=== PATIENT | female | born 1965 | race African-American/Black ===

== ENCOUNTER 2022-08-27 07:48 | Outpatient (REF) | payer OTHER, SELFPAY ==
[2022-08-27 11:28] LABS: Estimated Average Glucose 212 mg/dL
[2022-08-27 12:07] LABS: Alanine Aminotransferase 12 U/L (0-31); Albumin Level 3.8 g/dL (3.5-5.0); Alkaline Phosphatase 84 U/L (39-117); Anion Gap 10 (12-20); Aspartate Amino Transferase 11 U/L (5-31); Bilirubin Total 0.5 mg/dL (0.0-1.0); Blood Urea Nitrogen 14 mg/dL (9-16); Calcium 8.8 mg/dL (8.4-10.2); Carbon Dioxide 29 mmol/L (22-29); Chloride 106 mmol/L (96-108); Cholesterol 87 mg/dL; Estimated Glomerular Filt Rate > 60; Glucose Fasting 270 mg/dL (60-99); HDL Cholesterol 38 mg/dL; LDL Cholesterol Calculated 44 mg/dl; Potassium 4.3 mmol/L (3.3-5.1); Sodium 141 mmol/L (135-145); Total Protein 6.6 g/dL (6.5-8.0); Triglycerides 29 mg/dL
[2022-08-27 12:12] LABS: TSH reflex Free T4 1.86 uIU/mL (0.32-4.0)
[2022-08-27 12:16] LABS: Creatinine Urine 76.52 mg/dL; Microalbum/Creatinine Ratio Ur 16.9 ug/mg cr
== END 2022-08-27 07:49 | disposition home or self-care (01) ==
LOC: HO.HMGCLDS 07:48
PROVIDERS: PCP Internal Medicine; Visit Provider Internal Medicine
DX: E11.9 Type 2 diabetes mellitus without complications (principal); I10 Essential (primary) hypertension
CPT/HCPCS: 36415; 80053; 80061; 82043; 83036; 84443

== ENCOUNTER 2022-10-19 09:11 | Outpatient (AMB) | payer OTHER, SELFPAY ==
[2022-10-19 09:22] VITALS: BP 122/78; PULSE 102; O2SAT 97; BMI 26.5
--- NOTE | 2022-10-19 09:22 | A.OFFPC_ITS ---
Vital Signs 10/19/22 09:22 Height 5 ft 5 in Weight 159 lb BMI 26.5 BP 122/78 Blood Pressure Location Rt brachial Position Sitting Pulse 102 H Pulse Source Pulse Oximeter Pulse Oximetry (%) 97 Oxygen Delivery Method Room Air Intake Visit Reasons: Annual PE Intake Note: Pt is here today for PE. Pt states that she would like to discuss sleeping medication Ropinirole . Allergies No Known Allergies Allergy (Verified 10/19/22 09:31) Medication List - Last Reconciled 10/19/22 by Susana Rodas MD amlodipine 10 mg PO DAILY atorvastatin 10 mg PO BEDTIME cholecalciferol (vitamin D3) 25 mcg PO DAILY hydrochlorothiazide 25 mg PO DAILY insulin aspart U-100 (Novolog FlexPen U-100 Insulin aspart) 6 units subcut TID insulin glargine (Lantus Solostar U-100 Insulin) 22 units subcut BEDTIME latanoprost 0.005% 1 drp ophthalmic (eye) DAILY lisinopril 10 mg PO DAILY lisinopril 40 mg PO DAILY metformin ER 1,500 mg PO DAILY multivit-iron sulf-folic acid 15 mg iron- 400 mcg (Tab-A-Sania Multivitamin w- iron) 0 tabs PO multivitamin 1 tab PO DAILY nicotine (polacrilex) mg PO timolol 0.5% 1 drp ophthalmic (eye) BID Tobacco use date assessed: 10/19/22 Dental Screening Dental Screen Date: 10/19/22 Did you have a dental visit in the last 12 months?: Yes Did you have a dental problem in the last 6 months where you did not have access to dental care?: No Was dental information given to patient?: Patient has dentist HPI Annual PE HPI Details Pt presents for PE. Pt f/u with Endo at [facility] q 3 months of insulin- dependent diabetes. Hypertension hyperlipidemia are controlled on current medications. Patient complains of chronic insomnia and grieving her son. Patient denies depression. She is looking for a counselor to restart therapy. PFSH Family History Mother Schizophrenia Mental health disorder Diabetes Hypertension Father No problems noted. Social History Household Members Other:: disable for lower back problems, lives alone, Housing: Apartment Patient Tobacco Use Status: Current everyday Tobacco user Tobacco use type: Cigarette Cigarettes Per Day: 10 e-Cigarette/Vaping Use: Never Used service: No Current occupational status: unemployed Cognitive needs: No Hearing needs: No Vision needs: Yes Questionnaire PHQ-9 Over the last 2 weeks, how often have you been bothered by any of the following problems? 1. Little interest or pleasure in doing things: not at all 2. Feeling down, depressed, or hopeless: not at all 3. Trouble falling or staying asleep, or sleeping too much: nearly every day 4. Feeling tired or having little energy: several days 5. Poor appetite or overeating: not at all 6. Feeling bad about yourself - or that you are a failure or have let yourself or your family down: not at all 7. Trouble concentrating on things, such as reading the newspaper or watching television: not at all 8. Moving or speaking so slowly that other people could have noticed. Or the opposite - being so fidgety or restless that you have been moving around a lot more than usual: not at all 9. Thoughts that you would be better off or of hurting yourself in some way: not at all Total score: 4 Depression Screening Interpretation: Negative Source: Developed by Drs. Elia Oconnor, Mariaa Siddiqui, Timo Haile and colleagues, with an educational trevor from [employer]. Thrive Questionnaire Date Thrive assessed: 10/19/22 I am a: Patient What is your living situation today?: I have a steady place to live Within the past 12 months, did the food you bought not last and you didn't have the money to get more?: Never true Within the past 12 months, did you worry whether your food would run out before you got money to buy more?: Never true Do you have trouble paying for medicines?: No Do you have trouble getting transportation to medical appointments?: No Do you have trouble paying your heating and electricity bill?: No Do you have trouble taking care of your child, family member or friend?: No Do you have trouble with day-to-day activities such as bathing, preparing meals, shopping, managing finances, etc.?: No Are you currently unemployed and looking for a job?: No Are you interested in more education?: No AUDIT C Alcohol Use Questionnaire (AUDIT-C) 1. How often do you have a drink containing alcohol?: Never 3. How often do you have six or more drinks on one occasion?: Never Total Score: 0 CONSTANCE-7 AMB Questionnaire CONSTANCE-7 Date CONSTANCE - 7 assessed: 10/19/22 Feeling nervous, anxious, or on edge: 0 = Not at all Not being able to stop or control worryin = Not at all Worrying too much about different things: 0 = Not at all Trouble relaxin = Not at all Being so restless that it is hard to sit still: 0 = Not at all Becoming easily annoyed or irritable: 0 = Not at all Feeling afraid as if something awful might happen: 0 = Not at all Total CONSTANCE-7 score (0-4 normal; 5-9 mild; 10-14 moderate; 15-21 severe): 0 Source: Developed by Drs. Elia Oconnor, Mariaa Siddiqui, Timo Haile and colleagues, with an educational trevor from [employer]. Review of Systems Const All systems reviewed & are unremarkable except as noted in HPI and below Reports no additional complaints Eyes Reports no additional complaints ENT Reports no additional complaints Card Reports no additional complaints Resp Reports no additional complaints GI Reports no additional complaints Reports no additional complaints Physical exam (Primary Care) Vital Signs: Last Vital Signs Pulse 102 H 10/19/22 09:22 BP 122/78 10/19/22 09:22 Pulse Ox 97 10/19/22 09:22 Oxygen Delivery Method Room Air 10/19/22 09:22 BMI result Body Mass Index 26.5 Tobacco/Smoking Status: Tobacco use Status Tobacco use date assessed 10/19/22 10/19/22 09:34 Patient Tobacco Use Status Current everyday Tobacco 10/19/22 09:34 Tobacco use type Cigarette 10/19/22 09:34 e-Cigarette/Vaping Use Never Used 10/19/22 09:34 PHQ-9: PHQ-9 Score PHQ-9: Total score 4 10/19/22 09:34 Depression Screening Interpretation: Negative Thrive Assessment: Date of Thrive Assessment Date Thrive assessed 10/19/22 10/19/22 09:34 Const General: no acute distress HENMT Head: Yes normal to inspection Ears: hearing grossly normal bilaterally General nose exam: Normal external nose present Face and sinus: Yes normal facial exam Mouth: Normal oral and palatal mucosa present Throat: Yes posterior oropharynx normal Eyes General: appearance normal, both eyes and all related structures Neck Neck: Yes no lymphadenopathy and Yes supple Resp Effort & Inspection: normal respiratory effort Auscultation: clear to auscultation bilaterally Cardio Rhythm: regular rhythm Heart sounds: S1 normal heart sound present and S2 normal heart sound present GI Inspection: Yes normal to inspection Palpation (GI): Soft to palpation Percussion: Yes normal to percussion Auscultation: normal bowel sounds Assessment and Plan Assessment & Plan (1) Hx of screening mammography: Comment: 2022 Code(s): Z92.89 - Personal history of other medical treatment (2) Hx of colonoscopy: Comment: 2018 Code(s): Z98.890 - Other specified postprocedural states (3) DM type 2 (diabetes mellitus, type 2): Comment: f/u Endo [facility] Code(s): E11.9 - Type 2 diabetes mellitus without complications Plan: Follow-up with an [facility] Endocrinology every 3 months (4) Annual physical exam: Code(s): Z00.00 - Encounter for general adult medical examination without abnormal findings Plan: Well-balanced and regular physical activity discussed with the patient (5) Insomnia: Code(s): G47.00 - Insomnia, unspecified Plan: Sleep hygiene discussed with the patient. She was advised to schedule appointment with a counselor. Hydroxyzine 10 mg for 7 days is prescribed. patient was advised against taking sleeping aids chronically to prevent dependence and tolerance Orders: Referrals [facility] Referral Z00.00 - Encounter for general adult medical examination without abnormal findings Medications: New hydroxyzine HCl 10 mg PO BEDTIME 7 tabs 0RF Coding Level of Care Code Est Pt Prev Care 40-64y([address]063) Diagnoses Hx of screening mammography Z92.89 Hx of colonoscopy Z98.890 DM type 2 (diabetes mellitus, type 2) E11.9 Annual physical exam Z00.00 Insomnia G47.00
== END 2022-10-19 10:53 | disposition home or self-care (01) ==
PROVIDERS: PCP Internal Medicine; Visit Provider Internal Medicine
DX: Z92.89 Personal history of other medical treatment (principal); Z98.890 Other specified postprocedural states; E11.9 Type 2 diabetes mellitus without complications; Z00.00 Encounter for general adult medical examination without abnormal findings; G47.00 Insomnia, unspecified
CPT/HCPCS: 99396

== ENCOUNTER 2023-01-25 11:00 | Outpatient (AMB) | payer OTHER, SELFPAY ==
--- OUTSIDE RECORDS SUMMARY | 2023-01-25 11:01 | XMS_ITS | Continuity of Care Document ---
Author Name Unknown Organization [facility] Address [address] [place] [address]- Care Team Providers Care Pen Maker Name Role Phone Sreekanth WOODY, Jeanine Rivas Primary Care Physician [phone] Encounter [facility] Date(s): 07/04/21 - 08/03/[address] [address]- Allergies, Adverse Reactions, Alerts Substance Reaction Severity Status insulin lispro patient reports she is allergic to insulin lispro (humalog) and can only take insulin aspart (novolog) A ctive Immunizations Given and Recorded Vaccine Date Status Refusal Reason influenza virus vaccine, inactivated 03/08/21 Give n influenza virus vaccine, inactivated 12/03/18 Alex rded influenza virus vaccine, inactivated 02/22/16 Give n influenza virus vaccine, inactivated 01/19/15 Give n influenza virus vaccine, inactivated 02/01/14 Give n influenza virus vaccine, inactivated 1 01/16/11 Gi paul SARS-CoV-2 (COVID-19) mRNA BNT-162b2 vac 03/08/21 Given SARS-CoV-2 (COVID-19) mRNA BNT-162b2 vac 05/03/20 Recorded tetanus/diphtheria/pertussis, acel(Tdap) 12/03/18 Recorded Pneumovax 23 (oldterm) 02/01/14 Given influ virus vac, H1N1, inactive(oldterm) 2 07/20/09 Given Tet/Diphth/Acel, Pertussis (oldterm) 3 09/13/08 Gi paul Influenza Vaccine (oldterm) 03/11/03 Given Influenza Vaccine (oldterm) 07/06/00 Given Influenza Vaccine (oldterm) 04/01/00 Given Pneumococcal Poly (PPV23) (oldterm) 03/11/03 Given tetanus-diphtheria toxoids (Td) 04/20/98 Given 1Admin Note: vis given 10/17/10 2Admin Note: VIS GIVEN [id number] 3Admin Note: VIS GIVEN Medications Alcohol Pads See Instructions, # 100 each, Refills 11, Tot. Refills 11, Maintenance, E11.9use to wipe finger forchecking blood sugar, 08/18/20 12:59:00 EDT, Compound, 165.1, cm, 08/02/20 9:45:00 EDT, Height, 78.6, kg, 06/15/20 10:01:00 EDT, Dry Weight Start Date: 08/18/20 Status: Ordered amLODIPine 10 mg oral tablet 10 mg, 1, tablet, By Mouth, Daily, for blood pressure duplicate from 07/08/21, # 90 tablet, Refills 3, Tot. Refills 3, Maintenance, 08/02/21 9:37:00 EDT, Route to Pharmacy Electronically, [facility], 165.1, cm, 06/21/21 11:05:00 EDT, H... Start Date: 08/02/21 Status: Ordered atorvastatin 10 mg oral tablet 1 tablet = 10 mg, By Mouth, Daily, duplicate from 07/08/21, # 90 tablet, 3 Refills, Maintenance, 08/02/21 9:39:00 EDT, [facility], Partial fill upon patient request if the prescriptionis for a schedule II opioid drug., 165.1, cm, 06/21... Start Date: 08/02/21 Status: Ordered cholecalciferol 1000 intl units oral tablet 1 tablet = 1,000 International_Units, By Mouth, Daily, vitamin D take with food, # 90 tablet, 1 Refills, Maintenance, 03/01/20 12:52:00 EST, Tablet, [id number], 165, cm, 02/13/20 11:43:00 EST, Height, 75.3, kg, 02/08/20 14:42:00 EST,... Start Date: 03/01/20 Stop Date: 03/31/20 Status: Ordered Freestyle Lite Lancets See Instructions, # 150 each, Refills 11, Tot. Refills 11, Maintenance, Use to monitor blood glucose levels 4x per day. E11.9, 08/02/21 9:39:00 EDT, duplicate from 07/11/21, Supply, 165.1, cm, 06/21/21 11:05:00 EDT, Height, 78.6, kg, 06/15/20 10:01:00... Start Date: 08/02/21 Status: Ordered Freestyle Lite Monitor See Instructions, # 1 each, Maintenance, E11.9 IDDM check 3x/day, 02/14/21 9:01:00 EST, Compound, 165.1, cm, 01/24/21 13:37:00 EDT, Height, 78.6, kg, 06/15/20 10:01:00 EDT, Dry Weight Start Date: 02/14/21 Status: Ordered Freestyle Lite Test Strips See Instructions, # 150 each, Refills 11, Tot. Refills 11, Maintenance, Use to monitor blood glucose levels 4x per day. E11.9, 08/02/21 9:40:00 EDT, duplicate from 07/11/21, Supply, 165.1, cm, 06/21/21 11:05:00 EDT, Height, 78.6, kg, 06/15/20 10:01:00... Start Date: 08/02/21 Status: Ordered hydrochlorothiazide 25 mg oral tablet 25 mg, 1, tablet, By Mouth, Daily, for blood pressure duplicate from 07/08/21, # 90 tablet, Refills 3, Tot. Refills 3, Maintenance, 08/02/21 9:40:00 EDT, Route to Pharmacy Electronically, [facility], 165.1, cm, 06/21/21 11:05:00 EDT, H... Start Date: 08/02/21 Status: Ordered Insulin Syringe, BD Ultra-Fine 0.5 cc 30 G x 12.7 mm (1/2in) See Instructions, # 50 each, Refills 11, Tot. Refills 11, Maintenance, E11.9 use for lantus qhs (this is pt's PREFERRED SIZE of needle), 04/24/17 20:27:07, Compound Start Date: 04/24/17 Status: Ordered Lantus Solostar Pen 100 units/mL subcutaneous solution = 22 units, Subcutaneous Injection, Daily at bedtime, # 15 mL, 11 Refills, Maintenance, 08/02/21 21:27:00 EDT, [facility]., 165.1, cm, 06/21/21 11:05:00 EDT, Height, 78.6, kg, 06/15/2109:01:00 EDT, Dry Weight Start Date: 08/02/21 Stop Date: 07/28/22 Status: Ordered latanoprost 0.005% ophthalmic solution 1 drops, Eyes, Both, Daily at bedtime, for 30 days, please obtain further refills from your framing specialist, # 2.5 mL, 1 Refills, Physician Stop 10/02/21 9:03:00 EDT, 08/03/21 9:03:00 EDT, [facility], 1 drops Eyes, Both Daily at bedtime... Start Date: 08/03/21 Stop Date: 10/02/21 Status: Ordered lisinopril 40 mg oral tablet 1 tablet = 40 mg, By Mouth, Daily, for blood pressure, # 90 tablet, 3 Refills, Maintenance, 07/08/21 10:26:00 EDT, [facility]/pharmacy #[id number], 165.1, cm, 06/21/21 11:05:00 EDT, Height, 78.6, kg, 06/15/20 10:01:00 EDT, Dry Weight Start Date: 07/08/21 Status: Ordered metFORMIN 750 mg oral tablet, extended release 2 tablet, By Mouth, Daily, duplicate from 07/08/21, # 180 tablet, 3 Refills, Maintenance, 08/02/21 9:42:00 EDT, [facility]., 165.1, cm, 06/21/21 11:05:00 EDT, Height, 78.6, kg, 06/15/2109:01:00 EDT, Dry Weight Start Date: 08/02/21 Status: Ordered NovoLOG FlexPen 100 units/mL subcutaneous solution See Instructions, Subcutaneous Injection, Use as directed for Diabetes mellitus type 2, per slidingscale. (Max Dose = 50 units/day), # 30 mL, 11 Refills, Maintenance, 08/02/21 21:26:00 EDT, [facility], 165.1, cm, 06/21/21 11:05:00 EDT... Start Date: 08/02/21 Stop Date: 07/28/22 Status: Ordered Pen [place], 31 G x 8 mm BD Ultra Fine III See Instructions, # 200 each, Refills 11, Tot. Refills 11, Maintenance, use up to 4 times daily as directed for Type 2 Diabetes Mellitus. E11.9, 08/18/20 17:03:00 EDT, Supply, 165.1, cm, 08/02/20 9:45:00 EDT, Height, 78.6, kg, 06/15/20 10:01:00 EDT, D... Start Date: 08/18/20 Stop Date: 08/13/21 Status: Ordered Catavolt COVID-19 Vaccine 30 mcg/0.3 mL preservative-free intramuscular suspension 0.3 mL = 30 mcg, Intramuscular, Once, # 0.3 mL, 0 Refills, Soft Stop, 12/19/20 12:35:00 EDT, Suspension, Partial fill upon patient request if the prescription is for a schedule II opioid drug. Start Date: 12/19/20 Status: Ordered Rollator Rollator, See Instructions, # 1 each, Refills 0, Tot. Refills 0, Maintenance, ICD 10: M54.5, 05/29/21 9:22:00 EST, Supply Start Date: 05/29/21 Status: Ordered Timolol Maleate (Eqv-Timoptic) 0.5% ophthalmic solution 1 drops, Eyes, Both, 2 times a day, please get further refills from your framing specialist duplicate from 07/08/21, # 2.5 mL, 1 Refills, Maintenance, 08/02/21 9:42:00 EDT, [facility] upon patient request if t... Start Date: 08/02/21 Status: Ordered Tylenol 8 HR Arthritis Pain 650 mg oral tablet, extended release 2 tablet = 1,300 mg, By Mouth, Every 8 hours, PRN Pain , Mild, # 100 tablet, 0 Refills, Maintenance, 12/05/20 14:59:00 EDT, ER Tablet, [facility]/pharmacy #[id number], Partial fill upon patient request if the prescription is for a schedule II opioid drug., 165.1,... Start Date: 12/05/20 Status: Ordered VITAMIN D3 1,000 UNIT SOFTGEL VITAMIN D3 1,000 UNIT SOFTGEL, 1, capsule, By Mouth, Daily, # 30 capsule, 7 Refills, TAKE WITH FOOD, 165.1, cm, 12/19/20 12:24:00 EDT, Height, 78.6, kg, 06/15/20 10:01:00 EDT, Dry Weight Start Date: 12/28/20 Status: Ordered Problem List Condition Effective Dates Status Health Status Inform ant Possible exposure to STD(Confirmed) Active Background diabetic retinopathy(Confirmed) 1 12/14/02 Active Chronic low back pain(Confirmed) Active Depression(Confirmed) Active Diabetes mellitus type 2(Confirmed) Active Glaucoma(Confirmed) Active Abdominal hernia without obs truction and without gangrene(Confirmed) Active Hernia of abdominal wall(Confirmed) Active History of syphilis; [place] [facility] confirms bicillin x 3 01/2014(Confirmed) Active Hypertension(Confirmed) Active Onychomycosis(Confirmed) Active Overweight(Confirmed) Active Health care maintenance(Confirmed) Active Physical exam(Confirmed) Active Current smoker(Confirmed) Active 1was seen by Dr. Devon Mccormack at [facility] Social History Social History Type Response Smoking Status 10 or more cigarette s (1/2 pack or more)/day in last 30 days entered on: 01/26/20 Sex
--- OUTSIDE RECORDS SUMMARY | 2023-01-25 11:01 | XMS_ITS | Continuity of Care Document ---
Author Name Unknown Organization [facility] Address [address] [place] [address]- Care Team Providers Care Corrosion Control Engineer Name Role Phone Nerissa Bonner MD Primary Care Physician Encounter [facility] [place] Date(s): 10/28/19 - 11/04/19 [facility] [address] [place] [address]- [facility] Encounter Diagnosis Physical exam(Discharge Diagnosis) - 10/28/19 Hypertension(Discharge Diagnosis) - 10/28/19 History of UTI(Discharge Diagnosis) - 10/28/19 Attending Physician: Nerissa Bonner MD Allergies, Adverse Reactions, Alerts Substance Reaction Severity Status NKA Active Immunizations Given and Recorded Vaccine Date Status Refusal Reason influenza virus vaccine, inactivated 02/22/16 Give n influenza virus vaccine, inactivated 01/19/15 Give n influenza virus vaccine, inactivated 02/01/14 Give n influenza virus vaccine, inactivated 1 01/16/11 Gi paul Pneumovax 23 (oldterm) 02/01/14 Given influ virus vac, H1N1, inactive(oldterm) 2 07/20/09 Given Tet/Diphth/Acel, Pertussis (oldterm) 3 09/13/08 Gi paul Influenza Vaccine (oldterm) 03/11/03 Given Influenza Vaccine (oldterm) 07/06/00 Given Influenza Vaccine (oldterm) 04/01/00 Given Pneumococcal Poly (PPV23) (oldterm) 03/11/03 Given tetanus-diphtheria toxoids (Td) 04/20/98 Given 1Admin Note: vis given 10/17/10 2Admin Note: VIS GIVEN [id number] 3Admin Note: VIS GIVEN Medications Alcohol Pads See Instructions, # 100 each, Refills 11, Tot. Refills 11, Maintenance, E11.9, 07/10/17 13:55:10 EDT, Compound Start Date: 07/10/17 Status: Ordered amLODIPine 10 mg oral tablet 10 mg, 1, tablet, By Mouth, Daily, for blood pressure, # 90 tablet, Refills 3, Tot. Refills 3, Maintenance, 07/29/19 12:59:00 EDT, Route to Pharmacy Electronically, [facility] #[id number], 165, cm, 07/29/19 12:25:00 EDT, Height, 72.7, kg, 03/30/19... Start Date: 07/29/19 Status: Ordered atorvastatin 20 mg oral tablet 1 tablet = 20 mg, By Mouth, Daily, # 90 tablet, 3 Refills, Maintenance, 07/29/19 12:59:00 EDT, Tablet, [id number], 165, cm, 07/29/19 12:25:00 EDT, Height, 72.7, kg, 03/30/19 16:51:00 EST, Dry Weight Start Date: 07/29/19 Status: Ordered cholecalciferol 1000 intl units oral tablet 1 tablet = 1,000 International_Units, By Mouth, Daily, vitamin D take with food, # 30 tablet, 1 Refills, Maintenance, 05/09/18 11:41:23 EST, Tablet Start Date: 05/09/18 Stop Date: 07/08/18 Status: Ordered Freestyle Lite Monitor See Instructions, # 1 each, Maintenance, E11.9 IDDM check 3x/day, 04/11/16 13:42:39, Compound Start Date: 04/11/16 Status: Ordered glucose 4 gm oral tablet, chewable 4 tablet = 16 Gm, Chew, Once, PRN for low blood sugar, may repeat in 15 to 20 minutes if blood sugar still < 60 mg/dL, # 50 tablet, 5 Refills, Soft Stop, 04/27/15 12:47:29, Chew Tablet, 4 tablet Chew Once,PRN:for low blood sugar,Instr:may repeat in 15... Start Date: 04/27/15 Status: Ordered hydrochlorothiazide 25 mg oral tablet 25 mg, 1, tablet, By Mouth, Daily, for blood pressure, # 90 tablet, Refills 3, Tot. Refills 3, Maintenance, 07/29/19 13:00:00 EDT, Route to Pharmacy Electronically, [facility][id number], 165, cm, 07/29/19 12:25:00 EDT, Height, 72.7, kg, 03/30/19... Start Date: 07/29/19 Status: Ordered Insulin Syringe, BD Ultra-Fine 0.5 cc 30 G x 12.7 mm (1/2in) See Instructions, # 50 each, Refills 11, Tot. Refills 11, Maintenance, E11.9 use for lantus qhs (this is pt's PREFERRED SIZE of needle), 04/24/17 20:27:07, Compound Start Date: 04/24/17 Status: Ordered Lantus 100 u/ml subcutaneous solution = 12 units, Subcutaneous Injection, Daily, pls ask pt to call our health center to reestablish careif she is staying locally, # 10 mL, 1 Refills, Maintenance, 07/14/18 15:07:23 EDT, Solution Start Date: 07/14/18 Stop Date: 09/12/18 Status: Ordered Lantus Solostar Pen 100 units/mL subcutaneous solution = 18 units, Subcutaneous Injection, Daily at bedtime, # 3 each, 3 Refills, Maintenance, 07/29/19 13:05:00 EDT, Solution, [id number], 165, cm, 07/29/19 12:25:00 EDT, Height, 72.7, kg, 03/30/19 16:51:00 EST, Dry Weight Start Date: 07/29/19 Stop Date: 11/26/19 Status: Ordered latanoprost 0.005% ophthalmic solution 1 drops, Eyes, Both, Daily at bedtime, dr miguel Start Date: 04/11/16 Status: Ordered lisinopril 40 mg oral tablet 1 tablet = 40 mg, By Mouth, Daily, for blood pressure, # 90 tablet, 3 Refills, Maintenance, 07/29/19 13:01:00 EDT, [facility] #[id number], 165, cm, 07/29/19 12:25:00 EDT, Height, 72.7, kg, 03/30/19 16:51:00 EST, Dry Weight Start Date: 07/29/19 Status: Ordered metFORMIN 750 mg oral tablet, extended release 2 tablet = 1,500 mg, By Mouth, Daily, pls ask pt to call our health center to reestablish care if she is staying locally, # 180 tablet, 3 Refills, Maintenance, 07/29/19 13:01:00 EDT, ER Tablet, [id number], 165, cm, 07/29/19 12:25:00 ED... Start Date: 07/29/19 Status: Ordered NovoLOG FlexPen 100 units/mL subcutaneous solution See Instructions, Subcutaneous Injection, Use as directed for Diabetes mellitus type 2. (Max Dose =50 units/day), # 30 mL, 5 Refills, Maintenance, 08/04/19 17:01:00 EDT, [facility] #[id number], 165, cm, 07/29/19 12:25:00 EDT, Height, 72.7, kg, 01... Start Date: 08/04/19 Stop Date: 01/31/20 Status: Ordered Pen [place], 31 G x 8 mm BD Ultra Fine III See Instructions, # 200 each, Refills 11, Tot. Refills 11, Maintenance, use up to 4 times daily as directed for Type 2 Diabetes Mellitus, 08/04/19 17:02:00 EDT, Supply, 165, cm, 07/29/19 12:25:00 EDT, Height, 72.7, kg, 03/30/19 16:51:00 EST, Dry Weight Start Date: 08/04/19 Stop Date: 07/29/20 Status: Ordered Problem List Condition Effective Dates Status Health Status Inform ant Background diabetic retinopathy(Confirmed) 1 12/14/02 Active Depression(Confirmed) Active Diabetes mellitus type 2(Confirmed) Active Glaucoma(Confirmed) Active Hernia of abdominal wall(Confirmed) Active History of syphilis; NELIDA DP confirms bicillin x 3 01/2014(Confirmed) Active Hypertension(Confirmed) Active Health care maintenance(Confirmed) Active Physical exam(Confirmed) Active 1was seen by Dr. Devon Mccormack at [facility] Diagnosis Diagnosis Type Effective Dates Health Status Clinical Service Informant Physical exam Discharge Diagnosis 10/28/19 Hypertension Discharge Diagnosis 10/28/19 History of UTI 1 Discharge Diagnosis 10/28/19 03:01 pm - Nerissa Bonner MD in mid-September at [facility] ED Vital Signs Most recent to oldest [Reference Range]: 1 Height 165 cm (10/28/19 2:10 PM) Weight 74.0 kg (10/28/19 2:10 PM) Oxygen Saturation [94-100 %] 100 % (10/28/19 2:10 PM) Pulse Rate [55-90 bpm] 92 bpm *H* (10/28/19 2:10 PM) Body Mass Index [18.5-24.99] 27.18 *H* (10/28/19 2:10 PM) Blood Pressure [90-138/55-84 mm Hg] 150/ 94mm Hg *H* (10/28/19 2:10 PM) Blood pressure sites Arm, left (10/28/19 2:10 PM) Weight Obtained Via Standing scale (10/28/19 2:10 PM) Social History Social History Type Response Tobacco Use: 4 or less cigar ettes(less than 1/4 pack)/day in last 30 days. Sex
--- OUTSIDE RECORDS SUMMARY | 2023-01-25 11:01 | XMS_ITS | Continuity of Care Document ---
Author Name Unknown Organization [facility] Address [address] [place] [id number]- Care Team Providers Care Blintze Roller Name Role Phone Belle Dos Santos NP Primary Care Physician Encounter [facility] [place] Date(s): 06/06/20 - 07/06/20 [facility] [address] [place] [id number]- Attending Physician: Dayanara Lowery Admitting Physician: Dayanara Lowery Referring Physician: AdmtrDayanara Allergies, Adverse Reactions, Alerts Substance Reaction Severity Status NKA Active Immunizations Given and Recorded Vaccine Date Status Refusal Reason influenza virus vaccine, inactivated 02/22/16 Give n influenza virus vaccine, inactivated 01/19/15 Give n influenza virus vaccine, inactivated 02/01/14 Give n influenza virus vaccine, inactivated 1 01/16/11 Gi palu Pneumovax 23 (oldterm) 02/01/14 Given influ virus vac, H1N1, inactive(oldterm) 2 07/20/09 Given Tet/Diphth/Acel, Pertussis (oldterm) 3 09/13/08 Gi paul Influenza Vaccine (oldterm) 03/11/03 Given Influenza Vaccine (oldterm) 07/06/00 Given Influenza Vaccine (oldterm) 04/01/00 Given Pneumococcal Poly (PPV23) (oldterm) 03/11/03 Given tetanus-diphtheria toxoids (Td) 04/20/98 Given 1Admin Note: vis given 10/17/10 2Admin Note: VIS GIVEN [id number] 3Admin Note: VIS GIVEN Medications Alcohol Pads See Instructions, # 100 each, Refills 11, Tot. Refills 11, Maintenance, E11.9use to wipe finger forchecking blood sugar, 12/16/19 13:53:00 EDT, Compound, 165, cm, 12/16/19 13:31:00 EDT, Height, 75, kg, 09/19/19 10:48:00 EDT, Dry Weight Start Date: 12/16/19 Status: Ordered cholecalciferol 1000 intl units oral tablet 1 tablet = 1,000 International_Units, By Mouth, Daily, vitamin D take with food, # 90 tablet, 1 Refills, Maintenance, 03/01/20 12:52:00 EST, Tablet, [facility] #[id number], 165, cm, 02/13/20 11:43:00 EST, Height, 75.3, kg, 02/08/20 14:42:00 EST,... Start Date: 03/01/20 Stop Date: 03/31/20 Status: Ordered Freestyle Lancets See Instructions, # 150 each, Refills 6, Tot. Refills 6, Maintenance, use to check blood sugar 4 times per day, 12/16/19 13:52:00 EDT, Compound, 165, cm, 12/16/19 13:31:00 EDT, Height, 75, kg, 09/19/19 10:48:00 EDT, Dry Weight Start Date: 12/16/19 Status: Ordered Freestyle Lite Monitor See Instructions, # 1 each, Maintenance, E11.9 IDDM check 3x/day, 04/11/16 13:42:39, Compound Start Date: 04/11/16 Status: Ordered Freestyle Lite Test Strips See Instructions, # 150 each, Refills 11, Tot. Refills 11, Maintenance, Use to monitor blood glucose levels 4x per day. E11.9, 01/20/20 16:07:00 EDT, Supply, 165, cm, 01/04/20 14:42:00 EDT, Height, 73.5, kg, 01/04/20 14:42:00 EDT, Dry Weight Start Date: 01/20/20 Status: Ordered Insulin Syringe, BD Ultra-Fine 0.5 cc 30 G x 12.7 mm (1/2in) See Instructions, # 50 each, Refills 11, Tot. Refills 11, Maintenance, E11.9 use for lantus qhs (this is pt's PREFERRED SIZE of needle), 04/24/17 20:27:07, Compound Start Date: 04/24/17 Status: Ordered Lantus Solostar Pen 100 units/mL subcutaneous solution = 22 units, Subcutaneous Injection, Daily at bedtime, Dosage increased on 02/08/2020, # 3 each, 3 Refills, Maintenance, 03/01/20 16:23:00 EST, Solution, [id number], 165, cm, 02/13/20 11:43:00 EST, Height, 75.3, kg, 02/08/20 14:42:00 ES... Start Date: 03/01/20 Stop Date: 06/29/20 Status: Ordered latanoprost 0.005% ophthalmic solution 1 drops, Eyes, Both, Daily at bedtime, dr miguel Start Date: 04/11/16 Status: Ordered metFORMIN 750 mg oral tablet, extended release 2 tablet = 1,500 mg, By Mouth, Daily, pls ask pt to call our health center to reestablish care if she is staying locally, # 180 tablet, 3 Refills, Maintenance, 07/29/19 13:01:00 EDT, ER Tablet, [facility][id number], 165, cm, 07/29/19 12:25:00 ED... Start Date: 07/29/19 Status: Ordered NovoLOG FlexPen 100 units/mL subcutaneous solution See Instructions, Subcutaneous Injection, Use as directed for Diabetes mellitus type 2. (Max Dose =50 units/day), # 30 mL, 5 Refills, Maintenance, 08/04/19 17:01:00 EDT, [id number], 165, cm, 07/29/19 12:25:00 EDT, Height, 72.7, kg, 01... Start Date: 08/04/19 Stop Date: 01/31/20 Status: Ordered NovoLog Inj See Instructions, Subcutaneous Infusion 3 times a day before meals, 0 Refills, Maintenance, 05/13/20 17:22:00 EST, Partial fill upon patient request if the prescription is for a schedule II opioid drug. Start Date: 05/13/20 Status: Ordered Pen [place], 31 G x 8 mm BD Ultra Fine III See Instructions, # 200 each, Refills 11, Tot. Refills 11, Maintenance, use up to 4 times daily as directed for Type 2 Diabetes Mellitus, 12/16/19 13:54:00 EDT, Supply, 165, cm, 12/16/19 13:31:00 EDT, Height, 75, kg, 09/19/19 10:48:00 EDT, Dry Weight Start Date: 12/16/19 Stop Date: 12/10/20 Status: Ordered Problem List Condition Effective Dates Status Health Status Inform ant Background diabetic retinopathy(Confirmed) 1 12/14/02 Active Depression(Confirmed) Active Diabetes mellitus type 2(Confirmed) Active Glaucoma(Confirmed) Active Abdominal hernia without obs truction and without gangrene(Confirmed) Active Hernia of abdominal wall(Confirmed) Active History of syphilis; [place] DP confirms bicillin x 3 01/2014(Confirmed) Active Hypertension(Confirmed) Active Onychomycosis(Confirmed) Active Overweight(Confirmed) Active Health care maintenance(Confirmed) Active Physical exam(Confirmed) Active Current smoker(Confirmed) Active 1was seen by Dr. Devon Mccormack at [facility] Social History Social History Type Response Smoking Status 10 or more cigarette s (1/2 pack or more)/day in last 30 days entered on: 01/26/20 Sex
--- OUTSIDE RECORDS SUMMARY | 2023-01-25 11:02 | XMS_ITS | Continuity of Care Document ---
Author Name Unknown Organization [facility] Address [address] [place] [address]- Care Team Providers Care Furniture Detailer Name Role Phone Sreekanth WOODY, Jeanine Rivas Primary Care Physician Encounter [facility] Date(s): 05/17/21 - 06/16/[address] [address]- Allergies, Adverse Reactions, Alerts No Known Allergies Immunizations Given and Recorded Vaccine Date Status [...] vis given 10/17/10 2Admin Note: VIS GIVEN [id number] 3Admin Note: VIS GIVEN Medications Alcohol Pads See Instructions, # 100 each, Refills 11, Tot. Refills 11, Maintenance, E11.9use to wipe finger forchecking blood sugar, 08/18/20 12:59:00 EDT, Compound, 165.1, cm, 08/02/20 9:45:00 EDT, Height, 78.6, kg, 06/15/20 10:01:00 EDT, Dry Weight Start Date: 08/18/20 Status: Ordered atorvastatin 10 mg oral tablet 1 tablet = 10 mg, By Mouth, Daily, # 30 tablet, 6 Refills, Maintenance, 12/07/20 13:42:00 EDT, [facility]/pharmacy #[id number], Partial fill upon patient request if the prescription is for a schedule II opioid drug., 165.1, cm, 12/05/20 13:59:00 EDT, Height, 78.6,... Start Date: 12/07/20 Status: Ordered cholecalciferol 1000 intl units oral tablet 1 tablet = 1,000 International_Units, By Mouth, Daily, vitamin D take with food, # 90 tablet, 1 Refills, Maintenance, 03/01/20 12:52:00 EST, Tablet, [id number], 165, cm, 02/13/20 11:43:00 EST, Height, 75.3, kg, 02/08/20 14:42:00 EST,... Start Date: 03/01/20 Stop Date: 03/31/20 Status: Ordered duloxetine 30 mg oral enteric coated capsule 1 capsule, By Mouth, Daily, DO NOT CRUSH OR CHEW. *., # 30 capsule, 8 Refills, [id number], 165.1, cm, 12/19/20 12:24:00 EDT, Height, 78.6, kg, 06/15/20 10:01:00 EDT, Dry Weight Start Date: 01/18/21 Status: Ordered Freestyle Lancets See Instructions, # [...] Strips See Instructions, # 150 each, Refills 5, Tot. Refills 5, Maintenance, Use to monitor blood glucose levels 4x per day. E11.9, 01/30/21 7:44:00 EST, Supply, 165.1, cm, 01/24/21 13:37:00 EDT, Height, 78.6, kg, 06/15/20 10:01:00 EDT, Dry Weight Start Date: 01/30/21 Status: Ordered Insulin Syringe, BD Ultra-Fine 0.5 cc 30 G x 12.7 mm (1/2in) See Instructions, # 50 each, Refills 11, Tot. Refills 11, Maintenance, E11.9 use for lantus qhs (this is pt's PREFERRED SIZE of needle), 04/24/17 20:27:07, Compound Start Date: 04/24/17 Status: Ordered latanoprost 0.005% ophthalmic solution 1 drops, Eyes, Both, Daily at bedtime, dr migeul Start Date: 04/11/16 Status: Ordered latanoprost 0.005% ophthalmic solution 0 Refills, Maintenance, 02/24/21 10:06:00 EST, Partial fill upon patient request if the prescription is for a schedule II opioid drug. Start Date: 02/24/21 Status: Ordered metFORMIN 750 mg oral tablet, extended release 2 tablet, By Mouth, Daily, # 180 tablet, 1 Refills, Maintenance, 01/15/21 21:42:00 EDT, [facility]/pharmacy #[id number], 165.1, cm, 12/19/20 12:24:00 EDT, Height, 78.6, kg, 06/15/20 10:01:00 EDT, Dry Weight Start Date: 01/15/21 Status: Ordered NovoLOG FlexPen 100 units/mL subcutaneous solution See Instructions, Subcutaneous Injection, Use as directed for Diabetes mellitus type 2. (Max Dose =50 units/day), # 30 mL, 4 Refills, Maintenance, 11/14/20 15:34:00 EDT, [facility] #[id number], 165.1, cm, 08/02/20 9:45:00 EDT, Height, 78.6, kg, 06/15/20... Start Date: 11/14/20 Stop Date: 04/13/21 Status: Ordered Pen [place], 31 G x 8 mm BD Ultra Fine III See Instructions, # 200 each, Refills 11, Tot. Refills 11, Maintenance, use up to 4 times daily as directed for Type 2 Diabetes Mellitus. E11.9, 08/18/20 17:03:00 EDT, Supply, 165.1, cm, 08/02/20 9:45:00 EDT, Height, 78.6, kg, 06/15/20 10:01:00 EDT, D... Start Date: 08/18/20 Stop Date: 08/13/21 Status: Ordered [employer] COVID-19 Vaccine 30 mcg/0.3 mL preservative-free intramuscular [...] drops, Eyes, Both, 2 times a day, # 2.5 mL, 11 Refills, Maintenance, 03/27/21 12:17:00 EST, OphthSolution, [facility]/pharmacy #[id number], Partial fill upon patient request if the prescription is for a schedule II opioid drug., 1 drops Eyes, Both 2 times a day... Start Date: 03/27/21 Status: Ordered Tylenol 8 HR Arthritis Pain 650 mg oral tablet, extended release 2 tablet = 1,300 mg, By Mouth, Every 8 hours, PRN Pain , Mild, # 100 tablet, 0 Refills, Maintenance, 12/05/20 14:59:00 EDT, ER Tablet, [facility]/pharmacy #[id number], Partial fill upon patient request if the [...] 1was seen by Dr. Devon Mccormack at [facility] Social History Social History Type Response Smoking Status 10 or more cigarette s (1/2 pack or more)/day in last 30 days entered on: 01/26/20 Sex
--- OUTSIDE RECORDS SUMMARY | 2023-01-25 11:02 | XMS_ITS | Continuity of Care Document ---
Author Name Unknown Organization [facility] Address [address] [place] [address]- Care Team Providers Care Banana Loader Name Role Phone Ha WOODY, Nerissa Wright Primary Care Physician Encounter [facility] [place] Date(s): 08/28/19 - 09/27/[address] [address]- [facility] Attending Physician: Dayanara Lowery Admitting Physician: AdmDayanara zayas Referring Physician: AdmtrDayanara Allergies, Adverse Reactions, Alerts [...] vis given 10/17/10 2Admin Note: VIS GIVEN [id number] 3Admin Note: VIS GIVEN Medications Alcohol Pads See Instructions, # 100 each, Refills 11, Tot. Refills 11, Maintenance, E11.9, 07/10/17 13:55:10 EDT, Compound Start Date: 07/10/17 Status: Ordered amLODIPine 10 mg oral tablet 10 mg, 1, tablet, By Mouth, Daily, for blood pressure, # 90 tablet, Refills 3, Tot. Refills 3, Maintenance, 07/29/19 12:59:00 EDT, Route to Pharmacy Electronically, [facility] #[id number], 165, cm, 07/29/19 12:25:00 EDT, Height, 72.7, kg, 03/30/19... Start Date: 07/29/19 Status: Ordered atorvastatin 20 mg oral tablet 1 tablet = 20 mg, By Mouth, Daily, # 90 tablet, 3 Refills, Maintenance, 07/29/19 12:59:00 EDT, Tablet, [facility] #[id number], 165, cm, 07/29/19 12:25:00 EDT, Height, 72.7, [...] 13:42:39, Compound Start Date: 04/11/16 Status: Ordered glipiZIDE 10 mg oral tablet, extended release 1 tablet = 10 mg, By Mouth, Daily, with breakfast for sugars, # 90 tablet, 3 Refills, Maintenance, 07/29/19 12:59:00 EDT, ER Tablet, [id number], 165, cm, 07/29/19 12:25:00 EDT, Height, 72.7, kg, 03/30/19 16:51:00 EST, Dry Weight Start Date: 07/29/19 Status: Ordered glucose 4 gm oral tablet, [...] 07/29/19 13:00:00 EDT, Route to Pharmacy Electronically, [id number], 165, cm, 07/29/19 12:25:00 EDT, Height, 72.7, [...] 3 Refills, Maintenance, 07/29/19 13:05:00 EDT, [id number], 165, cm, 07/29/19 12:25:00 EDT, Height, 72.7, [...] tablet, 3 Refills, Maintenance, 07/29/19 13:01:00 EDT, [id number], 165, cm, 07/29/19 12:25:00 EDT, Height, 72.7, kg, 03/30/19 16:51:00 EST, Dry Weight Start Date: 07/29/19 Status: Ordered metFORMIN 750 mg oral tablet, extended release 2 tablet = 1,500 mg, By Mouth, Daily, pls ask pt to call our health center to reestablish care if she is staying locally, # 180 tablet, 3 Refills, Maintenance, 07/29/19 13:01:00 EDT, ER Tablet, [id number], 165, cm, 07/29/19 12:25:00 ED... Start Date: 07/29/19 Status: Ordered NovoLOG FlexPen 100 units/mL subcutaneous solution See Instructions, Subcutaneous Injection, Use as directed for Diabetes mellitus type 2. (Max Dose =50 units/day), # 30 mL, 5 Refills, Maintenance, 08/04/19 17:01:00 EDT, [id number], 165, cm, 07/29/19 12:25:00 EDT, Height, 72.7, kg, 01... Start Date: 08/04/19 Stop Date: 01/31/20 Status: Ordered Pen [place], 31 G x 8 mm BD Ultra [...] Active Hypertension(Confirmed) Active Health care maintenance(Confirmed) Active 1was seen by Dr. Devon Mccormack at [facility] Social History Social History Type Response Tobacco Use: 4 or less cigar ettes(less than 1/4 pack)/day in last 30 days. Sex
--- OUTSIDE RECORDS SUMMARY | 2023-01-25 11:02 | XMS_ITS | Continuity of Care Document ---
Author Name Unknown Organization [facility] and Diabetes Address [address] [place] [address]- Care Team Providers Care Planning Intern Name Role Phone Nestor WOODY, Marva Primary Care Physician Encounter [facility] [place] Date(s): 02/21/21 - 03/23/21 [facility] Endocrinology and Diabetes [address], [place] [address] Attending Physician: Admtr, [id number] Admitting Physician: Admtr, Ar8 Referring Physician: Admtr, [id number] Allergies, Adverse Reactions, Alerts Substance Reaction Severity [...] vis given 10/17/10 2Admin Note: VIS GIVEN [id number] 3Admin Note: VIS GIVEN Medications Alcohol Pads [...] tablet, 6 Refills, Maintenance, 12/07/20 13:42:00 EDT, [facility]/pharmacy #[id number], Partial fill upon patient request if the prescription is for a schedule II opioid drug., 165.1, cm, 12/05/20 13:59:00 EDT, Height, 78.6,... Start Date: 12/07/20 Status: Ordered cholecalciferol 1000 intl units oral tablet 1 tablet = 1,000 International_Units, By Mouth, Daily, vitamin D take with food, # 90 tablet, 1 Refills, Maintenance, 03/01/20 12:52:00 EST, Tablet, [id number], 165, cm, 02/13/20 11:43:00 EST, Height, 75.3, kg, 02/08/20 14:42:00 EST,... Start Date: 03/01/20 Stop Date: 03/31/20 Status: Ordered duloxetine 30 mg oral enteric coated capsule 1 capsule, By Mouth, Daily, DO NOT CRUSH OR CHEW. *., # 30 capsule, 8 Refills, [id number], 165.1, cm, 12/19/20 12:24:00 EDT, Height, 78.6, [...] dr miguel Start Date: 04/11/16 Status: Ordered latanoprost 0.005% ophthalmic solution 0 Refills, Maintenance, 02/24/21 10:06:00 EST, Partial fill upon patient request if the prescription is for a schedule II opioid drug. Start Date: 02/24/21 Status: Ordered metFORMIN 750 mg oral tablet, extended release 2 tablet, By Mouth, Daily, # 180 tablet, 1 Refills, Maintenance, 01/15/21 21:42:00 EDT, [facility]/pharmacy #[id number], 165.1, cm, 12/19/20 12:24:00 EDT, Height, 78.6, kg, 06/15/20 10:01:00 EDT, Dry Weight Start Date: 01/15/21 Status: Ordered NovoLOG FlexPen 100 units/mL subcutaneous solution See Instructions, Subcutaneous Injection, Use as directed for Diabetes mellitus type 2. (Max Dose =50 units/day), # 30 mL, 4 Refills, Maintenance, 11/14/20 15:34:00 EDT, [facility]/pharmacy #[id number], 165.1, cm, 08/02/20 9:45:00 EDT, Height, 78.6, kg, 06/15/20... Start Date: 11/14/20 Stop Date: 04/13/21 Status: Ordered Pen [place], 31 G x 8 mm BD Ultra Fine III See Instructions, # 200 each, Refills 11, Tot. Refills 11, Maintenance, use up to 4 times daily as directed for Type 2 Diabetes Mellitus. E11.9, 08/18/20 17:03:00 EDT, Supply, 165.1, cm, 08/02/20 9:45:00 EDT, Height, 78.6, kg, 06/15/20 10:01:00 EDT, D... Start Date: 08/18/20 Stop Date: 08/13/21 Status: Ordered [employer] COVID-19 Vaccine 30 mcg/0.3 mL preservative-free intramuscular suspension 0.3 mL = 30 mcg, Intramuscular, Once, # 0.3 mL, 0 Refills, Soft Stop, 12/19/20 12:35:00 EDT, Suspension, Partial fill upon patient request if the prescription is for a schedule II opioid drug. Start Date: 12/19/20 Status: Ordered Timolol Maleate (Eqv-Timoptic) 0.5% ophthalmic solution 0 Refills, Maintenance, 02/24/21 10:06:00 EST, Partial fill upon patient request if the prescription is for a schedule II opioid drug. Start Date: 02/24/21 Status: Ordered Tylenol 8 HR Arthritis Pain 650 mg oral tablet, extended release 2 tablet = 1,300 mg, By Mouth, Every 8 hours, PRN Pain , Mild, # 100 tablet, 0 Refills, Maintenance, 12/05/20 14:59:00 EDT, ER Tablet, [id number], Partial fill upon patient request if [...] 1was seen by Dr. Devon Mccormack at [facility] Social History Social History Type Response Smoking Status 10 or more cigarette s (1/2 pack or more)/day in last 30 days entered on: 01/26/20 Sex
--- OUTSIDE RECORDS SUMMARY | 2023-01-25 11:02 | XMS_ITS | Continuity of Care Document ---
Author Name Unknown Organization [facility] ter Address [address] [place] [id number]- Care Team Providers Care Chef Teacher Name Role Phone Ha WOODY, Nerissa Wright Primary Care Physician Encounter [facility] [place] Date(s): 02/11/20 - 03/12/[address] [address]- Attending Physician: AdmDayanara zayas Admitting Physician: AdmtrDayanara Referring Physician: AdmtrDayanara Allergies, Adverse Reactions, Alerts [...] vis given 10/17/10 2Admin Note: VIS GIVEN [id number] 3Admin Note: VIS GIVEN Medications Alcohol Pads See Instructions, # 100 each, Refills 11, Tot. Refills 11, Maintenance, E11.9use to wipe finger forchecking blood sugar, 12/16/19 13:53:00 EDT, Compound, 165, cm, 12/16/19 13:31:00 EDT, Height, 75, kg, 09/19/19 10:48:00 EDT, Dry Weight Start Date: 12/16/19 Status: Ordered amLODIPine 10 mg oral tablet 10 mg, 1, tablet, By Mouth, Daily, for blood pressure, # 90 tablet, Refills 3, Tot. Refills 3, Maintenance, 07/29/19 12:59:00 EDT, Route to Pharmacy Electronically, [id number], 165, cm, 07/29/19 12:25:00 EDT, Height, 72.7, kg, 03/30/19... Start Date: 07/29/19 Status: Ordered atorvastatin 20 mg oral tablet 1 tablet = 20 mg, By Mouth, Daily, # 90 tablet, 3 Refills, Maintenance, 07/29/19 12:59:00 EDT, Tablet, [id number], 165, cm, 07/29/19 12:25:00 EDT, Height, 72.7, kg, 03/30/19 16:51:00 EST, Dry Weight Start Date: 07/29/19 Status: Ordered cholecalciferol 1000 intl units oral tablet 1 tablet = 1,000 International_Units, By Mouth, Daily, vitamin D take with food, # 90 tablet, 1 Refills, Maintenance, 03/01/20 12:52:00 EST, Tablet, [id number], 165, cm, 02/13/20 11:43:00 EST, Height, 75.3, [...] Dry Weight Start Date: 01/20/20 Status: Ordered glucose 4 gm oral tablet, [...] tablet, Refills 3, Tot. Refills 3, Maintenance, 03/01/20 12:51:00 EST, Route to Pharmacy Electronically, [facility] #[id number], 165, cm, 02/13/20 11:43:00 EST, Height, 75.3, kg, 02/08/20... Start Date: 03/01/20 Status: Ordered Insulin Syringe, BD Ultra-Fine 0.5 [...] 3 Refills, Maintenance, 03/01/20 16:23:00 EST, Solution, [id number], 165, cm, 02/13/20 11:43:00 EST, Height, 75.3, kg, 02/08/20 14:42:00 ES... Start Date: 03/01/20 Stop Date: 06/29/20 Status: Ordered latanoprost 0.005% ophthalmic solution 1 drops, Eyes, Both, Daily at bedtime, dr miguel Start Date: 04/11/16 Status: Ordered lisinopril 40 mg oral tablet 1 tablet = 40 mg, By Mouth, Daily, for blood pressure, # 90 tablet, 3 Refills, Maintenance, 07/29/19 13:01:00 EDT, [id number], 165, cm, 07/29/19 12:25:00 EDT, Height, 72.7, kg, 03/30/19 16:51:00 EST, Dry Weight Start Date: 07/29/19 Status: Ordered metFORMIN 750 mg oral tablet, extended release 2 tablet = 1,500 mg, By Mouth, Daily, pls ask pt to call our health center to reestablish care if she is staying locally, # 180 tablet, 3 Refills, Maintenance, 07/29/19 13:01:00 EDT, ER Tablet, [id number], 165, cm, 07/29/19 12:25:00 ED... Start Date: 07/29/19 Status: Ordered NovoLOG FlexPen 100 units/mL subcutaneous solution See Instructions, Subcutaneous Injection, Use as directed for Diabetes mellitus type 2. (Max Dose =50 units/day), # 30 mL, 5 Refills, Maintenance, 08/04/19 17:01:00 EDT, [id number], 165, cm, 07/29/19 12:25:00 EDT, Height, 72.7, kg, 01... Start Date: 08/04/19 Stop Date: 01/31/20 Status: Ordered Pen [place], 31 G x 8 mm BD Ultra [...] 3 01/2014(Confirmed) Active Hypertension(Confirmed) Active Onychomycosis(Confirmed) Active Health care maintenance(Confirmed) Active Physical exam(Confirmed) Active 1was seen by Dr. Devon Mccormack at [facility] Social History Social History Type Response Smoking Status 10 or more cigarette s (1/2 pack or more)/day in last 30 days entered on: 01/26/20 Sex
--- OUTSIDE RECORDS SUMMARY | 2023-01-25 11:02 | XMS_ITS | Continuity of Care Document ---
Author Name Unknown Organization [facility] Address [address] [place] [address]- Care Team Providers Care Practice Performance Manager Name Role Phone Nestor WOODY, Marva Primary Care Physician Encounter [facility] Date(s): 12/22/20 - 01/21/[address] [address]- Allergies, Adverse Reactions, Alerts Substance Reaction Severity [...] vis given 10/17/10 2Admin Note: VIS GIVEN [id number] 3Admin Note: VIS GIVEN Medications Alcohol Pads [...] tablet, 6 Refills, Maintenance, 12/07/20 13:42:00 EDT, [facility]/pharmacy #[id number], Partial fill upon patient request if the prescription is for a schedule II opioid drug., 165.1, cm, 12/05/20 13:59:00 EDT, Height, 78.6,... Start Date: 12/07/20 Status: Ordered cholecalciferol 1000 intl units oral tablet 1 tablet = 1,000 International_Units, By Mouth, Daily, vitamin D take with food, # 90 tablet, 1 Refills, Maintenance, 03/01/20 12:52:00 EST, Tablet, [id number], 165, cm, 02/13/20 11:43:00 EST, Height, 75.3, kg, 02/08/20 14:42:00 EST,... Start Date: 03/01/20 Stop Date: 03/31/20 Status: Ordered duloxetine 30 mg oral enteric coated capsule 1 capsule, By Mouth, Daily, DO NOT CRUSH OR CHEW. *., # 30 capsule, 8 Refills, [facility] [id number], 165.1, cm, 12/19/20 12:24:00 EDT, Height, 78.6, [...] 1 each, Maintenance, E11.9 IDDM check 3x/day, 12/19/20 17:15:00 EDT, Compound, 165.1, cm, 12/19/20 12:24:00 EDT, Height, 78.6, kg, 06/15/20 10:01:00 EDT, Dry Weight Start Date: 12/19/20 Status: Ordered Freestyle Lite Test Strips See [...] tablet, 1 Refills, Maintenance, 01/15/21 21:42:00 EDT, [id number], 165.1, cm, 12/19/20 12:24:00 EDT, Height, 78.6, kg, 06/15/20 10:01:00 EDT, Dry Weight Start Date: 01/15/21 Status: Ordered NovoLOG FlexPen 100 units/mL subcutaneous solution See Instructions, Subcutaneous Injection, Use as directed for Diabetes mellitus type 2. (Max Dose =50 units/day), # 30 mL, 4 Refills, Maintenance, 11/14/20 15:34:00 EDT, [id number], 165.1, cm, 08/02/20 9:45:00 EDT, Height, 78.6, kg, 03/24/21... Start Date: 11/14/20 Stop Date: 04/13/21 Status: Ordered Pen [place], 31 G x 8 mm BD Ultra Fine III See Instructions, # 200 each, Refills 11, Tot. Refills 11, Maintenance, use up to 4 times daily as directed for Type 2 Diabetes Mellitus. E11.9, 08/18/20 17:03:00 EDT, Supply, 165.1, cm, 08/02/20 9:45:00 EDT, Height, 78.6, kg, 06/15/20 10:01:00 EDT, D... Start Date: 08/18/20 Stop Date: 08/13/21 Status: Ordered [employer] COVID-19 Vaccine 30 mcg/0.3 mL preservative-free intramuscular suspension 0.3 mL = 30 mcg, Intramuscular, Once, # 0.3 mL, 0 Refills, Soft Stop, 12/19/20 12:35:00 EDT, Suspension, Partial fill upon patient request if the prescription is for a schedule II opioid drug. Start Date: 12/19/20 Status: Ordered Tylenol 8 HR Arthritis Pain 650 mg oral tablet, extended release 2 tablet = 1,300 mg, By Mouth, Every 8 hours, PRN Pain , Mild, # 100 tablet, 0 Refills, Maintenance, 12/05/20 14:59:00 EDT, ER Tablet, [facility]/pharmacy #[id number], Partial fill upon patient request if the [...] 1was seen by Dr. Devon Mccormack at [facility] Social History Social History Type Response Smoking Status 10 or more cigarette s (1/2 pack or more)/day in last 30 days entered on: 01/26/20 Sex
--- OUTSIDE RECORDS SUMMARY | 2023-01-25 11:02 | XMS_ITS | Continuity of Care Document ---
Author Name Unknown Organization [facility] Address [address] [place] [address]- Care Team Providers Care Compensation/Benefits Specialist Name Role Phone Ha WOODY, Nerissa Wright Primary Care Physician Encounter [facility] [place] Date(s): 07/29/19 - 08/28/19 [facility] [address] [place] [address]- [facility] Attending Physician: Dayanara Lowery Admitting Physician: Dayanara [...] vis given 10/17/10 2Admin Note: VIS GIVEN [id number] 3Admin Note: VIS GIVEN Medications Alcohol Pads See Instructions, # 100 each, Refills 11, Tot. Refills 11, Maintenance, E11.9, 07/10/17 13:55:10 EDT, Compound Start Date: 07/10/17 Status: Ordered amLODIPine 10 mg oral tablet 10 mg, 1, tablet, By Mouth, Daily, for blood pressure, # 90 tablet, Refills 3, Tot. Refills 3, Maintenance, 07/29/19 12:59:00 EDT, Route to Pharmacy Electronically, [id number], 165, cm, 07/29/19 12:25:00 EDT, Height, 72.7, kg, 03/30/19... Start Date: 07/29/19 Status: Ordered atorvastatin 20 mg oral tablet 1 tablet = 20 mg, By Mouth, Daily, # 90 tablet, 3 Refills, Maintenance, 07/29/19 12:59:00 EDT, Tablet, [id number], 165, cm, 07/29/19 12:25:00 EDT, Height, 72.7, [...] Refills, Maintenance, 07/29/19 12:59:00 EDT, ER Tablet, [id number], 165, cm, 07/29/19 12:25:00 EDT, Height, 72.7, [...] 07/29/19 13:00:00 EDT, Route to Pharmacy Electronically, [facility][id number], 165, cm, 07/29/19 12:25:00 EDT, Height, 72.7, [...] 3 Refills, Maintenance, 07/29/19 13:05:00 EDT, Solution, [facility][id number], 165, cm, 07/29/19 12:25:00 EDT, Height, 72.7, [...] Refills, Maintenance, 07/29/19 13:01:00 EDT, [facility][id number], 165, cm, 07/29/19 12:25:00 EDT, Height, 72.7, kg, 03/30/19 16:51:00 EST, Dry Weight Start Date: 07/29/19 Status: Ordered metFORMIN 750 mg oral tablet, extended release 2 tablet = 1,500 mg, By Mouth, Daily, pls ask pt to call our health center to reestablish care if she is staying locally, # 180 tablet, 3 Refills, Maintenance, 07/29/19 13:01:00 EDT, ER Tablet, [id number], 165, cm, 07/29/19 12:25:00 ED... Start Date: 07/29/19 Status: Ordered NovoLOG FlexPen 100 units/mL subcutaneous solution See Instructions, Subcutaneous Injection, Use as directed for Diabetes mellitus type 2. (Max Dose =50 units/day), # 30 mL, 5 Refills, Maintenance, 08/04/19 17:01:00 EDT, [facility][id number], 165, cm, 07/29/19 12:25:00 EDT, Height, 72.7, kg, 01... Start Date: 08/04/19 Stop Date: 01/31/20 Status: Ordered Pen [place], 31 G x 8 mm BD Ultra [...] abdominal wall(Confirmed) Active History of syphilis; [facility] confirms bicillin x 3 01/2014(Confirmed) Active Hypertension(Confirmed) Active Health care maintenance(Confirmed) Active 1was seen by Dr. Devon Mccormack at [facility] Social History Social History Type Response Tobacco Use: 4 or less cigar ettes(less than 1/4 pack)/day in last 30 days. Sex
--- OUTSIDE RECORDS SUMMARY | 2023-01-25 11:02 | XMS_ITS | Continuity of Care Document ---
Author Name Unknown Organization [facility] Address [address] [place] [address]- Care Team Providers Care Highway Engineer Name Role Phone Sreekanth WOODY, Jeanine Rivas Primary Care Physician Encounter [facility] [place] Date(s): 05/29/21 - 06/28/[address] [address]- Allergies, Adverse Reactions, Alerts No Known Allergies [...] vis given 10/17/10 2Admin Note: VIS GIVEN [id number] 3Admin Note: VIS GIVEN Medications Alcohol Pads [...] 12/07/20 13:42:00 EDT, [facility]/pharmacy #[id number], Partial fill upon patient request if the prescription is for a schedule II opioid drug., 165.1, cm, 12/05/20 13:59:00 EDT, Height, 78.6,... Start Date: 12/07/20 Status: Ordered cholecalciferol 1000 intl units oral tablet 1 tablet = 1,000 International_Units, By Mouth, Daily, vitamin D take with food, # 90 tablet, 1 Refills, Maintenance, 03/01/20 12:52:00 EST, Tablet, [id number], 165, cm, 02/13/20 11:43:00 EST, Height, 75.3, [...] bedtime, # 15 mL, 11 Refills, Maintenance, 06/21/21 11:35:00 EDT, [facility]/pharmacy #[id number], 165.1, cm, 06/21/21 11:05:00 EDT, Height, 78.6, kg, 06/15/20 10:01:00 EDT, Dry Weight Start Date: 06/21/21 Stop Date: 06/16/22 Status: Ordered latanoprost 0.005% ophthalmic solution 1 [...] tablet, 1 Refills, Maintenance, 01/15/21 21:42:00 EDT, [facility]/pharmacy #[id number], 165.1, cm, 12/19/20 12:24:00 EDT, Height, 78.6, kg, 06/15/20 10:01:00 EDT, Dry Weight Start Date: 01/15/21 Status: Ordered NovoLOG FlexPen 100 units/mL subcutaneous solution See Instructions, Subcutaneous Injection, Use as directed for Diabetes mellitus type 2 per sliding scale. (Max Dose = 50 units/day), # 30 mL, 11 Refills, Maintenance, 06/21/21 11:35:00 EDT, [facility]/pharmacy #[id number], 165.1, cm, 06/21/21 11:05:00 EDT, Height,... Start Date: 06/21/21 Stop Date: 06/16/22 Status: Ordered Pen [place], 31 G x 8 mm BD Ultra Fine III See Instructions, # 200 each, Refills 11, Tot. Refills 11, Maintenance, use up to 4 times daily as directed for Type 2 Diabetes Mellitus. E11.9, 08/18/20 17:03:00 EDT, Supply, 165.1, cm, 08/02/20 9:45:00 EDT, Height, 78.6, kg, 06/15/20 10:01:00 EDT, D... Start Date: 08/18/20 Stop Date: 08/13/21 Status: Ordered [employer] COVID-19 Vaccine 30 mcg/0.3 mL preservative-free intramuscular [...] 11 Refills, Maintenance, 03/27/21 12:17:00 EST, OphthSolution, [facility]/pharmacy #[id number], Partial fill [...] EDT, ER Tablet, [facility]/pharmacy #[id number], Partial fill [...] 1was seen by Dr. Devon Mccormack at [facility] Social History Social History Type Response Smoking Status 10 or more cigarette s (1/2 pack or more)/day in last 30 days entered on: 01/26/20 Sex
--- OUTSIDE RECORDS SUMMARY | 2023-01-25 11:02 | XMS_ITS | Continuity of Care Document ---
Author Name Unknown Organization [facility] Address [address] [place] [address]- Care Team Providers Care Spinneret Person Name Role Phone Jeanine Stack MD, I Primary Care Physician [phone] [id number] Date(s): 01/10/22 - 03/07/[address] [address]- Attending Physician: Jeanine Stack MD, I Admitting Physician: Jeanine Stack MD, I Referring Physician: Jeanine Stack MD, I Allergies, Adverse Reactions, Alerts Substance Reaction Severity [...] Given influ virus vac, H1N1, inactive(oldterm) 2 4/28/10 Given Tet/Diphth/Acel, Pertussis (oldterm) 3 09/13/08 Gi paul Influenza Vaccine (oldterm) 03/11/03 Given Influenza Vaccine (oldterm) 07/06/00 Given Influenza Vaccine (oldterm) 04/01/00 Given Pneumococcal Poly (PPV23) (oldterm) 03/11/03 Given tetanus-diphtheria toxoids (Td) 04/20/98 Given 1Admin Note: vis given 10/17/10 2Admin Note: VIS GIVEN [id number] 3Admin Note: VIS GIVEN Medications Alcohol Pads See Instructions, # 100 each, Refills 11, Tot. Refills 11, Maintenance, E11.9 use to wipe finger for checking blood sugar and use to administer insulin, 10/04/21 13:53:00 EDT, Compound, 165.1, cm, 06/21/21 11:05:00 EDT, Height, 78.6, kg, 06/15/20 10:... Start Date: 10/04/21 Status: Ordered amLODIPine 10 mg oral tablet 10 mg, 1, tablet, By Mouth, Daily, for blood pressure duplicate from 07/08/21, # 90 tablet, Refills 3, Tot. Refills 3, Maintenance, 08/02/21 9:37:00 EDT, Route to Pharmacy Electronically, [facility]., 165.1, cm, 06/21/21 11:05:00 EDT, H... Start Date: 08/02/21 Status: Ordered atorvastatin 10 mg oral tablet 1 tablet = 10 mg, By Mouth, Daily, duplicate from 07/08/21, # 90 tablet, 3 Refills, Maintenance, 08/02/21 9:39:00 EDT, [facility], Partial fill upon patient request if the prescriptionis for a schedule II opioid drug., 165.1, cm, 06/21... Start Date: 08/02/21 Status: Ordered Bedside Commode See Instructions, # 1 each, Refills 0, Tot. Refills 0, Maintenance, Medically necessary DME due to fall risk and increased back pain, 07/08/20 16:25:00 EDT, Supply Start Date: 07/08/20 Status: Ordered cholecalciferol 1000 intl units oral tablet 1 tablet = 1,000 International_Units, By Mouth, Daily, vitamin D take with food, # 90 tablet, 3 Refills, Maintenance, 08/04/21 17:10:00 EDT, Tablet, [facility]., 165.1, cm, 06/21/21 11:05:00 EDT, Height, 78.6, kg, 06/15/20 10:01:00 EDT... Start Date: 08/04/21 Stop Date: 07/30/22 Status: Ordered Freestyle Lite Lancets See Instructions, [...] 08/02/21 9:40:00 EDT, Route to Pharmacy Electronically, [facility]., 165.1, cm, 06/21/21 11:05:00 EDT, H... Start Date: 08/02/21 Status: Ordered Insulin Syringe, BD Ultra-Fine 0.5 cc 30 G x 12.7 mm (1/2in) See Instructions, # 50 each, Refills 11, Tot. Refills 11, Maintenance, E11.9 use for lantus qhs (this is pt's PREFERRED SIZE of needle), 04/24/17 20:27:07, Compound Start Date: 04/24/17 Status: Ordered Invacare raised toilet seat Invacare raised toilet seat, See Instructions, # 1 each, Refills 0, Tot. Refills 0, Maintenance, Dx; intervetebral disc degeneration (lumbar region); low back pain;fall rsik, 07/26/20 12:41:00 EDT, Supply, 165.1, cm, 06/20/20 9:43:00 EDT, Height, 78.6... Start Date: 07/26/20 Status: Ordered Lantus Solostar Pen 100 units/mL subcutaneous solution = 22 units, Subcutaneous Injection, Daily at bedtime, # 15 mL, 11 Refills, Maintenance, 08/02/21 21:27:00 EDT, [facility]., 165.1, cm, 06/21/21 11:05:00 EDT, Height, 78.6, kg, 06/15/2109:01:00 EDT, Dry Weight Start Date: 08/02/21 Stop Date: 07/28/22 Status: Ordered latanoprost 0.005% ophthalmic solution See Instructions, INSERT 1 DROP IN BOTH EYES DAILY AT BEDTIME FOR 30 DAYS :PLEASE OBTAIN FURTHER REFILLS FROM YOUR CHAIRMAN AND CHIEF EXECUTIVE OFFICER, # 2.5 mL, 0 Refills, [facility], 30, INSERT 1 DROP IN BOTHEYES DAILY AT BEDTIME FOR 30 DAYS :PLEASE OBTAIN FU... Start Date: 10/31/21 Status: Ordered lisinopril 40 mg oral tablet 1 tablet = 40 mg, By Mouth, Daily, for blood pressure, # 90 tablet, 3 Refills, Maintenance, 08/04/21 17:10:00 EDT, [facility]., 165.1, cm, 06/21/21 11:05:00 EDT, Height, 78.6, kg, 06/15/20 10:01:00 EDT, Dry Weight Start Date: 08/04/21 Stop Date: 07/30/22 Status: Ordered metFORMIN 750 mg oral tablet, extended release 2 tablet, By Mouth, Daily, duplicate from 07/08/21, # 180 tablet, 3 Refills, Maintenance, 08/02/21 9:42:00 EDT, [facility]., 165.1, cm, 06/21/21 11:05:00 EDT, Height, 78.6, kg, 06/15/2109:01:00 EDT, Dry Weight Start Date: 08/02/21 Status: Ordered NovoLOG FlexPen 100 units/mL subcutaneous solution See Instructions, Subcutaneous Injection, Use as directed for Diabetes mellitus type 2, per slidingscale. (Max Dose = 50 units/day), # 30 mL, 11 Refills, Maintenance, 08/02/21 21:26:00 EDT, [facility]., 165.1, cm, 06/21/21 11:05:00 EDT... Start Date: 08/02/21 Stop Date: 07/28/22 Status: Ordered Pen Erin, 31 G x 8 mm BD Ultra Fine III See Instructions, # 150 each, Refills 11, Tot. Refills 11, Maintenance, use as directed for Type 2 Diabetes Mellitus E11.9 for 4x/day insulin pen injections, 10/04/21 13:57:00 EDT, Supply, 165.1, cm,06/21/21 11:05:00 EDT, Height, 78.6, kg, 06/15/20 1... Start Date: 10/04/21 Stop Date: 09/29/22 Status: Ordered Pen Erin, 31 G x 8 mm BD Ultra Fine III See Instructions, # 200 each, Refills 11, Tot. Refills 11, Maintenance, use up to 4 times daily as directed for Type 2 Diabetes Mellitus. E11.9, 10/04/21 9:58:00 EDT, Supply, 165.1, cm, 06/21/21 11:05:00 EDT, Height, 78.6, kg, 06/15/20 10:01:00 EDT, D... Start Date: 10/04/21 Stop Date: 09/29/22 Status: Ordered SplitSecnd COVID-19 Vaccine 30 mcg/0.3 mL preservative-free intramuscular [...] EST, Supply Start Date: 05/29/21 Status: Ordered Shower chair Shower chair, See Instructions, # 1 each, Refills 0, Tot. Refills 0, Maintenance, Medically necessary DME due to fall risk and increased backpain, 07/08/20 16:21:00 EDT, Supply, 165.1, cm, 06/20/20 9:43:00 EDT, Height, 78.6, kg, 06/15/20 10:01:00 EDT,... Start Date: 07/08/20 Status: Ordered Timolol Maleate (Eqv-Timoptic) 0.5% ophthalmic solution See Instructions, INSERT 1 DROP IN BOTH EYES 2 TIMES A DAY :PLEASE GET FURTHER REFILLS FROM YOUR CHAIRMAN AND CHIEF EXECUTIVE OFFICER, # 5 mL, 0 Refills, [facility], 25, INSERT 1 DROP IN BOTH EYES 2 TIMES A DAY :PLEASE GET FURTHER REFILLS FROM YOUR CHAIRMAN AND CHIEF EXECUTIVE OFFICER... Start Date: 10/31/21 Status: Ordered Tylenol 8 HR Arthritis Pain 650 mg oral tablet, extended release 2 tablet = 1,300 mg, By Mouth, Every 8 hours, PRN Pain , Mild, # 100 tablet, 0 Refills, Maintenance, 12/05/20 14:59:00 EDT, ER Tablet, [facility]/pharmacy #[id number], Partial fill upon patient request if the [...] Date: 12/28/20 Status: Ordered Problem List Condition Confirmation Course Effective Dates Status H ealth Status Informant Possible exposure to STD Confirmed Active Background diabetic retinopathy 1 Confirmed 12/14/02 Active Chronic low back pain Confirmed Active Depression Confirmed Active Diabetes mellitus type 2 Confirmed Active Glaucoma Confirmed Active Abdominal hernia without obstruction and without gangrene Confirmed Active Hernia of abdominal wall Confirmed Active History of syphilis; [place] [facility] confirms bicillin x 3 01/2014 Confirmed Active Hypertension Confirmed Active Onychomycosis Confirmed Active Overweight Confirmed Active Health care maintenance Confirmed Active Physical exam Confirmed Active Current smoker Confirmed Active 1was seen by Dr. Devon Mccormack at [facility] Social History Social History Type Response Smoking Status 10 or more cigarette s (1/2 pack or more)/day in last 30 days entered on: 01/26/20 Sex Patient Care team information Care Team Personnel Name: Sreekanth WOODY, Jeanine Rivas Position: [facility] Primary Care Physician Member Role: PCP Address: Address: [address] [place] [id number]- Name: Ann Barron Position: [facility] Outreach Member Role: Lifetime Consulting Physician Care Team Related Persons Name: MALISSA CORDERO Name: JARED CORDERO Address: [place] [address]
--- OUTSIDE RECORDS SUMMARY | 2023-01-25 11:02 | XMS_ITS | Continuity of Care Document ---
Author Name Unknown Organization [facility] Address [address] [place] [address]- Care Team Providers Care Sap Abap Developer Name Role Phone Nestor WOODY, Marva Primary Care Physician [phone] Encounter [facility] Date(s): 02/20/21 - 03/22/[address] [address] Attending Physician: AdmDayanara zayas Admitting Physician: AdmtrDayanara Referring Physician: Admtr, Ar8 Allergies, Adverse Reactions, [...] vis given 10/17/10 2Admin Note: VIS GIVEN [id number] 3Admin Note: VIS GIVEN Medications Alcohol Pads [...] tablet, 6 Refills, Maintenance, 12/07/20 13:42:00 EDT, [facility]/pharmacy #[id number], Partial fill upon patient request if the prescription is for a schedule II opioid drug., 165.1, cm, 12/05/20 13:59:00 EDT, Height, 78.6,... Start Date: 12/07/20 Status: Ordered cholecalciferol 1000 intl units oral tablet 1 tablet = 1,000 International_Units, By Mouth, Daily, vitamin D take with food, # 90 tablet, 1 Refills, Maintenance, 03/01/20 12:52:00 EST, Tablet, [facility] #[id number], 165, cm, 02/13/20 11:43:00 EST, Height, 75.3, kg, 02/08/20 14:42:00 EST,... Start Date: 03/01/20 Stop Date: 03/31/20 Status: Ordered duloxetine 30 mg oral enteric coated capsule 1 capsule, By Mouth, Daily, DO NOT CRUSH OR CHEW. *., # 30 capsule, 8 Refills, [id number], 165.1, cm, 12/19/20 12:24:00 EDT, Height, 78.6, [...] mL, 4 Refills, Maintenance, 11/14/20 15:34:00 EDT, [facility]/pharmacy #[id number], 165.1, cm, 08/02/20 9:45:00 EDT, Height, 78.6, kg, 06/15/20... Start Date: 11/14/20 Stop Date: 04/13/21 Status: Ordered Pen [place], 31 G x 8 mm BD Ultra Fine III See Instructions, # 200 each, Refills 11, Tot. Refills 11, Maintenance, use up to 4 times daily as directed for Type 2 Diabetes Mellitus. E11.9, 08/18/20 17:03:00 EDT, Supply, 165.1, cm, 08/02/20 9:45:00 EDT, Height, 78.6, kg, 06/15/20 10:01:00 EDT, D... Start Date: 08/18/20 Stop Date: 08/13/21 Status: Ordered RoboDynamics COVID-19 Vaccine 30 mcg/0.3 mL preservative-free intramuscular [...] Refills, Maintenance, 12/05/20 14:59:00 EDT, ER Tablet, [facility]/pharmacy #[id number], Partial fill upon patient request [...] 1was seen by Dr. Devon Mccormack at [facility] Social History Social History Type Response Smoking Status 10 or more cigarette s (1/2 pack or more)/day in last 30 days entered on: 01/26/20 Sex
--- OUTSIDE RECORDS SUMMARY | 2023-01-25 11:02 | XMS_ITS | Continuity of Care Document ---
Author Name Unknown Organization [facility] Address [address] [place] [address]- Care Team Providers Care Wheat Washer Name Role Phone Sreekanth WOODY, Jeanine Rivas Primary Care Physician Encounter [facility] Date(s): 07/12/21 - 08/11/[address] [address]- Allergies, Adverse Reactions, Alerts Substance Reaction Severity [...] vis given 10/17/10 2Admin Note: VIS GIVEN [id number] 3Admin Note: VIS GIVEN Medications Alcohol Pads [...] 08/02/21 9:37:00 EDT, Route to Pharmacy Electronically, [facility], 165.1, cm, 06/21/21 11:05:00 EDT, H... Start Date: 08/02/21 Status: Ordered atorvastatin 10 mg oral tablet 1 tablet = 10 mg, By Mouth, Daily, duplicate from 07/08/21, # 90 tablet, 3 Refills, Maintenance, 08/02/21 9:39:00 EDT, [facility], Partial fill upon patient request if the prescriptionis for a schedule II opioid drug., 165.1, cm, 06/21... Start Date: 08/02/21 Status: Ordered cholecalciferol 1000 intl units oral tablet 1 tablet = 1,000 International_Units, By Mouth, Daily, vitamin D take with food, # 90 tablet, 3 Refills, Maintenance, 08/04/21 17:10:00 EDT, Tablet, [facility], 165.1, cm, 06/21/21 11:05:00 EDT, Height, 78.6, [...] 08/02/21 9:40:00 EDT, Route to Pharmacy Electronically, [facility], 165.1, cm, 06/21/21 11:05:00 EDT, H... Start [...] mL, 11 Refills, Maintenance, 08/02/21 21:27:00 [facility].1, cm, 06/21/21 11:05:00 EDT, Height, 78.6, kg, 06/15/2109:01:00 EDT, Dry Weight Start Date: 08/02/21 Stop Date: 07/28/22 Status: Ordered latanoprost 0.005% ophthalmic solution 1 drops, Eyes, Both, Daily at bedtime, for 30 days, please obtain further refills from your computer security specialist, # 2.5 mL, 1 Refills, Physician Stop 10/02/21 9:03:00 EDT, 08/03/21 9:03:00 EDT, [facility]., 1 drops Eyes, Both Daily at bedtime... Start Date: 08/03/21 Stop Date: 10/02/21 Status: Ordered lisinopril 40 mg oral tablet 1 tablet = 40 mg, By Mouth, Daily, for blood pressure, # 90 tablet, 3 Refills, Maintenance, 08/04/21 17:10:00 EDT, [facility]., 165.1, cm, 06/21/21 11:05:00 EDT, Height, 78.6, kg, 06/15/20 10:01:00 EDT, Dry Weight Start Date: 08/04/21 Stop Date: 07/30/22 Status: Ordered metFORMIN 750 mg oral tablet, extended release 2 tablet, By Mouth, Daily, duplicate from 07/08/21, # 180 tablet, 3 Refills, Maintenance, 08/02/21 9:42:00 EDT, [facility]., 165.1, cm, 06/21/21 11:05:00 EDT, Height, 78.6, kg, 06/15/2109:01:00 EDT, Dry Weight Start Date: 08/02/21 Status: Ordered NovoLOG FlexPen 100 units/mL subcutaneous solution See Instructions, Subcutaneous Injection, Use as directed for Diabetes mellitus type 2, per slidingscale. (Max Dose = 50 units/day), # 30 mL, 11 Refills, Maintenance, 08/02/21 21:26:00 EDT, [facility]., 165.1, cm, 06/21/21 11:05:00 EDT... Start Date: 08/02/21 Stop Date: 07/28/22 Status: Ordered Pen [place], 31 G x 8 mm BD Ultra Fine III See Instructions, # 200 each, Refills 11, Tot. Refills 11, Maintenance, use up to 4 times daily as directed for Type 2 Diabetes Mellitus. E11.9, 08/18/20 17:03:00 EDT, Supply, 165.1, cm, 08/02/20 9:45:00 EDT, Height, 78.6, kg, 06/15/20 10:01:00 EDT, D... Start Date: 08/18/20 Stop Date: 08/13/21 Status: Ordered Interior Define COVID-19 Vaccine 30 mcg/0.3 mL preservative-free intramuscular [...] day, please get further refills from your computer security specialist duplicate from 07/08/21, # 2.5 mL, 1 Refills, Maintenance, 08/02/21 9:42:00 EDT, Ophth Solution, [facility], Partial fill upon patient request if t... Start Date: 08/02/21 Status: Ordered Tylenol 8 HR Arthritis Pain 650 mg oral tablet, extended release 2 tablet = 1,300 mg, By Mouth, Every 8 hours, PRN Pain , Mild, # 100 tablet, 0 Refills, Maintenance, 12/05/20 14:59:00 EDT, ER Tablet, [facility]acy #[id number], Partial fill upon patient request if the [...] 1was seen by Dr. Devon Mccormack at [facility] Social History Social History Type Response Smoking Status 10 or more cigarette s (1/2 pack or more)/day in last 30 days entered on: 01/26/20 Sex
--- OUTSIDE RECORDS SUMMARY | 2023-01-25 11:02 | XMS_ITS | Continuity of Care Document ---
Author Name Unknown Organization [facility] Address [address] [place] [address]- Care Team Providers Care Office Worker Name Role Phone Nerissa Bonner MD Primary Care Physician Encounter [facility] Date(s): 07/29/19 - 08/05/19 [facility] [address] [place] [address] Encounter Diagnosis Health care maintenance(Discharge Diagnosis) - 07/29/19 Diabetes mellitus type 2(Discharge Diagnosis) - 07/29/19 Hypertension(Discharge Diagnosis) - 07/29/19 Hernia of abdominal wall(Discharge Diagnosis) - 07/29/19 Attending Physician: Nerissa Bonner MD Allergies, Adverse [...] vis given 10/17/10 2Admin Note: VIS GIVEN [id number] 3Admin Note: VIS GIVEN Medications Alcohol Pads See Instructions, # 100 each, Refills 11, Tot. Refills 11, Maintenance, E11.9, 07/10/17 13:55:10 EDT, Compound Start Date: 07/10/17 Status: Ordered amLODIPine 10 mg oral tablet 10 mg, 1, tablet, By Mouth, Daily, for blood pressure, # 90 tablet, Refills 3, Tot. Refills 3, Maintenance, 07/29/19 12:59:00 EDT, Route to Pharmacy Electronically, [id number], 165, cm, 07/29/19 12:25:00 EDT, Height, 72.7, kg, 03/30/19... Start Date: 07/29/19 Status: Ordered atorvastatin 20 mg oral tablet 1 tablet = 20 mg, By Mouth, Daily, # 90 tablet, 3 Refills, Maintenance, 07/29/19 12:59:00 EDT, Tablet, [facility] #[id number], 165, cm, 07/29/19 12:25:00 EDT, Height, 72.7, [...] Refills, Maintenance, 07/29/19 12:59:00 EDT, ER Tablet, [facility] #[id number], 165, cm, 07/29/19 12:25:00 EDT, Height, 72.7, [...] 07/29/19 13:00:00 EDT, Route to Pharmacy Electronically, [id number], 165, cm, 07/29/19 12:25:00 EDT, Height, 72.7, [...] 3 Refills, Maintenance, 07/29/19 13:05:00 EDT, Solution, [facility] #[id number], 165, cm, 07/29/19 12:25:00 EDT, Height, 72.7, [...] tablet, 3 Refills, Maintenance, 07/29/19 13:01:00 EDT, [facility] #[id number], 165, cm, 07/29/19 12:25:00 EDT, Height, 72.7, kg, 03/30/19 16:51:00 EST, Dry Weight Start Date: 07/29/19 Status: Ordered metFORMIN 750 mg oral tablet, extended release 2 tablet = 1,500 mg, By Mouth, Daily, pls ask pt to call our health center to reestablish care if she is staying locally, # 180 tablet, 3 Refills, Maintenance, 07/29/19 13:01:00 EDT, ER Tablet, [facility] #[id number], 165, cm, 07/29/19 12:25:00 ED... Start Date: 07/29/19 Status: Ordered NovoLOG FlexPen 100 units/mL subcutaneous solution See Instructions, Subcutaneous Injection, Use as directed for Diabetes mellitus type 2. (Max Dose =50 units/day), # 30 mL, 5 Refills, Maintenance, 08/04/19 17:01:00 EDT, [facility] #[id number], 165, cm, 07/29/19 12:25:00 EDT, Height, 72.7, kg, 01... Start Date: 08/04/19 Stop Date: 01/31/20 Status: Ordered Pen [place], 31 G x 8 mm BD Ultra [...] abdominal wall(Confirmed) Active History of syphilis; [place] [facility] confirms bicillin x 3 01/2014(Confirmed) Active Hypertension(Confirmed) Active Health care maintenance(Confirmed) Active 1was seen by Dr. Devon Mccormack at [facility] Diagnosis Diagnosis Type Effective Dates Health Status Clinical Service Informant Health care maintenance Discharge Diagnosis 07/29/19 Diabetes mellitus type 2 Discharge Diagnosis 07/29/19 Hypertension Discharge Diagnosis 07/29/19 Hernia of abdominal wall Discharge Diagnosis 07/29/19 Vital Signs Most recent to oldest [Reference Range]: 1 Height 165 cm (07/29/19 12:25 PM) Social History Social History Type Response Tobacco Use: 4 or less cigar ettes(less than 1/4 pack)/day in last 30 days. Sex
--- OUTSIDE RECORDS SUMMARY | 2023-01-25 11:02 | XMS_ITS | Continuity of Care Document ---
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 Refills 11, Maintenance, E11.9use to wipe finger forchecking blood sugar, 08/18/20 12:59:00 EDT, Compound, 165.1, cm, 08/02/20 9:45:00 EDT, Height, 78.6, kg, 06/15/20 10:01:00 EDT, Dry Weight Start Date: 08/18/20 Status: Ordered cholecalciferol 1000 intl units oral tablet 1 tablet = 1,000 International_Units, By Mouth, Daily, vitamin D take with food, # 90 tablet, 1 Refills, Maintenance, 03/01/20 12:52:00 EST, Tablet, [id number], 165, cm, 02/13/20 11:43:00 EST, Height, 75.3, [...] 3 Refills, Maintenance, 03/01/20 16:23:00 EST, Solution, [facility] #[id number], 165, cm, 02/13/20 11:43:00 EST, Height, 75.3, [...] 13:01:00 EDT, ER Tablet, [facility] #[id number], 165, cm, 07/29/19 12:25:00 ED... Start Date: 07/29/19 Status: Ordered NovoLOG FlexPen 100 units/mL subcutaneous solution See Instructions, Subcutaneous Injection, Use as directed for Diabetes mellitus type 2. (Max Dose =50 units/day), # 30 mL, 5 Refills, Maintenance, 08/04/19 17:01:00 EDT, [facility] #[id number], 165, cm, 07/29/19 12:25:00 EDT, Height, 72.7, kg, 01... Start Date: 08/04/19 Stop Date: 01/31/20 Status: Ordered Pen [place], 31 G x 8 mm BD Ultra Fine III See Instructions, # 200 each, Refills 11, Tot. Refills 11, Maintenance, use up to 4 times daily as directed for Type 2 Diabetes Mellitus. E11.9, 08/18/20 17:03:00 EDT, Supply, 165.1, cm, 08/02/20 9:45:00 EDT, Height, 78.6, kg, 06/15/20 10:01:00 Jaden YOO Start Date: 08/18/20 Stop Date: 08/13/21 Status: Ordered Problem List Condition Effective Dates [...] 1was seen by Dr. Devon Mccormack at [facility] Social History Social History Type Response Smoking Status 10 or more cigarette s (1/2 pack or more)/day in last 30 days entered on: 01/26/20 Sex
--- OUTSIDE RECORDS SUMMARY | 2023-01-25 11:02 | XMS_ITS | Continuity of Care Document ---
Author Name Unknown Organization [facility] Address [address] [place] [address]- Care Team Providers Care Machinist Apprentice Wood Name Role Phone Sreekanth WOODY, Jeanine Rivas Primary Care Physician Encounter [facility] Date(s): 08/02/21 - 09/01/[address] [address]- Allergies, Adverse Reactions, Alerts Substance Reaction Severity [...] vis given 10/17/10 2Admin Note: VIS GIVEN [id number] 3Admin Note: VIS GIVEN Medications Alcohol Pads [...] 08/02/21 9:37:00 EDT, Route to Pharmacy Electronically, [facility], 165.1, cm, 06/21/21 11:05:00 EDT, H... Start Date: 08/02/21 Status: Ordered atorvastatin 10 mg oral tablet 1 tablet = 10 mg, By Mouth, Daily, duplicate from 07/08/21, # 90 tablet, 3 Refills, Maintenance, 08/02/21 9:39:00 EDT, [facility], Partial fill upon patient request if the prescriptionis for a schedule II opioid drug., 165.1, cm, 06/21... Start Date: 08/02/21 Status: Ordered cholecalciferol 1000 intl units oral tablet 1 tablet = 1,000 International_Units, By Mouth, Daily, vitamin D take with food, # 90 tablet, 3 Refills, Maintenance, 08/04/21 17:10:00 EDT, Tablet, [facility], 165.1, cm, 06/21/21 11:05:00 EDT, Height, 78.6, [...] 08/02/21 9:40:00 EDT, Route to Pharmacy Electronically, [facility], 165.1, cm, 06/21/21 11:05:00 EDT, H... Start [...] mL, 11 Refills, Maintenance, 08/02/21 21:27:00 [facility]1, cm, 06/21/21 11:05:00 EDT, Height, 78.6, kg, 06/15/2109:01:00 EDT, Dry Weight Start Date: 08/02/21 Stop Date: 07/28/22 Status: Ordered latanoprost 0.005% ophthalmic solution 1 drops, Eyes, Both, Daily at bedtime, for 30 days, please obtain further refills from your loan specialist, # 2.5 mL, 1 Refills, Physician Stop 10/02/21 9:03:00 EDT, 08/03/21 9:03:00 EDT, [facility]., 1 drops Eyes, Both Daily at bedtime... Start Date: 08/03/21 Stop Date: 10/02/21 Status: Ordered lisinopril 40 mg oral tablet 1 tablet = 40 mg, By Mouth, Daily, for blood pressure, # 90 tablet, 3 Refills, Maintenance, 08/04/21 17:10:00 EDT, [facility]., 165.1, cm, 06/21/21 11:05:00 EDT, Height, 78.6, kg, 06/15/20 10:01:00 EDT, Dry Weight Start Date: 08/04/21 Stop Date: 07/30/22 Status: Ordered metFORMIN 750 mg oral tablet, extended release 2 tablet, By Mouth, Daily, duplicate from 07/08/21, # 180 tablet, 3 Refills, Maintenance, 08/02/21 9:42:00 EDT, [facility]., 165.1, cm, 06/21/21 11:05:00 EDT, Height, 78.6, kg, 06/15/2109:01:00 EDT, Dry Weight Start Date: 08/02/21 Status: Ordered NovoLOG FlexPen 100 units/mL subcutaneous solution See Instructions, Subcutaneous Injection, Use as directed for Diabetes mellitus type 2, per slidingscale. (Max Dose = 50 units/day), # 30 mL, 11 Refills, Maintenance, 08/02/21 21:26:00 EDT, [facility] 165.1, cm, 06/21/21 11:05:00 EDT... Start Date: 08/02/21 Stop Date: 07/28/22 Status: Ordered Pen [place], 31 G x 8 mm BD Ultra Fine III See Instructions, # 200 each, Refills 11, Tot. Refills 11, Maintenance, use up to 4 times daily as directed for Type 2 Diabetes Mellitus. E11.9, 08/18/20 17:03:00 EDT, Supply, 165.1, cm, 08/02/20 9:45:00 EDT, Height, 78.6, kg, 06/15/20 10:01:00 EDT, D... Start Date: 08/18/20 Stop Date: 08/13/21 Status: Ordered [employer] COVID-19 Vaccine 30 mcg/0.3 mL preservative-free intramuscular [...] day, please get further refills from your loan specialist duplicate from 07/08/21, # 2.5 mL, 1 Refills, Maintenance, 08/02/21 9:42:00 EDT, Ophth Solution, [facility], Partial fill upon patient request if t... Start Date: 08/02/21 Status: Ordered Tylenol 8 HR Arthritis Pain 650 mg oral tablet, extended release 2 tablet = 1,300 mg, By Mouth, Every 8 hours, PRN Pain , Mild, # 100 tablet, 0 Refills, Maintenance, 12/05/20 14:59:00 EDT, ER Tablet, [id number], Partial fill upon patient request if the [...] 1was seen by Dr. Devon Mccormack at [facility] Social History Social History Type Response Smoking Status 10 or more cigarette s (1/2 pack or more)/day in last 30 days entered on: 01/26/20 Sex
--- OUTSIDE RECORDS SUMMARY | 2023-01-25 11:02 | XMS_ITS | Continuity of Care Document ---
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 And Test Preparer Name Role Phone Nestor WOODY, Marva Primary Care Physician [phone] Encounter [facility] Date(s): 01/26/21 - 02/25/[address] [address]- Allergies, Adverse Reactions, Alerts Substance Reaction Severity Status NKA Active Immunizations Given and Recorded Vaccine Date Status Refusal Reason SARS-CoV-2 (COVID-19) mRNA BNT-162b2 vac 05/03/20 Recorded tetanus/diphtheria/pertussis, acel(Tdap) 12/03/18 Recorded influenza virus vaccine, inactivated 02/22/16 Give n [...] vis given 10/17/10 2Admin Note: VIS GIVEN [id number] 3Admin Note: VIS GIVEN Medications Alcohol Pads [...] tablet, 6 Refills, Maintenance, 12/07/20 13:42:00 EDT, [facility]/pharmacy #[id number], Partial fill upon patient request if the prescription is for a schedule II opioid drug., 165.1, cm, 12/05/20 13:59:00 EDT, Height, 78.6,... Start Date: 12/07/20 Status: Ordered cholecalciferol 1000 intl units oral tablet 1 tablet = 1,000 International_Units, By Mouth, Daily, vitamin D take with food, # 90 tablet, 1 Refills, Maintenance, 03/01/20 12:52:00 EST, Tablet, [id number], 165, cm, 02/13/20 11:43:00 EST, Height, 75.3, kg, 02/08/20 14:42:00 EST,... Start Date: 03/01/20 Stop Date: 03/31/20 Status: Ordered duloxetine 30 mg oral enteric coated capsule 1 capsule, By Mouth, Daily, DO NOT CRUSH OR CHEW. *., # 30 capsule, 8 Refills, [id number], 165.1, cm, 12/19/20 12:24:00 EDT, Height, 78.6, [...] tablet, 1 Refills, Maintenance, 01/15/21 21:42:00 EDT, [facility]/pharmacy #[id number], 165.1, cm, 12/19/20 12:24:00 EDT, Height, 78.6, kg, 06/15/20 10:01:00 EDT, Dry Weight Start Date: 01/15/21 Status: Ordered NovoLOG FlexPen 100 units/mL subcutaneous solution See Instructions, Subcutaneous Injection, Use as directed for Diabetes mellitus type 2. (Max Dose =50 units/day), # 30 mL, 4 Refills, Maintenance, 11/14/20 15:34:00 EDT, [facility]/pharmacy #[id number], 165.1, cm, 08/02/20 9:45:00 EDT, Height, 78.6, kg, 06/15/20... Start Date: 11/14/20 Stop Date: 04/13/21 Status: Ordered Pen [place], 31 G x 8 mm BD Ultra Fine III See Instructions, # 200 each, Refills 11, Tot. Refills 11, Maintenance, use up to 4 times daily as directed for Type 2 Diabetes Mellitus. E11.9, 08/18/20 17:03:00 EDT, Supply, 165.1, cm, 08/02/20 9:45:00 EDT, Height, 78.6, kg, 06/15/20 10:01:00 EDT, D... Start Date: 08/18/20 Stop Date: 08/13/21 Status: Ordered DCWafers COVID-19 Vaccine 30 mcg/0.3 mL preservative-free intramuscular [...] Refills, Maintenance, 12/05/20 14:59:00 EDT, ER Tablet, [facility]/pharmacy #[id number], Partial fill upon patient request if [...] Active Background diabetic retinopathy(Confirmed) 1 12/14/02 Active Depression(Confirmed) Active Diabetes mellitus type 2(Confirmed) Active Glaucoma(Confirmed) Active Abdominal hernia without obs truction and without gangrene(Confirmed) Active Hernia of abdominal wall(Confirmed) Active History of syphilis; [place] DP confirms bicillin x 3 01/2014(Confirmed) Active Hypertension(Confirmed) Active Onychomycosis(Confirmed) Active Overweight(Confirmed) Active Health care maintenance(Confirmed) Active Physical exam(Confirmed) Active Current smoker(Confirmed) Active 1was seen by Dr. Devon Mccormack at [facility] Social History Social History Type Response Smoking Status 10 or more cigarette s (1/2 pack or more)/day in last 30 days entered on: 01/26/20 Sex
--- OUTSIDE RECORDS SUMMARY | 2023-01-25 11:02 | XMS_ITS | Continuity of Care Document ---
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 Refills 0, Maintenance, 08/05/18 13:07:12 EDT, Aerosol, Print Requisition, Compound Start Date: 08/05/18 Status: Ordered Alcohol Pads See Instructions, # 100 each, Refills 11, Tot. Refills 11, Maintenance, E11.9, 07/10/17 13:55:10 EDT, Compound Start Date: 07/10/17 Status: Ordered amLODIPine 10 mg oral tablet 10 mg, 1, tablet, By Mouth, Daily, for blood pressure, # 30 tablet, Refills 11, Tot. Refills 11, Maintenance, 08/07/17 11:31:50 EDT, Route to Pharmacy Electronically, [id number], [id number] Start Date: 08/07/17 Stop Date: 08/02/18 Status: Ordered aspirin 81 mg oral tablet 1 tablet = 81 mg, By Mouth, Daily, with food, # 30 tablet, 11 Refills, Maintenance, 08/07/17 11:31:56 EDT, Tablet Start Date: 08/07/17 Stop Date: 08/02/18 Status: Ordered atorvastatin 20 mg oral tablet 1 tablet = 20 mg, By Mouth, Daily, # 30 tablet, 11 Refills, Maintenance, Tablet, Route to Pharmacy Electronically, [id number], [facility] [id number] Start Date: 08/07/17 Stop Date: 08/02/18 Status: Ordered cholecalciferol 1000 intl units oral tablet 1 tablet = 1,000 International_Units, By Mouth, Daily, vitamin D take with food, # 30 tablet, 1 Refills, Maintenance, 05/09/18 11:41:23 EST, Tablet Start Date: 05/09/18 Stop Date: 07/08/18 Status: Ordered fluticasone 100 mcg/inh inhalation powder 1 puffs, Inhalation, 2 times a day, rinse mouth and throat after use, # 1 units, 0 Refills, Maintenance, 08/09/18 18:19:51 EDT, Powder Start Date: 08/09/18 Stop Date: 08/23/18 Status: Ordered Freestyle Lite Monitor See Instructions, # 1 each, Maintenance, E11.9 IDDM check 3x/day, 04/11/16 13:42:39, Compound Start Date: 04/11/16 Status: Ordered glipiZIDE 10 mg oral tablet, extended release 1 tablet = 10 mg, By Mouth, Daily, with breakfast for sugars, # 30 tablet, 11 Refills, Maintenance,08/07/17 11:31:52 EDT, ER Tablet Start Date: 08/07/17 Stop Date: 08/02/18 Status: Ordered glucose 4 gm oral tablet, [...] By Mouth, Daily, for blood pressure, # 30 tablet, Refills 11, Tot. Refills 11, Maintenance, 08/07/17 11:31:54 EDT, Route to Pharmacy Electronically, [id number], [facility] [id number] Start Date: 08/07/17 Stop Date: 08/02/18 Status: Ordered Insulin Syringe, BD Ultra-Fine 0.5 [...] Date: 07/14/18 Stop Date: 09/12/18 Status: Ordered latanoprost 0.005% ophthalmic solution 1 drops, Eyes, Both, Daily at bedtime, dr miguel Start Date: 04/11/16 Status: Ordered lisinopril 40 mg oral tablet 1 tablet = 40 mg, By Mouth, Daily, for blood pressure, # 30 tablet, 11 Refills, Maintenance, 08/07/17 11:31:53 EDT Start Date: 08/07/17 Stop Date: 08/02/18 Status: Ordered metFORMIN 750 mg oral tablet, extended release 2 tablet = 1,500 mg, By Mouth, Daily, pls ask pt to call our health center to reestablish care if she is staying locally, # 60 tablet, 1 Refills, Maintenance, 07/14/18 15:07:22 EDT, ER Tablet Start Date: 07/14/18 Stop Date: 09/12/18 Status: Ordered Tessalon Perles 100 mg oral capsule 2 capsule = 200 mg, By Mouth, 3 times a day, PRN Cough, # 30 capsule, 0 Refills, Maintenance, 08/05/18 13:08:57 EDT, Capsule Start Date: 08/05/18 Status: Ordered Problem List Condition Effective Dates Status Health Status Inform ant Background diabetic retinopathy(Confirmed) 1 12/14/02 Active Depression(Confirmed) Active Diabetes mellitus type 2(Confirmed) Active Glaucoma(Confirmed) Active History of syphilis; [place] DP confirms bicillin x 3 01/2014(Confirmed) Active Hypertension(Confirmed) Active 1was seen by Dr. Devon Mccormack at [facility] Social History Social History Type Response Smoking Status Former smoker; Type: Cigarettes; Other: quit several yrs back; entered on: 04/13/15 Sex
--- OUTSIDE RECORDS SUMMARY | 2023-01-25 11:02 | XMS_ITS | Continuity of Care Document ---
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 Attending Physician: Silvia Kuhn MD Admitting Physician: Silvia Kuhn MD Referring Physician: Sumi MASON, Belia Allergies, Adverse Reactions, Alerts Substance Reaction Severity [...] vis given 10/17/10 2Admin Note: VIS GIVEN [id number] 3Admin Note: VIS GIVEN Medications Alcohol Pads [...] tablet, Refills 3, Tot. Refills 3, Maintenance, 06/20/22 15:49:00 EDT, Route to Pharmacy Electronically, [facility], 165.1,cm, 06/21/21 11:05:00 EDT, Height Start Date: 06/20/22 Status: Ordered atorvastatin 10 mg oral tablet 1 tablet = 10 mg, By Mouth, Daily, for cholesterol, # 90 tablet, 3 Refills, Maintenance, 06/20/22 15:49:00 EDT, [facility], Partial fill upon patient request if the prescription is for a schedule II opioid drug., 165.1, cm, 06/21/21 11... Start Date: 06/20/22 Status: Ordered Bedside Commode See Instructions, # 1 each, Refills 0, Tot. Refills 0, Maintenance, Medically necessary DME due to fall risk and increased back pain, 07/08/20 16:25:00 EDT, Supply Start Date: 07/08/20 Status: Ordered cholecalciferol 1000 intl units oral tablet 1 tablet = 1,000 International_Units, By Mouth, Daily, vitamin D take with food, # 90 tablet, 3 Refills, Maintenance, 06/20/22 15:49:00 EDT, Tablet, [facility], 165.1, cm, 06/21/21 11:05:00 EDT, Height Start Date: 06/20/22 Stop Date: 06/15/23 Status: Ordered Freestyle ana 2 Freestyle ana 2, See Instructions, # 2 each, Refills 11, Tot. Refills 11, Maintenance, Use to check sugar 4x daily E11.65, 10/18/22 9:44:00 EDT, Supply, 165.1, cm, 10/18/22 9:09:00 EDT, Height Start Date: 10/18/22 Status: Ordered Freestyle ana 2 reader Freestyle ana 2 reader, See Instructions, # 1 each, Refills 0, Tot. Refills 0, Maintenance, Check4 times daily e11.65, 10/18/22 9:44:00 EDT, Supply, 165.1, cm, 10/18/22 9:09:00 EDT, Height Start Date: 10/18/22 Status: Ordered Freestyle Lite Lancets See Instructions, # 150 each, Refills 11, Tot. Refills 11, Maintenance, Use to monitor blood glucose levels 4x per day. E11.9, 10/10/22 10:21:00 EDT, duplicate from 07/11/21, Supply, 165.1, cm, 06/21/21 11:05:00 EDT, Height Start Date: 10/10/22 Status: Ordered Freestyle Lite Monitor See Instructions, # 1 each, Maintenance, E11.9 IDDM check 3x/day, 02/14/21 9:01:00 EST, Compound, 165.1, cm, 01/24/21 13:37:00 EDT, Height, 78.6, kg, 06/15/20 10:01:00 EDT, Dry Weight Start Date: 02/14/21 Status: Ordered Freestyle Lite Test Strips See Instructions, # 150 each, Refills 11, Tot. Refills 11, Maintenance, Use to monitor blood glucose levels 4x per day. E11.9, 06/20/22 15:49:00 EDT, duplicate from 07/11/21, Supply, 165.1, cm, 06/21/21 11:05:00 EDT, Height Start Date: 06/20/22 Status: Ordered hydrochlorothiazide 25 mg oral tablet 25 mg, 1, tablet, By Mouth, Daily, for blood pressure, # 90 tablet, Refills 3, Tot. Refills 3, Maintenance, 06/20/22 15:49:00 EDT, Route to Pharmacy Electronically, [facility], 165.1,cm, 06/21/21 11:05:00 EDT, Height Start Date: 06/20/22 Status: Ordered Insulin Syringe, BD Ultra-Fine 0.5 [...] bedtime, # 15 mL, 11 Refills, Maintenance, 08/08/22 12:55:00 EDT, [facility], 165.1, cm, 06/21/21 11:05:00 EDT, Height Start Date: 08/08/22 Stop Date: 08/03/23 Status: Ordered latanoprost 0.005% ophthalmic solution See Instructions, INSERT 1 DROP IN BOTH EYES DAILY AT BEDTIME FOR 30 DAYS :PLEASE OBTAIN FURTHER REFILLS FROM YOUR IT ADMINISTRATIVE ASSISTANT, # 2.5 mL, 0 Refills, [facility], 30, INSERT 1 DROP IN BOTHEYES DAILY AT BEDTIME FOR 30 DAYS :PLEASE OBTAIN FU... Start Date: 10/31/21 Status: Ordered lisinopril 40 mg oral tablet 1 tablet = 40 mg, By Mouth, Daily, for blood pressure, # 90 tablet, 3 Refills, Maintenance, 06/20/22 15:49:00 EDT, [facility], 165.1, cm, 06/21/21 11:05:00 EDT, Height Start Date: 06/20/22 Stop Date: 06/15/23 Status: Ordered metFORMIN 750 mg oral tablet, extended release 2 tablet, By Mouth, Daily, for diabetes., # 180 tablet, 3 Refills, Maintenance, 06/20/22 15:49:00 EDT, [facility]., 165.1, cm, 06/21/21 11:05:00 EDT, Height Start Date: 06/20/22 Status: Ordered NovoLOG FlexPen 100 units/mL subcutaneous solution See Instructions, Subcutaneous Injection, Use as directed for Diabetes mellitus type 2, per slidingscale. (Max Dose = 50 units/day), # 30 mL, 11 Refills, Maintenance, 10/18/22 9:47:00 EDT, [facility]., 165.1, cm, 10/18/22 9:09:00 EDT,... Start Date: 10/18/22 Stop Date: 10/13/23 Status: Ordered Pen [place], 31 G x 8 mm BD Ultra Fine III See Instructions, # 150 each, Refills 5, Tot. Refills 5, Maintenance, use as directed for Type 2 Diabetes Mellitus E11.9 for 4x/day insulin pen injections, 10/10/22 10:20:00 EDT, Supply, 165.1, cm, 06/21/21 11:05:00 EDT, Height Start Date: 10/10/22 Stop Date: 04/08/23 Status: Ordered Pen [place], 31 G x 8 mm BD Ultra Fine III See Instructions, # 200 each, Refills 11, Tot. Refills 11, Maintenance, use up to 4 times daily as directed for Type 2 Diabetes Mellitus. E11.9, 10/04/21 9:58:00 EDT, Supply, 165.1, cm, 06/21/21 11:05:00 EDT, Height, 78.6, kg, 06/15/20 10:01:00 EDT, D... Start Date: 10/04/21 Stop Date: 09/29/22 Status: Ordered [place] COVID-19 Vaccine 30 mcg/0.3 mL preservative-free intramuscular [...] DAY :PLEASE GET FURTHER REFILLS FROM YOUR IT ADMINISTRATIVE ASSISTANT, # 5 mL, 0 Refills, [facility], 25, INSERT 1 DROP IN BOTH EYES 2 TIMES A DAY :PLEASE GET FURTHER REFILLS FROM YOUR IT ADMINISTRATIVE ASSISTANT... Start Date: 10/31/21 Status: Ordered traZODone 50 mg oral tablet 25 mg, 0.5, tablet, By Mouth, Daily at bedtime, # 15 tablet, Refills 0, Maintenance, 11/30/22 22:12:00 EDT, Partial fill upon patient request if the prescription is for a schedule II opioid drug. Start Date: 11/30/22 Status: Ordered Tylenol 8 HR Arthritis Pain 650 mg oral tablet, extended release 2 tablet = 1,300 mg, By Mouth, Every 8 hours, PRN Pain , Mild, # 100 tablet, 0 Refills, Maintenance, 12/05/20 14:59:00 EDT, ER Tablet, [facility]/pharmacy #[id number], Partial fill upon patient request if the prescription is for a schedule II opioid drug., 165.1,... Start Date: 12/05/20 Status: Ordered Problem List Condition Confirmation Course Effective Dates Status H ealth Status Informant Possible exposure to STD Confirmed Active Background diabetic retinopathy 1 Confirmed 12/14/02 Active Chronic low back pain Confirmed Active COVID-19 2 Confirmed 12/01/22 Active Depression Confirmed Active Diabetes mellitus type 2 Confirmed Active Glaucoma Confirmed Active Abdominal hernia without obstruction and without gangrene Confirmed Active Hernia of abdominal wall Confirmed Active History of syphilis; NELIDA DPH confirms bicillin x 3 01/2014 Confirmed Active Hypertension Confirmed Active Onychomycosis Confirmed Active Overweight Confirmed Active Health care maintenance Confirmed Active Physical exam Confirmed Active Current smoker Confirmed Active 1was seen by Dr. Devon Mccormack at [facility] 2Problem added by Discern Expert Social History Social History Type Response Smoking Status 10 or more cigarette s (1/2 pack or more)/day in last 30 days entered on: 01/26/20 Sex Patient Care team information Care Team Personnel Name: Susana Rodas MD Position: [facility] Physician - Primary Care Member Role: PCP Address: Address: [address] [place] [address]- Name: Ann Barron Position: [facility] Outreach Member Role: Lifetime Consulting Physician Care Team Related Persons Name: MALISSA CORDERO Address: home [address] [place] [id number] Name: JARED CORDERO Address: [place] [address]
--- OUTSIDE RECORDS SUMMARY | 2023-01-25 11:02 | XMS_ITS | Continuity of Care Document ---
Author Name Unknown Organization [facility] Address [address] [place] [address]- Care Team Providers Care Machine Puller Over Name Role Phone Raya MASON, Belle Primary Care Physician [phone] Encounter [facility] Date(s): 08/16/20 - 09/15/20 [facility] [address] [place] [address]- Allergies, Adverse Reactions, Alerts Substance Reaction Severity [...] vis given 10/17/10 2Admin Note: VIS GIVEN [id number] 3Admin Note: VIS GIVEN Medications Alcohol Pads [...] 1 Refills, Maintenance, 03/01/20 12:52:00 EST, Tablet, [id number], 165, cm, 02/13/20 11:43:00 EST, Height, 75.3, [...] Lantus Solostar Pen 100 units/mL subcutaneous solution See Instructions, INJECT 22 UNITS SUBCUTANEOUSLY EVERY NIGHT AT BEDTIME, # 15 Unknown, 0 Refills, Maintenance, [facility], 165.1, cm, 08/02/20 9:45:00 EDT, Height, 78.6, kg, 06/15/20 10:01:00 EDT, Dry Weight Start Date: 09/13/20 Status: Ordered latanoprost 0.005% ophthalmic solution 1 drops, Eyes, Both, Daily at bedtime, dr miguel Start Date: 04/11/16 Status: Ordered metFORMIN 750 mg oral tablet, extended release 2 tablet = 1,500 mg, By Mouth, Daily, pls ask pt to call our health center to reestablish care if she is staying locally, # 180 tablet, 3 Refills, Maintenance, 07/29/19 13:01:00 EDT, ER Tablet, [facility][id number], 165, cm, 07/29/19 12:25:00 ED... Start Date: 07/29/19 Status: Ordered NovoLOG FlexPen 100 units/mL subcutaneous solution See Instructions, Subcutaneous Injection, Use as directed for Diabetes mellitus type 2. (Max Dose =50 units/day), # 30 mL, 5 Refills, Maintenance, 08/04/19 17:01:00 EDT, [facility] #[id number], 165, cm, 07/29/19 12:25:00 EDT, Height, 72.7, kg, 01... Start Date: 08/04/19 Stop Date: 01/31/20 Status: Ordered Pen [place], 31 G x 8 mm BD Ultra [...] 1was seen by Dr. Devon Mccormack at [facility] Social History Social History Type Response Smoking Status 10 or more cigarette s (1/2 pack or more)/day in last 30 days entered on: 01/26/20 Sex
--- OUTSIDE RECORDS SUMMARY | 2023-01-25 11:02 | XMS_ITS | Continuity of Care Document ---
Author Name Unknown Organization [facility] Address [address] [place] [address] [address] [place] [address]- Care Team Providers Care Child Day Care Provider Name Role Phone Raya MASON, Belle Primary Care Physician Encounter [facility] Date(s): 09/13/20 - 10/13/[address] [place] [address]- Attending Physician: AdmDayanara zayas Admitting Physician: AdmtrDayanara [...] Given Tet/Diphth/Acel, Pertussis (oldterm) 3 09/13/08 Gi palu Influenza Vaccine (oldterm) 03/11/03 Given Influenza Vaccine (oldterm) 07/06/00 Given Influenza Vaccine (oldterm) 04/01/00 Given Pneumococcal Poly (PPV23) (oldterm) 03/11/03 Given tetanus-diphtheria toxoids (Td) 04/20/98 Given 1Admin Note: vis given 10/17/10 2Admin Note: VIS GIVEN [id number] 3Admin Note: VIS GIVEN Medications Alcohol Pads [...] 1 Refills, Maintenance, 03/01/20 12:52:00 EST, [facility]t, [id number], 165, cm, 02/13/20 11:43:00 EST, Height, 75.3, [...] BEDTIME, # 15 Unknown, 0 Refills, Maintenance, [id number], 165.1, cm, 08/02/20 9:45:00 EDT, Height, 78.6, kg, 06/15/20 10:01:00 EDT, Dry Weight Start Date: 09/13/20 Status: Ordered latanoprost 0.005% ophthalmic solution 1 drops, Eyes, Both, Daily at bedtime, dr miguel Start Date: 04/11/16 Status: Ordered NovoLOG FlexPen 100 units/mL subcutaneous solution See Instructions, Subcutaneous Injection, Use as directed for Diabetes mellitus type 2. (Max Dose =50 units/day), # 30 mL, 5 Refills, Maintenance, 08/04/19 17:01:00 EDT, [facility] #[id number], 165, cm, 07/29/19 12:25:00 EDT, Height, 72.7, kg, 01... Start Date: 08/04/19 Stop Date: 01/31/20 Status: Ordered Pen [place], 31 G x 8 mm BD Ultra [...] abdominal wall(Confirmed) Active History of syphilis; NELIDA [facility] confirms bicillin x 3 01/2014(Confirmed) Active Hypertension(Confirmed) Active Onychomycosis(Confirmed) Active Overweight(Confirmed) Active Health care maintenance(Confirmed) Active Physical exam(Confirmed) Active Current smoker(Confirmed) Active 1was seen by Dr. Devon Mccormack at [facility] Social History Social History Type Response Smoking Status 10 or more cigarette s (1/2 pack or more)/day in last 30 days entered on: 01/26/20 Sex
--- OUTSIDE RECORDS SUMMARY | 2023-01-25 11:02 | XMS_ITS | Continuity of Care Document ---
Author Name Unknown Organization [facility] Address [address] [place] [address]- Care Team Providers Care Chemical Detection Expert Name Role Phone Belle Dos Santos NP Primary Care Physician [phone] Encounter [facility] Date(s): 05/16/20 - 06/15/20 [facility] [address] [place] [id number] Allergies, Adverse Reactions, Alerts Substance Reaction Severity [...] vis given 10/17/10 2Admin Note: VIS GIVEN [id number] 3Admin Note: VIS GIVEN Medications Alcohol Pads [...] EDT, Route to Pharmacy Electronically, [id number], 165, cm, 07/29/19 12:25:00 EDT, Height, 72.7, kg, 03/30/19... Start Date: 07/29/19 Status: Ordered atorvastatin 20 mg oral tablet 1 tablet = 20 mg, By Mouth, Daily, # 90 tablet, 3 Refills, Maintenance, 07/29/19 12:59:00 EDT, Tablet, [facility] #[facility]29[facility], 165, cm, 07/29/19 12:25:00 EDT, Height, 72.7, kg, 03/30/19 16:51:00 EST, Dry Weight Start Date: 07/29/19 Status: Ordered cholecalciferol 1000 intl units oral tablet 1 tablet = 1,000 International_Units, By Mouth, Daily, vitamin D take with food, # 90 tablet, 1 Refills, Maintenance, 03/01/20 12:52:00 EST, Tablet, [facility][id number], 165, cm, 02/13/20 11:43:00 EST, Height, 75.3, [...] 03/01/20 12:51:00 EST, Route to Pharmacy Electronically, [facility] #[id number], 165, cm, 02/13/20 11:43:00 EST, Height, 75.3, [...] 3 Refills, Maintenance, 03/01/20 16:23:00 EST, Solution, [facility] #[id number], 165, cm, 02/13/20 11:43:00 EST, Height, 75.3, kg, 02/08/20 14:42:00 ES... Start Date: 03/01/20 Stop Date: 06/29/20 Status: Ordered latanoprost 0.005% ophthalmic solution 1 drops, Eyes, Both, Daily at bedtime, dr miugel Start Date: 04/11/16 Status: Ordered lisinopril 40 mg oral tablet 1 tablet = 40 mg, By Mouth, Daily, for blood pressure, # 90 tablet, 3 Refills, Maintenance, 07/29/19 13:01:00 EDT, [facility] #[id number], 165, cm, 07/29/19 12:25:00 EDT, Height, 72.7, kg, 03/30/19 16:51:00 EST, Dry Weight Start Date: 07/29/19 Status: Ordered metFORMIN 750 mg oral tablet, extended release 2 tablet = 1,500 mg, By Mouth, Daily, pls ask pt to call our health center to reestablish care if she is staying locally, # 180 tablet, 3 Refills, Maintenance, 07/29/19 13:01:00 EDT, ER Tablet, [id number], 165, cm, 07/29/19 12:25:00 ED... Start Date: 07/29/19 Status: Ordered NovoLOG FlexPen 100 units/mL subcutaneous solution See Instructions, Subcutaneous Injection, Use as directed for Diabetes mellitus type 2. (Max Dose =50 units/day), # 30 mL, 5 Refills, Maintenance, 08/04/19 17:01:00 EDT, [facility] #[id number], 165, cm, 07/29/19 12:25:00 EDT, Height, 72.7, kg, 01... Start Date: 08/04/19 Stop Date: 01/31/20 Status: Ordered NovoLog Inj See Instructions, Subcutaneous Infusion 3 times a day before meals, 0 Refills, Maintenance, 05/13/20 17:22:00 EST, Partial fill upon patient request if the prescription is for a schedule II opioid drug. Start Date: 05/13/20 Status: Ordered Pen [place], 31 G x 8 mm BD Ultra [...] 1was seen by Dr. Devon Mccormack at [facility] Social History Social History Type Response Smoking Status 10 or more cigarette s (1/2 pack or more)/day in last 30 days entered on: 01/26/20 Sex
--- OUTSIDE RECORDS SUMMARY | 2023-01-25 11:02 | XMS_ITS | Continuity of Care Document ---
Author Name Unknown Organization [facility] Address [address] [place] [address]- Care Team Providers Care Road Gang Supervisor Name Role Phone Nestor WOODY, Marva Primary Care Physician [phone] Encounter [facility] Date(s): 12/19/20 - 01/18/[address] [address]- Allergies, Adverse Reactions, Alerts Substance Reaction Severity [...] vis given 10/17/10 2Admin Note: VIS GIVEN [id number] 3Admin Note: VIS GIVEN Medications Alcohol Pads [...] Refills, Maintenance, 12/07/20 13:42:00 EDT, [facility]/pharmacy #[id number], Partial fill upon patient request if the prescription is for a schedule II opioid drug., 165.1, cm, 12/05/20 13:59:00 EDT, Height, 78.6,... Start Date: 12/07/20 Status: Ordered cholecalciferol 1000 intl units oral tablet 1 tablet = 1,000 International_Units, By Mouth, Daily, vitamin D take with food, # 90 tablet, 1 Refills, Maintenance, 03/01/20 12:52:00 EST, Tablet, [facility] #[id number], 165, cm, 02/13/20 11:43:00 EST, Height, 75.3, kg, 02/08/20 14:42:00 EST,... Start Date: 03/01/20 Stop Date: 03/31/20 Status: Ordered duloxetine 30 mg oral enteric coated capsule 1 capsule, By Mouth, Daily, DO NOT CRUSH OR CHEW. *., # 30 capsule, 8 Refills, [facility], 165.1, cm, 12/19/20 12:24:00 EDT, Height, 78.6, [...] 11/14/20 Stop Date: 04/13/21 Status: Ordered Pen [place], 31 G x 8 mm BD Ultra Fine III See Instructions, # 200 each, Refills 11, Tot. Refills 11, Maintenance, use up to 4 times daily as directed for Type 2 Diabetes Mellitus. E11.9, 08/18/20 17:03:00 EDT, Supply, 165.1, cm, 08/02/20 9:45:00 EDT, Height, 78.6, kg, 06/15/20 10:01:00 EDT, D... Start Date: 08/18/20 Stop Date: 08/13/21 Status: Ordered [employer] COVID-19 Vaccine 30 mcg/0.3 mL preservative-free intramuscular [...] 12/05/20 14:59:00 EDT, ER Tablet, [facility]/pharmacy #[id number], Partial fill upon patient request if the [...] 1was seen by Dr. Devon Mccormack at [facility] Social History Social History Type Response Smoking Status 10 or more cigarette s (1/2 pack or more)/day in last 30 days entered on: 01/26/20 Sex
--- OUTSIDE RECORDS SUMMARY | 2023-01-25 11:03 | XMS_ITS | Continuity of Care Document ---
Author Name Unknown Organization [facility] Address [address] [place] [address]- Care Team Providers Care Travel Agent Name Role Phone Raya MASON, Belle Primary Care Physician [phone] [facility]counter [facility] Date(s): 07/04/20 - 09/14/[address] [address] Attending Physician: Kavita Hogan MD Admitting Physician: Kavita Hogan MD Allergies, Adverse Reactions, Alerts Substance Reaction [...] vis given 10/17/10 2Admin Note: VIS GIVEN [id number] 3Admin Note: VIS GIVEN Medications Alcohol Pads [...] 1 Refills, Maintenance, 03/01/20 12:52:00 EST, Tablet, [id number], 165, cm, 02/13/20 11:43:00 EST, Height, 75.3, [...] BEDTIME, # 15 Unknown, 0 Refills, Maintenance, [facility], 165.1, cm, 08/02/20 9:45:00 EDT, Height, 78.6, [...] Refills, Maintenance, 07/29/19 13:01:00 EDT, ER Tablet, [facility] #75702, 165, cm, 07/29/19 12:25:00 ED... Start Date: 07/29/19 Status: Ordered NovoLOG FlexPen 100 units/mL subcutaneous solution See Instructions, Subcutaneous Injection, Use as directed for Diabetes mellitus type 2. (Max Dose =50 units/day), # 30 mL, 5 Refills, Maintenance, 08/04/19 17:01:00 EDT, [facility] #[id number], 165, cm, 07/29/19 12:25:00 EDT, Height, 72.7, kg, 01... Start Date: 08/04/19 Stop Date: 01/31/20 Status: Ordered Pen [place], 31 G x 8 mm BD Ultra [...] 1was seen by Dr. Devon Mccormack at [facility] Vital Signs Most recent to oldest [Reference Range]: 1 2 Height 165.10 cm (08/02/20 9:45 AM) 165.10 cm (08/02/20 9:45 AM) Weight 78.3 kg (08/02/20 9:45 AM) 75 kg (08/02/20 9:45 AM) Body Mass Index [18.5-24.99] 28.73 *H* (08/02/20 9:45 AM) Sensory deficits Glasses (08/02/20 9:45 AM) Mobility assistance Independent (08/02/20 9:45 AM) Social History Social History Type Response Smoking Status 10 or more cigarette s (1/2 pack or more)/day in last 30 days entered on: 01/26/20 Sex
--- OUTSIDE RECORDS SUMMARY | 2023-01-25 11:03 | XMS_ITS | Continuity of Care Document ---
Author Name Unknown Organization [facility] Address [address] [place] [address]- Care Team Providers Care Mechanical Engineering Advisor Name Role Phone Nerissa Bonner MD Primary Care Physician Encounter [facility] Date(s): 01/04/20 - 01/11/20 [facility] [address] [place] [address]- [facility] Encounter Diagnosis Hernia of abdominal wall(Discharge Diagnosis) - 01/04/20 Hypertension(Discharge Diagnosis) - 01/04/20 Diabetes mellitus type 2(Discharge Diagnosis) - 01/04/20 Onychomycosis(Discharge Diagnosis) - 01/04/20 Attending Physician: Nerissa Bonner MD Allergies, Adverse [...] vis given 10/17/10 2Admin Note: VIS GIVEN [id number] 3Admin Note: VIS GIVEN Medications Alcohol Pads [...] 07/29/19 12:59:00 EDT, Route to Pharmacy Electronically, [facility] #[id number], 165, cm, 07/29/19 12:25:00 EDT, Height, 72.7, kg, 03/30/19... Start Date: 07/29/19 Status: Ordered atorvastatin 20 mg oral tablet 1 tablet = 20 mg, By Mouth, Daily, # 90 tablet, 3 Refills, Maintenance, 07/29/19 12:59:00 EDT, Tablet, [facility] #35078, 165, cm, 07/29/19 12:25:00 EDT, Height, 72.7, kg, 03/30/19 16:51:00 EST, Dry Weight Start Date: 07/29/19 Status: Ordered cholecalciferol 1000 intl units oral tablet 1 tablet = 1,000 International_Units, By Mouth, Daily, vitamin D take with food, # 30 tablet, 1 Refills, Maintenance, 05/09/18 11:41:23 EST, Tablet Start Date: 05/09/18 Stop Date: 07/08/18 Status: Ordered Freestyle Lancets See Instructions, # [...] 07/29/19 13:00:00 EDT, Route to Pharmacy Electronically, [facility] #[id number], 165, cm, 07/29/19 12:25:00 EDT, Height, 72.7, [...] 3 Refills, Maintenance, 07/29/19 13:05:00 EDT, Solution, [facility] #[id number], 165, cm, 07/29/19 12:25:00 EDT, Height, 72.7, [...] tablet, 3 Refills, Maintenance, 07/29/19 13:01:00 EDT, [facility] #[id number], 165, cm, 07/29/19 12:25:00 EDT, Height, 72.7, kg, 03/30/19 16:51:00 EST, Dry Weight Start Date: 07/29/19 Status: Ordered metFORMIN 750 mg oral tablet, extended release 2 tablet = 1,500 mg, By Mouth, Daily, pls ask pt to call our health center to reestablish care if she is staying locally, # 180 tablet, 3 Refills, Maintenance, 07/29/19 13:01:00 EDT, ER Tablet, [facility] #[id number], 165, cm, 07/29/19 12:25:00 ED... Start Date: 07/29/19 Status: Ordered NovoLOG FlexPen 100 units/mL subcutaneous solution See Instructions, Subcutaneous Injection, Use as directed for Diabetes mellitus type 2. (Max Dose =50 units/day), # 30 mL, 5 Refills, Maintenance, 08/04/19 17:01:00 EDT, [facility][id number], 165, cm, 07/29/19 12:25:00 EDT, Height, 72.7, kg, 01... Start Date: 08/04/19 Stop Date: 01/31/20 Status: Ordered Pen [place], 31 G x 8 mm BD Ultra [...] 1was seen by Dr. Devon Mccormack at [facility] Diagnosis Diagnosis Type Effective Dates Health Status Clinical Service Informant Hernia of abdominal wall Discharge Diagnosis 01/04/20 Hypertension Discharge Diagnosis 01/04/20 Diabetes mellitus type 2 Discharge Diagnosis 01/04/20 Onychomycosis Discharge Diagnosis 01/04/20 Vital Signs Most recent to oldest [Reference Range]: 1 Height 165 cm (01/04/20 2:42 PM) Weight 73.5 kg (01/04/20 2:42 PM) Oxygen Saturation [94-100 %] 100 % (01/04/20 2:42 PM) Pulse Rate [55-90 bpm] 89 bpm (01/04/20 2:42 PM) Body Mass Index [18.5-24.99] 27 *H* (01/04/20 2:42 PM) Blood Pressure [90-138/55-84 mm Hg] 145/ 87mm Hg *H* (01/04/20 2:42 PM) Respiratory Rate [16-30 br/min] 18 br/mi n (01/04/20 2:42 PM) Blood pressure sites Arm, left (01/04/20 2:42 PM) Dry Weight 73.5 kg (01/04/20 2:42 PM) Weight Obtained Via Standing scale (01/04/20 2:42 PM) Social History Social History Type Response Tobacco Use: 4 or less cigar ettes(less than 1/4 pack)/day in last 30 days. Sex
--- OUTSIDE RECORDS SUMMARY | 2023-01-25 11:03 | XMS_ITS | Continuity of Care Document ---
Author Name Unknown Organization [facility] Address [address] [place] [address]- Care Team Providers Care Hand Bindery Assembly Worker Name Role Phone Sreekanth WOODY, Jeanine Rivas Primary Care Physician Encounter [facility] Date(s): 07/10/21 - 08/09/[address] [address]- Allergies, Adverse Reactions, Alerts Substance Reaction Severity [...] vis given 10/17/10 2Admin Note: VIS GIVEN [id number] 3Admin Note: VIS GIVEN Medications Alcohol Pads [...] 08/02/21 9:37:00 EDT, Route to Pharmacy Electronically, [facility], 165.1, cm, 06/21/21 11:05:00 EDT, H... Start Date: 08/02/21 Status: Ordered atorvastatin 10 mg oral tablet 1 tablet = 10 mg, By Mouth, Daily, duplicate from 07/08/21, # 90 tablet, 3 Refills, Maintenance, 08/02/21 9:39:00 EDT, [facility], Partial fill upon patient request if the prescriptionis for a schedule II opioid drug., 165.1, cm, 06/21... Start Date: 08/02/21 Status: Ordered cholecalciferol 1000 intl units oral tablet 1 tablet = 1,000 International_Units, By Mouth, Daily, vitamin D take with food, # 90 tablet, 3 Refills, Maintenance, 08/04/21 17:10:00 EDT, Tablet, [facility], 165.1, cm, 06/21/21 11:05:00 EDT, Height, 78.6, [...] 08/02/21 9:40:00 EDT, Route to Pharmacy Electronically, [facility], 165.1, cm, 06/21/21 11:05:00 EDT, H... Start [...] mL, 11 Refills, Maintenance, 08/02/21 21:27:00 [facility] 165.1, cm, 06/21/21 11:05:00 EDT, Height, 78.6, kg, 06/15/2109:01:00 EDT, Dry Weight Start Date: 08/02/21 Stop Date: 07/28/22 Status: Ordered latanoprost 0.005% ophthalmic solution 1 drops, Eyes, Both, Daily at bedtime, for 30 days, please obtain further refills from your eyewear consultant, # 2.5 mL, 1 Refills, Physician Stop 10/02/21 9:03:00 EDT, 08/03/21 9:03:00 EDT, [facility]., 1 drops Eyes, Both Daily at bedtime... Start Date: 08/03/21 Stop Date: 10/02/21 Status: Ordered lisinopril 40 mg oral tablet 1 tablet = 40 mg, By Mouth, Daily, for blood pressure, # 90 tablet, 3 Refills, Maintenance, 08/04/21 17:10:00 EDT, [facility]., 165.1, cm, 06/21/21 11:05:00 EDT, Height, 78.6, kg, 06/15/20 10:01:00 EDT, Dry Weight Start Date: 08/04/21 Stop Date: 07/30/22 Status: Ordered metFORMIN 750 mg oral tablet, extended release 2 tablet, By Mouth, Daily, duplicate from 07/08/21, # 180 tablet, 3 Refills, Maintenance, 08/02/21 9:42:00 EDT, [facility]., 165.1, cm, 06/21/21 11:05:00 EDT, Height, 78.6, kg, 06/15/2109:01:00 EDT, Dry Weight Start Date: 08/02/21 Status: Ordered NovoLOG FlexPen 100 units/mL subcutaneous solution See Instructions, Subcutaneous Injection, Use as directed for Diabetes mellitus type 2, per slidingscale. (Max Dose = 50 units/day), # 30 mL, 11 Refills, Maintenance, 08/02/21 21:26:00 EDT, [facility]., 165.1, cm, 06/21/21 11:05:00 EDT... Start Date: 08/02/21 Stop Date: 07/28/22 Status: Ordered Pen [place], 31 G x 8 mm BD Ultra Fine III See Instructions, # 200 each, Refills 11, Tot. Refills 11, Maintenance, use up to 4 times daily as directed for Type 2 Diabetes Mellitus. E11.9, 08/18/20 17:03:00 EDT, Supply, 165.1, cm, 08/02/20 9:45:00 EDT, Height, 78.6, kg, 06/15/20 10:01:00 EDT, D... Start Date: 08/18/20 Stop Date: 08/13/21 Status: Ordered [employer] COVID-19 Vaccine 30 mcg/0.3 mL preservative-free intramuscular [...] day, please get further refills from your eyewear consultant duplicate from 07/08/21, # 2.5 mL, 1 Refills, Maintenance, 08/02/21 9:42:00 EDT, Ophth Solution, [facility], Partial fill upon patient request if t... Start Date: 08/02/21 Status: Ordered Tylenol 8 HR Arthritis Pain 650 mg oral tablet, extended release 2 tablet = 1,300 mg, By Mouth, Every 8 hours, PRN Pain , Mild, # 100 tablet, 0 Refills, Maintenance, 12/05/20 14:59:00 EDT, ER Tablet, [id number], Partial fill upon patient request if the [...] 1was seen by Dr. Devon Mccormack at [facility] Social History Social History Type Response Smoking Status 10 or more cigarette s (1/2 pack or more)/day in last 30 days entered on: 01/26/20 Sex
--- OUTSIDE RECORDS SUMMARY | 2023-01-25 11:03 | XMS_ITS | Continuity of Care Document ---
Author Name Unknown Organization [facility] Address [address] [place] [address]- Care Team Providers Care Per Diem Nurse Name Role Phone Sreekanth WOODY, Jeanine Rivas Primary Care Physician Encounter [facility] Date(s): 08/02/21 - 09/01/[address] [address]- Allergies, Adverse Reactions, Alerts Substance Reaction Severity [...] vis given 10/17/10 2Admin Note: VIS GIVEN [id number] 3Admin Note: VIS GIVEN Medications Alcohol Pads [...] 08/02/21 9:37:00 EDT, Route to Pharmacy Electronically, [facility], 165.1, cm, 06/21/21 11:05:00 EDT, H... Start Date: 08/02/21 Status: Ordered atorvastatin 10 mg oral tablet 1 tablet = 10 mg, By Mouth, Daily, duplicate from 07/08/21, # 90 tablet, 3 Refills, Maintenance, 08/02/21 9:39:00 EDT, [facility], Partial fill upon patient request if the prescriptionis for a schedule II opioid drug., 165.1, cm, 06/21... Start Date: 08/02/21 Status: Ordered cholecalciferol 1000 intl units oral tablet 1 tablet = 1,000 International_Units, By Mouth, Daily, vitamin D take with food, # 90 tablet, 3 Refills, Maintenance, 08/04/21 17:10:00 EDT, Tablet, [facility], 165.1, cm, 06/21/21 11:05:00 EDT, Height, [...] 08/02/21 9:40:00 EDT, Route to Pharmacy Electronically, [facility], 165.1, cm, 06/21/21 11:05:00 EDT, H... [...] mL, 11 Refills, Maintenance, 08/02/21 21:27:00 [facility] 165.1, cm, 06/21/21 11:05:00 EDT, Height, 78.6, kg, 06/15/2109:01:00 EDT, Dry Weight Start Date: 08/02/21 Stop Date: 07/28/22 Status: Ordered latanoprost 0.005% ophthalmic solution 1 drops, Eyes, Both, Daily at bedtime, for 30 days, please obtain further refills from your eye technician, # 2.5 mL, 1 Refills, Physician Stop 10/02/21 9:03:00 EDT, 08/03/21 9:03:00 EDT, [facility]., 1 drops Eyes, Both Daily at bedtime... Start Date: 08/03/21 Stop Date: 10/02/21 Status: Ordered lisinopril 40 mg oral tablet 1 tablet = 40 mg, By Mouth, Daily, for blood pressure, # 90 tablet, 3 Refills, Maintenance, 08/04/21 17:10:00 EDT, [facility]., 165.1, cm, 06/21/21 11:05:00 EDT, Height, 78.6, kg, 06/15/20 10:01:00 EDT, Dry Weight Start Date: 08/04/21 Stop Date: 07/30/22 Status: Ordered metFORMIN 750 mg oral tablet, extended release 2 tablet, By Mouth, Daily, duplicate from 07/08/21, # 180 tablet, 3 Refills, Maintenance, 08/02/21 9:42:00 EDT, [facility]., 165.1, cm, 06/21/21 11:05:00 EDT, Height, 78.6, kg, 06/15/2109:01:00 EDT, Dry Weight Start Date: 08/02/21 Status: Ordered NovoLOG FlexPen 100 units/mL subcutaneous solution See Instructions, Subcutaneous Injection, Use as directed for Diabetes mellitus type 2, per slidingscale. (Max Dose = 50 units/day), # 30 mL, 11 Refills, Maintenance, 08/02/21 21:26:00 EDT, [facility]., 165.1, cm, 06/21/21 11:05:00 EDT... Start Date: 08/02/21 Stop Date: 07/28/22 Status: Ordered Pen [place], 31 G x 8 mm BD Ultra Fine III See Instructions, # 200 each, Refills 11, Tot. Refills 11, Maintenance, use up to 4 times daily as directed for Type 2 Diabetes Mellitus. E11.9, 08/18/20 17:03:00 EDT, Supply, 165.1, cm, 08/02/20 9:45:00 EDT, Height, 78.6, kg, 06/15/20 10:01:00 EDT, D... Start Date: 08/18/20 Stop Date: 08/13/21 Status: Ordered [employer] COVID-19 Vaccine 30 mcg/0.3 mL preservative-free intramuscular [...] day, please get further refills from your eye technician duplicate from 07/08/21, # 2.5 mL, 1 Refills, Maintenance, 08/02/21 9:42:00 EDT, Ophth Solution, [facility], Partial fill upon patient request if t... Start Date: 08/02/21 Status: Ordered Tylenol 8 HR Arthritis Pain 650 mg oral tablet, extended release 2 tablet = 1,300 mg, By Mouth, Every 8 hours, PRN Pain , Mild, # 100 tablet, 0 Refills, Maintenance, 12/05/20 14:59:00 EDT, ER Tablet, [id number], Partial fill upon patient request if the [...] 1was seen by Dr. Devon Mccormack at [facility] Social History Social History Type Response Smoking Status 10 or more cigarette s (1/2 pack or more)/day in last 30 days entered on: 01/26/20 Sex
--- OUTSIDE RECORDS SUMMARY | 2023-01-25 11:03 | XMS_ITS | Continuity of Care Document ---
Author Name Unknown Organization [facility]ocr[facility]olo gy and Diabetes Address [address] [place] [address]- Care Team Providers Care Director Of Online Merchandising Name Role Phone Nerissa Bonner MD Primary Care Physician Encounter [facility] [place] Date(s): 08/20/19 - 12/18/19 [facility] Endocrinology and Diabetes [address] [place] [address] [facility] Attending Physician: Kenya Mendiola MD Admitting Physician: Kenya Mendiola MD Referring Physician: Nerissa Bonner MD Allergies, Adverse Reactions, [...] vis given 10/17/10 2Admin Note: VIS GIVEN [id number] 3Admin Note: VIS GIVEN Medications Alcohol Pads [...] 12:59:00 EDT, Route to Pharmacy Electronically, [id number], 165, cm, 07/29/19 12:25:00 EDT, Height, 72.7, kg, 03/30/19... Start Date: 07/29/19 Status: Ordered atorvastatin 20 mg oral tablet 1 tablet = 20 mg, By Mouth, Daily, # 90 tablet, 3 Refills, Maintenance, 07/29/19 12:59:00 EDT, Tablet, [facility] #97329, 165, cm, 07/29/19 12:25:00 EDT, Height, 72.7, [...] 07/29/19 13:00:00 EDT, [facility] to [facility]ically, [id number], 165, cm, 07/29/19 12:25:00 EDT, Height, 72.7, [...] 3 Refills, Maintenance, 07/29/19 13:05:00 EDT, Solution, [facility] #360[facility], 165, cm, 07/29/19 12:25:00 EDT, Height, 72.7, [...] Refills, Maintenance, 07/29/19 13:01:00 EDT, [facility], 165, cm, 07/29/19 12:25:00 EDT, Height, 72.7, kg, 03/30/19 16:51:00 EST, Dry Weight Start Date: 07/29/19 Status: Ordered metFORMIN 750 mg oral tablet, extended release 2 tablet = 1,500 mg, By Mouth, Daily, pls ask pt to call our health center to reestablish care if she is staying locally, # 180 tablet, 3 Refills, Maintenance, 07/29/19 13:01:00 EDT, ER Tablet, [facility]42515, 165, cm, 07/29/19 12:25:00 ED... Start Date: 07/29/19 Status: Ordered NovoLOG FlexPen 100 units/mL subcutaneous solution See Instructions, Subcutaneous Injection, Use as directed for Diabetes mellitus type 2. (Max Dose =50 units/day), # 30 mL, 5 Refills, Maintenance, 08/04/19 17:01:00 EDT, [facility] #73659, 165, cm, 07/29/19 12:25:00 EDT, Height, 72.7, kg, 01... Start Date: 08/04/19 Stop Date: 01/31/20 Status: Ordered Pen [place], 31 G x 8 mm BD Ultra [...] 1was seen by Dr. Devon Mccormack at [facility] Social History Social History Type Response Tobacco Use: 4 or less cigar ettes(less than 1/4 pack)/day in last 30 days. Sex
--- OUTSIDE RECORDS SUMMARY | 2023-01-25 11:03 | XMS_ITS | Continuity of Care Document ---
Author Name Unknown Organization [facility] Address [address] [place] [address]- Care Team Providers Care Wad Blanking Press Adjuster Name Role Phone Nerissa Bonner MD Primary Care Physician Encounter [facility] [place] Date(s): 11/04/19 - 12/04/[address] [address]- [facility] Attending Physician: Dayanara Lowery Admitting Physician: AdmtrDayanara Referring Physician: Admtr ArMiguel Angel Allergies, Adverse Reactions, Alerts Substance Reaction Severity [...] vis given 10/17/10 2Admin Note: VIS GIVEN [id number] 3Admin Note: VIS GIVEN Medications Alcohol Pads See Instructions, # 100 each, Refills 11, Tot. Refills 11, Maintenance, E11.9, 07/10/17 13:55:10 EDT, Compound Start Date: 07/10/17 Status: Ordered amLODIPine 10 mg oral tablet 10 mg, 1, tablet, By Mouth, Daily, for blood pressure, # 90 tablet, Refills 3, Tot. Refills 3, Maintenance, 07/29/19 12:59:00 EDT, Route to Pharmacy Electronically, [facility]96101, 165, cm, 07/29/19 12:25:00 EDT, Height, 72.7, kg, 03/30/19... Start Date: 07/29/19 Status: Ordered atorvastatin 20 mg oral tablet 1 tablet = 20 mg, By Mouth, Daily, # 90 tablet, 3 Refills, Maintenance, 07/29/19 12:59:00 EDT, Tablet, [facility], 165, cm, 07/29/19 12:25:00 EDT, Height, 72.7, [...] 07/29/19 13:00:00 EDT, Route to Pharmacy Electronically, [id number], 165, cm, 07/29/19 12:25:00 EDT, Height, 72.7, [...] Daily, pls ask pt to [facility] to [facility] careif she is staying locally, # 10 mL, 1 Refills, Maintenance, 07/14/18 15:07:23 EDT, Solution Start Date: 07/14/18 Stop Date: 09/12/18 Status: Ordered Lantus Solostar Pen 100 units/mL subcutaneous solution = 18 units, Subcutaneous Injection, Daily at bedtime, # 3 each, 3 Refills, Maintenance, 07/29/19 13:05:00 EDT, Solution, [facility]21698, 165, cm, 07/29/19 12:25:00 EDT, Height, 72.7, [...] tablet, 3 Refills, Maintenance, 07/29/19 13:01:00 EDT, [facility] #86258, 165, cm, 07/29/19 12:25:00 EDT, Height, 72.7, kg, 03/30/19 16:51:00 EST, Dry Weight Start Date: 07/29/19 Status: Ordered metFORMIN 750 mg oral tablet, extended release 2 tablet = 1,500 mg, By Mouth, Daily, pls ask pt to call [facility] to [facility] care if she is staying locally, # 180 tablet, 3 Refills, Maintenance, 07/29/19 13:01:00 EDT, ER Tablet, [facility] #[facility], 165, cm, 07/29/19 12:25:00 ED... Start Date: 07/29/19 Status: Ordered NovoLOG FlexPen 100 units/mL subcutaneous solution See Instructions, Subcutaneous Injection, Use as directed for Diabetes mellitus type 2. (Max Dose =50 units/day), # 30 mL, 5 Refills, Maintenance, 08/04/19 17:01:00 EDT, [facility] #[facility], 165, cm, 07/29/19 12:25:00 EDT, Height, 72.7, kg, 01... Start Date: 08/04/19 Stop Date: 01/31/20 Status: Ordered Pen [place], 31 G x 8 mm BD Ultra [...] abdominal wall(Confirmed) Active History of syphilis; [facility] confirms bicillin x 3 01/2014(Confirmed) Active Hypertension(Confirmed) Active Health care maintenance(Confirmed) Active Physical exam(Confirmed) Active 1was seen by Dr. Devon Mccormack at [facility] Social History Social History Type Response Tobacco Use: 4 or less cigar ettes(less than 1/4 pack)/day in last 30 days. Sex
--- OUTSIDE RECORDS SUMMARY | 2023-01-25 11:03 | XMS_ITS | Continuity of Care Document ---
Author Name Unknown Organization [facility] Address [address] [place] [address]- Care Team Providers Care Air Route Traffic Controller Name Role Phone Raya MASON, Belle Primary Care Physician [phone] [facility] [place] Date(s): 08/15/20 - 09/14/20 [facility] [address] [place], [place] [address] Attending Physician: AdmDayanara zayas Admitting Physician: AdmtrDayanara Referring Physician: Admtr, Dayanara Allergies, Adverse Reactions, Alerts Substance Reaction Severity [...] vis given 10/17/10 2Admin Note: VIS GIVEN [id number] 3Admin Note: VIS GIVEN Medications Alcohol Pads [...] Maintenance, 03/01/20 12:52:00 EST, Tablet, [facility]15, 165, cm, 02/13/20 11:43:00 EST, Height, 75.3, [...] BEDTIME, # 15 Unknown, 0 Refills, Maintenance, [facility] 96[facility], 165.1, cm, 08/02/20 9:45:00 EDT, Height, 78.6, [...] Refills, Maintenance, 07/29/19 13:01:00 EDT, ER Tablet, [facility] #35761, 165, cm, 07/29/19 12:25:00 ED... Start Date: 07/29/19 Status: Ordered NovoLOG FlexPen 100 units/mL subcutaneous solution See Instructions, Subcutaneous Injection, Use as directed for Diabetes mellitus type 2. (Max Dose =50 units/day), # 30 mL, 5 Refills, Maintenance, 08/04/19 17:01:00 EDT, [facility] #43060, 165, cm, 07/29/19 12:25:00 EDT, Height, 72.7, kg, 01... Start Date: 08/04/19 Stop Date: 01/31/20 Status: Ordered Pen [place], 31 G x 8 mm BD Ultra Fine III See Instructions, # 200 each, Refills 11, Tot. Refills 11, Maintenance, use up to 4 times daily as directed for Type 2 Diabetes Mellitus. E11.9, 08/18/20 17:03:00 EDT, Supply, 165.1, cm, 08/02/20 9:45:00 EDT, Height, 78.6, kg, 03/24/21 10:01:00 EDT, D... Start Date: 08/18/20 Stop [...] 1was seen by Dr. Devon Mccormack at [facility] Social History Social History Type Response Smoking Status 10 or more cigarette s (1/2 pack or more)/day in last 30 days entered on: 01/26/20 Sex
--- OUTSIDE RECORDS SUMMARY | 2023-01-25 11:03 | XMS_ITS | Continuity of Care Document ---
Author Name Unknown Organization [facility] Address [address] [place] [address]- Care Team Providers Care Claim Review Medical Director Name Role Phone Nerissa Bonner MD Primary Care Physician Encounter [facility] [place] Date(s): 01/04/20 - 03/02/20 [facility] [address] [place] [address]- Attending Physician: Nerissa Bonner MD Allergies, Adverse [...] vis given 10/17/10 2Admin Note: VIS GIVEN [id number] 3Admin Note: VIS GIVEN Medications Alcohol Pads [...] EDT, Route to Pharmacy Electronically, [facility]01740, 165, cm, 07/29/19 12:25:00 EDT, Height, 72.7, kg, 03/30/19... Start Date: 07/29/19 Status: Ordered atorvastatin 20 mg oral tablet 1 tablet = 20 mg, By Mouth, Daily, # 90 tablet, 3 Refills, Maintenance, 07/29/19 12:59:00 EDT, Tablet, [facility] #29458, 165, cm, 07/29/19 12:25:00 EDT, Height, 72.7, kg, 03/30/19 16:51:00 EST, Dry Weight Start Date: 07/29/19 Status: Ordered cholecalciferol 1000 intl units oral tablet 1 tablet = 1,000 International_Units, By Mouth, Daily, vitamin D take with food, # 90 tablet, 1 Refills, Maintenance, 03/01/20 12:52:00 EST, Tablet, [facility] #47408, 165, cm, 02/13/20 11:43:00 EST, Height, 75.3, [...] 03/01/20 12:51:00 EST, Route to Pharmacy Electronically, [facility] #04977, 165, cm, 02/13/20 11:43:00 EST, Height, 75.3, [...] 3 Refills, Maintenance, 03/01/20 16:23:00 EST, Solution, [facility] #00065, 165, cm, 02/13/20 11:43:00 EST, Height, 75.3, kg, 02/08/20 14:42:00 ES... Start Date: 03/01/20 Stop Date: 06/29/20 Status: Ordered latanoprost 0.005% ophthalmic solution 1 drops, Eyes, Both, Daily at bedtime, dr miguel Start Date: 04/11/16 Status: Ordered lisinopril 40 mg oral tablet 1 tablet = 40 mg, By Mouth, Daily, for blood pressure, # 90 tablet, 3 Refills, Maintenance, 07/29/19 13:01:00 EDT, [facility] #60505, 165, cm, 07/29/19 12:25:00 EDT, Height, 72.7, kg, 03/30/19 16:51:00 EST, Dry Weight Start Date: 07/29/19 Status: Ordered metFORMIN 750 mg oral tablet, extended release 2 tablet = 1,500 mg, By Mouth, Daily, pls ask pt to call our health center to reestablish care if she is staying locally, # 180 tablet, 3 Refills, Maintenance, 07/29/19 13:01:00 EDT, ER Tablet, [facility] #00759, 165, cm, 07/29/19 12:25:00 ED... Start Date: 07/29/19 Status: Ordered NovoLOG FlexPen 100 units/mL subcutaneous solution See Instructions, Subcutaneous Injection, Use as directed for Diabetes mellitus type 2. (Max Dose =50 units/day), # 30 mL, 5 Refills, Maintenance, 08/04/19 17:01:00 EDT, [facility] #44282, 165, cm, 07/29/19 12:25:00 EDT, Height, 72.7, kg, 01... Start Date: 08/04/19 Stop Date: 01/31/20 Status: Ordered Pen [place], 31 G x 8 mm BD Ultra [...] 1was seen by Dr. Devon Mccormack at [facility] Social History Social History Type Response Smoking Status 10 or more cigarette s (1/2 pack or more)/day in last 30 days entered on: 01/26/20 Sex
--- OUTSIDE RECORDS SUMMARY | 2023-01-25 11:03 | XMS_ITS | Continuity of Care Document ---
Author Name Unknown Organization [facility] em Address Unknown Care Team Providers Care Generation Engineer Name Role Phone Nerissa Bonner MD Primary Care Physician Encounter [facility] [place] Date(s): 12/16/19 - 12/23/19 [facility] Attending Physician: Shelby Thompson MD Admitting Physician: Shelby Thompson MD Referring Physician: Nerissa Bonner MD Allergies, [...] vis given 10/17/10 2Admin Note: VIS GIVEN [id number] 3Admin Note: VIS GIVEN Medications Alcohol Pads [...] EDT, Route to Pharmacy Electronically, [facility]33001, 165, cm, 07/29/19 12:25:00 EDT, Height, 72.7, kg, 03/30/19... Start Date: 07/29/19 Status: Ordered atorvastatin 20 mg oral tablet 1 tablet = 20 mg, By Mouth, Daily, # 90 tablet, 3 Refills, Maintenance, 07/29/19 12:59:00 EDT, Tablet, [facility] #96676, 165, cm, 07/29/19 12:25:00 EDT, Height, 72.7, [...] 13:00:00 EDT, Route to Pharmacy Electronically, [facility] #94169, 165, cm, 07/29/19 12:25:00 EDT, Height, 72.7, [...] 3 Refills, Maintenance, 07/29/19 13:05:00 EDT, Solution, [facility]62835, 165, cm, 07/29/19 12:25:00 EDT, Height, 72.7, [...] Refills, Maintenance, 07/29/19 13:01:00 EDT, [facility] #89574, 165, cm, 07/29/19 12:25:00 EDT, Height, 72.7, kg, 03/30/19 16:51:00 EST, Dry Weight Start Date: 07/29/19 Status: Ordered metFORMIN 750 mg oral tablet, extended release 2 tablet = 1,500 mg, By Mouth, Daily, pls ask pt to call our health center to reestablish care if she is staying locally, # 180 tablet, 3 Refills, Maintenance, 07/29/19 13:01:00 EDT, ER Tablet, [facility]012, 165, cm, 07/29/19 12:25:00 ED... Start Date: 07/29/19 Status: Ordered NovoLOG FlexPen 100 units/mL subcutaneous solution See Instructions, Subcutaneous Injection, Use as directed for Diabetes mellitus type 2. (Max Dose =50 units/day), # 30 mL, 5 Refills, Maintenance, 08/04/19 17:01:00 EDT, [facility]06224, 165, cm, 07/29/19 12:25:00 EDT, Height, 72.7, kg, 01... Start Date: 08/04/19 Stop Date: 01/31/20 Status: Ordered Pen [place], 31 G x 8 mm BD Ultra [...] 1was seen by Dr. Devon Mccormack at [facility] Social History Social History Type Response Tobacco Use: 4 or less cigar ettes(less than 1/4 pack)/day in last 30 days. Sex
--- OUTSIDE RECORDS SUMMARY | 2023-01-25 11:03 | XMS_ITS | Continuity of Care Document ---
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 Start Date: 07/29/19 Status: Ordered atorvastatin 20 mg oral tablet 1 tablet = 20 mg, By Mouth, Daily, # 90 tablet, 3 Refills, Maintenance, 07/29/19 12:59:00 EDT, Tablet, [facility] #39067, 165, cm, 07/29/19 12:25:00 EDT, Height, 72.7, [...] 07/29/19 13:00:00 EDT, Route to Pharmacy Electronically, [facility]60409, 165, cm, 07/29/19 12:25:00 EDT, Height, 72.7, [...] 3 Refills, Maintenance, 07/29/19 13:05:00 EDT, Solution, [facility] #22193, 165, cm, 07/29/19 12:25:00 EDT, Height, 72.7, [...] tablet, 3 Refills, Maintenance, 07/29/19 13:01:00 EDT, [facility]48592, 165, cm, 07/29/19 12:25:00 EDT, Height, 72.7, kg, 03/30/19 16:51:00 EST, Dry Weight Start Date: 07/29/19 Status: Ordered metFORMIN 750 mg oral tablet, extended release 2 tablet = 1,500 mg, By Mouth, Daily, pls ask pt to call our health center to reestablish care if she is staying locally, # 180 tablet, 3 Refills, Maintenance, 07/29/19 13:01:00 EDT, ER Tablet, [facility] #63119, 165, cm, 07/29/19 12:25:00 ED... Start Date: 07/29/19 Status: Ordered NovoLOG FlexPen 100 units/mL subcutaneous solution See Instructions, Subcutaneous Injection, Use as directed for Diabetes mellitus type 2. (Max Dose =50 units/day), # 30 mL, 5 Refills, Maintenance, 08/04/19 17:01:00 EDT, [facility]92104, 165, cm, 07/29/19 12:25:00 EDT, Height, 72.7, kg, 01... Start Date: 08/04/19 Stop Date: 01/31/20 Status: Ordered Pen [place], 31 G x 8 mm BD Ultra [...] 1was seen by Dr. Devon Mccormack at [facility] Social History Social History Type Response Tobacco Use: 4 or less cigar ettes(less than 1/4 pack)/day in last 30 days. Sex
--- OUTSIDE RECORDS SUMMARY | 2023-01-25 11:03 | XMS_ITS | Continuity of Care Document ---
Author Name Unknown Organization [facility] Address [address] [place] [address]- Care Team Providers Care Relationship Executive Name Role Phone Sreekanth WOODY, Jeanine Rivas Primary Care Physician Encounter [facility] Date(s): 07/19/21 - 08/18/21 [facility] Diabetes [address] [place] [address]- Allergies, Adverse Reactions, Alerts Substance Reaction Severity [...] vis given 10/17/10 2Admin Note: VIS GIVEN [id number] 3Admin Note: VIS GIVEN Medications Alcohol Pads [...] 08/02/21 9:37:00 EDT, Route to Pharmacy Electronically, [facility], 165.1, cm, 06/21/21 11:05:00 EDT, H... Start Date: 08/02/21 Status: Ordered atorvastatin 10 mg oral tablet 1 tablet = 10 mg, By Mouth, Daily, duplicate from 07/08/21, # 90 tablet, 3 Refills, Maintenance, 08/02/21 9:39:00 EDT, [facility], Partial fill upon patient request if the prescriptionis for a schedule II opioid drug., 165.1, cm, 06/21... Start Date: 08/02/21 Status: Ordered cholecalciferol 1000 intl units oral tablet 1 tablet = 1,000 International_Units, By Mouth, Daily, vitamin D take with food, # 90 tablet, 3 Refills, Maintenance, 08/04/21 17:10:00 EDT, Tablet, [facility], 165.1, cm, 06/21/21 11:05:00 EDT, Height, 78.6, [...] [facility], cm, 06/21/21 11:05:00 EDT, H... [...] mL, 11 Refills, Maintenance, 08/02/21 21:27:00 EDT, [facility]., 165.1, cm, 06/21/21 11:05:00 EDT, Height, 78.6, kg, 06/15/2109:01:00 EDT, Dry Weight Start Date: 08/02/21 Stop Date: 07/28/22 Status: Ordered latanoprost 0.005% ophthalmic solution 1 drops, Eyes, Both, Daily at bedtime, for 30 days, please obtain further refills from your erosion control specialist, # 2.5 mL, 1 Refills, Physician Stop 10/02/21 9:03:00 EDT, 08/03/21 9:03:00 EDT, [facility]., 1 drops Eyes, Both Daily at bedtime... Start Date: 08/03/21 Stop Date: 10/02/21 Status: Ordered lisinopril 40 mg oral tablet 1 tablet = 40 mg, By Mouth, Daily, for blood pressure, # 90 tablet, 3 Refills, Maintenance, 08/04/21 17:10:00 EDT, [facility]., 165.1, cm, 06/21/21 11:05:00 EDT, Height, 78.6, kg, 06/15/20 10:01:00 EDT, Dry Weight Start Date: 08/04/21 Stop Date: 07/30/22 Status: Ordered metFORMIN 750 mg oral tablet, extended release 2 tablet, By Mouth, Daily, duplicate from 07/08/21, # 180 tablet, 3 Refills, Maintenance, 08/02/21 9:42:00 EDT, [facility]., 165.1, cm, 06/21/21 11:05:00 EDT, Height, 78.6, kg, 06/15/2109:01:00 EDT, Dry Weight Start Date: 08/02/21 Status: Ordered NovoLOG FlexPen 100 units/mL subcutaneous solution See Instructions, Subcutaneous Injection, Use as directed for Diabetes mellitus type 2, per slidingscale. (Max Dose = 50 units/day), # 30 mL, 11 Refills, Maintenance, 08/02/21 21:26:00 EDT, [facility] 165.1, cm, 06/21/21 11:05:00 EDT... Start Date: 08/02/21 Stop Date: 07/28/22 Status: Ordered Pen [place], 31 G x 8 mm BD Ultra Fine III See Instructions, # 200 each, Refills 11, Tot. Refills 11, Maintenance, use up to 4 times daily as directed for Type 2 Diabetes Mellitus. E11.9, 08/18/20 17:03:00 EDT, Supply, 165.1, cm, 08/02/20 9:45:00 EDT, Height, 78.6, kg, 06/15/20 10:01:00 EDT, D... Start Date: 08/18/20 Stop Date: 08/13/21 Status: Ordered Infoblox COVID-19 Vaccine 30 mcg/0.3 mL preservative-free intramuscular [...] day, please get further refills from your erosion control specialist duplicate from 07/08/21, # 2.5 mL, 1 Refills, Maintenance, 08/02/21 9:42:00 EDT, [facility] upon patient request if t... Start Date: 08/02/21 Status: Ordered Tylenol 8 HR Arthritis Pain 650 mg oral tablet, extended release 2 tablet = 1,300 mg, By Mouth, Every 8 hours, PRN Pain , Mild, # 100 tablet, 0 Refills, Maintenance, 12/05/20 14:59:00 EDT, ER Tablet, [facility]pharmacy #[id number], Partial fill upon patient request if [...] 1was seen by Dr. Devon Mccormack at [facility] Social History Social History Type Response Smoking Status 10 or more cigarette s (1/2 pack or more)/day in last 30 days entered on: 01/26/20 Sex
--- OUTSIDE RECORDS SUMMARY | 2023-01-25 11:03 | XMS_ITS | Continuity of Care Document ---
Author Name Unknown Organization [facility] Address [address] [place] [address]- Care Team Providers Care Inter Com Servicer Name Role Phone Florentino MASON, Sara Primary Care Physician [phone] Encounter [facility] Date(s): 03/30/19 - 03/30/[address] [address]- [facility] [phone] Discharge Disposition: A-D/C Home Attending Physician: Chuy Callejas MD Admitting Physician: Chuy Callejas MD Referring Physician: Not on Staff, Referring MD Allergies, Adverse Reactions, Alerts Substance Reaction [...] vis given 10/17/10 2Admin Note: VIS GIVEN [id number] 3Admin Note: VIS GIVEN Medications albuterol CFC [...] 08/07/17 11:31:50 EDT, Route to Pharmacy Electronically, [id number], [facility] [id number] Start Date: 08/07/17 Stop Date: 08/02/18 Status: [...] Refills, Maintenance, Tablet, Route to Pharmacy Electronically, [id number], [facility] [address] Start Date: 08/07/17 Stop Date: 08/02/18 Status: [...] 08/07/17 11:31:54 EDT, Route to Pharmacy Electronically, [id number], [facility] [address] Start Date: 08/07/17 Stop Date: 08/02/18 Status: [...] 1was seen by Dr. Devon Mccormack at [facility] Results Radiology Reports * Exam Date Time Procedure Performing Provider Status 03/30/19 4:05 PM Thoracic Spine 3 Views Shannen Shepard ; Fátima (Verified) Notes: (Thoracic Spine 3 Views) Reason For Exam: With Pain, pt fell today;Trauma RESULT: Thoracic Spine 3 Views Thoracic Spine 3 Views Reason: Trauma; With Pain, pt fell today; Clinical Question(s): Fracture Dislocation COMPARISON: None. FINDINGS: Normal alignment and well preserved disc and vertebral body morphology. No bone lesions or fractures. Normal soft tissues. IMPRESSION: No acute abnormality. WSN: [id number] Dictated By: Antonio Levi MD Dictated Date/Time: 03/30/19 4:10 pm Reviewed By: Antonio Levi MD Signed By: Antonio Levi MD Signed Date/Time: 03/30/19 4:10 pm Transcribed By: SHEFALI Transcribed Date/Time: 03/30/19 4:09 pm * Exam Date Time Procedure Performing Provider Status 03/30/19 4:05 PM Lumbar Spine 2 or 3 Views Roddy Shepard (Verified) Notes: (Lumbar Spine 2 or 3 Views) Reason For Exam: with Pain, pt fell today;Trauma RESULT: Lumbar Spine 2 or 3 Views Lumbar Spine 2 or 3 Views Reason: Trauma; with Pain, pt fell today; Clinical Question(s): Fracture Dislocation COMPARISON: MRI from 01/01/2015 FINDINGS: No bone lesions or fractures. Normal disc configuration. No spondylolisthesis. Normal soft tissues. IMPRESSION: No evidence of acute osseous abnormality. WSN: [id number] Dictated By: Antonio Levi MD Dictated Date/Time: 03/30/19 4:08 pm Reviewed By: Antonio Levi MD Signed By: Antonio Levi MD Signed Date/Time: 03/30/19 4:08 pm Transcribed By: SHEFALI Transcribed Date/Time: 03/30/19 4:07 pm * Exam Date Time Procedure Performing Provider Status 03/30/19 4:04 PM Knee 1 or 2 Views Right Kaykay Shepard (Verified) Notes: (Knee 1 or 2 Views Right) Reason For Exam: with Pain, pt fell today;Trauma RESULT: Knee 1 or 2 Views Right Knee 1 or 2 Views Right, 2 views Reason: Trauma; with Pain, pt fell today; Clinical Question(s): Fracture; COMPARISON: None. FINDINGS: There is no evidence of acute or healing fracture, dislocation or bone lesion. No arthritic changes. No osteochondral defects or intra-articular loose bodies. No evidence of joint effusion. IMPRESSION: No evidence of acute osseous abnormality. WSN: [id number] Dictated By: Antonio Levi MD Dictated Date/Time: 03/30/19 4:07 pm Reviewed By: Antonio Levi MD Signed By: Antonio Levi MD Signed Date/Time: 03/30/19 4:07 pm Transcribed By: SHEFALI Transcribed Date/Time: 03/30/19 4:06 pm Vital Signs Most recent to oldest [Reference Range]: 1 2 3 Height 165 cm (03/30/19 4:51 PM) 165 cm (03/30/19 4:03 PM) 165 cm (03/30/19 12:37 PM) Weight 72.7 kg (03/30/19 4:51 PM) 72.7 kg (03/30/19 4:03 PM) 72.7 kg (03/30/19 12:37 PM) Oxygen Saturation [94-100 %] 99 % (03/30/19 4:51 PM) 98 % (03/30/19 12:37 PM) Pulse Rate [55-90 bpm] 105 bpm *H* (03/30/19 4:51 PM) 92 bpm *H* (03/30/19 12:37 PM) Body Mass Index [18.5-24.99] 26.7 *H* (03/30/19 4:51 PM) 26.7 *H* (03/30/19 12:37 PM) Blood Pressure [90-138/55-84 mm Hg] 143/100mm Hg *H* (03/30/19 4:51 PM) 137/92mm Hg (03/30/19 12:37 PM) Respiratory Rate [16-30 br/min] 16 br/min (03/30/19 12:37 PM) Temperature [96.8-100.4 DegF] 96.8 DegF (03/30/19 4:51 PM) 99.0 DegF (03/30/19 12:37 PM) Mode of Delivery (Oxygen) Room air (03/30/19 4:51 PM) Room air (03/30/19 12:37 PM) Blood pressure sites Arm, left (03/30/19 4:51 PM) Arm, left (03/30/19 12:37 PM) Temperature Route Oral (03/30/19 4:51 PM) Oral (03/30/19 12:37 PM) Dry Weight 72.7 kg (03/30/19 4:51 PM) 72.7 kg (03/30/19 4:03 PM) 72.7 kg (03/30/19 12:37 PM) Weight Obtained Via Patient/family state d (03/30/19 12:37 PM) Dry Weight Obtained Via Patient/family s tated (03/30/19 12:37 PM) Social History Social History Type Response Smoking Status Former smoker; Type: Cigarettes; Other: quit several yrs back; entered on: 04/13/15 Sex
--- OUTSIDE RECORDS SUMMARY | 2023-01-25 11:03 | XMS_ITS | Continuity of Care Document ---
Author Name Unknown Organization [facility] Address [address] [place] [address]- Care Team Providers Care Customs Inspector Name Role Phone Nestor WOODY, Marva Primary Care Physician [phone] Encounter [place] Date(s): 01/20/21 - 02/19/[address] [address]- Allergies, Adverse Reactions, Alerts Substance Reaction Severity [...] vis given 10/17/10 2Admin Note: VIS GIVEN [id number] 3Admin Note: VIS GIVEN Medications Alcohol Pads [...] tablet, 6 Refills, Maintenance, 12/07/20 13:42:00 EDT, [facility]/pharmacy #[id number], Partial fill upon patient request if the prescription is for a schedule II opioid drug., 165.1, cm, 12/05/20 13:59:00 EDT, Height, 78.6,... Start Date: 12/07/20 Status: Ordered cholecalciferol 1000 intl units oral tablet 1 tablet = 1,000 International_Units, By Mouth, Daily, vitamin D take with food, # 90 tablet, 1 Refills, Maintenance, 03/01/20 12:52:00 EST, Tablet, [facility] #[id number], 165, cm, 02/13/20 11:43:00 EST, Height, 75.3, kg, 02/08/20 14:42:00 EST,... Start Date: 03/01/20 Stop Date: 03/31/20 Status: Ordered duloxetine 30 mg oral enteric coated capsule 1 capsule, By Mouth, Daily, DO NOT CRUSH OR CHEW. *., # 30 capsule, 8 Refills, [facility], 165.1, cm, 12/19/20 12:24:00 EDT, Height, 78.6, [...] 11/14/20 Stop Date: 04/13/21 Status: Ordered Pen [place], 31 G x 8 mm BD Ultra Fine III See Instructions, # 200 each, Refills 11, Tot. Refills 11, Maintenance, use up to 4 times daily as directed for Type 2 Diabetes Mellitus. E11.9, 08/18/20 17:03:00 EDT, Supply, 165.1, cm, 08/02/20 9:45:00 EDT, Height, 78.6, kg, 06/15/20 10:01:00 EDT, D... Start Date: 08/18/20 Stop Date: 08/13/21 Status: Ordered IssueNation COVID-19 Vaccine 30 mcg/0.3 mL preservative-free intramuscular [...] Refills, Maintenance, 12/05/20 14:59:00 EDT, ER Tablet, [facility]/pharmacy #[id number], Partial fill upon patient request [...] 1was seen by Dr. Devon Mccormack at [facility] Social History Social History Type Response Smoking Status 10 or more cigarette s (1/2 pack or more)/day in last 30 days entered on: 01/26/20 Sex
--- OUTSIDE RECORDS SUMMARY | 2023-01-25 11:03 | XMS_ITS | Continuity of Care Document ---
Author Name Unknown Organization [facility] Address [address] [place] [address]- Care Team Providers Care Desktop Publishing Associate Name Role Phone Nestor WOODY, Marva Primary Care Physician Encounter [facility] Date(s): 03/10/21 - 04/09/[address] [address]- Allergies, Adverse Reactions, Alerts No Known Allergies [...] vis given 10/17/10 2Admin Note: VIS GIVEN [id number] 3Admin Note: VIS GIVEN Medications Alcohol Pads [...] tablet, 6 Refills, Maintenance, 12/07/20 13:42:00 EDT, [facility]/pharmacy #[id number], Partial fill upon patient request if the prescription is for a schedule II opioid drug., 165.1, cm, 12/05/20 13:59:00 EDT, Height, 78.6,... Start Date: 12/07/20 Status: Ordered cholecalciferol 1000 intl units oral tablet 1 tablet = 1,000 International_Units, By Mouth, Daily, vitamin D take with food, # 90 tablet, 1 Refills, Maintenance, 03/01/20 12:52:00 EST, Tablet, [facility] #[id number], 165, cm, 02/13/20 11:43:00 EST, Height, 75.3, kg, 02/08/20 14:42:00 EST,... Start Date: 03/01/20 Stop Date: 03/31/20 Status: Ordered duloxetine 30 mg oral enteric coated capsule 1 capsule, By Mouth, Daily, DO NOT CRUSH OR CHEW. *., # 30 capsule, 8 Refills, [facility], 165.1, cm, 12/19/20 12:24:00 EDT, Height, 78.6, [...] tablet, 1 Refills, Maintenance, 01/15/21 21:42:00 EDT, [facility]/pharmacy #[id number], 165.1, cm, 12/19/20 12:24:00 EDT, Height, 78.6, kg, 06/15/20 10:01:00 EDT, Dry Weight Start Date: 01/15/21 Status: Ordered NovoLOG FlexPen 100 units/mL subcutaneous solution See Instructions, Subcutaneous Injection, Use as directed for Diabetes mellitus type 2. (Max Dose =50 units/day), # 30 mL, 4 Refills, Maintenance, 11/14/20 15:34:00 EDT, [facility]/pharmacy #[id number], 165.1, cm, 08/02/20 9:45:00 EDT, Height, 78.6, kg, 06/15/20... Start Date: 11/14/20 Stop Date: 04/13/21 Status: Ordered Pen [place], 31 G x 8 mm BD Ultra Fine III See Instructions, # 200 each, Refills 11, Tot. Refills 11, Maintenance, use up to 4 times daily as directed for Type 2 Diabetes Mellitus. E11.9, 08/18/20 17:03:00 EDT, Supply, 165.1, cm, 08/02/20 9:45:00 EDT, Height, 78.6, kg, 06/15/20 10:01:00 EDT, D... Start Date: 08/18/20 Stop Date: 08/13/21 Status: Ordered Brightblue COVID-19 Vaccine 30 mcg/0.3 mL preservative-free intramuscular [...] 11 Refills, Maintenance, 03/27/21 12:17:00 EST, OphthSolution, [facility]/pharmacy #[id number], Partial fill upon patient request if [...] Refills, Maintenance, 12/05/20 14:59:00 EDT, ER Tablet, [facility]/pharmacy #[id number], Partial fill upon patient request if the [...] 1was seen by Dr. Devon Mccormack at [facility] Social History Social History Type Response Smoking Status 10 or more cigarette s (1/2 pack or more)/day in last 30 days entered on: 01/26/20 Sex
--- OUTSIDE RECORDS SUMMARY | 2023-01-25 11:03 | XMS_ITS | Continuity of Care Document ---
Author Name Unknown Organization [facility] Address [address] [place] [address]- Care Team Providers Care Medical Claims Assistant Name Role Phone Sreekanth WOODY, Jeanine Rivas Primary Care Physician Encounter [facility] Date(s): 07/07/21 - 08/06/[address] [address]- Allergies, Adverse Reactions, Alerts Substance Reaction Severity [...] vis given 10/17/10 2Admin Note: VIS GIVEN [id number] 3Admin Note: VIS GIVEN Medications Alcohol Pads [...] 08/02/21 9:37:00 EDT, Route to Pharmacy Electronically, [facility], 165.1, cm, 06/21/21 11:05:00 EDT, H... Start Date: 08/02/21 Status: Ordered atorvastatin 10 mg oral tablet 1 tablet = 10 mg, By Mouth, Daily, duplicate from 07/08/21, # 90 tablet, 3 Refills, Maintenance, 08/02/21 9:39:00 EDT, [facility], Partial fill upon patient request if the prescriptionis for a schedule II opioid drug., 165.1, cm, 06/21... Start Date: 08/02/21 Status: Ordered cholecalciferol 1000 intl units oral tablet 1 tablet = 1,000 International_Units, By Mouth, Daily, vitamin D take with food, # 90 tablet, 3 Refills, Maintenance, 08/04/21 17:10:00 EDT, Tablet, [facility], 165.1, cm, 06/21/21 11:05:00 EDT, Height, [...] 08/02/21 9:40:00 EDT, Route to Pharmacy Electronically, [facility], 165.1, cm, 06/21/21 11:05:00 EDT, H... [...] mL, 11 Refills, Maintenance, 08/02/21 21:27:00 [facility] 165.1, cm, 06/21/21 11:05:00 EDT, Height, 78.6, kg, 06/15/2109:01:00 EDT, Dry Weight Start Date: 08/02/21 Stop Date: 07/28/22 Status: Ordered latanoprost 0.005% ophthalmic solution 1 drops, Eyes, Both, Daily at bedtime, for 30 days, please obtain further refills from your sharepoint specialist, # 2.5 mL, 1 Refills, Physician Stop 10/02/21 9:03:00 EDT, 08/03/21 9:03:00 EDT, [facility]., 1 drops Eyes, Both Daily at bedtime... Start Date: 08/03/21 Stop Date: 10/02/21 Status: Ordered lisinopril 40 mg oral tablet 1 tablet = 40 mg, By Mouth, Daily, for blood pressure, # 90 tablet, 3 Refills, Maintenance, 08/04/21 17:10:00 EDT, [facility]., 165.1, cm, 06/21/21 11:05:00 EDT, Height, 78.6, kg, 06/15/20 10:01:00 EDT, Dry Weight Start Date: 08/04/21 Stop Date: 07/30/22 Status: Ordered metFORMIN 750 mg oral tablet, extended release 2 tablet, By Mouth, Daily, duplicate from 07/08/21, # 180 tablet, 3 Refills, Maintenance, 08/02/21 9:42:00 EDT, [facility]., 165.1, cm, 06/21/21 11:05:00 EDT, Height, 78.6, kg, 06/15/2109:01:00 EDT, Dry Weight Start Date: 08/02/21 Status: Ordered NovoLOG FlexPen 100 units/mL subcutaneous solution See Instructions, Subcutaneous Injection, Use as directed for Diabetes mellitus type 2, per slidingscale. (Max Dose = 50 units/day), # 30 mL, 11 Refills, Maintenance, 08/02/21 21:26:00 EDT, [facility]., 165.1, cm, 06/21/21 11:05:00 EDT... Start Date: 08/02/21 Stop Date: 07/28/22 Status: Ordered Pen [place], 31 G x 8 mm BD Ultra Fine III See Instructions, # 200 each, Refills 11, Tot. Refills 11, Maintenance, use up to 4 times daily as directed for Type 2 Diabetes Mellitus. E11.9, 08/18/20 17:03:00 EDT, Supply, 165.1, cm, 08/02/20 9:45:00 EDT, Height, 78.6, kg, 06/15/20 10:01:00 EDT, D... Start Date: 08/18/20 Stop Date: 08/13/21 Status: Ordered Sprio COVID-19 Vaccine 30 mcg/0.3 mL preservative-free intramuscular [...] day, please get further refills from your sharepoint specialist duplicate from 07/08/21, # 2.5 mL, 1 Refills, Maintenance, 08/02/21 9:42:00 EDT, Ophth Solution, [facility], Partial fill upon patient request if t... Start Date: 08/02/21 Status: Ordered Tylenol 8 HR Arthritis Pain 650 mg oral tablet, extended release 2 tablet = 1,300 mg, By Mouth, Every 8 hours, PRN Pain , Mild, # 100 tablet, 0 Refills, Maintenance, 12/05/20 14:59:00 EDT, ER Tablet, [facility] #[id number], Partial fill upon patient request if the [...] 1was seen by Dr. Devon Mccormack at [facility] Social History Social History Type Response Smoking Status 10 or more cigarette s (1/2 pack or more)/day in last 30 days entered on: 01/26/20 Sex
--- OUTSIDE RECORDS SUMMARY | 2023-01-25 11:03 | XMS_ITS | Continuity of Care Document ---
Author Name Unknown Organization [facility] Address [address] [place] [address]- Care Team Providers Care Pretzel Cooker Name Role Phone Sreekanth WOODY, Jeanine Rivas Primary Care Physician Encounter [facility] Date(s): 04/27/21 - 07/06/[address] [address]- Attending Physician: Not on Staff, Attending MD Allergies, Adverse Reactions, Alerts No Known Allergies [...] vis given 10/17/10 2Admin Note: VIS GIVEN [id number] 3Admin Note: VIS GIVEN Medications Alcohol Pads [...] tablet, 6 Refills, Maintenance, 12/07/20 13:42:00 EDT, [facility]/pharmacy #[id number], Partial fill upon patient request if the prescription is for a schedule II opioid drug., 165.1, cm, 12/05/20 13:59:00 EDT, Height, 78.6,... Start Date: 12/07/20 Status: Ordered cholecalciferol 1000 intl units oral tablet 1 tablet = 1,000 International_Units, By Mouth, Daily, vitamin D take with food, # 90 tablet, 1 Refills, Maintenance, 03/01/20 12:52:00 EST, Tablet, [facility] #[id number], 165, cm, 02/13/20 11:43:00 EST, Height, 75.3, [...] mL, 11 Refills, Maintenance, 06/21/21 11:35:00 EDT, [facility]/pharmacy #[id number], 165.1, cm, 06/21/21 [...] tablet, 1 Refills, Maintenance, 01/15/21 21:42:00 EDT, [facility]/pharmacy #[id number], 165.1, cm, 12/19/20 12:24:00 EDT, Height, 78.6, kg, 06/15/20 10:01:00 EDT, Dry Weight Start Date: 01/15/21 Status: Ordered NovoLOG FlexPen 100 units/mL subcutaneous solution See Instructions, Subcutaneous Injection, Use as directed for Diabetes mellitus type 2 per sliding scale. (Max Dose = 50 units/day), # 30 mL, 11 Refills, Maintenance, 06/21/21 11:35:00 EDT, [facility]/pharmacy #1893, 165.1, cm, 06/21/21 11:05:00 EDT, Height,... Start Date: 06/21/21 Stop Date: 06/16/22 Status: Ordered Pen [place], 31 G x 8 mm BD Ultra Fine III See Instructions, # 200 each, Refills 11, Tot. Refills 11, Maintenance, use up to 4 times daily as directed for Type 2 Diabetes Mellitus. E11.9, 08/18/20 17:03:00 EDT, Supply, 165.1, cm, 08/02/20 9:45:00 EDT, Height, 78.6, kg, 06/15/20 10:01:00 EDT, D... Start Date: 08/18/20 Stop Date: 08/13/21 Status: Ordered KTM Advance COVID-19 Vaccine 30 mcg/0.3 mL preservative-free intramuscular [...] 11 Refills, Maintenance, 03/27/21 12:17:00 EST, OphthSolution, [facility]/pharmacy #[id number], Partial fill upon [...] Refills, Maintenance, 12/05/20 14:59:00 EDT, ER Tablet, [facility]/pharmacy #[id number], Partial fill upon [...] 1was seen by Dr. Devon Mccormack at [facility] Social History Social History Type Response Smoking Status 10 or more cigarette s (1/2 pack or more)/day in last 30 days entered on: 01/26/20 Sex
--- OUTSIDE RECORDS SUMMARY | 2023-01-25 11:03 | XMS_ITS | Continuity of Care Document ---
Author Name Unknown Organization [facility] Address [address] [place] [address]- Care Team Providers Care Change Booth Attendant Name Role Phone Nestor WOODY, Marva Primary Care Physician [place] [facility] [place] 02/13[place]21 - 03/15/[address] [address]- Allergies, Adverse Reactions, Alerts Substance Reaction Severity [...] vis given 10/17/10 2Admin Note: VIS GIVEN [id number] 3Admin Note: VIS GIVEN Medications Alcohol Pads [...] tablet, 6 Refills, Maintenance, 12/07/20 13:42:00 EDT, [facility]/pharmacy #7893, Partial fill upon patient request if the prescription is for a schedule II opioid drug., 165.1, cm, 12/05/20 13:59:00 EDT, Height, 78.6,... Start Date: 12/07/20 Status: Ordered cholecalciferol 1000 intl units oral tablet 1 tablet = 1,000 International_Units, By Mouth, Daily, vitamin D take with food, # 90 tablet, 1 Refills, Maintenance, 03/01/20 12:52:00 EST, Tablet, [facility] #71745, 165, cm, 02/13/20 11:43:00 EST, Height, 75.3, kg, 02/08/20 14:42:00 EST,... Start Date: 03/01/20 Stop Date: 03/31/20 Status: Ordered duloxetine 30 mg oral enteric coated capsule 1 capsule, By Mouth, Daily, DO NOT CRUSH OR CHEW. *., # 30 capsule, 8 Refills, [facility], 165.1, cm, 12/19/20 12:24:00 EDT, Height, 78.6, [...] tablet, 1 Refills, Maintenance, 01/15/21 21:42:00 EDT, [facility]/pharmacy #1893, 165.1, cm, 12/19/20 12:24:00 EDT, Height, 78.6, kg, 06/15/20 10:01:00 EDT, Dry Weight Start Date: 01/15/21 Status: Ordered NovoLOG FlexPen 100 units/mL subcutaneous solution See Instructions, Subcutaneous Injection, Use as directed for Diabetes mellitus type 2. (Max Dose =50 units/day), # 30 mL, 4 Refills, Maintenance, 11/14/20 15:34:00 EDT, [facility]/pharmacy #1893, 165.1, cm, 08/02/20 9:45:00 EDT, Height, 78.6, kg, 06/15/20... Start Date: 11/14/20 Stop Date: 04/13/21 Status: Ordered Pen [place], 31 G x 8 mm BD Ultra Fine III See Instructions, # 200 each, Refills 11, Tot. Refills 11, Maintenance, use up to 4 times daily as directed for Type 2 Diabetes Mellitus. E11.9, 08/18/20 17:03:00 EDT, Supply, 165.1, cm, 08/02/20 9:45:00 EDT, Height, 78.6, kg, 06/15/20 10:01:00 EDT, D... Start Date: 08/18/20 Stop Date: 08/13/21 Status: Ordered Paymate COVID-19 Vaccine 30 mcg/0.3 mL preservative-free intramuscular [...] Maintenance, 12/05/20 14:59:00 EDT, ER Tablet, [facility], Partial fill upon patient request if the [...] 1was seen by Dr. Devon Mccormack at [facility] Social History Social History Type Response Smoking Status 10 or more cigarette s (1/2 pack or more)/day in last 30 days entered on: 01/26/20 Sex
--- OUTSIDE RECORDS SUMMARY | 2023-01-25 11:03 | XMS_ITS | Continuity of Care Document ---
Author Name Unknown Organization [facility] Address [address] [place] [address]- Care Team Providers Care Fiscal Specialist Name Role Phone Raya MASON, Belle Primary Care Physician Encounter [facility] Date(s): 05/09/20 - 06/08/20 [facility] [address] [place] [address]- Attending Physician: Dayanara Lowery Admitting Physician: Daaynara Lowery Referring Physician: AdmtrDayanara Allergies, Adverse Reactions, [...] vis given 10/17/10 2Admin Note: VIS GIVEN [id number] 3Admin Note: VIS GIVEN Medications Alcohol Pads [...] EDT, Route to Pharmacy Electronically, [facility], 165, cm, 07/29/19 12:25:00 EDT, Height, 72.7, kg, 03/30/19... Start Date: 07/29/19 Status: Ordered atorvastatin 20 mg oral tablet 1 tablet = 20 mg, By Mouth, Daily, # 90 tablet, 3 Refills, Maintenance, 07/29/19 12:59:00 EDT, Tablet, [facility], 165, cm, 07/29/19 12:25:00 EDT, Height, 72.7, kg, 03/30/19 16:51:00 EST, Dry Weight Start Date: 07/29/19 Status: Ordered cholecalciferol 1000 intl units oral tablet 1 tablet = 1,000 International_Units, By Mouth, Daily, vitamin D take with food, # 90 tablet, 1 Refills, Maintenance, 03/01/20 12:52:00 EST, Tablet, [facility], 165, cm, 02/13/20 11:43:00 EST, Height, 75.3, [...] 03/01/20 12:51:00 EST, Route to Pharmacy Electronically, [facility] #32603, 165, cm, 02/13/20 11:43:00 EST, Height, 75.3, [...] 3 Refills, Maintenance, 03/01/20 16:23:00 EST, Solution, [facility] #30472, 165, cm, 02/13/20 11:43:00 EST, Height, 75.3, kg, 02/08/20 14:42:00 ES... Start Date: 03/01/20 Stop Date: 06/29/20 Status: Ordered latanoprost 0.005% ophthalmic solution 1 drops, Eyes, Both, Daily at bedtime, dr miguel Start Date: 04/11/16 Status: Ordered lisinopril 40 mg oral tablet 1 tablet = 40 mg, By Mouth, Daily, for blood pressure, # 90 tablet, 3 Refills, Maintenance, 07/29/19 13:01:00 EDT, [facility] #37523, 165, cm, 07/29/19 12:25:00 EDT, Height, 72.7, kg, 03/30/19 16:51:00 EST, Dry Weight Start Date: 07/29/19 Status: Ordered metFORMIN 750 mg oral tablet, extended release 2 tablet = 1,500 mg, By Mouth, Daily, pls ask pt to call our health center to reestablish care if she is staying locally, # 180 tablet, 3 Refills, Maintenance, 07/29/19 13:01:00 EDT, ER Tablet, [facility]58, 165, cm, 07/29/19 12:25:00 ED... Start Date: 07/29/19 Status: Ordered NovoLOG FlexPen 100 units/mL subcutaneous solution See Instructions, Subcutaneous Injection, Use as directed for Diabetes mellitus type 2. (Max Dose =50 units/day), # 30 mL, 5 Refills, Maintenance, 08/04/19 17:01:00 EDT, [facility] #50825, 165, cm, 07/29/19 12:25:00 EDT, Height, 72.7, kg, 01... Start Date: 08/04/19 Stop Date: 01/31/20 Status: Ordered NovoLog Inj See Instructions, Subcutaneous Infusion 3 times a day before meals, 0 Refills, Maintenance, 05/13/20 17:22:00 EST, Partial fill upon patient request if the prescription is for a schedule II opioid drug. Start Date: 05/13/20 Status: Ordered Pen [place], 31 G x 8 mm BD Ultra [...] 1was seen by Dr. Devon Mccormack at [facility] Social History Social History Type Response Smoking Status 10 or more cigarette s (1/2 pack or more)/day in last 30 days entered on: 01/26/20 Sex
--- OUTSIDE RECORDS SUMMARY | 2023-01-25 11:03 | XMS_ITS | Continuity of Care Document ---
Author Name Unknown Organization [facility] Address [address] [place] [address]- Care Team Providers Care Hand Marker Name Role Phone Raya MASON, Belle Primary Care Physician [phone] Encounter [facility] Date(s): 08/12/20 - 09/14/20 [facility] [address], [place] [address] Attending Physician: Kavita Hogan MD Admitting Physician: Kavita Hogan MD Referring Physician: Kavita Hogan MD Allergies, Adverse Reactions, [...] vis given 10/17/10 2Admin Note: VIS GIVEN [id number] 3Admin Note: VIS GIVEN Medications Alcohol Pads [...] 1 Refills, Maintenance, 03/01/20 12:52:00 EST, Tablet, [facility] #[id number], 165, cm, 02/13/20 11:43:00 EST, Height, 75.3, [...] BEDTIME, # 15 Unknown, 0 Refills, Maintenance, [id number], 165.1, cm, 08/02/20 9:45:00 EDT, Height, 78.6, [...] Refills, Maintenance, 07/29/19 13:01:00 EDT, ER Tablet, [facility] #[id number], 165, cm, 07/29/19 12:25:00 ED... Start Date: 07/29/19 Status: Ordered NovoLOG FlexPen 100 units/mL subcutaneous solution See Instructions, Subcutaneous Injection, Use as directed for Diabetes mellitus type 2. (Max Dose =50 units/day), # 30 mL, 5 Refills, Maintenance, 08/04/19 17:01:00 EDT, [facility] #[id number], 165, cm, 07/29/19 12:25:00 EDT, Height, 72.7, kg, 01... Start Date: 08/04/19 Stop Date: 01/31/20 Status: Ordered Pen [place], 31 G x 8 mm BD Ultra [...] 1was seen by Dr. Devon Mccormack at [facility] Social History Social History Type Response Smoking Status 10 or more cigarette s (1/2 pack or more)/day in last 30 days entered on: 01/26/20 Sex
--- OUTSIDE RECORDS SUMMARY | 2023-01-25 11:04 | XMS_ITS | Continuity of Care Document ---
Author Name Unknown Organization [facility] Address [address] [place] [address]- Care Team Providers Care Scissors Grinder Name Role Phone Raya MASON, Belle Primary Care Physician [place] [facility] [place] - 12/03/[address] [address] Attending Physician: Not on Staff, Attending MD Allergies, Adverse Reactions, Alerts Substance Reaction [...] vis given 10/17/10 2Admin Note: VIS GIVEN [id number] 3Admin Note: VIS GIVEN Medications Alcohol Pads [...] 1 Refills, Maintenance, 03/01/20 12:52:00 EST, [id number], 165, cm, 02/13/20 11:43:00 EST, Height, 75.3, [...] 11/14/20 Stop Date: 04/13/21 Status: Ordered Pen [place], 31 G x 8 mm BD Ultra [...] 1was seen by Dr. Devon Mccormack at [facility] Social History Social History Type Response Smoking Status 10 or more cigarette s (1/2 pack or more)/day in last 30 days entered on: 01/26/20 Sex
--- OUTSIDE RECORDS SUMMARY | 2023-01-25 11:04 | XMS_ITS | Continuity of Care Document ---
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 Name Role Phone Susana Rodas MD Primary Care Physician Encounter [facility] Date(s): 11/30/22 - 12/01/[address] [id number] Discharge Disposition: A-D/C Home Attending Physician: Mukul Minaya MD Admitting Physician: Brian Boykin MD Referring Physician: Not on Staff, Referring [...] Vaccine (oldterm) 07/06/00 Given Influenza Vaccine (oldterm) 1/8/01 Given Pneumococcal Poly (PPV23) (oldterm) 03/11/03 Given tetanus-diphtheria toxoids (Td) 04/20/98 Given 1Admin Note: vis given 10/17/10 2Admin Note: VIS GIVEN [id number] 3Admin Note: VIS GIVEN Medications Alcohol Pads [...] 06/20/22 15:49:00 EDT, Route to Pharmacy Electronically, [facility], 165.1,cm, 06/21/21 11:05:00 EDT, Height Start Date: 06/20/22 Status: Ordered atorvastatin 10 mg oral tablet 1 tablet = 10 mg, By Mouth, Daily, for cholesterol, # 90 tablet, 3 Refills, Maintenance, 06/20/22 15:49:00 EDT, [facility], Partial fill upon patient request if [...] 3 Refills, Maintenance, 06/20/22 15:49:00 EDT, Tablet, [facility], 165.1, cm, 06/21/21 11:05:00 EDT, Height Start Date: 06/20/22 Stop Date: 06/15/23 Status: Ordered Freestyle ana 2 Freestyle naa 2, See Instructions, # 2 each, Refills [...] EDT, Route to Pharmacy Electronically, [facility]., 165.1,cm, 06/21/21 11:05:00 EDT, Height Start Date: [...] mL, 11 Refills, Maintenance, 08/08/22 12:55:00 EDT, [facility], 165.1, cm, 06/21/21 11:05:00 EDT, Height Start Date: 08/08/22 Stop Date: 08/03/23 Status: Ordered latanoprost 0.005% ophthalmic solution See Instructions, INSERT 1 DROP IN BOTH EYES DAILY AT BEDTIME FOR 30 DAYS :PLEASE OBTAIN FURTHER REFILLS FROM YOUR PROPERTY MANAGEMENT BOOKKEEPER, # 2.5 mL, 0 Refills, [facility], 30, INSERT 1 DROP IN BOTHEYES DAILY AT BEDTIME FOR 30 DAYS :PLEASE OBTAIN FU... Start Date: 10/31/21 Status: Ordered lisinopril 40 mg oral tablet 1 tablet = 40 mg, By Mouth, Daily, for blood pressure, # 90 tablet, 3 Refills, Maintenance, 06/20/22 15:49:00 EDT, [facility]., 165.1, cm, 06/21/21 11:05:00 EDT, Height Start Date: 06/20/22 Stop Date: 06/15/23 Status: Ordered metFORMIN 750 mg oral tablet, extended release 2 tablet, By Mouth, Daily, for diabetes., # 180 tablet, 3 Refills, Maintenance, 06/20/22 15:49:00 EDT, [facility]., 165.1, cm, 06/21/21 11:05:00 EDT, Height Start Date: 06/20/22 Status: Ordered NovoLOG FlexPen 100 units/mL subcutaneous solution See Instructions, Subcutaneous Injection, Use as directed for Diabetes mellitus type 2, per slidingscale. (Max Dose = 50 units/day), # 30 mL, 11 Refills, Maintenance, 10/18/22 9:47:00 EDT, [facility]., 165.1, cm, 10/18/22 9:09:00 EDT,... Start Date: 10/18/22 Stop Date: 10/13/23 Status: Ordered Pen [place], 31 G x 8 mm BD Ultra Fine III See Instructions, # 150 each, Refills 5, Tot. Refills 5, Maintenance, use as directed for Type 2 Diabetes Mellitus E11.9 for 4x/day insulin pen injections, 10/10/22 10:20:00 EDT, Supply, 165.1, cm, 06/21/21 11:05:00 EDT, Height Start Date: 10/10/22 Stop Date: 04/08/23 Status: Ordered Pen [place], 31 G x 8 mm BD Ultra Fine III See Instructions, # 200 each, Refills 11, Tot. Refills 11, Maintenance, use up to 4 times daily as directed for Type 2 Diabetes Mellitus. E11.9, 10/04/21 9:58:00 EDT, Supply, 165.1, cm, 06/21/21 11:05:00 EDT, Height, 78.6, kg, 06/15/20 10:01:00 EDT, D... Start Date: 10/04/21 Stop Date: 09/29/22 Status: Ordered Iotelligent COVID-19 Vaccine 30 mcg/0.3 mL preservative-free intramuscular [...] DAY :PLEASE GET FURTHER REFILLS FROM YOUR PROPERTY MANAGEMENT BOOKKEEPER, # 5 mL, 0 Refills, [facility], 25, INSERT 1 DROP IN BOTH EYES 2 TIMES A DAY :PLEASE GET FURTHER REFILLS FROM YOUR PROPERTY MANAGEMENT BOOKKEEPER... Start Date: 10/31/21 Status: Ordered traZODone 50 [...] Maintenance, 12/05/20 14:59:00 EDT, ER Tablet, [facility]/pharmacy #[id number], Partial fill upon patient request if the [...] abdominal wall Confirmed Active History of syphilis; [place] DPH confirms bicillin x 3 01/2014 Confirmed Active Hypertension Confirmed Active Onychomycosis Confirmed Active Overweight Confirmed Active Health care maintenance Confirmed Active Physical exam Confirmed Active Current smoker Confirmed Active 1was seen by Dr. Devon Mccormack at [facility] 2Problem added by Discern Expert Results Radiology Reports * Exam Date Time Procedure Performing Provider Status 11/30/22 6:06 PM Chest Portable Radha Mccollum; Auth (V erified) Notes: (Chest Portable) Reason For Exam: COVID (+), please eval;Other: RESULT: Chest Portable Chest Portable Reason: Other:; COVID (+), please eval; Clinical Question(s): Other: COMPARISON: 08/09/2018. FINDINGS: LINES AND TUBES: None. LUNGS AND PLEURA: There is a 1.6 cm nodular density in the right infrahilar region. The lungs are otherwise clear. Normal pulmonary vascularity. No pleural effusion. No pneumothorax. HEART, MEDIASTINUM AND REINA: Mild prominence of the cardiac silhouette, unchanged. Normal mediastinal and hilar contour. BONES AND SOFT TISSUES: No acute abnormality. IMPRESSION: No acute abnormality. A 1.6 cm nodular density in the right infrahilar region could represent a vessel on end or a lung nodule. Follow-up with nonemergent chest CT should be considered. An actionable message (Yellow) has been communicated via the [email or web address] system on 11/30/2022 6:14 PM, Message ID [id number]. WSN: [id number] Ordering Physician: Leslie Boyd Dictated By: Claribel Pickett MD Dictated Date/Time: 11/30/22 6:14 pm Reviewed By: Claribel Pickett MD Signed By: Claribel Pickett MD Signed Date/Time: 11/30/22 6:14 pm Transcribed By: CSB Transcribed Date/Time: 11/30/22 6:11 pm Vital Signs Most recent to oldest [Reference Range]: 1 2 3 Height 167 cm (12/01/22 8:27 AM) 167 cm (12/01/22 3:12 AM) 167 cm (11/30/22 10:51 PM) Weight 68.4 kg (11/30/22 10:51 PM) 70 kg (11/30/22 11:01 AM) Oxygen Saturation [94-100 %] 100 % (12/01/22 8:27 AM) 100 % (12/01/22 3:12 AM) 99 % (11/30/22 12:53 PM) Pulse Rate [55-90 bpm] 58 bpm (12/01/22 8:27 AM) 58 bpm (12/01/22 3:12 AM) 57 bpm (11/30/22 10:51 PM) Body Mass Index [18.5-24.99 kg/m2] 24.53 kg/m2 (11/30/22 10:51 PM) 25.1 kg/m2 *H* (11/30/22 11:01 AM) Blood Pressure [90-138/55-84 mm Hg] 152/82mm Hg *H* (12/01/22 8:27 AM) 132/69mm Hg (12/01/22 3:12 AM) 164/83mm Hg *H* (11/30/22 10:51 PM) Respiratory Rate [16-30 br/min] 18 br/min (12/01/22 8:27 AM) 18 br/min (12/01/22 3:12 AM) 17 br/min (11/30/22 10:51 PM) Temperature [96.8-100.4 DegF] 98.2 DegF (12/01/22 8:27 AM) 98.6 DegF (12/01/22 3:12 AM) 98.8 DegF (11/30/22 10:51 PM) Mode of Delivery (Oxygen) Room air (12/01/22 8:27 AM) Room air (12/01/22 3:12 AM) Room air (11/30/22 12:53 PM) Blood pressure sites Arm, right (12/01/22 3:12 AM) Arm, right (11/30/22 10:51 PM) Arm, right (11/30/22 12:53 PM) Temperature Route Oral (12/01/22 8:27 AM) Oral (12/01/22 3:12 AM) Oral (11/30/22 10:51 PM) Dry Weight 68.4 kg (11/30/22 10:51 PM) 70 kg (11/30/22 11:01 AM) Weight Obtained Via Patient/family state d (11/30/22 11:01 AM) Dry Weight Obtained Via Patient/family s tated (11/30/22 11:01 AM) Social History Social History Type Response Smoking Status 10 or more cigarette s (1/2 pack or more)/day in last 30 days entered on: 01/26/20 Sex Admission evaluation note * Leslie Walls: PERFORM, MODIFY, MODIFY Event Display: Admission Note Authored Date: [id number] Patient: ??BASILIO CORDERO ? Age:??57 Years?Sex:??Female?:??1965?? Chief Complaint/Reason for Consultation P/w several day hx of dry cough, congestion, and transient profuse non-melenic/non-bloody diarrhea.No abd pain. No nausea or vomiting. No fevers/chills. Attended festival a few days prior. History of Present Illness Patient is a 57-year-old female with past medical history of active close to 1 pack/day??long-term cigarette smoker,??essential hypertension, hyperlipidemia, insulin-dependent T2DM complicated by retinopathy, glaucoma,chronic low back pain, depression, insomnia,?? history of serofast syphilis, prior history of cocaine use. ?? Patient presented to ED with 3???day history of some nasal congestion,??intermittent dry nonproductive cough,??and??1.5-day history of??watery nonbloody/nonmelanotic diarrhea-averaging??4??loose bowel movements per day.?? Denied associated??shortness of breath, chest pain or pleuritic pain. ??Denied associated abdominal pain/distention, denied nausea or vomiting.?? Symptoms started 3 days after she attended a [employer] festival, where she was around??a crowd of people without wearing mask. ??Aside from this, she denied any other state/country travels, no recent??new medications; denied recent antibiotic use or recent hospitalization.?? Patient received 2 COVID vaccines. At the time of bedside evaluation this evening, patient reported that??since coming to emergency department she has not had any??loose bowel movements. ?? ED course: Patient remains normotensive with BPs in the 130s/70s.?? Afebrile.?? Without tachycardia, tachypneaor hypoxia. Initial lab work was notable for mild leukopenia with WBC count of 2.4; stable chronic microcytic anemia; unremarkable platelet count of 250,000.?? General chemistry panel was notable for mild hyponatremia at 133 (when corrected for hyperglycemia 327); with mild hypokalemia at 3.4; and slight drop in chloride at 94.?? LFTs/bilirubin/lipase and lactate were all WNL. Urinalysis ruled out UTI. COVID-19 was positive. Chest x-ray did not show acute cardiopulmonary process; incidental finding of 1.6 cm nodular density in the right infra hilar region???which may represent vessel on and or lung nodule.?? Radiologist recommended follow-up with nonemergent chest CT. ?? ED requested admission for close monitoring and supportive treatment. Review of Systems Constitutional symptoms: ??Negative except as documented in HPI.?? Respiratory symptoms:?Negative Cardiovascular symptoms:?Negative Gastrointestinal symptoms:?As per HPI Genitourinary symptoms: ??Negative Neurologic symptoms:?Negative? Objective Measurements?? Height: 167 cm (11/30/22) Weight: 68.4 kg (11/30/22) Dry Weight: 68.4 kg (11/30/22) Body Mass Index: 24.53 kg/m2 (11/30/22) ? Vital Signs?? Temperature: 98.8 DegF (11/30/22 22:51:00) Temperature Route: Oral (11/30/22 22:51:00) Pulse Rate: 57 bpm (11/30/22 22:51:00) Respiratory Rate: 17 br/min (11/30/22 22:51:00) Systolic Blood Pressure:??164 mm Hg??High (11/30/22 22:51:00) Diastolic Blood Pressure: 83 mm Hg (11/30/22 22:51:00) Blood pressure sites: Arm, right (11/30/22 22:51:00) Mean Arterial Pressure: 110 mm Hg (11/30/22 22:51:00) Pulse Pressure: 81 mm Hg (11/30/22 22:51:00) Oxygen Saturation: 99 % (11/30/22 12:53:00) Mode of Delivery (Oxygen): Room air (11/30/22 12:53:00) Early Warning Score: 5 (11/30/22 23:07:14) ? Pain Scores?? No qualifying data available. ? Intake/Output? No Data Available ? Physical Exam GEN:??Pleasant female. CAOx3. Provides good history Non-toxic. No distress. CV: Regular rate and rhythm. S1 and S2 normal . No murmurs. PULM: ??BS clear to auscultation BL. BACK:??No spinal or paraspinal tenderness. ??No CVA tenderness. ABD: Soft. Nontender. Non-distended. Normal bowel sounds present x4 quadrants EXT: No edema. NEURO: No gross neurologic focal deficits. SKIN: Warm, dry and well perfused. PSYCH: Patient is calm and pleasant.? Assessment/Plan Patient is a 57-year-old female with past medical history of active close to 1 pack/day??long-term cigarette smoker,??essential hypertension, hyperlipidemia, insulin-dependent T2DM complicated by retinopathy, glaucoma, chronic low back pain, depression, insomnia,?? history of serofast syphilis, prior history of cocaine use-abstaining for many years at this time. ?? Diagnoses 1. ??COVID-19 ??(U07.1) 2. ??Diarrhea ??(R19.7) 3. ??Cough ??(R05.9) 4. ??Congestion of throat ??(R68.89) 5. ??Hyponatremia ??(E87.1) 6. ??Hypokalemia ??(E87.6) ?? #Mild COVID???19 infection #Intermittent nonproductive cough, and nasal congestion.?? Transient episode of nonbloody/nonblack diarrhea without other GI issues.?? No diarrhea episodes since coming to emergency department this morning. #Mild hyponatremia 133 #Mild hypokalemia 3.4-repleted -Admit to medicine floor ???s/p total of 2 L NaCl bolus from ED, will continue with gentle IV fluids over the next few hoursat 75 mill/hour ~1/2L -If no additional diarrhea overnight, can discontinue ? will repeat BMP, electrolytes including magnesium in the morning and correct as needed -DDIMER, PT/INR/aPTT tomorrow AM (per [facility] protocol). LFTs were done on admission-WNL. ??? Monitor I/Os ??? No hypoxia/no acute cardiopulmonary findings on chest x-ray, hence no need for IV steroids at this time. -Last isolation date is 12/09/2022 if stays inpatient ?? Incidental finding of 1.6 cm nodular density at the right infrahilar region, which may represent vessel on and or lung nodule.?? Radiologist recommended nonurgent chest CT. Patient is high risk given longstanding history of active heavy cigarette smoking -Patient was updated regarding the findings ??? She should follow with PCP regarding arranging for outpatient nonemergent chest CT and close surveillance ??? Smoking cessation was strongly encouraged.?? At this time patient seems to be in disbelief, andnot ready to quit.?? Please consider readdressing the issue prior to discharge. -Tonight we will provide nicotine patches for cravings? Chronic and Stable Issues: Essential hypertension -Resumed amlodipine 10 mg ??? We will hold hydrochlorothiazide and lisinopril tonight, if BPs remain stable and no more additional diarrhea, can resume tomorrow. ?? Hyperlipidemia -Resumed atorvastatin 10 mg QD ?? Insulin-dependent T2DM Diabetic retinopathy -At home patient is on metformin 750 mg QD, Lantus 22 units QHS and Premeal insulin aspart. Patient reports she is allergic to insulin lispro, hence will did not order.?? Patient was advised to have her daughter bring insulin aspart from home, if admitted for more than additional day ??? Resume insulin Lantus at 18 units QHS -Holding metformin -POC TID and QHS -Diabetic diet ??? Hypoglycemia protocol ?? Glaucoma -Resumed eyedrops, per home medication list ?? Chronic low back pain -PRN Tylenol ?? Depression Insomnia -Continue trazodone 25mg QHS ? Quality Measures: DVT prophylaxis: Lovenox SQ Diet: Diabetic diet Code Status: FULL CODE-as discussed with patient at bedside Medication list: was confirmed with??patient at bedside. ?? Opportunity for questions given and answered.?? Patient verbalized understanding and in agreement with the above plan. ? Histories Allergies Allergies ?(Active and Proposed Allergies Only) insulin lispro? (Severity: Unknown severity, Onset: Unknown) ?Reactions: patient reports she is allergic to insulin lispro (humalog) and can only take insulin ?aspart (novolog) ? Past Medical History/Problem List Active Problems??(15) Abdominal hernia without obstruction and without gangrene Background diabetic retinopathy Chronic low back pain Current smoker Depression Diabetes mellitus type 2 Glaucoma Health care maintenance Hernia of abdominal wall History of syphilis; [facility] DPH confirms bicillin x 3 01/2014 Hypertension Onychomycosis Overweight Physical exam Possible exposure to STD ? Past Surgical History Colonoscopy: 12/12/15 tubal ligation: 1997 unknown abdominal surgery as Excision, tumor, soft tissue of neck or anterior thorax, subcutaneous; 3 cm or greater ? Social History Alcohol Details:??Use: Current. ??Other: none for 1 year. Employment/School Details:??Status: Disabled. ??Other: Disabled over 30 years due to low back pain.. Exercise Details:??Self assessment: Fair condition. ??Other: goes up and downstairs twice a day. ??Walks 16 blocks twice a week. ??Walks with a cane.. Home/Environment Details:??Living situation: Home/Independent. ??Lives with: Alone. Nutrition/Health Details:??Diet: Regular. ??Other: sometimes follows diabetic and sometimes doesn't. ??Likes her Fruit Loops, etc.. Sexual Details:??Sexually involved in last 6 months: No. Substance Abuse Details:??Use: Current. ??Other: none for 1 year, in recovery. Tobacco Details:??Use: 10 or more cigarettes (1/2 pack or more)/day in last 30 days. Electronic Cigarette/Vaping Details:??Electronic Cigarette Use: Never. ? Psychosocial History ? Family History Mother (): Parkinson disease; Parkinsons disease Father (): CAD - Coronary artery disease Sister: Diabetes mellitus type II ? Medications Home Medications Acetaminophen (Tylenol 8 HR Arthritis Pain 650 mg oral tablet, extended release)?2?tab(s)?1,300?Milligram?By Mouth?Every 8 hours?as needed?Pain , Mild Amlodipine (amLODIPine 10 mg oral tablet)?10?Milligram?1?tablet?By Mouth?Daily?for blood pressure Atorvastatin (atorvastatin 10 mg oral tablet)?1?tab(s)?10?Milligram?By Mouth?Daily?for cholesterol Cholecalciferol (cholecalciferol 1000 intl units oral tablet)?1?tab(s)?1,000?International Unit?By Mouth?Daily?for 90?Days?vitamin Dtake with food Durable Medical Equipment (Insulin Syringe, BD Ultra-Fine 0.5 cc 30 G x 12.7 mm (1/2in))?See Instructions?E11.9use for lantus qhs(this is pt's PREFERRED SIZE of needle) Durable Medical Equipment (Shower chair)?See Instructions?Medically necessary DME due to fallrisk and increased backpain Durable Medical Equipment (Bedside Commode)?See Instructions?Medically necessary DME due to fall risk and increased back pain Durable Medical Equipment (Freestyle Lite Monitor)?See Instructions?E11.9IDDMcheck 3x/day Durable Medical Equipment (Rollator)?See Instructions?ICD 10: M54.5 Durable Medical Equipment (Pen Washington, 31 G x 8 mm BD Ultra Fine III)?See Instructions?for 30?Days?use up to 4 times daily as directed for Type 2 Diabetes Mellitus. E11.9 Durable Medical Equipment (Alcohol Pads)?See Instructions?E11.9use to wipe finger for checking blood sugar and use to administer insulin Durable Medical Equipment (Freestyle Lite Test Strips)?See Instructions?Use to monitor blood glucose levels 4x per day. E11.9 Durable Medical Equipment (Pen [place], 31 G x 8 mm BD Ultra Fine III)?See Instructions?for 30?Days?use as directed for Type 2 Diabetes Mellitus E11.9 for 4x/day insulin pen injections Durable Medical Equipment (Freestyle Lite Lancets)?See Instructions?Use to monitor blood glucose levels 4x per day. E11.9 Durable Medical Equipment (Freestyle ana 2 reader)?See Instructions?Check 4 times daily e11.65 Durable Medical Equipment (Freestyle naa 2)?See Instructions?Use to check sugar 4x daily E11.65 Hydrochlorothiazide (hydrochlorothiazide 25 mg oral tablet)?25?Milligram?1?tablet?ByMouth?Daily?for blood pressure Insulin Aspart (NovoLOG FlexPen 100 units/mL subcutaneous solution)?See Instructions?Subcutaneous Injection?for 30?Days?Use as directed for Diabetes mellitus type 2, per sliding scale.(Max Dose = 50 units/day) Insulin Glargine (Lantus Solostar Pen 100 units/mL subcutaneous solution)?22?unit(s)?Subcutaneous Injection?Daily at bedtime?for 30?Days Latanoprost Ophthalmic (latanoprost 0.005% ophthalmic solution)?See Instructions?INSERT 1 DROP IN BOTH EYES DAILY AT BEDTIME FOR 30 DAYS :PLEASE OBTAIN FURTHER REFILLS FROM YOUR PROPERTY MANAGEMENT BOOKKEEPER Lisinopril (lisinopril 40 mg oral tablet)?1?tab(s)?40?Milligram?By Mouth?Daily?for 90?Days?for blood pressure Metformin (metFORMIN 750 mg oral tablet, extended release)?2?tab(s)?By Mouth?Daily?for diabetes. Miscellaneous Rx ([employer] raised toilet seat)?See Instructions?Dx; intervetebral disc degeneration (lumbar region); low back pain;fall rsik SARS-CoV-2 (COVID-19) mRNA BNT-162b2 vax (Iotelligent COVID-19 Vaccine 30 mcg/0.3 mL preservative-free intramuscular suspension)?0.3?Milliliter?30?Microgram?Intramuscular?Once Timolol Ophthalmic (Timolol Maleate (Eqv-Timoptic) 0.5% ophthalmic solution)?See Instructions?INSERT 1 DROP IN BOTH EYES 2 TIMES A DAY :PLEASE GET FURTHER REFILLS FROM YOUR PROPERTY MANAGEMENT BOOKKEEPER Trazodone (traZODone 50 mg oral tablet)?25?Milligram?0.5?tablet?By Mouth?Daily atbedtime ? Results Recent Labs BLOOD COUNT & DIFF WBC 2.4 k/mm3 (Low)?? 11/30/2022 17:13 RBC 5.03 m/mm3 ()?? 11/30/2022 17:13 Hgb 11.5 Gm/dL (Low)?? 11/30/2022 17:13 Hct 36.2 % ()?? 11/30/2022 17:13 MCV 72.0 femtoliters (Low)?? 11/30/2022 17:13 MCH 22.9 pg (Low)?? 11/30/2022 17:13 MCHC 31.8 g/dL (Low)?? 11/30/2022 17:13 Platelet Count 215 k/mm3 ()?? 11/30/2022 17:13 RDW-SD 37.4 femtoliters ()?? 11/30/2022 17:13 MPV 8.8 femtoliters (Low)?? 11/30/2022 17:13 Nucleated RBC (Automated) 0.0 #/100 WBC'S ()?? 11/30/2022 17:13 Abs. NRBC 0.0 k/mm3 ()?? 11/30/2022 17:13 Abs. Neut 0.9 k/mm3 (Low)?? 11/30/2022 17:13 Abs. Lymph 1.3 k/mm3 ()?? 11/30/2022 17:13 Abs. [place] 0.3 k/mm3 (Low)?? 11/30/2022 17:13 Abs. Eo 0.0 k/mm3 ()?? 11/30/2022 17:13 Abs. Baso 0.0 k/mm3 ()?? 11/30/2022 17:13 Neut % 33.9 % (Low)?? 11/30/2022 17:13 Lymph % 45.2 % (High)?? 11/30/2022 17:13 [place] % 10.4 % ()?? 11/30/2022 17:13 Eos % 0.0 % ()?? 11/30/2022 17:13 Baso % 0.9 % ()?? 11/30/2022 17:13 Band % 2.6 % ()?? 11/30/2022 17:13 Atypical Lymph % 7.0 % (High)?? 11/30/2022 17:13 RBC Morphology MARKED ()?? 11/30/2022 17:13 ?? CHEM GENERAL Sodium 128 mmol/L (Low)?? 11/30/2022 14:06 Potassium 3.4 mmol/L (Low)?? 11/30/2022 14:06 Chloride 91 mmol/L (Low)?? 11/30/2022 14:06 Bicarbonate Level 23 mmol/L ()?? 11/30/2022 14:06 Anion Gap 14 ()?? 11/30/2022 14:06 Glucose Level 327 mg/dL (High)?? 11/30/2022 14:06 Glucose, POC 270 mg/dL (High)?? 11/30/2022 23:03 BUN 20 mg/dL ()?? 11/30/2022 14:06 Creatinine-Blood 1.0 mg/dL ()?? 11/30/2022 14:06 Estimated GFR Creatinine 67 ML/MIN/1.73 M2 ()?? 11/30/2022 14:06 Calcium 8.8 mg/dL ()?? 11/30/2022 14:06 Protein, Total 7.0 Gm/dL ()?? 11/30/2022 14:06 Albumin 4.1 Gm/dL ()?? 11/30/2022 14:06 AG Ratio 1.4 ()?? 11/30/2022 14:06 Alkaline Phosphatase 75 units/L ()?? 11/30/2022 14:06 Lipase 28 units/L ()?? 11/30/2022 14:06 AST (SGOT) 22 units/L ()?? 11/30/2022 14:06 ALT (SGPT) 15 units/L ()?? 11/30/2022 14:06 Bilirubin, Total 0.4 mg/dL ()?? 11/30/2022 14:06 Lactate 1.3 mmol/L ()?? 11/30/2022 14:06 ?? UA/URINALYSIS Appear/Color, Urine LIGHT YELLOW ()?? 11/30/2022 15:19 Specific Bruce, Urine 1.008 ()?? 11/30/2022 15:19 pH, Urine 5.5 ()?? 11/30/2022 15:19 Albumin, Urine TRACE (Abnormal)?? 11/30/2022 15:19 Glucose, Urine 3+ (Abnormal)?? 11/30/2022 15:19 Ketones, Urine NEGATIVE ()?? 11/30/2022 15:19 Bilirubin, Urine NEGATIVE ()?? 11/30/2022 15:19 Hemoglobin, Urine NEGATIVE ()?? 11/30/2022 15:19 Nitrite, Urine NEGATIVE ()?? 11/30/2022 15:19 Leukocyte, Urine NEGATIVE ()?? 11/30/2022 15:19 Urobilinogen NORMAL mg/dL ()?? 11/30/2022 15:19 WBC's, Urine 1 /HPF ()?? 11/30/2022 15:19 RBC's, Urine 1 /HPF ()?? 11/30/2022 15:19 Bacteria SLIGHT HPF (Abnormal)?? 11/30/2022 15:19 Squamous Epith 2 /HPF ()?? 11/30/2022 15:19 Transitional Epith <1 /HPF ()?? 11/30/2022 15:19 Hyaline Cast 4 LPF (High)?? 11/30/2022 15:19 Mucus SLIGHT /LPF ()?? 11/30/2022 15:19 Hold Urine Culture Testing available 48 hours from time of collection. ()?? 11/30/2022 15:19 ?? URINE OTHER Est Creatinine Clearance 57.54 mL/min ()?? 11/30/2022 15:26 ?? VIROLOGY COVID-19 by RT-PCR POSITIVE (Abnormal)?? 11/30/2022 14:23 ? Imaging(s) ?Chest Portable ?? 11/30/2022 18:06??by Piyush WOODY, Devrim ?IMPRESSION: ?? No acute abnormality. A 1.6 cm nodular density in the right infrahilar region could represent a vessel on end or a lung nodule. Follow-up with nonemergent chest CT should be considered. ? Hospital Progress note * Yi Cotton RN: PERFORM, SIGN, VERIFY Event Display: Progress Note Hospital Authored Date: Patient: BASILIO CORDERO Age: 57 years Sex: Female : 1965 Associated Diagnoses: None Author: Yi Cotton RN Findings Nursing Data Vital Signs : VITAL SIGNS SECTION 12/01/2022 8:27 EDT Temperature 98.2 DegF Temperature Route Oral Pulse Rate 58 bpm Respiratory Rate 18 br/min Systolic Blood Pressure 152 mm Hg H Diastolic Blood Pressure 82 mm Hg Mean Arterial Pressure 105 mm Hg Pulse Pressure 70 mm Hg Oxygen Saturation 100 % Mode of Delivery (Oxygen) Room air . Narrative/Incidental Received order for pt to be discharged to home. Vital signs stable and within normal limits for pt,no s/s of respiratory distress noted, and denied pain. Pt education provided on discharge instructions, medications, follow-up appointment, when to call /Pamela, and home safety. Pt verbalized understanding and voiced no questions or concerns. Pt escorted from W4 via wheelchair by hospital personneland safety was maintained. Pt. discharge.. Discharge Information Case Management Discharge Plan : Case Management Discharge Plan Data 12/01/2022 12:53 EDT Discharge Level of Care at Discharge Home/Shelter/Foster Care * Niya Brink RN: MODIFY, SIGN, VERIFY, PERFORM Event Display: Progress Note Hospital Authored Date: [id number] Patient: BASILIO CORDERO Age: 57 years Sex: Female : 1965 Associated Diagnoses: None Author: Niya Brink RN Findings Problem Related to Alteration in Respiratory Function (new) : Alteration in Respiratory Function/new 12/01/2022 3:00 EDT Alteration in Resp Status Related to COVID - 19 Goals & Outcomes, Respiratory Pt will maintain/resume baseline physical assessment Interventions, Respiratory Assess/monitor tolerance to IV infusions; verify rate/dose BH Goals/Interventions, Respiratory Yes Respiratory, Problem Start 11/30/2022 22:38 Reviewed Plan with, Respiratory Patient Patient Progression, Respiratory Plan Initiation . Nursing Data Vital Signs : VITAL SIGNS SECTION 11/30/2022 22:51 EDT Temperature 98.8 DegF Temperature Route Oral Pulse Rate 57 bpm Respiratory Rate 17 br/min Systolic Blood Pressure 164 mm Hg H Diastolic Blood Pressure 83 mm Hg Blood pressure sites Arm, right Mean Arterial Pressure 110 mm Hg Pulse Pressure 81 mm Hg . Evaluation Pt arrived to unit from ED via wheelchair @ 2238. Pt able to transfer from wheelchair to bed independently. Pt a/o x4, has trace edema in lower extremities, denies pain or SOB. Pt on continous o2 100% on room air. Pt skin intact, lungs clear to auscultation. Pt has LR running @ 75ml/hr. call guillermo in reach, safety measures maintained. see CIS for full assessment.. Note * Yi Cotton RN: PERFORM Event Display: Discharge/Transfer Note Hospital Authored Date: [id number] Nursing Discharge Note Entered On: 12/01/2022 12:54 EDT Performed On: 12/01/2022 12:53 EDT by Yi Cotton RN Nursing Discharge Note 2 Discharge Time : 12/01/2022 12:50 EDT Discharge Level of Care at Discharge : Home/Shelter/Foster Care Patient Left Unit Via : Wheelchair Patient Accompanied Off Unit with : Responsible adult DC Instructions Provided & Signed by Pt : Yes Patient Understands D/C Instructions : Yes Patient Instructions Discharge Signed : Yes Did Pt have Specialty Bed or Wound Vac : No Yi Cotton RN - 12/01/2022 12:53 EDT * Rei WOODY, Mukul Camarena: PERFORM Event Display: Discharge/Transfer Note Hospital Authored Date: [id number] Patient: ??BASILIO CORDERO ? Age:??57 Years?Sex:??Female?:??1965?? Patient Information Discharge Location: W4 Primary Care Physician: Susana Rodas MD Admit Date/Time: 11/30/22 10:50 Discharge Disposition Discharge Disposition: Home: No Services Discharge Diagnosis COVID-19 (U07.1) Diarrhea (R19.7) Cough (R05.9) Congestion of throat (R68.89) Hyponatremia (E87.1) Hypokalemia (E87.6) Diabetes mellitus type 2 Glaucoma Hypertension ?? _ Discharge Medications Acetaminophen (Tylenol 8 HR Arthritis Pain 650 mg oral tablet, extended release)?2?tab(s)?1,300?Milligram?By Mouth?Every 8 hours?as needed?Pain , Mild Amlodipine (amLODIPine 10 mg oral tablet)?10?Milligram?1?tablet?By Mouth?Daily?for blood pressure Atorvastatin (atorvastatin 10 mg oral tablet)?1?tab(s)?10?Milligram?By Mouth?Daily?for cholesterol Cholecalciferol (cholecalciferol 1000 intl units oral tablet)?1?tab(s)?1,000?International Unit?By Mouth?Daily?for 90?Days?vitamin Dtake with food Durable Medical Equipment (Insulin Syringe, BD Ultra-Fine 0.5 cc 30 G x 12.7 mm (1/2in))?See Instructions?E11.9use for lantus qhs(this is pt's PREFERRED SIZE of needle) Durable Medical Equipment (Shower chair)?See Instructions?Medically necessary DME due to fallrisk and increased backpain Durable Medical Equipment (Bedside Commode)?See Instructions?Medically necessary DME due to fall risk and increased back pain Durable Medical Equipment (Freestyle Lite Monitor)?See Instructions?E11.9IDDMcheck 3x/day Durable Medical Equipment (Rollator)?See Instructions?ICD 10: M54.5 Durable Medical Equipment ([place], 31 G x 8 mm BD Ultra Fine III)?See Instructions?for 30?Days?use up to 4 times daily as directed for Type 2 Diabetes Mellitus. E11.9 Durable Medical Equipment (Alcohol Pads)?See Instructions?E11.9use to wipe finger for checking blood sugar and use to administer insulin Durable Medical Equipment (Freestyle Lite Test Strips)?See Instructions?Use to monitor blood glucose levels 4x per day. E11.9 Durable Medical Equipment ([place], 31 G x 8 mm BD Ultra Fine III)?See Instructions?for 30?Days?use as directed for Type 2 Diabetes Mellitus E11.9 for 4x/day insulin pen injections Durable Medical Equipment (Freestyle Lite Lancets)?See Instructions?Use to monitor blood glucose levels 4x per day. E11.9 Durable Medical Equipment (Freestyle ana 2 reader)?See Instructions?Check 4 times daily e11.65 Durable Medical Equipment (Freestyle ana 2)?See Instructions?Use to check sugar 4x daily E11.65 Hydrochlorothiazide (hydrochlorothiazide 25 mg oral tablet)?25?Milligram?1?tablet?ByMouth?Daily?for blood pressure Insulin Aspart (NovoLOG FlexPen 100 units/mL subcutaneous solution)?See Instructions?Subcutaneous Injection?for 30?Days?Use as directed for Diabetes mellitus type 2, per sliding scale.(Max Dose = 50 units/day) Insulin Glargine (Lantus Solostar Pen 100 units/mL subcutaneous solution)?22?unit(s)?Subcutaneous Injection?Daily at bedtime?for 30?Days Latanoprost Ophthalmic (latanoprost 0.005% ophthalmic solution)?See Instructions?INSERT 1 DROP IN BOTH EYES DAILY AT BEDTIME FOR 30 DAYS :PLEASE OBTAIN FURTHER REFILLS FROM YOUR PROPERTY MANAGEMENT BOOKKEEPER Lisinopril (lisinopril 40 mg oral tablet)?1?tab(s)?40?Milligram?By Mouth?Daily?for 90?Days?for blood pressure Metformin (metFORMIN 750 mg oral tablet, extended release)?2?tab(s)?By Mouth?Daily?for diabetes. Miscellaneous Rx ([facility] raised toilet seat)?See Instructions?Dx; intervetebral disc degeneration (lumbar region); low back pain;fall rsik SARS-CoV-2 (COVID-19) mRNA BNT-162b2 vax ([employer]otelligent COVID-19 Vaccine 30 mcg/0.3 mL preservative-free intramuscular suspension)?0.3?Milliliter?30?Microgram?Intramuscular?Once Timolol Ophthalmic (Timolol Maleate (Eqv-Timoptic) 0.5% ophthalmic solution)?See Instructions?INSERT 1 DROP IN BOTH EYES 2 TIMES A DAY :PLEASE GET FURTHER REFILLS FROM YOUR PROPERTY MANAGEMENT BOOKKEEPER Trazodone (traZODone 50 mg oral tablet)?25?Milligram?0.5?tablet?By Mouth?Daily atbedtime ? Quality Measures Tobacco Use Treatment:? PCP Follow-Up/Heads-Up ? -Admitted due to COVID upper respiratory symptoms and diarrhea, resolved in hospital with IV fluids -Incidental pulmonary nodule finding, please follow-up with CT scan not emergently??for surveillance, patient counseled on smoking cessation ? Future Appointments Saturday 12:25 PM EDT ?? With: Anant WOODY, Erik Where: [facility] [address] [place] [address]- Status: Pending Hospital Course . 57-year-old female with past medical history of active close to 1 pack/day??long-term cigarette smoker,??essential hypertension, hyperlipidemia, insulin-dependent T2DM complicated by retinopathy, glaucoma, chronic low back pain, depression, insomnia,?? history of serofast syphilis, prior history of cocaine use-abstaining for many years at this time.?? Admitted with upper respiratory symptoms and diarrhea in the setting of COVID infection. ??Remained stable and discharged home in stable condition with no medication changes needed ?? Diagnoses 1. ??COVID-19 ??(U07.1) 2. ??Diarrhea ??(R19.7) 3. ??Cough ??(R05.9) 4. ??Congestion of throat ??(R68.89) 5. ??Hyponatremia ??(E87.1) 6. ??Hypokalemia ??(E87.6) ?? #Mild COVID???19 infection #Intermittent nonproductive cough, and nasal congestion.?? Transient episode of nonbloody/nonblack diarrhea without other GI issues.?? No diarrhea episodes since coming to emergency department this morning. #Mild hyponatremia 133 #Mild hypokalemia 3.4-repleted ???s/p total of 2 L NaCl bolus from ED, symptoms resolved after and remained stable Had no additional diarrhea since admission All electrolyte??labs were within normal ranges Did not require any COVID-specific therapies,??did not have any hypoxia and symptoms had resolved Discharged home in stable condition ? Incidental finding of 1.6 cm nodular density at the right infrahilar region, which may represent vessel on and or lung nodule.?? Radiologist recommended nonurgent chest CT. Patient is high risk given longstanding history of active heavy cigarette smoking -Patient was updated regarding the findings, she assured she will follow up with PCP for nonemergent CT scan ??? She should follow with PCP regarding arranging for outpatient nonemergent chest CT and close surveillance ??? Smoking cessation was strongly encouraged.?? At this time patient seems to be in disbelief, andnot ready to quit.? Chronic and Stable Issues: Essential hypertension We will continue home amlodipine, hydrochlorothiazide and lisinopril ?? Hyperlipidemia -Resumed atorvastatin 10 mg QD ?? Insulin-dependent T2DM Diabetic retinopathy Continue home metformin, Lantus and aspart regiment ?? Glaucoma -Resumed eyedrops, per home medication list ?? Chronic low back pain -PRN Tylenol ?? Depression Insomnia -Continue trazodone 25mg QHS ? Objective Measurements?? Height: 167 cm (12/01/22) Weight: 68.4 kg (11/30/22) Dry Weight: 68.4 kg (11/30/22) Body Mass Index: 24.53 kg/m2 (11/30/22) ? Vital Signs?? Temperature: 98.2 DegF (12/01/22 08:27:00) Temperature Route: Oral (12/01/22 08:27:00) Pulse Rate: 58 bpm (12/01/22 08:27:00) Respiratory Rate: 18 br/min (12/01/22 08:27:00) Systolic Blood Pressure:??152 mm Hg??High (12/01/22 08:27:00) Diastolic Blood Pressure: 82 mm Hg (12/01/22 08:27:00) Blood pressure sites: Arm, right (12/01/22 03:12:00) Mean Arterial Pressure: 105 mm Hg (12/01/22 08:27:00) Pulse Pressure: 70 mm Hg (12/01/22 08:27:00) Oxygen Saturation: 100 % (12/01/22 08:27:00) Mode of Delivery (Oxygen): Room air (12/01/22 08:27:00) Early Warning Score: 3 (12/01/22 08:28:34) ? . Physical Exam ?? Constitutional: Alert, in no acute distress. Mental Status: Oriented to person, place and time. Head: Normocephalic. Eyes: Pupils are equal, round and reactive to light. Extraocular muscles intact. Ear, Nose and Throat: Oropharynx clear, mucous membranes moist. Ears and nose without masses, lesions or deformities. Trachea midline. Neck: Supple, Full range of motion. Respiratory: Clear to auscultation and percussion. No wheezing, rales or rhonchi. Cardiovascular: S1 S2 regular. No murmurs, rubs or gallops. Gastrointestinal: Abdomen soft, non-tender, non-distended. Normal bowel sounds. No pulsatile mass. No hepatosplenomegaly. Genitourinary: No costovertebral angle tenderness. Neurologic: Cranial nerves II-XII grossly intact. No focal neurological deficits. Flexor plantar response. Moves all extremities spontaneously. Sensation intact bilaterally. Skin: No rashes or lesions. No petechiae or purpura. Musculoskeletal: No cyanosis or clubbing. No gross deformities. Normal range of motion. ?? Pending Results No Pending Results Patient Education Titles Coronavirus Disease 2019 (COVID-19): Overview?? Follow-Up Appointments Added Follow Up ?Time Frame ?Comments Susana Rodas MD?Within two weeks Patient Instructions ? -You were admitted to the hospital with??weakness and diarrhea in the setting of COVID infection with some upper respiratory symptoms -Your symptoms resolved in the hospital and all your blood work and electrolyte abnormalities were corrected-normal -There was an incidental finding of a nodule on your checks x-ray, please follow-up with your primary care physician as you may need a CT scan for this??to follow-up -No medication changes have been made next-please follow-up with your primary care physician within2 weeks ?? Post Discharge Care Diet: Diabetic Diet Activity: As tolerated Code Status: ?? Full Resuscitation Condition: Stable Prognosis: Fair Discharge ?12/01/22 8:34:00 EDT Discharge Prescriptions ?None, ??12/01/22 8:34:00 EDT Home Health Face to Face ^HomeHealthFTF Results Discharge Labs BLOOD COUNT & DIFF WBC 3.3 k/mm3 (Low)?? 12/01/2022 00:45 RBC 4.99 m/mm3 ()?? 12/01/2022 00:45 Hgb 11.5 Gm/dL (Low)?? 12/01/2022 00:45 Hct 36.0 % ()?? 12/01/2022 00:45 MCV 72.1 femtoliters (Low)?? 12/01/2022 00:45 MCH 23.0 pg (Low)?? 12/01/2022 00:45 MCHC 31.9 g/dL (Low)?? 12/01/2022 00:45 Platelet Count 207 k/mm3 ()?? 12/01/2022 00:45 RDW-SD 37.6 femtoliters ()?? 12/01/2022 00:45 MPV 9.1 femtoliters (Low)?? 12/01/2022 00:45 Nucleated RBC (Automated) 0.0 #/100 WBC'S ()?? 12/01/2022 00:45 Abs. NRBC 0.0 k/mm3 ()?? 12/01/2022 00:45 Abs. Neut 0.9 k/mm3 (Low)?? 11/30/2022 17:13 Abs. Lymph 1.3 k/mm3 ()?? 11/30/2022 17:13 Abs. [place] 0.3 k/mm3 (Low)?? 11/30/2022 17:13 Abs. Eo 0.0 k/mm3 ()?? 11/30/2022 17:13 Abs. Baso 0.0 k/mm3 ()?? 11/30/2022 17:13 Neut % 33.9 % (Low)?? 11/30/2022 17:13 Lymph % 45.2 % (High)?? 11/30/2022 17:13 [place] % 10.4 % ()?? 11/30/2022 17:13 Eos % 0.0 % ()?? 11/30/2022 17:13 Baso % 0.9 % ()?? 11/30/2022 17:13 Band % 2.6 % ()?? 11/30/2022 17:13 Atypical Lymph % 7.0 % (High)?? 11/30/2022 17:13 RBC Morphology MARKED ()?? 11/30/2022 17:13 ? CHEM GENERAL Sodium 139 mmol/L ()?? 12/01/2022 00:45 Potassium 4.3 mmol/L ()?? 12/01/2022 00:45 Chloride 104 mmol/L ()?? 12/01/2022 00:45 Bicarbonate Level 23 mmol/L ()?? 12/01/2022 00:45 Anion Gap 12 ()?? 12/01/2022 00:45 Glucose Level 264 mg/dL (High)?? 12/01/2022 00:45 Glucose, POC 270 mg/dL (High)?? 11/30/2022 23:03 BUN 14 mg/dL ()?? 12/01/2022 00:45 Creatinine-Blood 0.4 mg/dL (Low)?? 12/01/2022 00:45 Estimated GFR Creatinine 113 ML/MIN/1.73 M2 ()?? 12/01/2022 00:45 Calcium 8.8 mg/dL ()?? 12/01/2022 00:45 Magnesium 1.6 mg/dL ()?? 12/01/2022 00:45 Protein, Total 7.0 Gm/dL ()?? 11/30/2022 14:06 Albumin 4.1 Gm/dL ()?? 11/30/2022 14:06 AG Ratio 1.4 ()?? 11/30/2022 14:06 Alkaline Phosphatase 75 units/L ()?? 11/30/2022 14:06 Lipase 28 units/L ()?? 11/30/2022 14:06 AST (SGOT) 22 units/L ()?? 11/30/2022 14:06 ALT (SGPT) 15 units/L ()?? 11/30/2022 14:06 Bilirubin, Total 0.4 mg/dL ()?? 11/30/2022 14:06 Lactate 1.3 mmol/L ()?? 11/30/2022 14:06 ? COAG INR 1.0 ()?? 12/01/2022 00:45 Protime (PT) 10.5 seconds ()?? 12/01/2022 00:45 APTT 26.3 seconds ()?? 12/01/2022 00:45 D-Dimer 0.28 mg/L FEU ()?? 12/01/2022 00:45 ?? UA/URINALYSIS Appear/Color, Urine LIGHT YELLOW ()?? 11/30/2022 15:19 Specific Bruce, Urine 1.008 ()?? 11/30/2022 15:19 pH, Urine 5.5 ()?? 11/30/2022 15:19 Albumin, Urine TRACE (Abnormal)?? 11/30/2022 15:19 Glucose, Urine 3+ (Abnormal)?? 11/30/2022 15:19 Ketones, Urine NEGATIVE ()?? 11/30/2022 15:19 Bilirubin, Urine NEGATIVE ()?? 11/30/2022 15:19 Hemoglobin, Urine NEGATIVE ()?? 11/30/2022 15:19 Nitrite, Urine NEGATIVE ()?? 11/30/2022 15:19 Leukocyte, Urine NEGATIVE ()?? 11/30/2022 15:19 Urobilinogen NORMAL mg/dL ()?? 11/30/2022 15:19 WBC's, Urine 1 /HPF ()?? 11/30/2022 15:19 RBC's, Urine 1 /HPF ()?? 11/30/2022 15:19 Bacteria SLIGHT HPF (Abnormal)?? 11/30/2022 15:19 Squamous Epith 2 /HPF ()?? 11/30/2022 15:19 Transitional Epith <1 /HPF ()?? 11/30/2022 15:19 Hyaline Cast 4 LPF (High)?? 11/30/2022 15:19 Mucus SLIGHT /LPF ()?? 11/30/2022 15:19 Hold Urine Culture Testing available 48 hours from time of collection. ()?? 11/30/2022 15:19 ? URINE OTHER Est Creatinine Clearance 143.84 mL/min ()?? 12/01/2022 02:12 ? VIROLOGY COVID-19 by RT-PCR POSITIVE (Abnormal)?? 11/30/2022 14:23 ? Microbiology ?? COVID-19 (Novel Coronavirus), Rapid PCR?? Completed?? Source: Nasal Body Site: Nose Collected Dt/Tm: 11/30/2022 13:34 Last Updated Dt/Tm: 11/30/2022 16:09 ? Imaging(s) ?Chest Portable ?? 11/30/2022 18:06??by Piyush WOODY, Claribel ?IMPRESSION: ?? No acute abnormality. A 1.6 cm nodular density in the right infrahilar region could represent a vessel on end or a lung nodule. Follow-up with nonemergent chest CT should be considered. ? 38_ minutes spent on discharge * Lula ORO, Yi: PERFORM Event Display: Patient Education/Instruction Authored Date: [id number] Inpatient Adult Discharge Instructions [address] [address] Name: BASILIO CORDERO : 1965 Visit: 11/30/2022 10:50:00 Current Date: 12/01/2022 10:55 Account: [id number] Inpatient Adult Discharge Instructions We would like to thank you for allowing us to assist you with your healthcare needs. The following includes patient education materials and information regarding your injury/illness. Our entire staffstrives to provide an excellent experience for our patients and their families. PLEASE ENSURE YOU FOLLOW-UP PER THE INSTRUCTIONS BELOW! ?? YOUR OPINION IS IMPORTANT TO US! Please complete the survey you may receive by mail or email. Your feedback will be used to make improvements to the healthcare experiences of our patients and their families. Surveys are administered by [employer] ?? If further treatment with your primary care physician or another doctor is recommended, it is important for you to keep the appointment. Call your primary care physician or return to the Emergency Department immediately if your condition worsens, fails to improve, or new symptoms develop. If you need to find a doctor, you can call [facility] Link for a referral at [phone] or toll free at [phone]) or log in to [email or web address].. ?? [facility], in keeping with [facility] guidance, no longer requires face masks for staff, patientsor visitors in most situations. Similiar to time spent indoors at other locations, there is the chance that you were exposed to repiratory viruses during your time with us (such as flu or COVID-19). If you develop symptoms concerning for a viral respiratory infection, please seek testing (and treatment if indicated) from your medical provider or home test kit. ?? You can view and manage your care through the patient portal or by using a health care michael of your choosing. [employer] is a website that allows you to securely view your medical information including your hospital discharge summary, office visit summaries, medications and follow-up visits. You can also request appointments, renew medications, and request access to your medical information using a health care michael of your choosing, or just ask a question. You can enroll at [email or web address] or register during your next office visit. You have been discharged from [facility], Patient Care Unit: W4. If you have any questions regarding these instructions after you leave, please call us and we will be happy to assist you. [facility] Your Care Team Attending Physician Mukul Minaya MD Discharging Providers Mukul Minaya MD Reason for Admission P/w several day hx of dry cough, congestion, and transient profuse non-melenic/non-bloody diarrhea.No abd pain. No nausea or vomiting. No fevers/chills. Attended festival a few days prior. Your Diagnosis COVID-19 Diarrhea Cough Congestion of throat Hyponatremia Hypokalemia Tests Performed Below is a partial list of the tests performed during your hospitalization. You may have had other tests and procedures not included in this list. Please discuss all test results with your provider. Basic Metabolic Panel CBC CBC w/ Differential Comprehensive Metabolic Panel COVID-19 (Novel Coronavirus), Rapid PCR D Dimer GLUCOSE POC INR Lactate Level Lipase Magnesium Level PTT Urinalysis w/hold for Urine Culture CXR Portable Primary Care Provider Susana Rodas MD Advance Directive Health Care Proxy on File Yes - Health Care Proxy Discharge Vitals Temperature: 98.2 DegF Height: 167 cm Pulse Rate: 58 bpm Weight: 68.4 kg Respiratory Rate: 18 br/min Body Mass Index: 24.53 kg/m2 Systolic Blood Pressure:??152 mm Hg??High Body surface area: 1.78 Diastolic Blood Pressure: 82 mm Hg ?? Oxygen Saturation: 100 % ?? Studies Pending All tests and labs ordered during this hospital stay have been completed unless listed below. Please discuss all pending results with your provider listed above in these instructions. ?? No incomplete studies found What to do next Instructions From Your Doctor ? -You were admitted to the hospital with??weakness and diarrhea in the setting of COVID infection with some upper respiratory symptoms -Your symptoms resolved in the hospital and all your blood work and electrolyte abnormalities were corrected-normal -There was an incidental finding of a nodule on your checks x-ray, please follow-up with your primary care physician as you may need a CT scan for this??to follow-up -No medication changes have been made next-please follow-up with your primary care physician within2 weeks ?? Discharge Orders Diet:??Diabetic Diet Activity:??As tolerated Code Status:?? Full Resuscitation Condition:??Stable Prognosis:??Fair Scheduled Follow-Up Appointments Saturday 12:25 PM EDT ?? With: Erik Ny MD Where: [facility] [place] [address]- Status: Pending You Need to Schedule the Following Appointments Follow Up with??Susana Rodas MD When:??Within Within two weeks Where: [address] [place] [address]- Discharge Medications BASILIO CORDERO :1965 Visit Date:11/30/2022 Medications: Please continue your medications until treatment is completed or stopped by your provider. Medications not listed below should be discontinued. Discuss any questions related to medications with your provider. What How Much When Why Instructions Next Dose Changed Miscellaneous Rx ([facility] raised toilet seat) See instructions Dx; intervetebral disc degeneration (lumbar region); low back pain;fall rsik ?? Unchanged Acetaminophen (Tylenol 8 HR Arthritis Pain 650 mg oral tablet, extended release) 2 tab(s) Oral Every 8 hours as needed for Pain , Mild Unchanged Amlodipine (amLODIPine 10 mg oral tablet) 1 tab(s) Oral Daily for blood pressure ?? Unchanged Atorvastatin (atorvastatin 10 mg oral tablet) 1 tab(s) Oral Daily for cholesterol ?? Unchanged Cholecalciferol (cholecalciferol 1000 intl units oral tablet) 1 tab(s) Oral Daily Duration: 90 Days vitamin D take with food ?? Unchanged Durable Medical Equipment (Alcohol Pads) See instructions E11.9 use to wipe finger for checking blood sugar and use to administer insulin ?? Unchanged Durable Medical Equipment (Bedside Commode) See instructions Medically necessary DME due to fall risk and increased back pain ?? Unchanged Durable Medical Equipment (Freestyle ana 2 reader) See instructions Check 4 times daily e11.65 ?? Unchanged Durable Medical Equipment (Freestyle ana 2) See instructions Use to check sugar 4x daily E11.65 ?? Unchanged Durable Medical Equipment (Freestyle Lite Lancets) See instructions Use to monitor blood glucose levels 4x per day. E11.9 ?? Unchanged Durable Medical Equipment (Freestyle Lite Monitor) See instructions E11.9 IDDM check 3x/ day ?? Unchanged Durable Medical Equipment (Freestyle Lite Test Strips) See instructions Use to monitor blood glucose levels 4x per day. E11.9 ?? Unchanged Durable Medical Equipment (Insulin Syringe, BD Ultra-Fine 0.5 cc 30 G x 12.7 mm (1/ 2in))See instructions E11.9 use for lantus qhs (this is pt's PREFERRED SIZE of needle) ?? Unchanged Durable Medical Equipment ([place], 31 G x 8 mm BD Ultra Fine III) See instructions Duration: 30 Days use up to 4 times daily as directed for Type 2 Diabetes Mellitus. E11.9 ?? Unchanged Durable Medical Equipment ([place], 31 G x 8 mm BD Ultra Fine III) See instructions Duration: 30 Days use as directed for Type 2 Diabetes Mellitus E11.9 for 4x/ day insulin pen injections ?? Unchanged Durable Medical Equipment (Rollator) See instructions ICD 10: M54.5 ?? Unchanged Durable Medical Equipment (Shower chair) See instructions Degenerative lumbar disc Low back pain Risk for falls Unsteady gait Medically necessary DME due to fall risk and increased backpain ?? Unchanged Hydrochlorothiazide (hydrochlorothiazide 25 mg oral tablet) 1 tab(s) Oral Daily for blood pressure ?? Unchanged Insulin Aspart (NovoLOG FlexPen 100 units/ mL subcutaneous solution) See instructions Duration: 30 Days Use as directed for Diabetes mellitus type 2, per sliding scale. (Max Dose = 50 units/ day) ?? Unchanged Insulin Glargine (Lantus Solostar Pen 100 units/ mL subcutaneous solution) 22 unit(s) Subcutaneous Injection Daily at Bedtime Duration: 30 Days Unchanged Latanoprost Ophthalmic (latanoprost 0.005% ophthalmic solution) See instructions INSERT 1 DROP IN BOTH EYES DAILY AT BEDTIME FOR 30 DAYS :PLEASE OBTAIN FURTHER REFILLS FROM YOUR PROPERTY MANAGEMENT BOOKKEEPER ?? Unchanged Lisinopril (lisinopril 40 mg oral tablet) 1 tab(s) Oral Daily Duration: 90 Days for blood pressure ?? Unchanged Metformin (metFORMIN 750 mg oral tablet, extended release) 2 tab(s) Oral Daily for diabetes. ?? Unchanged SARS-CoV-2 (COVID-19) mRNA BNT-162b2 vax ([employer] COVID-19 Vaccine 30 mcg/ 0.3 mLpreservative-free intramuscular suspension) 0.3 Milliliter Intramuscular Once Unchanged Timolol Ophthalmic (Timolol Maleate (Eqv-Timoptic) 0.5% ophthalmic solution) See instructions INSERT 1 DROP IN BOTH EYES 2 TIMES A DAY :PLEASE GET FURTHER REFILLS FROM YOUR PROPERTY MANAGEMENT BOOKKEEPER ?? Unchanged Trazodone (traZODone 50 mg oral tablet) 0.5 tab(s) Oral Daily at Bedtime ?? What How Much When Comments Stop Taking HydrOXYzine (hydrOXYzine hydrochloride 10 mg oral tablet) 2 tab(s) Oral 4 times a day as needed for for anxiety Test Results Below is a partial list of the most recent Laboratory test results done prior to this discharge. You may have had other tests and procedures not included in this list. Please discuss all test resultswith your provider. Est Creatinine Clearance - 143.84 mL/min (12/01/2022) Basic Metabolic Panel (12/01/2022) ???Sodium - 139 mmol/L???Potassium - 4.3 mmol/L???Chloride - 104 mmol/L???Bicarbonate Level - 23 mmol/L???Anion Gap - 12???Glucose Level - 264 mg/dL???BUN - 14 mg/dL???Creatinine-Blood - 0.4 mg/dL???Estimated GFR Creatinine - 113 ML/MIN/1.73 M2???Calcium - 8.8 mg/dL CBC (12/01/2022) ???WBC - 3.3 k/mm3???RBC - 4.99 m/mm3???Hgb - 11.5 Gm/dL???Hct - 36.0 %???MCV - 72.1 femtoliters???MCH - 23.0 pg???MCHC - 31.9 g/dL???Platelet Count - 207 k/mm3???RDW-SD - 37.6 femtoliters???MPV - 9.1 femtoliters???Nucleated RBC (Automated) - 0.0 #/100 WBC'S???Abs. NRBC - 0.0 k/mm3 CBC w/ Differential (11/30/2022) ???WBC - 2.4 k/mm3???RBC - 5.03 m/mm3???Hgb - 11.5 Gm/dL???Hct - 36.2 %???MCV - 72.0 femtoliters???MCH - 22.9 pg???MCHC - 31.8 g/dL???Platelet Count - 215 k/mm3???RDW-SD - 37.4 femtoliters???MPV - 8.8 femtoliters???Nucleated RBC (Automated) - 0.0 #/100 WBC'S???Abs. NRBC - 0.0 k/mm3???Abs. Neut - 0.9 k/mm3???Abs. Lymph - 1.3 k/mm3???Abs. [place] - 0.3 k/mm3???Abs. Eo - 0.0 k/mm3???Abs. Baso - 0.0 k/mm3???Neut % - 33.9 %???Lymph % - 45.2 %???[place] % - 10.4 %???Eos % - 0.0 %???Baso % - 0.9 %???Band % - 2.6 %???Atypical Lymph % - 7.0 %???RBC Morphology - MARKED Comprehensive Metabolic Panel (11/30/2022) ???Sodium - 128 mmol/L???Potassium - 3.4 mmol/L???Chloride - 91 mmol/L???Bicarbonate Level - 23 mmol/L???Anion Gap - 14???Glucose Level - 327 mg/dL???BUN - 20 mg/dL???Creatinine-Blood - 1.0 mg/dL???Estimated GFR Creatinine - 67 ML/MIN/1.73 M2???Calcium - 8.8 mg/dL???Protein, Total - 7.0 Gm/dL???Albumin - 4.1 Gm/dL???AG Ratio - 1.4???Alkaline Phosphatase - 75 units/L???AST (SGOT) - 22 units/L???ALT (SGPT) - 15 units/L???Bilirubin, Total - 0.4 mg/dL COVID-19 (Novel Coronavirus), Rapid PCR (11/30/2022) ???COVID-19 by RT-PCR - POSITIVE D Dimer (12/01/2022) ???D-Dimer - 0.28 mg/L FEU GLUCOSE POC (12/01/2022) ???Glucose, POC - 223 mg/dL INR (12/01/2022) ???INR - 1.0???Protime (PT) - 10.5 seconds Lactate Level (11/30/2022) ???Lactate - 1.3 mmol/L Lipase (11/30/2022) ???Lipase - 28 units/L Magnesium Level (12/01/2022) ???Magnesium - 1.6 mg/dL PTT (12/01/2022) ???APTT - 26.3 seconds Urinalysis w/hold for Urine Culture (11/30/2022) ???Appear/Color, Urine - LIGHT YELLOW???Specific Bruce, Urine - 1.008???pH, Urine - 5.5???Albumin, Urine - TRACE???Glucose, Urine - 3+???Ketones, Urine - NEGATIVE???Bilirubin, Urine - NEGATIVE???Hemoglobin, Urine - NEGATIVE???Nitrite, Urine - NEGATIVE???Leukocyte, Urine - NEGATIVE???Urobilinogen - NORMAL???WBC's, Urine - 1 /HPF???RBC's, Urine - 1 /HPF???Bacteria - SLIGHT???Squamous Epith - 2 /HPF? ?Transitional Epith - <1 /HPF? ?Hyaline Cast - 4 LPF? ?Mucus - SLIGHT? ?Hold Urine Culture - Testing available 48 hours from time of collection. Allergies (NKA means No Known Allergies) insulin lispro??(patient reports she is allergic to insulin lispro (humalog) and can only take insulin aspart (novolog)) Problems Active Problems??(17) Abdominal hernia without obstruction and without gangrene?? Age at leaving school?? Background diabetic retinopathy?? Chronic low back pain?? COVID-19?? Current smoker?? Depression?? Diabetes mellitus type 2?? Glaucoma?? Health care maintenance?? Hernia of abdominal wall?? History of syphilis; [place] DPH confirms bicillin x 3 01/2014?? Hypertension?? Onychomycosis?? Overweight?? Physical exam?? Possible exposure to STD?? Education Materials Below is the list of Educational Leaflet Providered with your Discharge Instructions. Coronavirus Disease 2019 (COVID-19): Overview?? Valuables and Belongings I fully understand and agree that [facility] accepts no responsibility for all my personal property including clothing, toilet articles, radios, jewelry, dentures, hearing aids, rings, money, or any other property that is in my possession or is brought to me after admission. I understand certain valuables may be placed in a hospital safe for a short period of time. I understand that the hospital is not liable for loss or damage due to accident, fire, or other natural occurrence while said property is in the safe. I accept full responsibility for any personal property that I keep with me, and will not hold the hospital responsible in case of loss or disappearance. I acknowledge that i have been encouraged to send valuables and belongings home. ?? Review of Valuable and Belonging List: With patient, With witness Date for Pt to Sign Valuables/Belongings: 12/01/22 00:09:00 ?? Other Discharge Information ? Pulmonary Rehab Status?? Pulmonary Rehab Discharge Status?? Respiratory Rate: 18 br/min ? Common Emergency Awareness Tips IS IT A STROKE? Act FAST and Check for these signs: FACE Does the face look uneven? ARM Does one arm drift down? SPEECH Does their speech sound strange? TIME Call at any sign of stroke ?? Heart Attack Signs Chest discomfort: Most heart attacks involve discomfort in the center of the chest and lasts more than a few minutes, or goes away and comes back. It can feel like uncomfortable pressure, squeezing, fullness or pain. Discomfort in upper body: Symptoms can include pain or discomfort in one or both arms, back, neck, jaw or stomach. Shortness of breath: With or without discomfort. Other signs: Breaking out in a cold sweat, nausea, or lightheaded. Remember, MINUTES DO MATTER. If you experience any of these heart attack warning signs, call to get immediate medical attention! ?? Smoking can increase your chances of developing chronic health problems and can cause harmful effects to other family members in your house. If you smoke, you are strongly encouraged to quit. Please call [facility] at [phone] or [phone] ([phone]) or log in to [email or web address] for referrals to smoking cessation programs. ?? 189 Suicide & Crisis Lifeline is available 15/10 if you or someone you know needs to find a reason to keep living. By calling 346 you'll be connected to a skilled, trained counselor at a crisis center in your area. INPATIENT DISCHARGE INSTRUCTIONS SIGNATURE BASILIO SHELTON Location:[facility] Registration Date and Time:11/30/2022 10:50 EDT Primary Care Physician: Susana Rodas MD, Attending Physician: Rei WOODY, Mukul Camarena, Rob BASILIO CORDERO, have received the above patient education materials/instructions and have verbalized understanding. If ambulance or transport services are being used I further acknowledge being given a choice of service. ?? If you need to contact me, please call me at this number: . Patient/[employer] Certified [employer] Professional Name: Patient/[employer] Professional Signature: Relationship to Patient: Witness Name/Signature: Date: * Rei WOODY, Mukul H: PERFORM Event Display: Patient Education Leaflets Authored Date: [id number] Coronavirus Disease 2019 (COVID-19): Overview ?? [id number] Coronavirus Disease 2019 (COVID-19): Overview Coronavirus disease 2019 (COVID-19) is an illness that infects the lungs. It's caused by a type of coronavirus. The virus is called SARS-CoV-2. There are many types of coronaviruses. They are a common cause of colds and bronchitis. They can cause a lung infection called pneumonia. Symptoms can range from mild to severe. Some people have no symptoms. These types of viruses are also found in some animals. Viruses change (mutate) all the time. The changes lead to different forms of a virus. These are called variants. COVID-19 variants may spread more easily from person to person. They may cause milder symptoms. Or they may cause more severe symptoms.?? The virus spreads and infects people easily. It can infect a person more easily if they are not immune to it. The virus most often spreads through droplets of fluid that a person coughs or sneezes into the air. In some cases, you can get it from touching a surface with the virus on it and then touching your eyes, nose, or mouth. To help prevent spreading the infection, wash your hands often, or use an alcohol-based hand control clerk auditing. To learn more For the latest from the CDC: ??? Go to the [facility] website ??? Call 674-JJQ-DTVW ([phone]) ?? What are the symptoms of COVID-19? Some people have no symptoms. Some have mild symptoms. Others may have severe symptoms. This variesfrom person to person. Symptoms may start 2 to 14 days after contact with the virus. They can include: ??? Fever ??? Chills ??? Coughing ??? Trouble breathing or feeling short of breath ??? Sore throat ??? Stuffy or runny nose ??? Headache ??? Body aches ??? Tiredness ??? Nausea, vomiting, diarrhea, or belly pain ??? New loss of sense of smell or taste ?? What are possible complications of COVID-19? The virus can cause an infection in the lungs. This is called pneumonia. This can lead to in some cases. Experts are still learning more about COVID-19 problems. Problems may include: ??? Low blood pressure ??? Kidney failure ??? Inflammation of the brain or heart ??? Rashes Some people are at higher risk for problems. This includes: ??? Older adults ??? People with heart or lung disease ??? People with diabetes or kidney disease ??? People with health conditions that limit the immune system ??? People who take medicines that limit the immune system Rarely, a child may have a severe complication. This is called multisystem inflammatory syndrome inchildren (MIS-C). MIS-C seems to be like Kawasaki disease. This is a rare illness. It causes swelling of blood vessels and body organs. MIS can also happen in adults. But this is less common. ? How is COVID-19 diagnosed? Your healthcare provider will ask: ??? What symptoms you have ??? Where you live ??? If you???ve traveled recently ??? If you???ve hadcontact with sick people ??? If you are vaccinated against COVID-19 ??? If you have had COVID-19 You may have 1 of these tests for COVID-19: ??? Viral (molecular) test. You may also hear this called a PCR or RT-PCR test. Viral tests are very accurate. A viral test looks for the genetic material (RNA) of the SARS-CoV-2 virus. There are a few ways to do this. A swab may be wiped inside your nose or throat. Or a long swab may be put into your nose down to the back of your throat. Or a sample of your saliva may be taken. Your test results may be back in 45 minutes to a few hours. This depends on the type of test. Some tests must be sentto a lab. These can take several days for the results. You can now get test kits to use at home. Some of these need a prescription. Follow the instructions in the kit closely if you use a home kit. Some kits show results quickly at home. Others must be sent to a lab for the results. ??? Antigen test. This can find proteins from the SARS-CoV-2 virus. A swab may be wiped inside your nose or throat.Or a long swab may be put into your nose down to the back of your throat. Some results are back within 15 to 60 minutes. This depends on the type of test. Positive results are very accurate. But false positive results can happen. And the results can be negative even in people with COVID-19. Antigen tests are more likely to miss a COVID-19 infection than a viral (molecular) test. You may need to have a viral test if your antigen test is negative but you have symptoms of COVID-19. ??? Breath test. This rapid test is not widely available at this time. It finds SARS-CoV-2 infection in the breath.The test is done at providers' offices, hospitals, and mobile testing sites. You may have other tests if your provider thinks or confirms that you have COVID-19. These tests may include: ??? Antibody blood test. This type of test can show if you had the virus in the past. It shows antibodies for the virus in the blood. The accuracy of these tests varies. And they are not available everywhere. An antibody test may not show if you have an infection right now. This is because it can take up to a few weeks for your body to make antibodies. None of the antibody tests can yet be used to tell if a person is immune to the virus. ??? Sputum culture. If you have a wet cough, you may be asked to cough up a bit of mucus (sputum) from your lungs. This is tested for the virus. It may be tested for pneumonia. ??? Imaging tests. You may have a chest X-ray or CT scan. Can you get COVID-19 again? Yes, you can get COVID-19 more than once. You may not have immunity. You could have lost the immunity. Or you may get COVID-19 from a different strain (variant) of the virus that you are not immune to. But the COVID-19 vaccine helps lower the risk for COVID-19. ?? Vaccines for COVID-19 The FDA and CDC advise vaccines for people 6 months and older to help prevent COVID-19. The vaccines can also make the illness less severe. It can keep you from needing to go to the hospital.?? And it can prevent the spread of the virus to others. No vaccine is 100% effective at preventing an illness. But getting a vaccine is important. or people can have the vaccine. Updated (bivalent) mRNA vaccines from [employer] and [employer] are advised. Other options are available for people who can't or won't get an mRNA vaccine. These are Novavax and J&J Mazoom COVID-19 vaccines. COVID-19 vaccines are given as a shot (injection) into the muscle. Ask your healthcare provider which vaccine is best for you and your family. COVID-19 vaccine booster shots People ages 6 months or older can get a COVID-19 booster shot. It's given a few months after their primary series. Boosters can help with protection against COVID-19 that may have decreased over time. Booster advice varies by vaccine, age, health, and COVID-19 variants. People ages 65 and older and some people with a very weak immune system should get an updated (bivalent) mRNA booster. Talk with your provider about your risk and how this applies to you. ?? How is COVID-19 treated? The best treatments right now are those to help your body while it fights the virus. This is calledsupportive care. It includes: ??? Rest. This helps your body fight the illness. ??? Fluids. Try to drink 6 to 8 glasses of fluidsevery day. Ask your provider which drinks are best for you. Don't have drinks with caffeine or alcohol. ??? Oxzh-ppx-xypucom (OTC) medicine. These are used to help ease pain and reduce fever. Ask your provider which OTC medicine is safe for you to use. Talk with your provider if you have confirmed COVID-19. You may qualify for medicines approved by the FDA to prevent severe COVID-19 infection. You may need to stay in the hospital for severe illness. Your care may include: ??? IV fluids. These are given through a vein. This helps to replace fluids in your body. ??? Oxygen. You may be given extra oxygen. Or you may be put on a breathing machine (ventilator). This is done so you get enough oxygen in your body. ??? Prone positioning. Your healthcare team may regularly turn you on your stomach. This is called prone positioning. It helps increase the amount of oxygen you get to your lungs.Follow their instructions on position changes while you're in the hospital and at home. ??? Antiviral medicines. Antivirals stop the SARS-CoV-2 virus from spreading in the body. The FDA has approved certain antiviral medicines to treat mild to moderate COVID-19 in people who are more likely to get very sick. These treatments are not available for everyone. Talk with your provider to learn more. ??? Steroids or other anti-inflammatory medicines. These are used to lessen the inflammation that some people with COVID-19 have. Inflammation can lead to more trouble breathing. It can cause other complications or . ??? Monoclonal antibodies. These were once used for earlier COVID-19 strains, but monoclonal antibody treatment is not effective for the latest variant. Talk with your provider shanae more. ??? COVID-19 convalescent plasma. Plasma is the liquid part of blood. People who had COVID-19 may be asked to donate plasma. This is called COVID-19 convalescent plasma. The plasma may have antibodies. Some people with COVID-19 who have very weak immune systems may benefit from this treatment. Your provider can help decide if it's right for you. ?? Are you at risk for COVID-19? You are at risk for COVID-19 if any of these apply to you: ??? You live in or traveled to an area with cases of COVID-19 ??? You had close contact (within 6 feet) with someone who had COVID-19 COVID-19 may be spread by people who don't show symptoms. Date last modified: 07/16/2022 ?? Last Reviewed Date: 2020 ?? 2670-3598 [employer]. All rights reserved. This information is not intended as a substitute for professional medical care. Always follow your healthcare professional's instructions. ?? Patient Care team information Care Team Personnel Name: Susana Rodas MD Position: [facility] Physician - Primary Care Member Role: PCP Address: Address: [address] Name: Ann Barron Position: [facility] Outreach Member Role: Lifetime Consulting Physician Name: *Parker CAMPBELL Attending Position: [facility] ED Medicine MD Name: May Daniel Position: [facility] ED TA [facility] Member Role: Surgical Scrub Technologist Name: Jeff Armendariz RN Position: [facility] ED RN W/OE and Tasks Member Role: Patient Care Provider Name: Betzy Velásquez Position: [facility] Associate Professional Member Role: ED Physician Supply Assistant Address: Address: [address] [place] [address] [place], [place] [address] Care Team Related Persons Name: MALISSA CORDERO Address: home [address] [place] [id number] Name: JARED CORDERO Address: [place] [address]
--- OUTSIDE RECORDS SUMMARY | 2023-01-25 11:04 | XMS_ITS | Continuity of Care Document ---
Author Name Unknown Organization [facility] Address [address] [place] [address]- Care Team Providers Care Cut In Station Operator Name Role Phone Nerissa Bonner MD Primary Care Physician Encounter [facility] Date(s): 10/06/19 - 11/05/19 [facility] [address] [place] [address]- [facility] Allergies, Adverse Reactions, Alerts Substance Reaction Severity [...] vis given 10/17/10 2Admin Note: VIS GIVEN [id number] 3Admin Note: VIS GIVEN Medications Alcohol Pads See Instructions, # 100 each, Refills 11, Tot. Refills 11, Maintenance, E11.9, 07/10/17 13:55:10 EDT, Compound Start Date: 07/10/17 Status: Ordered amLODIPine 10 mg oral tablet 10 mg, 1, tablet, By Mouth, Daily, for blood pressure, # 90 tablet, Refills 3, Tot. Refills 3, Maintenance, 07/29/19 12:59:00 EDT, Route to Pharmacy Electronically, [facility] #[id number], 165, cm, 07/29/19 12:25:00 EDT, Height, 72.7, kg, 03/30/19... Start Date: 07/29/19 Status: Ordered atorvastatin 20 mg oral tablet 1 tablet = 20 mg, By Mouth, Daily, # 90 tablet, 3 Refills, Maintenance, 07/29/19 12:59:00 EDT, Tablet, [facility] #[id number], 165, cm, 07/29/19 12:25:00 EDT, Height, 72.7, [...] EDT, Route to Pharmacy Electronically, [facility] #[id number], 165, cm, 07/29/19 12:25:00 EDT, Height, 72.7, [...] Daily, pls ask pt to call [facility] to reestablish careif she is staying locally, # 10 mL, 1 Refills, Maintenance, 07/14/18 15:07:23 EDT, Solution Start Date: 07/14/18 Stop Date: 09/12/18 Status: Ordered Lantus Solostar Pen 100 units/mL subcutaneous solution = 18 units, Subcutaneous Injection, Daily at bedtime, # 3 each, 3 Refills, Maintenance, 07/29/19 13:05:00 EDT, Solution, [id number], 165, cm, 07/29/19 12:25:00 EDT, Height, 72.7, [...] tablet, 3 Refills, Maintenance, 07/29/19 13:01:00 EDT, [facility] #[id number], 165, cm, 07/29/19 12:25:00 EDT, Height, 72.7, kg, 03/30/19 16:51:00 EST, Dry Weight Start Date: 07/29/19 Status: Ordered metFORMIN 750 mg oral tablet, extended release 2 tablet = 1,500 mg, By Mouth, Daily, pls ask pt to call our [facility] to reestablish care if she is staying locally, # 180 tablet, 3 Refills, Maintenance, 07/29/19 13:01:00 EDT, ER Tablet, [facility] #[id number], 165, cm, 07/29/19 12:25:00 ED... Start Date: 07/29/19 Status: Ordered NovoLOG FlexPen 100 units/mL subcutaneous solution See Instructions, Subcutaneous Injection, Use as directed for Diabetes mellitus type 2. (Max Dose =50 units/day), # 30 mL, 5 Refills, Maintenance, 08/04/19 17:01:00 EDT, [id number], 165, cm, 07/29/19 12:25:00 EDT, Height, 72.7, kg, 01... Start Date: 08/04/19 Stop Date: 01/31/20 Status: Ordered Pen Turpin, 31 G x 8 mm BD Ultra [...] 1was seen by Dr. Devon Mccormack at [facility] Social History Social History Type Response Tobacco Use: 4 or less cigar ettes(less than 1/4 pack)/day in last 30 days. Sex
--- OUTSIDE RECORDS SUMMARY | 2023-01-25 11:04 | XMS_ITS | Continuity of Care Document ---
Author Name Unknown Organization [facility] Address [address] [place] [address]- Care Team Providers Care Marketing Automation Specialist Name Role Phone Nestor WOODY, Marva Primary Care Physician [place] [facility] [place] [id number] Date(s): 03/23/21 - 04/22/[address] [address]- Attending Physician: Admchana, Sheldon8 Admitting Physician: Admtr, Ar8 Referring Physician: Admtr, Ar8 Allergies, Adverse Reactions, Alerts No Known Allergies [...] vis given 10/17/10 2Admin Note: VIS GIVEN [id number] 3Admin Note: VIS GIVEN Medications Alcohol Pads [...] tablet, 6 Refills, Maintenance, 12/07/20 13:42:00 EDT, [facility]/pharmacy #[id number], Partial fill upon patient request if the prescription is for a schedule II opioid drug., 165.1, cm, 12/05/20 13:59:00 EDT, Height, 78.6,... Start Date: 12/07/20 Status: Ordered cholecalciferol 1000 intl units oral tablet 1 tablet = 1,000 International_Units, By Mouth, Daily, vitamin D take with food, # 90 tablet, 1 Refills, Maintenance, 03/01/20 12:52:00 EST, Tablet, [id number], 165, cm, 02/13/20 11:43:00 EST, Height, 75.3, kg, 02/08/20 14:42:00 EST,... Start Date: 03/01/20 Stop Date: 03/31/20 Status: Ordered duloxetine 30 mg oral enteric coated capsule 1 capsule, By Mouth, Daily, DO NOT CRUSH OR CHEW. *., # 30 capsule, 8 Refills, [facility]ORE [id number], 165.1, cm, 12/19/20 12:24:00 EDT, Height, 78.6, [...] tablet, 1 Refills, Maintenance, 01/15/21 21:42:00 EDT, [facility]/pharmacy #[id number], 165.1, cm, 12/19/20 12:24:00 EDT, Height, 78.6, kg, 06/15/20 10:01:00 EDT, Dry Weight Start Date: 01/15/21 Status: Ordered NovoLOG FlexPen 100 units/mL subcutaneous solution See Instructions, Subcutaneous Injection, Use as directed for Diabetes mellitus type 2. (Max Dose =50 units/day), # 30 mL, 4 Refills, Maintenance, 11/14/20 15:34:00 EDT, [facility]/pharmacy #[id number], 165.1, cm, 08/02/20 9:45:00 EDT, Height, 78.6, kg, 06/15/20... Start Date: 11/14/20 Stop Date: 04/13/21 Status: Ordered Pen [place], 31 G x 8 mm BD Ultra Fine III See Instructions, # 200 each, Refills 11, Tot. Refills 11, Maintenance, use up to 4 times daily as directed for Type 2 Diabetes Mellitus. E11.9, 08/18/20 17:03:00 EDT, Supply, 165.1, cm, 08/02/20 9:45:00 EDT, Height, 78.6, kg, 06/15/20 10:01:00 EDT, D... Start Date: 08/18/20 Stop Date: 08/13/21 Status: Ordered GreenPal COVID-19 Vaccine 30 mcg/0.3 mL preservative-free intramuscular [...] 11 Refills, Maintenance, 03/27/21 12:17:00 EST, OphthSolution, [facility]/pharmacy #[id number], Partial fill upon patient request [...] Refills, Maintenance, 12/05/20 14:59:00 EDT, ER Tablet, [facility]/pharmacy #[id number], Partial fill upon patient request if the [...] 1was seen by Dr. Devon Mccormack at [facility] Social History Social History Type Response Smoking Status 10 or more cigarette s (1/2 pack or more)/day in last 30 days entered on: 01/26/20 Sex
--- OUTSIDE RECORDS SUMMARY | 2023-01-25 11:04 | XMS_ITS | Continuity of Care Document ---
Author Name Unknown Organization [facility] ter Address [address] [place] [id number]- Care Team Providers Care Social Service Agency Director Name Role Phone Sumi MASON, Belia Primary Care Physician Encounter [facility] [place] Date(s): 08/13/22 - 09/29/[address] [address] Attending Physician: Jeanine Stack MD, I Admitting [...] vis given 10/17/10 2Admin Note: VIS GIVEN [id number] 3Admin Note: VIS GIVEN Medications Alcohol Pads [...] 06/20/22 15:49:00 EDT, Route to Pharmacy Electronically, [facility], 165.1,cm, 06/21/21 11:05:00 EDT, Height Start Date: 06/20/22 Status: Ordered atorvastatin 10 mg oral tablet 1 tablet = 10 mg, By Mouth, Daily, for cholesterol, # 90 tablet, 3 Refills, Maintenance, 06/20/22 15:49:00 EDT, [facility], Partial fill upon patient request if [...] 3 Refills, Maintenance, 06/20/22 15:49:00 EDT, Tablet, [facility] 165.1, cm, 06/21/21 11:05:00 EDT, Height Start Date: 06/20/22 Stop Date: 06/15/23 Status: Ordered Freestyle Lite Lancets See Instructions, # 150 each, Refills 11, Tot. Refills 11, Maintenance, Use to monitor blood glucose levels 4x per day. E11.9, 06/20/22 15:49:00 EDT, duplicate from 07/11/21, Supply, 165.1, cm, 06/21/21 11:05:00 EDT, Height Start Date: 06/20/22 Status: Ordered Freestyle Lite Monitor See Instructions, [...] 06/20/22 15:49:00 EDT, Route to Pharmacy Electronically, [facility], 165.1,cm, 06/21/21 11:05:00 EDT, Height Start Date: [...] mL, 11 Refills, Maintenance, 08/08/22 12:55:00 EDT, [facility] 165.1, cm, 06/21/21 11:05:00 EDT, Height Start Date: 08/08/22 Stop Date: 08/03/23 Status: Ordered latanoprost 0.005% ophthalmic solution See Instructions, INSERT 1 DROP IN BOTH EYES DAILY AT BEDTIME FOR 30 DAYS :PLEASE OBTAIN FURTHER REFILLS FROM YOUR FERMENTATION ENGINEER, # 2.5 mL, 0 Refills, [facility], 30, INSERT 1 DROP IN BOTHEYES DAILY AT BEDTIME FOR 30 DAYS :PLEASE OBTAIN FU... Start Date: 10/31/21 Status: Ordered lisinopril 40 mg oral tablet 1 tablet = 40 mg, By Mouth, Daily, for blood pressure, # 90 tablet, 3 Refills, Maintenance, 06/20/22 15:49:00 EDT, [facility] 165.1, cm, 06/21/21 11:05:00 EDT, Height Start Date: 06/20/22 Stop Date: 06/15/23 Status: Ordered metFORMIN 750 mg oral tablet, extended release 2 tablet, By Mouth, Daily, for diabetes., # 180 tablet, 3 Refills, Maintenance, 06/20/22 15:49:00 EDT, [facility] 165.1, cm, 06/21/21 11:05:00 EDT, Height Start Date: 06/20/22 Status: Ordered NovoLOG FlexPen 100 units/mL subcutaneous solution See Instructions, Subcutaneous Injection, Use as directed for Diabetes mellitus type 2, per slidingscale. (Max Dose = 50 units/day), # 30 mL, 11 Refills, Maintenance, 08/02/21 21:26:00 EDT, [facility] 165.1, cm, 06/21/21 11:05:00 EDT... Start Date: 08/02/21 Stop Date: 07/28/22 Status: Ordered Pen [place], 31 G x 8 mm BD Ultra Fine III See Instructions, # 150 each, Refills 11, Tot. Refills 11, Maintenance, use as directed for Type 2 Diabetes Mellitus E11.9 for 4x/day insulin pen injections, 10/04/21 13:57:00 EDT, Supply, 165.1, cm,06/21/21 11:05:00 EDT, Height, 78.6, kg, 06/15/20 1... Start Date: 10/04/21 Stop Date: 09/29/22 Status: Ordered Pen [place], 31 G x 8 mm BD Ultra Fine III See Instructions, # 200 each, Refills 11, Tot. Refills 11, Maintenance, use up to 4 times daily as directed for Type 2 Diabetes Mellitus. E11.9, 10/04/21 9:58:00 EDT, Supply, 165.1, cm, 06/21/21 11:05:00 EDT, Height, 78.6, kg, 06/15/20 10:01:00 EDT, D... Start Date: 10/04/21 Stop Date: 09/29/22 Status: Ordered Jumptap COVID-19 Vaccine 30 mcg/0.3 mL preservative-free intramuscular [...] DAY :PLEASE GET FURTHER REFILLS FROM YOUR FERMENTATION ENGINEER, # 5 mL, 0 Refills, [facility], 25, INSERT 1 DROP IN BOTH EYES 2 TIMES A DAY :PLEASE GET FURTHER REFILLS FROM YOUR FERMENTATION ENGINEER... Start Date: 10/31/21 Status: Ordered Tylenol 8 HR Arthritis Pain 650 mg oral tablet, extended release 2 tablet = 1,300 mg, By Mouth, Every 8 hours, PRN Pain , Mild, # 100 tablet, 0 Refills, Maintenance, 12/05/20 14:59:00 EDT, ER Tablet, [facility]/pharmacy #[id number], Partial fill upon patient request if the [...] wall Confirmed Active History of syphilis; NELIDA DP confirms bicillin x 3 01/2014 Confirmed Active Hypertension Confirmed Active Onychomycosis Confirmed Active Overweight Confirmed Active Health care maintenance Confirmed Active Physical exam Confirmed Active Current smoker Confirmed Active 1was seen by Dr. Devon Mccormack at [facility] Social History Social History Type Response Smoking Status 10 or more cigarette s (1/2 pack or more)/day in last 30 days entered on: 01/26/20 Sex Patient Care team information Care Team Personnel Name: Belia Jonas NP Position: [facility] PCO Associate Professional Member Role: PCP Address: Address: [address] [place] [address] [place] [address]- Name: Ann Barron Position: [facility] Outreach Member Role: Lifetime Consulting Physician Care Team Related Persons Name: MALISSA CORDERO Name: JARED CORDERO Address: [place] [address]
--- OUTSIDE RECORDS SUMMARY | 2023-01-25 11:04 | XMS_ITS | Continuity of Care Document ---
Author Name Unknown Organization [facility] ter Address [address] [place] [address]- Care Team Providers Care Affiliate Marketing Manager Name Role Phone Nerissa Bonner MD Primary Care Physician Encounter [facility] Date(s): 08/07/19 - 08/14/[address] [address]- [facility] Attending Physician: Maury WOODY, Ibitoro Referring Physician: Nerissa Bonner MD Allergies, Adverse [...] vis given 10/17/10 2Admin Note: VIS GIVEN [id number] 3Admin Note: VIS GIVEN Medications Alcohol Pads See Instructions, # 100 each, Refills 11, Tot. Refills 11, Maintenance, E11.9, 07/10/17 13:55:10 EDT, Compound Start Date: 07/10/17 Status: Ordered amLODIPine 10 mg oral tablet 10 mg, 1, tablet, By Mouth, Daily, for blood pressure, # 90 tablet, Refills 3, Tot. Refills 3, Maintenance, 07/29/19 12:59:00 EDT, Route to Pharmacy Electronically, [facility] #[id number], 165, cm, 07/29/19 12:25:00 EDT, Height, 72.7, kg, 03/30/19... Start Date: 07/29/19 Status: Ordered atorvastatin 20 mg oral tablet 1 tablet = 20 mg, By Mouth, Daily, # 90 tablet, 3 Refills, Maintenance, 07/29/19 12:59:00 EDT, Tablet, [facility]59[facility], 165, cm, 07/29/19 12:25:00 EDT, Height, 72.7, [...] Refills, Maintenance, 07/29/19 12:59:00 EDT, ER Tablet, [facility] #59400, 165, cm, 07/29/19 12:25:00 EDT, Height, 72.7, [...] 07/29/19 13:00:00 EDT, Route to Pharmacy Electronically, [id number], 165, cm, 07/29/19 12:25:00 EDT, Height, 72.7, [...] 3 Refills, Maintenance, 07/29/19 13:05:00 EDT, Solution, [id number], 165, cm, 07/29/19 12:25:00 EDT, Height, 72.7, [...] tablet, 3 Refills, Maintenance, 07/29/19 13:01:00 EDT, [facility] #[id number], 165, cm, 07/29/19 12:25:00 EDT, Height, 72.7, kg, 03/30/19 16:51:00 EST, Dry Weight Start Date: 07/29/19 Status: Ordered metFORMIN 750 mg oral tablet, extended release 2 tablet = 1,500 mg, By Mouth, Daily, pls ask pt to call our health center to reestablish care if she is staying locally, # 180 tablet, 3 Refills, Maintenance, 07/29/19 13:01:00 EDT, ER Tablet, [facility]20916, 165, cm, 07/29/19 12:25:00 ED... Start Date: 07/29/19 Status: Ordered NovoLOG FlexPen 100 units/mL subcutaneous solution See Instructions, Subcutaneous Injection, Use as directed for Diabetes mellitus type 2. (Max Dose =50 units/day), # 30 mL, 5 Refills, Maintenance, 08/04/19 17:01:00 EDT, [facility] #42477, 165, cm, 07/29/19 12:25:00 EDT, Height, 72.7, kg, 01... Start Date: 08/04/19 Stop Date: 01/31/20 Status: Ordered Pen [place], 31 G x 8 mm BD Ultra [...] 1was seen by Dr. Devon Mccormack at [facility] Social History Social History Type Response Tobacco Use: 4 or less cigar ettes(less than 1/4 pack)/day in last 30 days. Sex
--- OUTSIDE RECORDS SUMMARY | 2023-01-25 11:04 | XMS_ITS | Continuity of Care Document ---
Author Name Unknown Organization [facility] Address [address] [place] [address]- Care Team Providers Care In Flight Refueling Craftsman Name Role Phone Nestor WOODY, Marva Primary Care Physician En[place] [facility] [place] Date(s): 01/12/21 - 02/11/[address] [address]- Allergies, Adverse Reactions, Alerts Substance Reaction Severity [...] vis given 10/17/10 2Admin Note: VIS GIVEN [id number] 3Admin Note: VIS GIVEN Medications Alcohol Pads [...] tablet, 6 Refills, Maintenance, 12/07/20 13:42:00 EDT, [facility]/pharmacy #[id number], Partial fill upon patient request if the prescription is for a schedule II opioid drug., 165.1, cm, 12/05/20 13:59:00 EDT, Height, 78.6,... Start Date: 12/07/20 Status: Ordered cholecalciferol 1000 intl units oral tablet 1 tablet = 1,000 International_Units, By Mouth, Daily, vitamin D take with food, # 90 tablet, 1 Refills, Maintenance, 03/01/20 12:52:00 EST, Tablet, [facility] #[id number], 165, cm, 02/13/20 11:43:00 EST, Height, 75.3, kg, 02/08/20 14:42:00 EST,... Start Date: 03/01/20 Stop Date: 03/31/20 Status: Ordered duloxetine 30 mg oral enteric coated capsule 1 capsule, By Mouth, Daily, DO NOT CRUSH OR CHEW. *., # 30 capsule, 8 Refills, [id number], 165.1, cm, 12/19/20 12:24:00 EDT, Height, 78.6, [...] drops, Eyes, Both, Daily at bedtime, dr imguel Start Date: 04/11/16 Status: Ordered metFORMIN 750 [...] 11/14/20 Stop Date: 04/13/21 Status: Ordered Pen [place], 31 G x 8 mm BD Ultra Fine III See Instructions, # 200 each, Refills 11, Tot. Refills 11, Maintenance, use up to 4 times daily as directed for Type 2 Diabetes Mellitus. E11.9, 08/18/20 17:03:00 EDT, Supply, 165.1, cm, 08/02/20 9:45:00 EDT, Height, 78.6, kg, 06/15/20 10:01:00 EDT, D... Start Date: 08/18/20 Stop Date: 08/13/21 Status: Ordered [facility] COVID-19 Vaccine 30 mcg/0.3 mL preservative-free intramuscular [...] Refills, Maintenance, 12/05/20 14:59:00 EDT, ER Tablet, [facility]/pharmacy #[id number], Partial fill upon [...] 1was seen by Dr. Devon Mccormack at [facility] Social History Social History Type Response Smoking Status 10 or more cigarette s (1/2 pack or more)/day in last 30 days entered on: 01/26/20 Sex
--- OUTSIDE RECORDS SUMMARY | 2023-01-25 11:04 | XMS_ITS | Continuity of Care Document ---
Author Name Unknown Organization [facility] Address [address] [place] [address]- Care Team Providers Care Theatre Professor Name Role Phone Tru WOODY, Olimpia Garcia Primary Care Physician [place] [facility]10[place] - 04[place]09[place] [facility] [address] [place], [place] [address] Attending Physician: Dayanara Lowery Admitting Physician: Dayanara [...] vis given 10/17/10 2Admin Note: VIS GIVEN [id number] 3Admin Note: VIS GIVEN Medications Alcohol Pads [...] EDT, Route to Pharmacy Electronically, [facility][id number], 165, cm, 07/29/19 12:25:00 EDT, Height, 72.7, kg, 03/30/19... Start Date: 07/29/19 Status: Ordered atorvastatin 20 mg oral tablet 1 tablet = 20 mg, By Mouth, Daily, # 90 tablet, 3 Refills, Maintenance, 07/29/19 12:59:00 EDT, [facility]t, [facility], 165, cm, 07/29/19 12:25:00 EDT, Height, 72.7, kg, 03/30/19 16:51:00 EST, Dry Weight Start Date: 07/29/19 Status: Ordered cholecalciferol 1000 intl units oral tablet 1 tablet = 1,000 International_Units, By Mouth, Daily, vitamin D take with food, # 90 tablet, 1 Refills, Maintenance, 03/01/20 12:52:00 EST, Tablet, [facility], 165, cm, 02/13/20 11:43:00 EST, Height, 75.3, [...] 03/01/20 12:51:00 EST, Route to Pharmacy Electronically, [facility] #[id number], 165, cm, 02/13/20 11:43:00 EST, Height, 75.3, [...] Maintenance, 03/01/20 16:23:00 EST, Solution, [facility] #[facility]40, 165, cm, 02/13/20 11:43:00 EST, Height, 75.3, [...] Maintenance, 07/29/19 13:01:00 EDT, [facility], 165, cm, 07/29/19 12:25:00 EDT, Height, 72.7, kg, 03/30/19 16:51:00 EST, Dry Weight Start Date: 07/29/19 Status: Ordered metFORMIN 750 mg oral tablet, extended release 2 tablet = 1,500 mg, By Mouth, Daily, pls ask pt to call our health center to reestablish care if she is staying locally, # 180 tablet, 3 Refills, Maintenance, 07/29/19 13:01:00 EDT, ER Tablet, [facility]09, 165, cm, 07/29/19 12:25:00 ED... Start Date: 07/29/19 Status: Ordered NovoLOG FlexPen 100 units/mL subcutaneous solution See Instructions, Subcutaneous Injection, Use as directed for Diabetes mellitus type 2. (Max Dose =50 units/day), # 30 mL, 5 Refills, Maintenance, 08/04/19 17:01:00 EDT, [facility]37651, 165, cm, 07/29/19 12:25:00 EDT, Height, 72.7, kg, 01... Start Date: 08/04/19 Stop Date: 01/31/20 Status: Ordered Pen [place], 31 G x 8 mm BD Ultra [...] 1was seen by Dr. Devon Mccormack at [facility] Social History Social History Type Response Smoking Status 10 or more cigarette s (1/2 pack or more)/day in last 30 days entered on: 01/26/20 Sex
--- OUTSIDE RECORDS SUMMARY | 2023-01-25 11:04 | XMS_ITS | Continuity of Care Document ---
Author Name Unknown Organization [facility] Address [address] [place] [address] [address] [place] [address]- Care Team Providers Care Portrait Consultant Name Role Phone Raya MASON, Belle Primary Care Physician Encounter [facility] [place] Date(s): 07/05/20 - 10/13/[address] [place] [address]- Attending Physician: Edison WOODY, Kavita Gonzalez Allergies, Adverse Reactions, Alerts Substance Reaction Severity [...] vis given 10/17/10 2Admin Note: VIS GIVEN [id number] 3Admin Note: VIS GIVEN Medications Alcohol Pads [...] 1 Refills, Maintenance, 03/01/20 12:52:00 EST, Tablet, [id number], 165, cm, 02/13/20 11:43:00 EST, Height, 75.3, [...] BEDTIME, # 15 Unknown, 0 Refills, Maintenance, [facility], 165.1, cm, 08/02/20 9:45:00 EDT, Height, 78.6, [...] mL, 5 Refills, Maintenance, 08/04/19 17:01:00 EDT, [facility] #91023, 165, cm, 07/29/19 12:25:00 EDT, Height, 72.7, kg, 01... Start Date: 08/04/19 Stop Date: 01/31/20 Status: Ordered Pen [place], 31 G x 8 mm BD Ultra [...] 1was seen by Dr. Devon Mccormack at [facility] Social History Social History Type Response Smoking Status 10 or more cigarette s (1/2 pack or more)/day in last 30 days entered on: 01/26/20 Sex
--- OUTSIDE RECORDS SUMMARY | 2023-01-25 11:04 | XMS_ITS | Continuity of Care Document ---
Author Name Unknown Organization [facility] Address [address] [place] [address]- Care Team Providers Care Insulator Helper Name Role Phone Nestor WOODY, Marva Primary Care Physician [phone] Encounter [facility] [place] Date(s): 09/16/20 - 01/14/21 [facility] [address] [place] [address]- Attending Physician: Kenya Mendiola MD Admitting Physician: Kenya Mendiola MD Referring Physician: Raya FURNITURE DETAILER, Belle Allergies, Adverse Reactions, Alerts Substance Reaction Severity [...] Given Tet/Diphth/Acel, Pertussis (oldterm) 3 09/13/08 Gi apul Influenza Vaccine (oldterm) 03/11/03 Given Influenza Vaccine (oldterm) 07/06/00 Given Influenza Vaccine (oldterm) 04/01/00 Given Pneumococcal Poly (PPV23) (oldterm) 03/11/03 Given tetanus-diphtheria toxoids (Td) 04/20/98 Given 1Admin Note: vis given 10/17/10 2Admin Note: VIS GIVEN [id number] 3Admin Note: VIS GIVEN Medications Alcohol Pads [...] tablet, 6 Refills, Maintenance, 12/07/20 13:42:00 EDT, [facility]/pharmacy #[id number], Partial fill upon patient request if the prescription is for a schedule II opioid drug., 165.1, cm, 12/05/20 13:59:00 EDT, Height, 78.6,... Start Date: 12/07/20 Status: Ordered cholecalciferol 1000 intl units oral tablet 1 tablet = 1,000 International_Units, By Mouth, Daily, vitamin D take with food, # 90 tablet, 1 Refills, Maintenance, 03/01/20 12:52:00 EST, [facility]t, [id number], 165, cm, 02/13/20 11:43:00 EST, Height, 75.3, kg, 02/08/20 14:42:00 EST,... Start Date: 03/01/20 Stop Date: 03/31/20 Status: Ordered duloxetine 30 mg oral enteric coated capsule 1 capsule = 30 mg, By Mouth, Daily, do not crush or chew, # 30 capsule, 0 Refills, Maintenance, 12/05/20 14:58:00 EDT, CR Capsule, [facility]/pharmacy #[id number], Partial fill upon patient request if the prescription is for a schedule II opioid drug., 165.1, cm,... Start Date: 12/05/20 Status: Ordered Freestyle Lancets See Instructions, # [...] mL, 4 Refills, Maintenance, 11/14/20 15:34:00 EDT, [facility]/pharmacy #[id number], 165.1, cm, 08/02/20 9:45:00 EDT, Height, 78.6, kg, 06/15/20... Start Date: 11/14/20 Stop Date: 04/13/21 Status: Ordered Pen [place], 31 G x 8 mm BD Ultra Fine III See Instructions, # 200 each, Refills 11, Tot. Refills 11, Maintenance, use up to 4 times daily as directed for Type 2 Diabetes Mellitus. E11.9, 08/18/20 17:03:00 EDT, Supply, 165.1, cm, 08/02/20 9:45:00 EDT, Height, 78.6, kg, 06/15/20 10:01:00 EDT, D... Start Date: 08/18/20 Stop Date: 08/13/21 Status: Ordered DecisionView COVID-19 Vaccine 30 mcg/0.3 mL preservative-free intramuscular [...] Refills, Maintenance, 12/05/20 14:59:00 EDT, ER Tablet, [facility]/pharmacy #[id number], Partial fill upon patient request [...] 1was seen by Dr. Devon Mccormack at [facility] Social History Social History Type Response Smoking Status 10 or more cigarette s (1/2 pack or more)/day in last 30 days entered on: 01/26/20 Sex
--- OUTSIDE RECORDS SUMMARY | 2023-01-25 11:04 | XMS_ITS | Continuity of Care Document ---
Author Name Unknown Organization [facility] ter Address [address] [place] [id number]- Care Team Providers Care Occupational Therapy Supervisor Name Role Phone Ha WOODY, Nerissa Wright Primary Care Physician Encounter [facility] Date(s): 08/28/19 - 11/04/[address] [address] Attending Physician: Elvie MASON, Antonio Carranza Admitting Physician: Elvie MASON, Antonio Carranza Referring Physician: Elvie MASON, Antonio Carranza Allergies, Adverse Reactions, Alerts Substance Reaction Severity [...] vis given 10/17/10 2Admin Note: VIS GIVEN [id number] 3Admin Note: VIS GIVEN Medications Alcohol Pads See Instructions, # 100 each, Refills 11, Tot. Refills 11, Maintenance, E11.9, 07/10/17 13:55:10 EDT, Compound Start Date: 07/10/17 Status: Ordered amLODIPine 10 mg oral tablet 10 mg, 1, tablet, By Mouth, Daily, for blood pressure, # 90 tablet, Refills 3, Tot. Refills 3, Maintenance, 07/29/19 12:59:00 EDT, Route to Pharmacy Electronically, [facility][id number], 165, cm, 07/29/19 12:25:00 EDT, Height, 72.7, kg, 03/30/19... Start Date: 07/29/19 Status: Ordered atorvastatin 20 mg oral tablet 1 tablet = 20 mg, By Mouth, Daily, # 90 tablet, 3 Refills, Maintenance, 07/29/19 12:59:00 EDT, Tablet, [facility] #[id number], 165, cm, 07/29/19 12:25:00 EDT, Height, 72.7, [...] 07/29/19 13:00:00 EDT, Route to Pharmacy Electronically, [facility] #[id number], 165, cm, 07/29/19 12:25:00 EDT, Height, 72.7, [...] Daily, pls ask pt to call our [facility] to reestablish careif she is staying locally, # 10 mL, 1 Refills, Maintenance, 07/14/18 15:07:23 EDT, Solution Start Date: 07/14/18 Stop Date: 09/12/18 Status: Ordered Lantus Solostar Pen 100 units/mL subcutaneous solution = 18 units, Subcutaneous Injection, Daily at bedtime, # 3 each, 3 Refills, Maintenance, 07/29/19 13:05:00 EDT, Solution, [id number], 165, cm, 07/29/19 12:25:00 EDT, Height, 72.7, [...] tablet, 3 Refills, Maintenance, 07/29/19 13:01:00 EDT, [facility][id number], 165, cm, 07/29/19 12:25:00 EDT, Height, 72.7, kg, 03/30/19 16:51:00 EST, Dry Weight Start Date: 07/29/19 Status: Ordered metFORMIN 750 mg oral tablet, extended release 2 tablet = 1,500 mg, By Mouth, Daily, pls ask pt to call our health center to reestablish care if she is staying locally, # 180 tablet, 3 Refills, Maintenance, 07/29/19 13:01:00 EDT, ER Tablet, [facility], 165, cm, 07/29/19 12:25:00 ED... Start Date: 07/29/19 Status: Ordered NovoLOG FlexPen 100 units/mL subcutaneous solution See Instructions, Subcutaneous Injection, Use as directed for Diabetes mellitus type 2. (Max Dose =50 units/day), # 30 mL, 5 Refills, Maintenance, 08/04/19 17:01:00 EDT, [facility][id number], 165, cm, 07/29/19 12:25:00 EDT, Height, 72.7, kg, 01... Start Date: 08/04/19 Stop Date: 01/31/20 Status: Ordered Pen [place], 31 G x 8 mm BD Ultra [...] abdominal wall(Confirmed) Active History of syphilis; [place] [facility] confirms bicillin x 3 01/2014(Confirmed) Active Hypertension(Confirmed) Active Health care maintenance(Confirmed) Active Physical exam(Confirmed) Active 1was seen by Dr. Devon Mccormack at [facility] Social History Social History Type Response Tobacco Use: 4 or less cigar ettes(less than 1/4 pack)/day in last 30 days. Sex
--- OUTSIDE RECORDS SUMMARY | 2023-01-25 11:04 | XMS_ITS | Continuity of Care Document ---
Author Name Unknown Organization [facility] Address [address] [place] [address]- Care Team Providers Care Wallpaperer Helper Name Role Phone Tru WOODY, Olimpia Garcia Primary Care Physician Encounter [facility] Date(s): 03/22/20 - 04/21/20 [facility] [address] [place] [address]- Attending Physician: Dayanara Lowery Admitting Physician: AdmDayanara [...] vis given 10/17/10 2Admin Note: VIS GIVEN [id number] 3Admin Note: VIS GIVEN Medications Alcohol Pads [...] EDT, Route to Pharmacy Electronically, [facility][id number], 165, cm, 07/29/19 12:25:00 EDT, Height, 72.7, kg, 03/30/19... Start Date: 07/29/19 Status: Ordered atorvastatin 20 mg oral tablet 1 tablet = 20 mg, By Mouth, Daily, # 90 tablet, 3 Refills, Maintenance, 07/29/19 12:59:00 EDT, Tablet, [id number], 165, cm, 07/29/19 12:25:00 EDT, Height, 72.7, kg, 03/30/19 16:51:00 EST, Dry Weight Start Date: 07/29/19 Status: Ordered cholecalciferol 1000 intl units oral tablet 1 tablet = 1,000 International_Units, By Mouth, Daily, vitamin D take with food, # 90 tablet, 1 Refills, Maintenance, 03/01/20 12:52:00 EST, Tablet, [facility], 165, cm, 02/13/20 11:43:00 EST, Height, 75.3, [...] 03/01/20 12:51:00 EST, Route to Pharmacy Electronically, [facility] #[id number], 165, cm, 02/13/20 11:43:00 EST, Height, 75.3, [...] 3 Refills, Maintenance, 03/01/20 16:23:00 EST, Solution, [id number], 165, cm, 02/13/20 11:43:00 EST, Height, 75.3, kg, 02/08/20 14:42:00 ES... Start Date: 03/01/20 Stop Date: 06/29/20 Status: Ordered latanoprost 0.005% ophthalmic solution 1 drops, Eyes, Both, Daily at bedtime, dr miguel Start Date: 04/11/16 Status: Ordered lisinopril 40 mg oral tablet 1 tablet = 40 mg, By Mouth, Daily, for blood pressure, # 90 tablet, 3 Refills, Maintenance, 07/29/19 13:01:00 EDT, [facility]58358, 165, cm, 07/29/19 12:25:00 EDT, Height, 72.7, kg, 03/30/19 16:51:00 EST, Dry Weight Start Date: 07/29/19 Status: Ordered metFORMIN 750 mg oral tablet, extended release 2 tablet = 1,500 mg, By Mouth, Daily, pls ask pt to call our health center to reestablish care if she is staying locally, # 180 tablet, 3 Refills, Maintenance, 07/29/19 13:01:00 EDT, ER Tablet, [facility] #02475, 165, cm, 07/29/19 12:25:00 ED... Start Date: 07/29/19 Status: Ordered NovoLOG FlexPen 100 units/mL subcutaneous solution See Instructions, Subcutaneous Injection, Use as directed for Diabetes mellitus type 2. (Max Dose =50 units/day), # 30 mL, 5 Refills, Maintenance, 08/04/19 17:01:00 EDT, [facility] #51165, 165, cm, 07/29/19 12:25:00 EDT, Height, 72.7, kg, 01... Start Date: 08/04/19 Stop Date: 01/31/20 Status: Ordered Pen [place], 31 G x 8 mm BD Ultra [...] 1was seen by Dr. Devon Mccormack at [facility] Social History Social History Type Response Smoking Status 10 or more cigarette s (1/2 pack or more)/day in last 30 days entered on: 01/26/20 Sex
--- OUTSIDE RECORDS SUMMARY | 2023-01-25 11:04 | XMS_ITS | Continuity of Care Document ---
Author Name Unknown Organization [facility] Address [address] [place] [address]- Care Team Providers Care Contact Lens Edge Buffer Name Role Phone Marva Baez MD [id number] Date[facility]s): 03/13/21 - 04/22/[address] [address]- Attending Physician: Betzy Leahy MD Admitting Physician: Betzy Leahy MD Allergies, Adverse Reactions, Alerts No Known [...] vis given 10/17/10 2Admin Note: VIS GIVEN [id number] 3Admin Note: VIS GIVEN Medications Alcohol Pads [...] tablet, 6 Refills, Maintenance, 12/07/20 13:42:00 EDT, [facility]/pharmacy #[id number], Partial fill upon patient request if the prescription is for a schedule II opioid drug., 165.1, cm, 12/05/20 13:59:00 EDT, Height, 78.6,... Start Date: 12/07/20 Status: Ordered cholecalciferol 1000 intl units oral tablet 1 tablet = 1,000 International_Units, By Mouth, Daily, vitamin D take with food, # 90 tablet, 1 Refills, Maintenance, 03/01/20 12:52:00 EST, Tablet, [facility] #[id number], 165, cm, 02/13/20 11:43:00 EST, Height, 75.3, kg, 02/08/20 14:42:00 EST,... Start Date: 03/01/20 Stop Date: 03/31/20 Status: Ordered duloxetine 30 mg oral enteric coated capsule 1 capsule, By Mouth, Daily, DO NOT CRUSH OR CHEW. *., # 30 capsule, 8 Refills, [facility], 165.1, cm, 12/19/20 12:24:00 EDT, Height, 78.6, [...] mL, 4 Refills, Maintenance, 11/14/20 15:34:00 EDT, [facility]/pharmacy #[id number], 165.1, cm, 08/02/20 9:45:00 EDT, Height, 78.6, kg, 06/15/20... Start Date: 11/14/20 Stop Date: 04/13/21 Status: Ordered Pen [place], 31 G x 8 mm BD Ultra Fine III See Instructions, # 200 each, Refills 11, Tot. Refills 11, Maintenance, use up to 4 times daily as directed for Type 2 Diabetes Mellitus. E11.9, 08/18/20 17:03:00 EDT, Supply, 165.1, cm, 08/02/20 9:45:00 EDT, Height, 78.6, kg, 06/15/20 10:01:00 EDT, D... Start Date: 08/18/20 Stop Date: 08/13/21 Status: Ordered Everpurse COVID-19 Vaccine 30 mcg/0.3 mL preservative-free intramuscular [...] 11 Refills, Maintenance, 03/27/21 12:17:00 EST, OphthSolution, [facility]/pharmacy #[id number], Partial fill upon patient request [...] Refills, Maintenance, 12/05/20 14:59:00 EDT, ER Tablet, [facility]/pharmacy #[id number], Partial fill upon patient request if the [...] 1was seen by Dr. Devon Mccormack at [facility] Social History Social History Type Response Smoking Status 10 or more cigarette s (1/2 pack or more)/day in last 30 days entered on: 01/26/20 Sex
--- OUTSIDE RECORDS SUMMARY | 2023-01-25 11:04 | XMS_ITS | Continuity of Care Document ---
Author Name Unknown Organization [facility] Address [address] [place] [address]- Care Team Providers Care Sand Conditioner Machine Name Role Phone Nestor WOODY, Marva Primary Care Physician [phone] Encounter [facility] Date(s): 12/13/20 - 01/12/21 [facility] [address] [place] [address]- Allergies, Adverse Reactions, Alerts Substance Reaction Severity [...] vis given 10/17/10 2Admin Note: VIS GIVEN [id number] 3Admin Note: VIS GIVEN Medications Alcohol Pads [...] tablet, 6 Refills, Maintenance, 12/07/20 13:42:00 EDT, [facility]/pharmacy #[id number], Partial fill upon patient request if the prescription is for a schedule II opioid drug., 165.1, cm, 12/05/20 13:59:00 EDT, Height, 78.6,... Start Date: 12/07/20 Status: Ordered cholecalciferol 1000 intl units oral tablet 1 tablet = 1,000 International_Units, By Mouth, Daily, vitamin D take with food, # 90 tablet, 1 Refills, Maintenance, 03/01/20 12:52:00 EST, Tablet, [facility] #[id number], 165, cm, 02/13/20 11:43:00 EST, Height, 75.3, kg, 02/08/20 14:42:00 EST,... Start Date: 03/01/20 Stop Date: 03/31/20 Status: Ordered duloxetine 30 mg oral enteric coated capsule 1 capsule = 30 mg, By Mouth, Daily, do not crush or chew, # 30 capsule, 0 Refills, Maintenance, 12/05/20 14:58:00 EDT, CR Capsule, [facility]/pharmacy #[id number], Partial fill upon patient [...] mL, 4 Refills, Maintenance, 11/14/20 15:34:00 EDT, [facility]/pharmacy #[id number], 165.1, cm, 08/02/20 9:45:00 EDT, Height, 78.6, kg, 06/15/20... Start Date: 11/14/20 Stop Date: 04/13/21 Status: Ordered Pen [place], 31 G x 8 mm BD Ultra Fine III See Instructions, # 200 each, Refills 11, Tot. Refills 11, Maintenance, use up to 4 times daily as directed for Type 2 Diabetes Mellitus. E11.9, 08/18/20 17:03:00 EDT, Supply, 165.1, cm, 08/02/20 9:45:00 EDT, Height, 78.6, kg, 06/15/20 10:01:00 EDT, D... Start Date: 08/18/20 Stop Date: 08/13/21 Status: Ordered Waveseer COVID-19 Vaccine 30 mcg/0.3 mL preservative-free intramuscular [...] 14:59:00 EDT, ER Tablet, [facility]/pharmacy #[id number], Partial fill upon patient [...] 1was seen by Dr. Devon Mccormack at [facility] Social History Social History Type Response Smoking Status 10 or more cigarette s (1/2 pack or more)/day in last 30 days entered on: 01/26/20 Sex
--- OUTSIDE RECORDS SUMMARY | 2023-01-25 11:04 | XMS_ITS | Continuity of Care Document ---
Author Name Unknown Organization [facility] Address [address] [place] [address]- Care Team Providers Care Triage Specialist Name Role Phone Nestor WOODY, Marva Primary Care Physician Encounter [facility] Date(s): 12/27/20 - 01/26/[address] [address]- Allergies, Adverse Reactions, Alerts Substance Reaction Severity [...] vis given 10/17/10 2Admin Note: VIS GIVEN [id number] 3Admin Note: VIS GIVEN Medications Alcohol Pads [...] tablet, 6 Refills, Maintenance, 12/07/20 13:42:00 EDT, [facility]/pharmacy #[id number], Partial fill upon patient request if the prescription is for a schedule II opioid drug., 165.1, cm, 12/05/20 13:59:00 EDT, Height, 78.6,... Start Date: 12/07/20 Status: Ordered cholecalciferol 1000 intl units oral tablet 1 tablet = 1,000 International_Units, By Mouth, Daily, vitamin D take with food, # 90 tablet, 1 Refills, Maintenance, 03/01/20 12:52:00 EST, Tablet, [facility] #[id number], 165, cm, 02/13/20 11:43:00 EST, Height, 75.3, kg, 02/08/20 14:42:00 EST,... Start Date: 03/01/20 Stop Date: 03/31/20 Status: Ordered duloxetine 30 mg oral enteric coated capsule 1 capsule, By Mouth, Daily, DO NOT CRUSH OR CHEW. *., # 30 capsule, 8 Refills, [facility] 52[facility], 165.1, cm, 12/19/20 12:24:00 EDT, Height, 78.6, [...] 11/14/20 Stop Date: 04/13/21 Status: Ordered Pen [place], 31 G x 8 mm BD Ultra Fine III See Instructions, # 200 each, Refills 11, Tot. Refills 11, Maintenance, use up to 4 times daily as directed for Type 2 Diabetes Mellitus. E11.9, 08/18/20 17:03:00 EDT, Supply, 165.1, cm, 08/02/20 9:45:00 EDT, Height, 78.6, kg, 06/15/20 10:01:00 EDT, D... Start Date: 08/18/20 Stop Date: 08/13/21 Status: Ordered InComm COVID-19 Vaccine 30 mcg/0.3 mL preservative-free intramuscular [...] Refills, Maintenance, 12/05/20 14:59:00 EDT, ER Tablet, [facility]/pharmacy #[id number], Partial fill upon patient [...] 1was seen by Dr. Devon Mccormack at [facility] Social History Social History Type Response Smoking Status 10 or more cigarette s (1/2 pack or more)/day in last 30 days entered on: 01/26/20 Sex
--- OUTSIDE RECORDS SUMMARY | 2023-01-25 11:04 | XMS_ITS | Continuity of Care Document ---
Author Name Unknown Organization [facility] Address [address] [place] [address]- Care Team Providers Care Chemical Laboratory Technician Name Role Phone Jeanine Stack MD, I Primary Care Physician [phone] Encounter [facility] AC[facility] R [id number] Date(s): 02/05/22 - 03/07/[address] [address]- Attending Physician: AdmDayanara zayas Admitting Physician: AdmtrDayanara [...] 2 07/20/09 Given Tet/Diphth/Acel, Pertussis (oldterm) 3 6/22/09 Gi paul Influenza Vaccine (oldterm) 03/11/03 Given Influenza Vaccine (oldterm) 07/06/00 Given Influenza Vaccine (oldterm) 04/01/00 Given Pneumococcal Poly (PPV23) (oldterm) 03/11/03 Given tetanus-diphtheria toxoids (Td) 04/20/98 Given 1Admin Note: vis given 10/17/10 2Admin Note: VIS GIVEN [id number] 3Admin Note: VIS GIVEN Medications Alcohol Pads [...] 08/02/21 9:37:00 EDT, Route to Pharmacy Electronically, [facility]., 165.1, cm, 06/21/21 11:05:00 EDT, H... Start Date: 08/02/21 Status: Ordered atorvastatin 10 mg oral tablet 1 tablet = 10 mg, By Mouth, Daily, duplicate from 07/08/21, # 90 tablet, 3 Refills, Maintenance, 08/02/21 9:39:00 EDT, [facility], Partial fill upon patient request if the [...] 3 Refills, Maintenance, 08/04/21 17:10:00 EDT, Tablet, [facility]., 165.1, cm, 06/21/21 11:05:00 EDT, Height, [...] 08/02/21 9:40:00 EDT, Route to Pharmacy Electronically, [facility] 165.1, cm, 06/21/21 11:05:00 EDT, H... [...] mL, 11 Refills, Maintenance, 08/02/21 21:27:00 EDT, [facility]., 165.1, cm, 06/21/21 11:05:00 EDT, Height, 78.6, kg, 06/15/2109:01:00 EDT, Dry Weight Start Date: 08/02/21 Stop Date: 07/28/22 Status: Ordered latanoprost 0.005% ophthalmic solution See Instructions, INSERT 1 DROP IN BOTH EYES DAILY AT BEDTIME FOR 30 DAYS :PLEASE OBTAIN FURTHER REFILLS FROM YOUR HIDE MILL WORKER, # 2.5 mL, 0 Refills[facility], [facility], INSERT 1 DROP IN BOTHEYES DAILY AT BEDTIME FOR 30 DAYS :PLEASE OBTAIN FU... Start Date: 10/31/21 Status: Ordered lisinopril 40 mg oral tablet 1 tablet = 40 mg, By Mouth, Daily, for blood pressure, # 90 tablet, 3 Refills, Maintenance, 08/04/21 17:10:00 EDT, [facility] 165.1, cm, 06/21/21 11:05:00 EDT, Height, 78.6, kg, 06/15/20 10:01:00 EDT, Dry Weight Start Date: 08/04/21 Stop Date: 07/30/22 Status: Ordered metFORMIN 750 mg oral tablet, extended release 2 tablet, By Mouth, Daily, duplicate from 07/08/21, # 180 tablet, 3 Refills, Maintenance, 08/02/21 9:42:00 EDT, [facility]., 165.1, cm, 06/21/21 11:05:00 EDT, Height, 78.6, kg, 06/15/2109:01:00 EDT, Dry Weight Start Date: 08/02/21 Status: Ordered NovoLOG FlexPen 100 units/mL subcutaneous solution See Instructions, Subcutaneous Injection, Use as directed for Diabetes mellitus type 2, per slidingscale. (Max Dose = 50 units/day), # 30 mL, 11 Refills, Maintenance, 08/02/21 21:26:00 EDT, [facility], 165.1, cm, 06/21/21 11:05:00 EDT... Start Date: 08/02/21 Stop Date: 07/28/22 Status: Ordered Pen [place], 31 G x 8 mm BD Ultra Fine III See Instructions, # 150 each, Refills 11, Tot. Refills 11, Maintenance, use as directed for Type 2 Diabetes Mellitus E11.9 for 4x/day insulin pen injections, 10/04/21 13:57:00 EDT, Supply, 165.1, cm,06/21/21 11:05:00 EDT, Height, 78.6, kg, 06/15/20 1... Start Date: 10/04/21 Stop Date: 09/29/22 Status: Ordered Pen [place], 31 G x 8 mm BD Ultra Fine III See Instructions, # 200 each, Refills 11, Tot. Refills 11, Maintenance, use up to 4 times daily as directed for Type 2 Diabetes Mellitus. E11.9, 10/04/21 9:58:00 EDT, Supply, 165.1, cm, 06/21/21 11:05:00 EDT, Height, 78.6, kg, 06/15/20 10:01:00 EDT, D... Start Date: 10/04/21 Stop Date: 09/29/22 Status: Ordered HomeCon COVID-19 Vaccine 30 mcg/0.3 mL preservative-free intramuscular [...] DAY :PLEASE GET FURTHER REFILLS FROM YOUR HIDE MILL WORKER, # 5 mL, 0 Refills, [facility], 25, INSERT 1 DROP IN BOTH EYES 2 TIMES A DAY :PLEASE GET FURTHER REFILLS FROM YOUR HIDE MILL WORKER... Start Date: 10/31/21 Status: Ordered Tylenol 8 HR Arthritis Pain 650 mg oral tablet, extended release 2 tablet = 1,300 mg, By Mouth, Every 8 hours, PRN Pain , Mild, # 100 tablet, 0 Refills, Maintenance, 12/05/20 14:59:00 EDT, ER Tablet, [facility]/pharmacy #[id number], Partial fill upon patient request if the [...] 1was seen by Dr. Devon Mccormack at [facility] Social History Social History Type Response Smoking Status 10 or more cigarette s (1/2 pack or more)/day in last 30 days entered on: 01/26/20 Sex Note * Otilia Solano: PERFORM, SIGN, VERIFY Event Display: Patient Education/Instruction Authored Date: [id number] [facility] Clinical Summary Person Information Visit Date 10/13/2014 10:00 AM Name BASILIO CORDERO Age 49 Years 1965 12:00 AM PCP Sreekanth WOODY, [id number] Sex Female Race Black Ethnicity Non-/Non- Language Swazi Reason for Visit: Allergy Info: NKA Smoking Status Former smoker Vital Signs Height Weight BMI Blood Pressure / Temperature Pulse Rate Respiratory Rate 02 Sat Mode of Delivery / Medication Information Amlodipine (amlodipine 10 mg oral tablet) 1 tablet, Oral, Daily, 30 days, Refills: 11 Cholecalciferol (cholecalciferol 1000 intl units oral tablet) 1 tablet, Oral, Daily, vitamin D take with food, 30 days, Refills: 11 Durable Medical Equipment (Freestyle Lite Lancets) , See Instructions, 250 check BG daily, Refills:11 Durable Medical Equipment (Freestyle Lite Monitor) , See Instructions, 250 check BG daily Durable Medical Equipment (Freestyle Lite Test Strips) , See Instructions, 250 check BG daily, Refills: 11 GlipiZIDE (glipizide 10 mg oral tablet, extended release) 1 tablet, Oral, Daily, increase in dose. take with food., 30 days, Refills: 11 Hydrochlorothiazide (hydrochlorothiazide 25 mg oral tablet) 1 tablet, Oral, Daily, 30 days, Refills: 11 Latanoprost Ophthalmic (latanoprost 0.005% ophthalmic solution) 1 drops, Both eyes, Daily at Bedtime, to cover until gets new radiology supervisor for glaucoma, 30 days, Refills: 11 Lisinopril (lisinopril 40 mg oral tablet) 1 tablet, Oral, Daily, 30 days, Refills: 11 Metformin (metformin 1000 mg oral tablet) 1 tablet, Oral, twice a day, with meals, 30 days, Refills: 11 Quetiapine (Seroquel 50 mg oral tablet) 1 tablet, Oral, Daily at Bedtime, 30 days, Refills: 5 Future Orders No future orders Orders Completed this Visit No visit orders documented Problem List Date Problem 12/08/13 Background diabetic retinopathy 12/08/13 Hypertension 12/17/13 Diabetes mellitus type 2 12/08/13 Depression 12/08/13 Glaucoma Diagnosis Procedures No Procedures Documented If the following labs have been performed in the last year, the most recent result is displayed below. Diagnostic Results Lab Result Value Date Lead Hemoglobin A1C LDL HDL Triglycerides Total Cholesterol Disclaimer: The information provided is of a general nature and is intended to be used in conjunction with the recommendations and advice of your health care practitioner. Every effort has been made to ensure that the information provided is accurate and complete at the time it is provided to you however, as your needs change, or, as new information becomes available, different or additional instructions may be required. If you have questions, please consult with your primary care provider or pharmacist, as appropriate. This information is not intended to serve as substitution for assessment and evaluation by a qualified health care provider. If you do not have a primary care provider, you may find a [facility] provider by calling [facility] at [phone]. For information about the plan of care including goals and instructions for your diagnosis, please see the patient education orders section of this document. Patient Visit Summary: Follow-Up Instructions With: Address: When: Follow up care 10/13 with pcp. Comments: Patient Education Materials Additional Instructions: * Nani Barriga: PERFORM Event Display: Radiology Results Scanned Authored Date: [id number] * Monae Valenzuela: PERFORM Event Display: Radiology Results Scanned Authored Date: [id number] * Monae Valenzuela: PERFORM Event Display: Radiology Results Scanned Authored Date: [id number] Patient Care team information Care Team Personnel Name: Jeanine Stack MD, I Position: [facility] Primary Care Physician Member Role: PCP Address: Address: [address] [place] [address]- Name: Ann Barron Position: [facility] Outreach Member Role: Lifetime Consulting Physician Care Team Related Persons Name: MALISSA CORDERO Name: JARED CORDERO Address: [place] [address]
--- OUTSIDE RECORDS SUMMARY | 2023-01-25 11:04 | XMS_ITS | Continuity of Care Document ---
Author Name Unknown Organization [facility] Address [address] [place] [address]- Care Team Providers Care Booking Manager Name Role Phone Nestor WOODY, Marva Primary Care Physician Encounter [facility] Date(s): 12/08/20 - 01/07/[address] [address]- Allergies, Adverse Reactions, Alerts Substance Reaction Severity [...] vis given 10/17/10 2Admin Note: VIS GIVEN [id number] 3Admin Note: VIS GIVEN Medications Alcohol Pads [...] tablet, 6 Refills, Maintenance, 12/07/20 13:42:00 EDT, [facility]/pharmacy #[id number], Partial fill upon patient request if the prescription is for a schedule II opioid drug., 165.1, cm, 12/05/20 13:59:00 EDT, Height, 78.6,... Start Date: 12/07/20 Status: Ordered cholecalciferol 1000 intl units oral tablet 1 tablet = 1,000 International_Units, By Mouth, Daily, vitamin D take with food, # 90 tablet, 1 Refills, Maintenance, 03/01/20 12:52:00 EST, Tablet, [facility][id number], 165, cm, 02/13/20 11:43:00 EST, Height, 75.3, kg, 02/08/20 14:42:00 EST,... Start Date: 03/01/20 Stop Date: 03/31/20 Status: Ordered duloxetine 30 mg oral enteric coated capsule 1 capsule = 30 mg, By Mouth, Daily, do not crush or chew, # 30 capsule, 0 Refills, Maintenance, 12/05/20 14:58:00 EDT, CR Capsule, [facility]/pharmacy #[id number], Partial fill upon patient request if [...] mL, 4 Refills, Maintenance, 11/14/20 15:34:00 EDT, [facility]/pharmacy #[id number], 165.1, cm, 08/02/20 9:45:00 EDT, Height, 78.6, kg, 06/15/20... Start Date: 11/14/20 Stop Date: 04/13/21 Status: Ordered Pen [place], 31 G x 8 mm BD Ultra Fine III See Instructions, # 200 each, Refills 11, Tot. Refills 11, Maintenance, use up to 4 times daily as directed for Type 2 Diabetes Mellitus. E11.9, 08/18/20 17:03:00 EDT, Supply, 165.1, cm, 08/02/20 9:45:00 EDT, Height, 78.6, kg, 06/15/20 10:01:00 EDT, D... Start Date: 08/18/20 Stop Date: 08/13/21 Status: Ordered Nexmo COVID-19 Vaccine 30 mcg/0.3 mL preservative-free intramuscular [...] seen by Dr. Devon Mccormack at [facility] Social History Social History Type Response Smoking Status 10 or more cigarette s (1/2 pack or more)/day in last 30 days entered on: 01/26/20 Sex
--- OUTSIDE RECORDS SUMMARY | 2023-01-25 11:04 | XMS_ITS | Continuity of Care Document ---
Author Name Unknown Organization [facility] Address [address] [place] [id number]- Care Team Providers Care Bedspread Seamer Name Role Phone Belle Dos Santos NP Primary Care Physician Encounter [facility] Date(s): 06/10/20 - 07/10/[address] [address] Attending Physician: AdmDayanara zayas Admitting Physician: [...] vis given 10/17/10 2Admin Note: VIS GIVEN [id number] 3Admin Note: VIS GIVEN Medications Alcohol Pads [...] 1 Refills, Maintenance, 03/01/20 12:52:00 EST, Tablet, [facility] #[id number], 165, cm, 02/13/20 11:43:00 EST, Height, 75.3, [...] 03/01/20 16:23:00 EST, Solution, [facility], 165, cm, 02/13/20 11:43:00 EST, Height, 75.3, [...] Refills, Maintenance, 07/29/19 13:01:00 EDT, ER Tablet, [facility], 165, cm, 07/29/19 12:25:00 ED... Start Date: 07/29/19 Status: Ordered NovoLOG FlexPen 100 units/mL subcutaneous solution See Instructions, Subcutaneous Injection, Use as directed for Diabetes mellitus type 2. (Max Dose =50 units/day), # 30 mL, 5 Refills, Maintenance, 08/04/19 17:01:00 EDT, [facility] #42804, 165, cm, 07/29/19 12:25:00 EDT, Height, 72.7, kg, 01... Start Date: 08/04/19 Stop Date: 01/31/20 Status: Ordered NovoLog Inj See Instructions, Subcutaneous Infusion 3 times a day before meals, 0 Refills, Maintenance, 05/13/20 17:22:00 EST, Partial fill upon patient request if the prescription is for a schedule II opioid drug. Start Date: 05/13/20 Status: Ordered Pen [place], 31 G x 8 mm BD Ultra [...] 1was seen by Dr. Devon Mccormack at [facility] Social History Social History Type Response Smoking Status 10 or more cigarette s (1/2 pack or more)/day in last 30 days entered on: 01/26/20 Sex
--- OUTSIDE RECORDS SUMMARY | 2023-01-25 11:05 | XMS_ITS | Continuity of Care Document ---
Author Name Unknown Organization [facility] Address [address] [place] [address]- Care Team Providers Care Filter Helper Name Role Phone Nsetor WOODY, Marva Primary Care Physician [phone] Encounter [facility] Date(s): 03/23/21 - 04/22/[address] [address]- Allergies, Adverse Reactions, Alerts No Known Allergies [...] vis given 10/17/10 2Admin Note: VIS GIVEN [id number] 3Admin Note: VIS GIVEN Medications Alcohol Pads [...] tablet, 6 Refills, Maintenance, 12/07/20 13:42:00 EDT, [facility]/pharmacy #[id number], Partial fill upon patient request if the prescription is for a schedule II opioid drug., 165.1, cm, 12/05/20 13:59:00 EDT, Height, 78.6,... Start Date: 12/07/20 Status: Ordered cholecalciferol 1000 intl units oral tablet 1 tablet = 1,000 International_Units, By Mouth, Daily, vitamin D take with food, # 90 tablet, 1 Refills, Maintenance, 03/01/20 12:52:00 EST, Tablet, [facility] #20639, 165, cm, 02/13/20 11:43:00 EST, Height, 75.3, kg, 02/08/20 14:42:00 EST,... Start Date: 03/01/20 Stop Date: 03/31/20 Status: Ordered duloxetine 30 mg oral enteric coated capsule 1 capsule, By Mouth, Daily, DO NOT CRUSH OR CHEW. *., # 30 capsule, 8 Refills, [facility], 165.1, cm, 12/19/20 12:24:00 EDT, Height, 78.6, [...] tablet, 1 Refills, Maintenance, 01/15/21 21:42:00 EDT, [facility]/pharmacy #[id number], 165.1, cm, 12/19/20 12:24:00 EDT, Height, 78.6, kg, 06/15/20 10:01:00 EDT, Dry Weight Start Date: 01/15/21 Status: Ordered NovoLOG FlexPen 100 units/mL subcutaneous solution See Instructions, Subcutaneous Injection, Use as directed for Diabetes mellitus type 2. (Max Dose =50 units/day), # 30 mL, 4 Refills, Maintenance, 11/14/20 15:34:00 EDT, [facility]/pharmacy #[id number], 165.1, cm, 08/02/20 9:45:00 EDT, Height, 78.6, kg, 06/15/20... Start Date: 11/14/20 Stop Date: 04/13/21 Status: Ordered Pen [place], 31 G x 8 mm BD Ultra Fine III See Instructions, # 200 each, Refills 11, Tot. Refills 11, Maintenance, use up to 4 times daily as directed for Type 2 Diabetes Mellitus. E11.9, 08/18/20 17:03:00 EDT, Supply, 165.1, cm, 08/02/20 9:45:00 EDT, Height, 78.6, kg, 06/15/20 10:01:00 EDT, D... Start Date: 08/18/20 Stop Date: 08/13/21 Status: Ordered VIVA COVID-19 Vaccine 30 mcg/0.3 mL preservative-free intramuscular [...] 11 Refills, Maintenance, 03/27/21 12:17:00 EST, OphthSolution, [facility]/pharmacy #[id number], Partial fill upon patient request if [...] Refills, Maintenance, 12/05/20 14:59:00 EDT, ER Tablet, [facility]/pharmacy #[id number], Partial fill upon patient request if the [...] 1was seen by Dr. Devon Mccormack at [facility] Social History Social History Type Response Smoking Status 10 or more cigarette s (1/2 pack or more)/day in last 30 days entered on: 01/26/20 Sex
--- OUTSIDE RECORDS SUMMARY | 2023-01-25 11:05 | XMS_ITS | Continuity of Care Document ---
Author Name Unknown Organization [facility] Address [address] [place] [address]- Care Team Providers Care Schedule Checker Name Role Phone Nerissa Bonner MD Primary Care Physician En[place] [facility] Date(s): 09/16/19 - 10/21/19 [facility] [address] [place] [address]- [facility] Attending Physician: Nerissa Bonner MD Allergies, Adverse [...] vis given 10/17/10 2Admin Note: VIS GIVEN [id number] 3Admin Note: VIS GIVEN Medications Alcohol Pads See Instructions, # 100 each, Refills 11, Tot. Refills 11, Maintenance, E11.9, 07/10/17 13:55:10 EDT, Compound Start Date: 07/10/17 Status: Ordered amLODIPine 10 mg oral tablet 10 mg, 1, tablet, By Mouth, Daily, for blood pressure, # 90 tablet, Refills 3, Tot. Refills 3, Maintenance, 07/29/19 12:59:00 EDT, Route to Pharmacy Electronically, [facility], 165, cm, 07/29/19 12:25:00 EDT, Height, 72.7, kg, 03/30/19... Start Date: 07/29/19 Status: Ordered atorvastatin 20 mg oral tablet 1 tablet = 20 mg, By Mouth, Daily, # 90 tablet, 3 Refills, Maintenance, 07/29/19 12:59:00 EDT, Tablet, [facility] #70922, 165, cm, 07/29/19 12:25:00 EDT, Height, 72.7, [...] Maintenance, 07/29/19 12:59:00 EDT, ER Tablet, [facility] #44802, 165, cm, 07/29/19 12:25:00 EDT, Height, 72.7, [...] 13:00:00 EDT, [facility] to Pharmacy Electronically, [id number], 165, cm, 07/29/19 12:25:00 EDT, Height, 72.7, [...] 3 Refills, Maintenance, 07/29/19 13:05:00 EDT, Solution, [facility]40847, 165, cm, 07/29/19 12:25:00 EDT, Height, 72.7, [...] tablet, 3 Refills, Maintenance, 07/29/19 13:01:00 EDT, [facility], 165, cm, 07/29/19 12:25:00 EDT, Height, 72.7, kg, 03/30/19 16:51:00 EST, Dry Weight Start Date: 07/29/19 Status: Ordered metFORMIN 750 mg oral tablet, extended release 2 tablet = 1,500 mg, By Mouth, Daily, pls ask pt to call our health center to reestablish care if she is staying locally, # 180 tablet, 3 Refills, Maintenance, 07/29/19 13:01:00 EDT, ER Tablet, [facility]12384, 165, cm, 07/29/19 12:25:00 ED... Start Date: 07/29/19 Status: Ordered NovoLOG FlexPen 100 units/mL subcutaneous solution See Instructions, Subcutaneous Injection, Use as directed for Diabetes mellitus type 2. (Max Dose =50 units/day), # 30 mL, 5 Refills, Maintenance, 08/04/19 17:01:00 EDT, [facility], 165, cm, 07/29/19 12:25:00 EDT, Height, 72.7, kg, 01... Start Date: 08/04/19 Stop Date: 01/31/20 Status: Ordered Pen [place], 31 G x 8 mm BD Ultra [...] 1was seen by Dr. Devon Mccormack at [facility] Social History Social History Type Response Tobacco Use: 4 or less cigar ettes(less than 1/4 pack)/day in last 30 days. Sex
--- OUTSIDE RECORDS SUMMARY | 2023-01-25 11:05 | XMS_ITS | Continuity of Care Document ---
Author Name Unknown Organization [facility] Address [address] [place] [address]- Care Team Providers Care Corporate Paralegal Name Role Phone Nestor WOODY, Marva Primary Care Physician Encounter [facility] Date(s): 01/16/21 - 02/15/[address] [address]- Allergies, Adverse Reactions, Alerts Substance Reaction Severity [...] vis given 10/17/10 2Admin Note: VIS GIVEN [id number] 3Admin Note: VIS GIVEN Medications Alcohol Pads [...] tablet, 6 Refills, Maintenance, 12/07/20 13:42:00 EDT, [facility]/pharmacy #[id number], Partial fill upon patient request if the prescription is for a schedule II opioid drug., 165.1, cm, 12/05/20 13:59:00 EDT, Height, 78.6,... Start Date: 12/07/20 Status: Ordered cholecalciferol 1000 intl units oral tablet 1 tablet = 1,000 International_Units, By Mouth, Daily, vitamin D take with food, # 90 tablet, 1 Refills, Maintenance, 03/01/20 12:52:00 EST, Tablet, [facility] #02998, 165, cm, 02/13/20 11:43:00 EST, Height, 75.3, kg, 02/08/20 14:42:00 EST,... Start Date: 03/01/20 Stop Date: 03/31/20 Status: Ordered duloxetine 30 mg oral enteric coated capsule 1 capsule, By Mouth, Daily, DO NOT CRUSH OR CHEW. *., # 30 capsule, 8 Refills, [facility] 315[facility], 165.1, cm, 12/19/20 12:24:00 EDT, Height, 78.6, [...] 11/14/20 Stop Date: 04/13/21 Status: Ordered Pen [place], 31 G x 8 mm BD Ultra Fine III See Instructions, # 200 each, Refills 11, Tot. Refills 11, Maintenance, use up to 4 times daily as directed for Type 2 Diabetes Mellitus. E11.9, 08/18/20 17:03:00 EDT, Supply, 165.1, cm, 08/02/20 9:45:00 EDT, Height, 78.6, kg, 06/15/20 10:01:00 EDT, D... Start Date: 08/18/20 Stop Date: 08/13/21 Status: Ordered BlastRoots COVID-19 Vaccine 30 mcg/0.3 mL preservative-free intramuscular [...] Refills, Maintenance, 12/05/20 14:59:00 EDT, ER Tablet, [facility]/pharmacy #[id number], Partial fill upon patient request [...] 1was seen by Dr. Devon Mccormack at [facility] Social History Social History Type Response Smoking Status 10 or more cigarette s (1/2 pack or more)/day in last 30 days entered on: 01/26/20 Sex
--- OUTSIDE RECORDS SUMMARY | 2023-01-25 11:05 | XMS_ITS | Continuity of Care Document ---
Author Name Unknown Organization [facility] Address [address] [place] [address]- Care Team Providers Care Textile Screen Printer Name Role Phone Nestor WOODY, Marva Primary Care Physician [place] [facility] [place] Date(s): 02/06/21 - 03/23/21 [facility] [address] [place], [place] [address] Attending Physician: Kenya Mendiola MD Admitting Physician: Kenya Mendiola MD Referring Physician: Marva Baez MD Allergies, Adverse Reactions, Alerts Substance Reaction [...] vis given 10/17/10 2Admin Note: VIS GIVEN [id number] 3Admin Note: VIS GIVEN Medications Alcohol Pads [...] tablet, 6 Refills, Maintenance, 12/07/20 13:42:00 EDT, [facility]/pharmacy #[id number], Partial fill upon patient request if the prescription is for a schedule II opioid drug., 165.1, cm, 12/05/20 13:59:00 EDT, Height, 78.6,... Start Date: 12/07/20 Status: Ordered cholecalciferol 1000 intl units oral tablet 1 tablet = 1,000 International_Units, By Mouth, Daily, vitamin D take with food, # 90 tablet, 1 Refills, Maintenance, 03/01/20 12:52:00 EST, Tablet, [facility], 165, cm, 02/13/20 11:43:00 EST, Height, 75.3, kg, 02/08/20 14:42:00 EST,... Start Date: 03/01/20 Stop Date: 03/31/20 Status: Ordered duloxetine 30 mg oral enteric coated capsule 1 capsule, By Mouth, Daily, DO NOT CRUSH OR CHEW. *., # 30 capsule, 8 Refills, [facility] 29171, 165.1, cm, 12/19/20 12:24:00 EDT, Height, 78.6, [...] tablet, 1 Refills, Maintenance, 01/15/21 21:42:00 EDT, [facility]/pharmacy #[id number], 165.1, cm, 12/19/20 12:24:00 EDT, Height, 78.6, kg, 06/15/20 10:01:00 EDT, Dry Weight Start Date: 01/15/21 Status: Ordered NovoLOG FlexPen 100 units/mL subcutaneous solution See Instructions, Subcutaneous Injection, Use as directed for Diabetes mellitus type 2. (Max Dose =50 units/day), # 30 mL, 4 Refills, Maintenance, 11/14/20 15:34:00 EDT, [facility]/pharmacy #[id number], 165.1, cm, 08/02/20 9:45:00 EDT, Height, 78.6, kg, 06/15/20... Start Date: 11/14/20 Stop Date: 04/13/21 Status: Ordered Pen [place], 31 G x 8 mm BD Ultra Fine III See Instructions, # 200 each, Refills 11, Tot. Refills 11, Maintenance, use up to 4 times daily as directed for Type 2 Diabetes Mellitus. E11.9, 08/18/20 17:03:00 EDT, Supply, 165.1, cm, 08/02/20 9:45:00 EDT, Height, 78.6, kg, 06/15/20 10:01:00 EDT, D... Start Date: 08/18/20 Stop Date: 08/13/21 Status: Ordered Context Labs COVID-19 Vaccine 30 mcg/0.3 mL preservative-free intramuscular [...] EDT, ER Tablet, [facility]/pharmacy #[id number], Partial fill upon patient request if the [...] 1was seen by Dr. Devon Mccormack at [facility] Social History Social History Type Response Smoking Status 10 or more cigarette s (1/2 pack or more)/day in last 30 days entered on: 01/26/20 Sex
--- OUTSIDE RECORDS SUMMARY | 2023-01-25 11:05 | XMS_ITS | Continuity of Care Document ---
Author Name Unknown Organization [facility] Address [address] [place] [address]- Care Team Providers Care Assembler Clip On Sunglasses Name Role Phone Sreekanth WOODY, Jeanine Rivas Primary Care Physician Encounter [facility] [place] Date(s): 06/14/21 - 07/21/[address] [address]- Attending Physician: Betzy Leahy MD Admitting Physician: Betzy Leahy MD Allergies, Adverse Reactions, Alerts Substance Reaction [...] vis given 10/17/10 2Admin Note: VIS GIVEN [id number] 3Admin Note: VIS GIVEN Medications Alcohol Pads [...] tablet, Refills 3, Tot. Refills 3, Maintenance, 07/08/21 10:25:00 EDT, Route to Pharmacy Electronically, [facility]/pharmacy #[id number], 165.1, cm, 06/21/21 11:05:00 EDT, Height, 78.6, kg, 06/15/20 10:01... Start Date: 07/08/21 Status: Ordered atorvastatin 10 mg oral tablet 1 tablet = 10 mg, By Mouth, Daily, # 90 tablet, 3 Refills, Maintenance, 07/08/21 10:25:00 EDT, [facility]/pharmacy #[id number], Partial fill upon patient request if the prescription is for a schedule II opioid drug., 165.1, cm, 06/21/21 11:05:00 EDT, Height, 78.6,... Start Date: 07/08/21 Status: Ordered cholecalciferol 1000 intl units oral tablet 1 tablet = 1,000 International_Units, By Mouth, Daily, vitamin D take with food, # 90 tablet, 1 Refills, Maintenance, 03/01/20 12:52:00 EST, Tablet, [facility]20001, 165, cm, 02/13/20 11:43:00 EST, Height, 75.3, kg, 02/08/20 14:42:00 EST,... Start Date: 03/01/20 Stop Date: 03/31/20 Status: Ordered Freestyle Lite Lancets See Instructions, # 150 each, Refills 11, Tot. Refills 11, Maintenance, Use to monitor blood glucose levels 4x per day. E11.9, 07/11/21 14:07:00 EDT, Supply, 165.1, cm, 06/21/21 11:05:00 EDT, Height,78.6, kg, 06/15/20 10:01:00 EDT, Dry Weight Start Date: 07/11/21 Status: Ordered Freestyle Lite Monitor See Instructions, # 1 each, Maintenance, E11.9 IDDM check 3x/day, 02/14/21 9:01:00 EST, Compound, 165.1, cm, 01/24/21 13:37:00 EDT, Height, 78.6, kg, 06/15/20 10:01:00 EDT, Dry Weight Start Date: 02/14/21 Status: Ordered Freestyle Lite Test Strips See Instructions, # 150 each, Refills 11, Tot. Refills 11, Maintenance, Use to monitor blood glucose levels 4x per day. E11.9, 07/11/21 14:06:00 EDT, Supply, 165.1, cm, 06/21/21 11:05:00 EDT, Height,78.6, kg, 06/15/20 10:01:00 EDT, Dry Weight Start Date: 07/11/21 Status: Ordered hydrochlorothiazide 25 mg oral tablet 25 mg, 1, tablet, By Mouth, Daily, for blood pressure, # 90 tablet, Refills 3, Tot. Refills 3, Maintenance, 07/08/21 10:58:00 EDT, Route to Pharmacy Electronically, [facility]/pharmacy #[id number], 165.1, cm, 06/21/21 11:05:00 EDT, Height, 78.6, kg, 06/15/20 10:01... Start Date: 07/08/21 Status: Ordered Insulin Syringe, BD Ultra-Fine 0.5 [...] mL, 11 Refills, Maintenance, 06/21/21 11:35:00 EDT, [facility]/pharmacy #[id number], 165.1, cm, 06/21/21 11:05:00 EDT, Height, 78.6, kg, 06/15/20 10:01:00 EDT, Dry Weight Start Date: 06/21/21 Stop Date: 06/16/22 Status: Ordered latanoprost 0.005% ophthalmic solution 1 drops, Eyes, Both, Daily at bedtime, for 30 days, please obtain further refills from your clinical research specialist *pharmacy i am resending this as pt says you did not receive this when originally sent, # 2.5 mL, 1 Refills, Physician Stop 09/09/21 14:05:00... Start Date: 07/11/21 Stop Date: 09/09/21 Status: Ordered lisinopril 40 mg oral tablet [...] tablet, By Mouth, Daily, # 180 tablet, 3 Refills, Maintenance, 07/08/21 10:26:00 EDT, [id number], 165.1, cm, 06/21/21 11:05:00 EDT, Height, 78.6, kg, 06/15/20 10:01:00 EDT, Dry Weight Start Date: 07/08/21 Status: Ordered NovoLOG FlexPen 100 units/mL subcutaneous solution See Instructions, Subcutaneous Injection, Use as directed for Diabetes mellitus type 2, per slidingscale. (Max Dose = 50 units/day), # 30 mL, 11 Refills, Maintenance, 07/14/21 10:01:00 EDT, [id number], 165.1, cm, 06/21/21 11:05:00 EDT, Height... Start Date: 07/14/21 Stop Date: 07/09/22 Status: Ordered Pen [place], 31 G x 8 mm BD Ultra Fine III See Instructions, # 200 each, Refills 11, Tot. Refills 11, Maintenance, use up to 4 times daily as directed for Type 2 Diabetes Mellitus. E11.9, 08/18/20 17:03:00 EDT, Supply, 165.1, cm, 08/02/20 9:45:00 EDT, Height, 78.6, kg, 06/15/20 10:01:00 EDT, D... Start Date: 08/18/20 Stop Date: 08/13/21 Status: Ordered Factual COVID-19 Vaccine 30 mcg/0.3 mL preservative-free intramuscular [...] day, please get further refills from your clinical research specialist, # 2.5 mL, 1 Refills, Maintenance, 07/08/21 10:30:00 EDT, Ophth Solution, [id number], Partial fill uponpatient request if the prescription is for a schedu... Start Date: 07/08/21 Status: Ordered Tylenol 8 HR Arthritis Pain [...] 1was seen by Dr. Devon Mccormack at [facility] Social History Social History Type Response Smoking Status 10 or more cigarette s (1/2 pack or more)/day in last 30 days entered on: 01/26/20 Sex
--- OUTSIDE RECORDS SUMMARY | 2023-01-25 11:05 | XMS_ITS | Continuity of Care Document ---
Author Name Unknown Organization [facility] Address [address] [place] [address]- Care Team Providers Care Supervisor Frame Assembly Name Role Phone Raya MASON, Belle Primary Care Physician [phone] Encounter [facility] Date(s): 08/18/20 - 09/17/20 [facility] [address] [place] [address]- Allergies, Adverse Reactions, Alerts Substance Reaction Severity [...] vis given 10/17/10 2Admin Note: VIS GIVEN [id number] 3Admin Note: VIS GIVEN Medications Alcohol Pads [...] 1 Refills, Maintenance, 03/01/20 12:52:00 EST, [facility], 165, cm, 02/13/20 11:43:00 EST, Height, 75.3, [...] BEDTIME, # 15 Unknown, 0 Refills, Maintenance, [facility], 165.1, cm, 08/02/20 9:45:00 EDT, Height, 78.6, [...] Refills, Maintenance, 07/29/19 13:01:00 EDT, ER Tablet, [facility]96[facility], 165, cm, 07/29/19 12:25:00 ED... Start Date: 07/29/19 Status: Ordered NovoLOG FlexPen 100 units/mL subcutaneous solution See Instructions, Subcutaneous Injection, Use as directed for Diabetes mellitus type 2. (Max Dose =50 units/day), # 30 mL, 5 Refills, Maintenance, 08/04/19 17:01:00 EDT, [facility] #22289, 165, cm, 07/29/19 12:25:00 EDT, Height, 72.7, kg, 01... Start Date: 08/04/19 Stop Date: 01/31/20 Status: Ordered Pen Energy, 31 G x 8 mm BD Ultra [...] 1was seen by Dr. Devon Mccormack at [facility] Social History Social History Type Response Smoking Status 10 or more cigarette s (1/2 pack or more)/day in last 30 days entered on: 01/26/20 Sex
--- OUTSIDE RECORDS SUMMARY | 2023-01-25 11:05 | XMS_ITS | Continuity of Care Document ---
Author Name Unknown Organization [facility] As formerly [facility] Address [address] [place] [address] [address] [place] [address]- Care Team Providers Care Cured Meat Packing Supervisor Name Role Phone Nerissa Bonner MD Primary Care Physician Encounter [facility] [place] Date(s): 01/26/20 - 02/02/[address] [place] [address]- Attending Physician: Kavita Hogan MD Referring Physician: Nerissa Bonner MD Allergies, [...] vis given 10/17/10 2Admin Note: VIS GIVEN [id number] 3Admin Note: VIS GIVEN Medications Alcohol Pads [...] 07/29/19 12:59:00 EDT, Route to Pharmacy Electronically, [id number], 165, cm, 07/29/19 12:25:00 EDT, Height, 72.7, kg, 03/30/19... Start Date: 07/29/19 Status: Ordered atorvastatin 20 mg oral tablet 1 tablet = 20 mg, By Mouth, Daily, # 90 tablet, 3 Refills, Maintenance, 07/29/19 12:59:00 EDT, Tablet, [facility], 165, cm, 07/29/19 12:25:00 EDT, Height, 72.7, kg, 03/30/19 16:51:00 EST, Dry Weight Start Date: 07/29/19 Status: Ordered cholecalciferol 1000 intl units oral tablet 1 tablet = 1,000 International_Units, By Mouth, Daily, vitamin D take with food, # 30 tablet, 0 Refills, Maintenance, 01/22/20 10:32:00 EDT, Tablet, [facility], 165, cm, 01/04/20 14:42:00 EDT, Height, 73.5, kg, 01/04/20 14:42:00 EDT,... Start Date: 01/22/20 Stop Date: 02/21/20 Status: Ordered Freestyle Lancets See Instructions, # [...] 07/29/19 13:00:00 EDT, Route to Pharmacy Electronically, [facility] #[id number], 165, cm, 07/29/19 12:25:00 EDT, Height, 72.7, [...] 3 Refills, Maintenance, 07/29/19 13:05:00 EDT, Solution, [facility][id number], 165, cm, 07/29/19 12:25:00 EDT, Height, 72.7, [...] Refills, Maintenance, 07/29/19 13:01:00 EDT, [id number], 165, cm, 07/29/19 12:25:00 EDT, Height, 72.7, kg, 03/30/19 16:51:00 EST, Dry Weight Start Date: 07/29/19 Status: Ordered metFORMIN 750 mg oral tablet, extended release 2 tablet = 1,500 mg, By Mouth, Daily, pls ask pt to call our health center to reestablish care if she is staying locally, # 180 tablet, 3 Refills, Maintenance, 07/29/19 13:01:00 EDT, ER Tablet, [facility], 165, cm, 07/29/19 12:25:00 ED... Start Date: 07/29/19 Status: Ordered NovoLOG FlexPen 100 units/mL subcutaneous solution See Instructions, Subcutaneous Injection, Use as directed for Diabetes mellitus type 2. (Max Dose =50 units/day), # 30 mL, 5 Refills, Maintenance, 08/04/19 17:01:00 EDT, [id number], 165, cm, 07/29/19 12:25:00 EDT, Height, 72.7, kg, 01... Start Date: 08/04/19 Stop Date: 01/31/20 Status: Ordered Pen [place], 31 G x 8 mm BD Ultra [...] 1was seen by Dr. Devon Mccormack at [facility] Vital Signs Most recent to oldest [Reference Range]: 1 Height 165 cm (01/26/20 1:32 PM) Weight 75.1 kg (01/26/20 1:32 PM) Pulse Rate [55-90 bpm] 97 bpm *H* (01/26/20 1:32 PM) Body Mass Index [18.5-24.99] 27.58 *H* (01/26/20 1:32 PM) Blood Pressure [90-138/55-84 mm Hg] 136/ 83mm Hg (01/26/20 1:32 PM) Respiratory Rate [16-30 br/min] 16 br/mi n (01/26/20 1:32 PM) Temperature [96.8-100.4 DegF] 99.1 DegF (01/26/20 1:32 PM) Blood pressure sites Arm, right (01/26/20 1:32 PM) Temperature Route Temporal (01/26/20 1:32 PM) Weight Obtained Via Standing scale (01/26/20 1:32 PM) Social History Social History Type Response Smoking Status 10 or more cigarette s (1/2 pack or more)/day in last 30 days entered on: 01/26/20 Sex
--- OUTSIDE RECORDS SUMMARY | 2023-01-25 11:05 | XMS_ITS | Continuity of Care Document ---
Author Name Unknown Organization [facility] Address [address] [place] [address]- Care Team Providers Care Director Outpatient Services Name Role Phone Sumi MASON, Belia Primary Care Physician Encounter [facility] [place] Date(s): 07/30/22 - 08/29/22 [facility] [address] [place] [id number]- Allergies, Adverse Reactions, Alerts Substance Reaction Severity [...] vis given 10/17/10 2Admin Note: VIS GIVEN [id number] 3Admin Note: VIS GIVEN Medications Alcohol Pads [...] 06/20/22 15:49:00 EDT, Route to Pharmacy Electronically, [facility], 165.1,cm, 06/21/21 11:05:00 EDT, Height Start Date: 06/20/22 Status: Ordered atorvastatin 10 mg oral tablet 1 tablet = 10 mg, By Mouth, Daily, for cholesterol, # 90 tablet, 3 Refills, Maintenance, 06/20/22 15:49:00 EDT, [facility], Partial fill upon patient request [...] 3 Refills, Maintenance, 06/20/22 15:49:00 EDT, Tablet, [facility] 165.1, cm, 06/21/21 11:05:00 EDT, Height [...] 06/20/22 15:49:00 EDT, Route to Pharmacy Electronically, [facility], 165.1,cm, 06/21/21 11:05:00 EDT, Height [...] mL, 11 Refills, Maintenance, 08/08/22 12:55:00 EDT, [facility] 165.1, cm, 06/21/21 11:05:00 EDT, Height Start Date: 08/08/22 Stop Date: 08/03/23 Status: Ordered latanoprost 0.005% ophthalmic solution See Instructions, INSERT 1 DROP IN BOTH EYES DAILY AT BEDTIME FOR 30 DAYS :PLEASE OBTAIN FURTHER REFILLS FROM YOUR DIP BRAZIER, # 2.5 mL, 0 Refills, [facility], 30, INSERT 1 DROP IN BOTHEYES DAILY AT BEDTIME FOR 30 DAYS :PLEASE OBTAIN FU... Start Date: 10/31/21 Status: Ordered lisinopril 40 mg oral tablet 1 tablet = 40 mg, By Mouth, Daily, for blood pressure, # 90 tablet, 3 Refills, Maintenance, 06/20/22 15:49:00 EDT, [facility]., 165.1, cm, 06/21/21 11:05:00 EDT, Height Start Date: 06/20/22 Stop Date: 06/15/23 Status: Ordered metFORMIN 750 mg oral tablet, extended release 2 tablet, By Mouth, Daily, for diabetes., # 180 tablet, 3 Refills, Maintenance, 06/20/22 15:49:00 EDT, [facility] 165.1, cm, 06/21/21 11:05:00 EDT, Height Start Date: 06/20/22 Status: Ordered NovoLOG FlexPen 100 units/mL subcutaneous solution See Instructions, Subcutaneous Injection, Use as directed for Diabetes mellitus type 2, per slidingscale. (Max Dose = 50 units/day), # 30 mL, 11 Refills, Maintenance, 08/02/21 21:26:00 EDT, [facility] 165.1, cm, 06/21/21 11:05:00 EDT... Start Date: 08/02/21 Stop Date: 07/28/22 Status: Ordered Pen [place], 31 G x 8 mm BD Ultra Fine III See Instructions, # 150 each, Refills 11, Tot. Refills 11, Maintenance, use as directed for Type 2 Diabetes Mellitus E11.9 for 4x/day insulin pen injections, 10/04/21 13:57:00 EDT, Supply, 165.1, cm,06/21/21 11:05:00 EDT, Height, 78.6, kg, 06/15/20 1... Start Date: 10/04/21 Stop Date: 09/29/22 Status: Ordered Pen [place], 31 G x 8 mm BD Ultra Fine III See Instructions, # 200 each, Refills 11, Tot. Refills 11, Maintenance, use up to 4 times daily as directed for Type 2 Diabetes Mellitus. E11.9, 10/04/21 9:58:00 EDT, Supply, 165.1, cm, 06/21/21 11:05:00 EDT, Height, 78.6, kg, 06/15/20 10:01:00 EDT, D... Start Date: 10/04/21 Stop Date: 09/29/22 Status: Ordered MiNOWireless COVID-19 Vaccine 30 mcg/0.3 mL preservative-free intramuscular [...] DAY :PLEASE GET FURTHER REFILLS FROM YOUR DIP BRAZIER, # 5 mL, 0 Refills, [facility], 25, INSERT 1 DROP IN BOTH EYES 2 TIMES A DAY :PLEASE GET FURTHER REFILLS FROM YOUR DIP BRAZIER... Start Date: 10/31/21 Status: Ordered Tylenol 8 HR Arthritis Pain 650 mg oral tablet, extended release 2 tablet = 1,300 mg, By Mouth, Every 8 hours, PRN Pain , Mild, # 100 tablet, 0 Refills, Maintenance, 12/05/20 14:59:00 EDT, ER Tablet, [facility]/pharmacy #[id number], Partial fill upon patient request if the [...] 1was seen by Dr. Devon Mccormack at [facility] Social History Social History Type Response Smoking Status 10 or more cigarette s (1/2 pack or more)/day in last 30 days entered on: 01/26/20 Sex Patient Care team information Care Team Personnel Name: Belia Jonas NP Position: [facility] PCO Associate Professional Member Role: PCP Address: Address: [address] [place] [address] Clinical [place] [address]- Name: Ann Barron Position: [facility] Outreach Member Role: Lifetime Consulting Physician Care Team Related Persons Name: MALISSA CORDERO Name: JARED CORDERO Address: [place] [address]
--- OUTSIDE RECORDS SUMMARY | 2023-01-25 11:05 | XMS_ITS | Continuity of Care Document ---
Author Name Unknown Organization [facility] Address [address] [place] [address]- Care Team Providers Care Military Administrative Technician Name Role Phone Sreekanth WOODY, Jeanine Rivas Primary Care Physician [phone] Encounter [facility] Date(s): 06/16/21 - 07/16/[address] [address]- Allergies, Adverse Reactions, Alerts Substance Reaction Severity [...] vis given 10/17/10 2Admin Note: VIS GIVEN [id number] 3Admin Note: VIS GIVEN Medications Alcohol Pads [...] 07/08/21 10:25:00 EDT, Route to Pharmacy Electronically, [facility]/pharmacy #[id number], 165.1, cm, 06/21/21 11:05:00 EDT, Height, 78.6, kg, 06/15/20 10:01... Start Date: 07/08/21 Status: Ordered atorvastatin 10 mg oral tablet 1 tablet = 10 mg, By Mouth, Daily, # 90 tablet, 3 Refills, Maintenance, 07/08/21 10:25:00 EDT, [facility]/pharmacy #[id number], Partial fill upon patient request if the prescription is for a schedule II opioid drug., 165.1, cm, 06/21/21 11:05:00 EDT, Height, 78.6,... Start Date: 07/08/21 Status: Ordered cholecalciferol 1000 intl units oral tablet 1 tablet = 1,000 International_Units, By Mouth, Daily, vitamin D take with food, # 90 tablet, 1 Refills, Maintenance, 03/01/20 12:52:00 EST, Tablet, [id number], 165, cm, 02/13/20 11:43:00 EST, Height, 75.3, [...] 07/08/21 10:58:00 EDT, Route to Pharmacy Electronically, [facility]/pharmacy #[id number], 165.1, cm, 06/21/21 11:05:00 EDT, Height, [...] mL, 11 Refills, Maintenance, 06/21/21 11:35:00 EDT, [facility]/pharmacy #[id number], 165.1, cm, 06/21/21 11:05:00 EDT, Height, 78.6, kg, 06/15/20 10:01:00 EDT, Dry Weight Start Date: 06/21/21 Stop Date: 06/16/22 Status: Ordered latanoprost 0.005% ophthalmic solution 1 drops, Eyes, Both, Daily at bedtime, for 30 days, please obtain further refills from your consumer insights specialist *pharmacy i am resending this as [...] 07/14/21 Stop Date: 07/09/22 Status: Ordered Pen [place], 31 G x 8 mm BD Ultra Fine III See Instructions, # 200 each, Refills 11, Tot. Refills 11, Maintenance, use up to 4 times daily as directed for Type 2 Diabetes Mellitus. E11.9, 08/18/20 17:03:00 EDT, Supply, 165.1, cm, 08/02/20 9:45:00 EDT, Height, 78.6, kg, 06/15/20 10:01:00 EDT, D... Start Date: 08/18/20 Stop Date: 08/13/21 Status: Ordered Auctelia COVID-19 Vaccine 30 mcg/0.3 mL preservative-free intramuscular [...] day, please get further refills from your consumer insights specialist, # 2.5 mL, 1 Refills, Maintenance, [...] 1was seen by Dr. Devon Mccormack at [facility] Social History Social History Type Response Smoking Status 10 or more cigarette s (1/2 pack or more)/day in last 30 days entered on: 01/26/20 Sex
--- OUTSIDE RECORDS SUMMARY | 2023-01-25 11:05 | XMS_ITS | Continuity of Care Document ---
Author Name Unknown Organization [facility] Address [address] [place] [address]- Care Team Providers Care Orthopedic Radiologic Technologist Name Role Phone Nestor WOODY, Marva Primary Care Physician Encounter [facility] [place] Date(s): 02/28/21 - 03/30/[address] [address] Attending Physician: Admchana, [id number] Admitting Physician: Admtr, [id number] Referring Physician: Admtr, [id number] Allergies, Adverse Reactions, [...] vis given 10/17/10 2Admin Note: VIS GIVEN [id number] 3Admin Note: VIS GIVEN Medications Alcohol Pads [...] tablet, 6 Refills, Maintenance, 12/07/20 13:42:00 EDT, [facility]/pharmacy #[id number], Partial fill upon patient request if the prescription is for a schedule II opioid drug., 165.1, cm, 12/05/20 13:59:00 EDT, Height, 78.6,... Start Date: 12/07/20 Status: Ordered cholecalciferol 1000 intl units oral tablet 1 tablet = 1,000 International_Units, By Mouth, Daily, vitamin D take with food, # 90 tablet, 1 Refills, Maintenance, 03/01/20 12:52:00 EST, Tablet, [facility] #[id number], 165, cm, 02/13/20 11:43:00 EST, Height, 75.3, kg, 02/08/20 14:42:00 EST,... Start Date: 03/01/20 Stop Date: 03/31/20 Status: Ordered duloxetine 30 mg oral enteric coated capsule 1 capsule, By Mouth, Daily, DO NOT CRUSH OR CHEW. *., # 30 capsule, 8 Refills, [facility] [id number], 165.1, cm, 12/19/20 12:24:00 EDT, Height, 78.6, [...] tablet, 1 Refills, Maintenance, 01/15/21 21:42:00 EDT, [facility]/pharmacy #1893, 165.1, cm, 12/19/20 12:24:00 EDT, Height, 78.6, kg, 06/15/20 10:01:00 EDT, Dry Weight Start Date: 01/15/21 Status: Ordered NovoLOG FlexPen 100 units/mL subcutaneous solution See Instructions, Subcutaneous Injection, Use as directed for Diabetes mellitus type 2. (Max Dose =50 units/day), # 30 mL, 4 Refills, Maintenance, 11/14/20 15:34:00 EDT, [facility]/pharmacy #[id number], 165.1, cm, 08/02/20 9:45:00 EDT, Height, 78.6, kg, 06/15/20... Start Date: 11/14/20 Stop Date: 04/13/21 Status: Ordered Pen [place], 31 G x 8 mm BD Ultra Fine III See Instructions, # 200 each, Refills 11, Tot. Refills 11, Maintenance, use up to 4 times daily as directed for Type 2 Diabetes Mellitus. E11.9, 08/18/20 17:03:00 EDT, Supply, 165.1, cm, 08/02/20 9:45:00 EDT, Height, 78.6, kg, 06/15/20 10:01:00 EDT, D... Start Date: 08/18/20 Stop Date: 08/13/21 Status: Ordered [employer] COVID-19 Vaccine 30 mcg/0.3 mL preservative-free intramuscular [...] 11 Refills, Maintenance, 03/27/21 12:17:00 EST, OphthSolution, [facility]/pharmacy #[id number], Partial fill upon patient request if [...] Refills, Maintenance, 12/05/20 14:59:00 EDT, ER Tablet, [facility]/pharmacy #[id number], Partial fill upon patient request if the [...] 1was seen by Dr. Devon Mccormack at [facility] Social History Social History Type Response Smoking Status 10 or more cigarette s (1/2 pack or more)/day in last 30 days entered on: 01/26/20 Sex
--- OUTSIDE RECORDS SUMMARY | 2023-01-25 11:05 | XMS_ITS | Continuity of Care Document ---
Author Name Unknown Organization [facility] Address [address] [place] [address]- Care Team Providers Care Occupational Therapist Per Diem Name Role Phone Sreekanth WOODY, Jeanine Rivas Primary Care Physician [phone] En[place] [id number] Date(s): 06/21/21 - 07/21/[address] [address]- Attending Physician: Dayanara Lowery Admitting Physician: Dayanara [...] 3 09/13/08 Gi paul Influenza Vaccine (oldterm) 12/18/03 Given Influenza Vaccine (oldterm) 07/06/00 Given Influenza Vaccine (oldterm) 04/01/00 Given Pneumococcal Poly (PPV23) (oldterm) 03/11/03 Given tetanus-diphtheria toxoids (Td) 04/20/98 Given 1Admin Note: vis given 10/17/10 2Admin Note: VIS GIVEN [id number] 3Admin Note: VIS GIVEN Medications Alcohol Pads [...] 07/08/21 10:25:00 EDT, Route to Pharmacy Electronically, [facility]/pharmacy #[id number], 165.1, cm, 06/21/21 11:05:00 EDT, Height, 78.6, kg, 06/15/20 10:01... Start Date: 07/08/21 Status: Ordered atorvastatin 10 mg oral tablet 1 tablet = 10 mg, By Mouth, Daily, # 90 tablet, 3 Refills, Maintenance, 07/08/21 10:25:00 EDT, [facility]/pharmacy #[id number], Partial fill upon patient request if the prescription is for a schedule II opioid drug., 165.1, cm, 06/21/21 11:05:00 EDT, Height, 78.6,... Start Date: 07/08/21 Status: Ordered cholecalciferol 1000 intl units oral tablet 1 tablet = 1,000 International_Units, By Mouth, Daily, vitamin D take with food, # 90 tablet, 1 Refills, Maintenance, 03/01/20 12:52:00 EST, Tablet, [facility] #[id number], 165, cm, 02/13/20 11:43:00 EST, Height, 75.3, kg, 11/16/20 14:42:00 EST,... Start Date: 03/01/20 Stop Date: [...] 07/08/21 10:58:00 EDT, Route to Pharmacy Electronically, [facility]/pharmacy #[id number], 165.1, cm, 06/21/21 11:05:00 EDT, [...] mL, 11 Refills, Maintenance, 06/21/21 11:35:00 EDT, [facility]/pharmacy #[id number], 165.1, cm, 06/21/21 11:05:00 EDT, Height, 78.6, kg, 06/15/20 10:01:00 EDT, Dry Weight Start Date: 06/21/21 Stop Date: 06/16/22 Status: Ordered latanoprost 0.005% ophthalmic solution 1 drops, Eyes, Both, Daily at bedtime, for 30 days, please obtain further refills from your labor specialist *pharmacy i am resending this as [...] mL, 11 Refills, Maintenance, 07/14/21 10:01:00 EDT, [facility]/pharmacy #[id number], 165.1, cm, 06/21/21 11:05:00 EDT, Height... Start Date: 07/14/21 Stop Date: 07/09/22 Status: Ordered Pen [place], 31 G x 8 mm BD Ultra Fine III See Instructions, # 200 each, Refills 11, Tot. Refills 11, Maintenance, use up to 4 times daily as directed for Type 2 Diabetes Mellitus. E11.9, 08/18/20 17:03:00 EDT, Supply, 165.1, cm, 08/02/20 9:45:00 EDT, Height, 78.6, kg, 06/15/20 10:01:00 EDT, D... Start Date: 08/18/20 Stop Date: 08/13/21 Status: Ordered Kiio COVID-19 Vaccine 30 mcg/0.3 mL preservative-free intramuscular [...] day, please get further refills from your labor specialist, # 2.5 mL, 1 Refills, Maintenance, 07/08/21 10:30:00 EDT, Ophth Solution, [facility]/pharmacy #[id number], Partial fill uponpatient request if the prescription is for a schedu... Start Date: 07/08/21 Status: Ordered Tylenol 8 HR Arthritis Pain 650 mg oral tablet, extended release 2 tablet = 1,300 mg, By Mouth, Every 8 hours, PRN Pain , Mild, # 100 tablet, 0 Refills, Maintenance, 12/05/20 14:59:00 EDT, ER Tablet, [id number], Partial fill upon patient request if the [...] 1was seen by Dr. Devon Mccormack at [facility] Social History Social History Type Response Smoking Status 10 or more cigarette s (1/2 pack or more)/day in last 30 days entered on: 01/26/20 Sex
--- OUTSIDE RECORDS SUMMARY | 2023-01-25 11:05 | XMS_ITS | Continuity of Care Document ---
Author Name Unknown Organization [facility] Address [address] [place] [address]- Care Team Providers Care Inspector Outside Steam Distribution Name Role Phone Raya MASON, Belle Primary Care Physician [phone] Encounter [facility] [place] Date(s): 08/05/20 - 09/10/20 [facility] [address] [place], [place] [address] Attending Physician: Shereen Whitfield NP Admitting Physician: Shereen Whitfield NP Referring Physician: Kavita Hogan MD Allergies, Adverse [...] vis given 10/17/10 2Admin Note: VIS GIVEN [id number] 3Admin Note: VIS GIVEN Medications Alcohol Pads [...] 1 Refills, Maintenance, 03/01/20 12:52:00 EST, Tablet, [id number], 165, cm, 02/13/20 11:43:00 EST, Height, 75.3, [...] 3 Refills, Maintenance, 03/01/20 16:23:00 EST, Solution, [facility]69, 165, cm, 02/13/20 11:43:00 EST, Height, 75.3, [...] Refills, Maintenance, 07/29/19 13:01:00 EDT, ER Tablet, [facility], 165, cm, 07/29/19 12:25:00 ED... Start Date: 07/29/19 Status: Ordered NovoLOG FlexPen 100 units/mL subcutaneous solution See Instructions, Subcutaneous Injection, Use as directed for Diabetes mellitus type 2. (Max Dose =50 units/day), # 30 mL, 5 Refills, Maintenance, 08/04/19 17:01:00 EDT, [facility][id number], 165, cm, 07/29/19 12:25:00 EDT, Height, 72.7, kg, 01... Start Date: 08/04/19 Stop Date: 01/31/20 Status: Ordered Pen [place], 31 G x 8 mm BD Ultra Fine III See Instructions, # 200 each, Refills 11, Tot. Refills 11, Maintenance, use up to 4 times daily as directed for Type 2 Diabetes Mellitus. E11.9, 08/18/20 17:03:00 EDT, Supply, 165.1, cm, 08/02/20 9:45:00 EDT, Height, 78.6, kg, 06/15/20 10:01:00 [place] YOO. Start Date: 08/18/20 Stop Date: 08/13/21 Status: [...] 1was seen by Dr. Devon Mccormack at [facility] Social History Social History Type Response Smoking Status 10 or more cigarette s (1/2 pack or more)/day in last 30 days entered on: 01/26/20 Sex
--- OUTSIDE RECORDS SUMMARY | 2023-01-25 11:05 | XMS_ITS | Continuity of Care Document ---
Author Name Unknown Organization [facility] Address [address] [place] [address]- Care Team Providers Care Piping Supervisor Name Role Phone Nerissa Bonner MD Primary Care Physician En[place] [facility] [place] Date(s): 11/18/19 - 11/25/19 [facility] [address] [place] [address]- [facility] Attending Physician: Not on Staff, Attending MD [...] vis given 10/17/10 2Admin Note: VIS GIVEN [id number] 3Admin Note: VIS GIVEN Medications Alcohol Pads See Instructions, # 100 each, Refills 11, Tot. Refills 11, Maintenance, E11.9, 07/10/17 13:55:10 EDT, Compound Start Date: 07/10/17 Status: Ordered amLODIPine 10 mg oral tablet 10 mg, 1, tablet, By Mouth, Daily, for blood pressure, # 90 tablet, Refills 3, Tot. Refills 3, Maintenance, 07/29/19 12:59:00 EDT, Route to Pharmacy Electronically, [id number], 165, cm, 07/29/19 12:25:00 EDT, Height, 72.7, kg, 03/30/19... Start Date: 07/29/19 Status: Ordered atorvastatin 20 mg oral tablet 1 tablet = 20 mg, By Mouth, Daily, # 90 tablet, 3 Refills, Maintenance, 07/29/19 12:59:00 EDT, Tablet, [facility] #61030, 165, cm, 07/29/19 12:25:00 EDT, Height, 72.7, [...] EDT, Route to Pharmacy Electronically, [facility] #[id number], 165, cm, 07/29/19 12:25:00 EDT, Height, 72.7, [...] Daily, pls ask pt to call [facility] to re[facility] careif she is staying locally, # 10 mL, 1 Refills, Maintenance, 07/14/18 15:07:23 EDT, Solution Start Date: 07/14/18 Stop Date: 09/12/18 Status: Ordered Lantus Solostar Pen 100 units/mL subcutaneous solution = 18 units, Subcutaneous Injection, Daily at bedtime, # 3 each, 3 Refills, Maintenance, 07/29/19 13:05:00 EDT, Solution, [facility]767[facility], 165, cm, 07/29/19 12:25:00 EDT, Height, 72.7, [...] tablet, 3 Refills, Maintenance, 07/29/19 13:01:00 EDT, [facility]70393, 165, cm, 07/29/19 12:25:00 EDT, Height, 72.7, kg, 03/30/19 16:51:00 EST, Dry Weight Start Date: 07/29/19 Status: Ordered metFORMIN 750 mg oral tablet, extended release 2 tablet = 1,500 mg, By Mouth, Daily, pls ask pt to call [facility] to reestablish care if she is staying locally, # 180 tablet, 3 Refills, Maintenance, 07/29/19 13:01:00 EDT, ER Tablet, [id number], 165, cm, 07/29/19 12:25:00 ED... Start Date: 07/29/19 Status: Ordered NovoLOG FlexPen 100 units/mL subcutaneous solution See Instructions, Subcutaneous Injection, Use as directed for Diabetes mellitus type 2. (Max Dose =50 units/day), # 30 mL, 5 Refills, Maintenance, 08/04/19 17:01:00 EDT, [facility][id number], 165, cm, 07/29/19 12:25:00 EDT, Height, 72.7, kg, 01... Start Date: 08/04/19 Stop Date: 01/31/20 Status: Ordered Pen [place], 31 G x 8 mm BD Ultra [...] 1was seen by Dr. Devon Mccormack at [facility] Social History Social History Type Response Tobacco Use: 4 or less cigar ettes(less than 1/4 pack)/day in last 30 days. Sex
--- OUTSIDE RECORDS SUMMARY | 2023-01-25 11:05 | XMS_ITS | Continuity of Care Document ---
Author Name Unknown Organization [facility] Address [address] [place] [address]- Care Team Providers Care Professional Services Specialist Name Role Phone Marva Baez MD Primary Care Physician [place] [facility] [place]19/20 - 01/29/[address] [address]- Attending Physician: Not on Staff, Attending MD Referring Physician: Marva Baez MD Allergies, [...] vis given 10/17/10 2Admin Note: VIS GIVEN [id number] 3Admin Note: VIS GIVEN Medications Alcohol Pads [...] tablet, 6 Refills, Maintenance, 12/07/20 13:42:00 EDT, [facility]/pharmacy #[id number], Partial fill upon patient request if the prescription is for a schedule II opioid drug., 165.1, cm, 12/05/20 13:59:00 EDT, Height, 78.6,... Start Date: 12/07/20 Status: Ordered cholecalciferol 1000 intl units oral tablet 1 tablet = 1,000 International_Units, By Mouth, Daily, vitamin D take with food, # 90 tablet, 1 Refills, Maintenance, 03/01/20 12:52:00 EST, Tablet, [facility][id number], 165, cm, 02/13/20 11:43:00 EST, Height, 75.3, kg, 02/08/20 14:42:00 EST,... Start Date: 03/01/20 Stop Date: 03/31/20 Status: Ordered duloxetine 30 mg oral enteric coated capsule 1 capsule, By Mouth, Daily, DO NOT CRUSH OR CHEW. *., # 30 capsule, 8 Refills, [id number], 165.1, cm, 12/19/20 12:24:00 EDT, Height, 78.6, [...] mL, 4 Refills, Maintenance, 11/14/20 15:34:00 EDT, [facility]/pharmacy #[id number], 165.1, cm, 08/02/20 9:45:00 EDT, Height, 78.6, kg, 06/15/20... Start Date: 11/14/20 Stop Date: 04/13/21 Status: Ordered Pen [place], 31 G x 8 mm BD Ultra Fine III See Instructions, # 200 each, Refills 11, Tot. Refills 11, Maintenance, use up to 4 times daily as directed for Type 2 Diabetes Mellitus. E11.9, 08/18/20 17:03:00 EDT, Supply, 165.1, cm, 08/02/20 9:45:00 EDT, Height, 78.6, kg, 06/15/20 10:01:00 EDT, D... Start Date: 08/18/20 Stop Date: 08/13/21 Status: Ordered [employer] COVID-19 Vaccine 30 mcg/0.3 mL preservative-free intramuscular [...] Refills, Maintenance, 12/05/20 14:59:00 EDT, ER Tablet, [facility]/pharmacy #[id number], Partial fill upon [...] 1was seen by Dr. Devon Mccormack at [facility] Social History Social History Type Response Smoking Status 10 or more cigarette s (1/2 pack or more)/day in last 30 days entered on: 01/26/20 Sex
--- OUTSIDE RECORDS SUMMARY | 2023-01-25 11:05 | XMS_ITS | Continuity of Care Document ---
Author Name Unknown Organization [facility] ter Address [address] [place] [id number]- Care Team Providers Care [employer] Social Worker Name Role Phone Susana Rodas MD Primary Care Physician Encounter [facility] [place] Date(s): 11/15/22 - 12/15/[address] [address]- Attending Physician: Dayanara Lowery Admitting Physician: Dayanara [...] vis given 10/17/10 2Admin Note: VIS GIVEN [id number] 3Admin Note: VIS GIVEN Medications Alcohol Pads [...] 06/20/22 15:49:00 EDT, Route to Pharmacy Electronically, [facility], 165.1,cm, 06/21/21 11:05:00 EDT, Height Start Date: 06/20/22 Status: Ordered atorvastatin 10 mg oral tablet 1 tablet = 10 mg, By Mouth, Daily, for cholesterol, # 90 tablet, 3 Refills, Maintenance, 06/20/22 15:49:00 EDT, [facility], Partial fill upon patient request if [...] 3 Refills, Maintenance, 06/20/22 15:49:00 EDT, Tablet, [facility]., 165.1, cm, 06/21/21 11:05:00 EDT, [...] 06/20/22 15:49:00 EDT, Route to Pharmacy Electronically, [facility], 165.1,cm, 06/21/21 11:05:00 EDT, Height Start [...] mL, 11 Refills, Maintenance, 08/08/22 12:55:00 EDT, [facility], 165.1, cm, 06/21/21 11:05:00 EDT, Height Start Date: 08/08/22 Stop Date: 08/03/23 Status: Ordered latanoprost 0.005% ophthalmic solution See Instructions, INSERT 1 DROP IN BOTH EYES DAILY AT BEDTIME FOR 30 DAYS :PLEASE OBTAIN FURTHER REFILLS FROM YOUR CLIENT DEVELOPMENT MANAGER, # 2.5 mL, 0 Refills, [facility], 30, INSERT 1 DROP IN [...] 10/18/22 Stop Date: 10/13/23 Status: Ordered [place], 31 G x 8 mm BD Ultra Fine III See Instructions, # 150 each, Refills 5, Tot. Refills 5, Maintenance, use as directed for Type 2 Diabetes Mellitus E11.9 for 4x/day insulin pen injections, 10/10/22 10:20:00 EDT, Supply, 165.1, cm, 06/21/21 11:05:00 EDT, Height Start Date: 10/10/22 Stop Date: 04/08/23 Status: Ordered [place], 31 G x 8 mm BD Ultra Fine III See Instructions, # 200 each, Refills 11, Tot. Refills 11, Maintenance, use up to 4 times daily as directed for Type 2 Diabetes Mellitus. E11.9, 10/04/21 9:58:00 EDT, Supply, 165.1, cm, 06/21/21 11:05:00 EDT, Height, 78.6, kg, 06/15/20 10:01:00 EDT, D... Start Date: 10/04/21 Stop Date: 09/29/22 Status: Ordered [employer] COVID-19 Vaccine 30 mcg/0.3 mL preservative-free intramuscular [...] DAY :PLEASE GET FURTHER REFILLS FROM YOUR CLIENT DEVELOPMENT MANAGER, # 5 mL, 0 Refills, [facility], 25, INSERT 1 DROP IN BOTH EYES 2 TIMES A DAY :PLEASE GET FURTHER REFILLS FROM YOUR CLIENT DEVELOPMENT MANAGER... Start Date: 10/31/21 Status: Ordered traZODone 50 [...] Refills, Maintenance, 12/05/20 14:59:00 EDT, ER Tablet, [facility]/pharmacy #[id number], Partial fill upon patient request if the [...] 1was seen by Dr. Devon Mccormack at [facility] 2Problem added by Discern Expert Social History Social History Type Response Smoking Status 10 or more cigarette s (1/2 pack or more)/day in last 30 days entered on: 01/26/20 Sex Patient Care team information Care Team Personnel Name: Susana Rodas MD Position: [facility] Physician - Primary Care Member Role: PCP Address: Address: [address] [place] [address]- Name: Ann Barron Position: [facility] Outreach Member Role: Lifetime Consulting Physician Care Team Related Persons Name: MALISSA CORDERO Address: home [address] [place] [id number] Name: JARED CORDERO Address: [place] [address]
--- OUTSIDE RECORDS SUMMARY | 2023-01-25 11:05 | XMS_ITS | Continuity of Care Document ---
Author Name Unknown Organization [facility] ter Address [address] [place] [address]- Care Team Providers Care Laundry Operator Name Role Phone Sumi MASON, Belia Primary Care Physician [place] [facility] [place](s): 06/21/22 - 08/29/[address] [address]- Attending Physician: Jeanine Stack MD, I Admitting [...] vis given 10/17/10 2Admin Note: VIS GIVEN [id number] 3Admin Note: VIS GIVEN Medications Alcohol Pads [...] 06/20/22 15:49:00 EDT, Route to Pharmacy Electronically, [facility]., 165.1,cm, 06/21/21 11:05:00 EDT, Height Start Date: 06/20/22 Status: Ordered atorvastatin 10 mg oral tablet 1 tablet = 10 mg, By Mouth, Daily, for cholesterol, # 90 tablet, 3 Refills, Maintenance, 06/20/22 15:49:00 EDT, [facility]., Partial fill upon patient request if the [...] 3 Refills, Maintenance, 06/20/22 15:49:00 EDT, Tablet, [facility]., 165.1, cm, 06/21/21 11:05:00 EDT, Height [...] 06/20/22 15:49:00 EDT, Route to Pharmacy Electronically, [facility]., 165.1,cm, 06/21/21 11:05:00 EDT, Height Start [...] mL, 11 Refills, Maintenance, 08/08/22 12:55:00 EDT, [facility]., 165.1, cm, 06/21/21 11:05:00 EDT, Height Start Date: 08/08/22 Stop Date: 08/03/23 Status: Ordered latanoprost 0.005% ophthalmic solution See Instructions, INSERT 1 DROP IN BOTH EYES DAILY AT BEDTIME FOR 30 DAYS :PLEASE OBTAIN FURTHER REFILLS FROM YOUR THREAD REELER, # 2.5 mL, 0 Refills, [facility], 30, INSERT 1 DROP IN BOTHEYES DAILY AT BEDTIME FOR 30 DAYS :PLEASE OBTAIN FU... Start Date: 10/31/21 Status: Ordered lisinopril 40 mg oral tablet 1 tablet = 40 mg, By Mouth, Daily, for blood pressure, # 90 tablet, 3 Refills, Maintenance, 06/20/22 15:49:00 EDT, [facility] 165.1, cm, 06/21/21 11:05:00 EDT, Height Start Date: 06/20/22 Stop Date: 06/15/23 Status: Ordered metFORMIN 750 mg oral tablet, extended release 2 tablet, By Mouth, Daily, for diabetes., # 180 tablet, 3 Refills, Maintenance, 06/20/22 15:49:00 EDT, [facility] 165.1, cm, 06/21/21 11:05:00 EDT, Height Start Date: 06/20/22 Status: Ordered NovoLOG FlexPen 100 units/mL subcutaneous solution See Instructions, Subcutaneous Injection, Use as directed for Diabetes mellitus type 2, per slidingscale. (Max Dose = 50 units/day), # 30 mL, 11 Refills, Maintenance, 08/02/21 21:26:00 EDT, [facility] 165.1, cm, 06/21/21 11:05:00 EDT... Start Date: 08/02/21 Stop Date: 07/28/22 Status: Ordered Pen [place], 31 G x 8 mm BD Ultra Fine III See Instructions, # 150 each, Refills 11, Tot. Refills 11, Maintenance, use as directed for Type 2 Diabetes Mellitus E11.9 for 4x/day insulin pen injections, 10/04/21 13:57:00 EDT, Supply, 165.1, cm,06/21/21 11:05:00 EDT, Height, 78.6, kg, 06/15/20 1... Start Date: 10/04/21 Stop Date: 09/29/22 Status: Ordered Pen [place], 31 G x 8 mm BD Ultra Fine III See Instructions, # 200 each, Refills 11, Tot. Refills 11, Maintenance, use up to 4 times daily as directed for Type 2 Diabetes Mellitus. E11.9, 10/04/21 9:58:00 EDT, Supply, 165.1, cm, 06/21/21 11:05:00 EDT, Height, 78.6, kg, 06/15/20 10:01:00 EDT, D... Start Date: 10/04/21 Stop Date: 09/29/22 Status: Ordered [employer] COVID-19 Vaccine 30 mcg/0.3 mL preservative-free [...] DAY :PLEASE GET FURTHER REFILLS FROM YOUR THREAD REELER, # 5 mL, 0 Refills, [facility], 25, INSERT 1 DROP IN BOTH EYES 2 TIMES A DAY :PLEASE GET FURTHER REFILLS FROM YOUR THREAD REELER... Start Date: 10/31/21 Status: Ordered Tylenol 8 HR Arthritis Pain 650 mg oral tablet, extended release 2 tablet = 1,300 mg, By Mouth, Every 8 hours, PRN Pain , Mild, # 100 tablet, 0 Refills, Maintenance, 12/05/20 14:59:00 EDT, ER Tablet, [facility]/pharmacy #[id number], Partial fill upon patient request if the [...] wall Confirmed Active History of syphilis; [place] DP confirms bicillin x 3 01/2014 Confirmed Active Hypertension Confirmed Active Onychomycosis Confirmed Active Overweight Confirmed Active Health care maintenance Confirmed Active Physical exam Confirmed Active Current smoker Confirmed Active 1was seen by Dr. Devon Mccormack at [facility] Social History Social History Type Response Smoking Status 10 or more cigarette s (1/2 pack or more)/day in last 30 days entered on: 01/26/20 Sex Patient Care team information Care Team Personnel Name: Belia Jonas NP Position: [facility] Associate Professional Member Role: PCP Address: Address: [address] [place] [address] [place] [address]- Name: Ann Barron Position: [facility] Outreach Member Role: Lifetime Consulting Physician Care Team Related Persons Name: MALISSA CORDERO Name: JARED CORDERO Address: [place] [address]
--- OUTSIDE RECORDS SUMMARY | 2023-01-25 11:06 | XMS_ITS | Continuity of Care Document ---
Author Name Unknown Organization [facility] Address [address] [place] [address]- Care Team Providers Care Rn Urgent Care Name Role Phone Marva Baez MD Primary Care Physician Encounter [facility] [place] Date(s): 03/08/21 - 04/13/[address] [address]- Attending Physician: Betzy Leahy MD Admitting Physician: [...] vis given 10/17/10 2Admin Note: VIS GIVEN [id number] 3Admin Note: VIS GIVEN Medications Alcohol Pads [...] 6 Refills, Maintenance, 12/07/20 13:42:00 EDT, [facility]/pharmacy #[id number], Partial fill upon patient request if the prescription is for a schedule II opioid drug., 165.1, cm, 12/05/20 13:59:00 EDT, Height, 78.6,... Start Date: 12/07/20 Status: Ordered cholecalciferol 1000 intl units oral tablet 1 tablet = 1,000 International_Units, By Mouth, Daily, vitamin D take with food, # 90 tablet, 1 Refills, Maintenance, 03/01/20 12:52:00 EST, Tablet, [facility] #[id number], 165, cm, 02/13/20 11:43:00 EST, Height, 75.3, kg, 02/08/20 14:42:00 EST,... Start Date: 03/01/20 Stop Date: 03/31/20 Status: Ordered duloxetine 30 mg oral enteric coated capsule 1 capsule, By Mouth, Daily, DO NOT CRUSH OR CHEW. *., # 30 capsule, 8 Refills, [id number], 165.1, cm, 12/19/20 12:24:00 EDT, Height, 78.6, [...] 4 Refills, Maintenance, 11/14/20 15:34:00 EDT, [facility]/pharmacy #[id number], 165.1, cm, 08/02/20 9:45:00 EDT, Height, 78.6, kg, 06/15/20... Start Date: 11/14/20 Stop Date: 04/13/21 Status: Ordered Pen [place], 31 G x 8 mm BD Ultra Fine III See Instructions, # 200 each, Refills 11, Tot. Refills 11, Maintenance, use up to 4 times daily as directed for Type 2 Diabetes Mellitus. E11.9, 08/18/20 17:03:00 EDT, Supply, 165.1, cm, 08/02/20 9:45:00 EDT, Height, 78.6, kg, 06/15/20 10:01:00 EDT, D... Start Date: 08/18/20 Stop Date: 08/13/21 Status: Ordered [employer] COVID-19 Vaccine 30 mcg/0.3 mL preservative-free intramuscular [...] Refills, Maintenance, 03/27/21 12:17:00 EST, OphthSolution, [facility]/pharmacy #[id number], Partial fill upon patient request [...] Maintenance, 12/05/20 14:59:00 EDT, ER Tablet, [facility]/pharmacy #[id number], Partial fill upon patient request if the [...] 1was seen by Dr. Devon Mccormack at [facility] Social History Social History Type Response Smoking Status 10 or more cigarette s (1/2 pack or more)/day in last 30 days entered on: 01/26/20 Sex
--- OUTSIDE RECORDS SUMMARY | 2023-01-25 11:06 | XMS_ITS | Continuity of Care Document ---
Author Name Unknown Organization [facility] Address [address] [place] [address]- Care Team Providers Care Hydrator Name Role Phone Marva Baez MD Primary Care Physician Encounter [facility] Date(s): 02/03/21 - 03/31/[address] [address]- Attending Physician: Not on Staff, Attending MD [...] vis given 10/17/10 2Admin Note: VIS GIVEN [id number] 3Admin Note: VIS GIVEN Medications Alcohol Pads [...] tablet, 6 Refills, Maintenance, 12/07/20 13:42:00 EDT, [facility]/pharmacy #[id number], Partial fill upon patient request if the prescription is for a schedule II opioid drug., 165.1, cm, 12/05/20 13:59:00 EDT, Height, 78.6,... Start Date: 12/07/20 Status: Ordered cholecalciferol 1000 intl units oral tablet 1 tablet = 1,000 International_Units, By Mouth, Daily, vitamin D take with food, # 90 tablet, 1 Refills, Maintenance, 03/01/20 12:52:00 EST, Tablet, [facility] #[id number], 165, cm, 02/13/20 11:43:00 EST, Height, 75.3, kg, 02/08/20 14:42:00 EST,... Start Date: 03/01/20 Stop Date: 03/31/20 Status: Ordered duloxetine 30 mg oral enteric coated capsule 1 capsule, By Mouth, Daily, DO NOT CRUSH OR CHEW. *., # 30 capsule, 8 Refills, [id number], 165.1, cm, 12/19/20 12:24:00 EDT, Height, 78.6, [...] tablet, 1 Refills, Maintenance, 01/15/21 21:42:00 EDT, [facility]/pharmacy #[id number], 165.1, cm, 12/19/20 12:24:00 EDT, Height, 78.6, kg, 06/15/20 10:01:00 EDT, Dry Weight Start Date: 01/15/21 Status: Ordered [employer] FlexPen 100 units/mL subcutaneous solution See Instructions, Subcutaneous Injection, Use as directed for Diabetes mellitus type 2. (Max Dose =50 units/day), # 30 mL, 4 Refills, Maintenance, 11/14/20 15:34:00 EDT, [facility]/pharmacy #[id number], 165.1, cm, 08/02/20 9:45:00 EDT, Height, 78.6, kg, 06/15/20... Start Date: 11/14/20 Stop Date: 04/13/21 Status: Ordered Pen [place], 31 G x 8 mm BD Ultra Fine III See Instructions, # 200 each, Refills 11, Tot. Refills 11, Maintenance, use up to 4 times daily as directed for Type 2 Diabetes Mellitus. E11.9, 08/18/20 17:03:00 EDT, Supply, 165.1, cm, 08/02/20 9:45:00 EDT, Height, 78.6, kg, 06/15/20 10:01:00 EDT, D... Start Date: 08/18/20 Stop Date: 08/13/21 Status: Ordered [employer] COVID-19 Vaccine 30 mcg/0.3 mL preservative-free intramuscular [...] 11 Refills, Maintenance, 03/27/21 12:17:00 EST, OphthSolution, [facility]/pharmacy #[id number], Partial fill upon patient request [...] Refills, Maintenance, 12/05/20 14:59:00 EDT, ER Tablet, [facility]/pharmacy #[id number], Partial fill upon patient request if the [...] 1was seen by Dr. Devon Mccormack at [facility] Social History Social History Type Response Smoking Status 10 or more cigarette s (1/2 pack or more)/day in last 30 days entered on: 01/26/20 Sex
--- OUTSIDE RECORDS SUMMARY | 2023-01-25 11:06 | XMS_ITS | Continuity of Care Document ---
Author Name Unknown Organization [facility] Address [address] [place] [address] [address] [place] [address]- Care Team Providers Care Him Assistant Name Role Phone Raya MASON, Belle Primary Care Physician [phone] Encounter [facility] Date(s): 02/03/20 - 07/07/[address] [place] [address]- Attending Physician: Kavita Hogan MD Allergies, Adverse Reactions, [...] vis given 10/17/10 2Admin Note: VIS GIVEN [id number] 3Admin Note: VIS GIVEN Medications Alcohol Pads [...] 1 Refills, Maintenance, 03/01/20 12:52:00 EST, Tablet, [id number], 165, cm, 02/13/20 11:43:00 EST, Height, 75.3, [...] 03/01/20 16:23:00 EST, Solution, [id number], 165, cm, 02/13/20 11:43:00 EST, Height, 75.3, [...] Refills, Maintenance, 07/29/19 13:01:00 EDT, ER Tablet, [facility][id number], 165, cm, 07/29/19 12:25:00 ED... Start Date: 07/29/19 Status: Ordered NovoLOG FlexPen 100 units/mL subcutaneous solution See Instructions, Subcutaneous Injection, Use as directed for Diabetes mellitus type 2. (Max Dose =50 units/day), # 30 mL, 5 Refills, Maintenance, 08/04/19 17:01:00 EDT, [facility] #[id number], 165, cm, 07/29/19 12:25:00 EDT, Height, 72.7, kg, 01... Start Date: 08/04/19 Stop Date: 01/31/20 Status: Ordered NovoLog Inj See Instructions, Subcutaneous Infusion 3 times a day before meals, 0 Refills, Maintenance, 05/13/20 17:22:00 EST, Partial fill upon patient request if the prescription is for a schedule II opioid drug. Start Date: 05/13/20 Status: Ordered Pen [place], 31 G x 8 mm BD Ultra [...] 1was seen by Dr. Devon Mccormack at [facility] Social History Social History Type Response Smoking Status 10 or more cigarette s (1/2 pack or more)/day in last 30 days entered on: 01/26/20 Sex
--- OUTSIDE RECORDS SUMMARY | 2023-01-25 11:06 | XMS_ITS | Continuity of Care Document ---
Author Name Unknown Organization [facility] Address [address] [place] [address]- Care Team Providers Care Finance Manager Name Role Phone Nestor WOODY, Marva Primary Care Physician [place] [facility] [place](s): 01/20/21 - 02/19/[address] [address]- Allergies, Adverse Reactions, Alerts Substance Reaction Severity [...] vis given 10/17/10 2Admin Note: VIS GIVEN [id number] 3Admin Note: VIS GIVEN Medications Alcohol Pads [...] Refills, Maintenance, 12/07/20 13:42:00 EDT, [facility]/pharmacy #[id number], Partial fill upon patient request if the prescription is for a schedule II opioid drug., 165.1, cm, 12/05/20 13:59:00 EDT, Height, 78.6,... Start Date: 12/07/20 Status: Ordered cholecalciferol 1000 intl units oral tablet 1 tablet = 1,000 International_Units, By Mouth, Daily, vitamin D take with food, # 90 tablet, 1 Refills, Maintenance, 03/01/20 12:52:00 EST, Tablet, [facility] #[id number], 165, cm, 02/13/20 11:43:00 EST, Height, 75.3, kg, 02/08/20 14:42:00 EST,... Start Date: 03/01/20 Stop Date: 03/31/20 Status: Ordered duloxetine 30 mg oral enteric coated capsule 1 capsule, By Mouth, Daily, DO NOT CRUSH OR CHEW. *., # 30 capsule, 8 Refills, [facility] 93[facility], 165.1, cm, 12/19/20 12:24:00 EDT, Height, 78.6, [...] 11/14/20 Stop Date: 04/13/21 Status: Ordered Pen [place], 31 G x 8 mm BD Ultra Fine III See Instructions, # 200 each, Refills 11, Tot. Refills 11, Maintenance, use up to 4 times daily as directed for Type 2 Diabetes Mellitus. E11.9, 08/18/20 17:03:00 EDT, Supply, 165.1, cm, 08/02/20 9:45:00 EDT, Height, 78.6, kg, 06/15/20 10:01:00 EDT, D... Start Date: 08/18/20 Stop Date: 08/13/21 Status: Ordered [employer] COVID-19 Vaccine 30 mcg/0.3 mL preservative-free intramuscular [...] 12/05/20 14:59:00 EDT, ER Tablet, [facility]/pharmacy #[id number], Partial fill upon patient request [...] 1was seen by Dr. Devon Mccormack at [facility] Social History Social History Type Response Smoking Status 10 or more cigarette s (1/2 pack or more)/day in last 30 days entered on: 01/26/20 Sex
--- OUTSIDE RECORDS SUMMARY | 2023-01-25 11:06 | XMS_ITS | Continuity of Care Document ---
Author Name Unknown Organization [facility] Address [address] [place] [address]- Care Team Providers Care Quality Improvement Specialist Name Role Phone Nestor WOODY, Marva Primary Care Physician Encounter [facility] [place] Date(s): 12/15/20 - 01/14/21 [facility] [address] [place] [address]- Attending Physician: Admtr, [id number] Admitting Physician: Admtr, [id number] Referring Physician: Admtr, [...] vis given 10/17/10 2Admin Note: VIS GIVEN [id number] 3Admin Note: VIS GIVEN Medications Alcohol Pads [...] Refills, Maintenance, 12/07/20 13:42:00 EDT, [facility]/pharmacy #[id number], Partial fill upon patient request if the prescription is for a schedule II opioid drug., 165.1, cm, 12/05/20 13:59:00 EDT, Height, 78.6,... Start Date: 12/07/20 Status: Ordered cholecalciferol 1000 intl units oral tablet 1 tablet = 1,000 International_Units, By Mouth, Daily, vitamin D take with food, # 90 tablet, 1 Refills, Maintenance, 03/01/20 12:52:00 EST, Tablet, [id number], 165, cm, 02/13/20 11:43:00 EST, Height, 75.3, kg, 02/08/20 14:42:00 EST,... Start Date: 03/01/20 Stop Date: 03/31/20 Status: Ordered duloxetine 30 mg oral enteric coated capsule 1 capsule = 30 mg, By Mouth, Daily, do not crush or chew, # 30 capsule, 0 Refills, Maintenance, 12/05/20 14:58:00 EDT, CR Capsule, [facility]/pharmacy #[id number], Partial fill upon patient [...] 11/14/20 Stop Date: 04/13/21 Status: Ordered Pen [place], 31 G x 8 mm BD Ultra Fine III See Instructions, # 200 each, Refills 11, Tot. Refills 11, Maintenance, use up to 4 times daily as directed for Type 2 Diabetes Mellitus. E11.9, 08/18/20 17:03:00 EDT, Supply, 165.1, cm, 08/02/20 9:45:00 EDT, Height, 78.6, kg, 06/15/20 10:01:00 EDT, D... Start Date: 08/18/20 Stop Date: 08/13/21 Status: Ordered [email or web address] COVID-19 Vaccine 30 mcg/0.3 mL preservative-free intramuscular [...] 12/05/20 14:59:00 EDT, ER Tablet, [facility]/pharmacy #[id number], Partial fill upon patient [...] 1was seen by Dr. Devon Mccormack at [facility] Social History Social History Type Response Smoking Status 10 or more cigarette s (1/2 pack or more)/day in last 30 days entered on: 01/26/20 Sex
--- OUTSIDE RECORDS SUMMARY | 2023-01-25 11:06 | XMS_ITS | Continuity of Care Document ---
Author Name Unknown Organization [facility] Address [address] [place] [address]- Care Team Providers Care Local Az Truck Driver Name Role Phone Raya MASON, Belle Primary Care Physician [phone] Encounter [facility] Date(s): 05/03/20 - 06/08/20 [facility] [address] [place], [place] [address] Attending Physician: Fabiola Viveros MD Admitting Physician: Fabiola Viveros MD Referring Physician: Kavita Hogan MD Allergies, [...] vis given 10/17/10 2Admin Note: VIS GIVEN [id number] 3Admin Note: VIS GIVEN Medications Alcohol Pads [...] 12:59:00 EDT, Route to Pharmacy Electronically, [id number], 165, cm, 07/29/19 12:25:00 EDT, Height, 72.7, kg, 03/30/19... Start Date: 07/29/19 Status: Ordered atorvastatin 20 mg oral tablet 1 tablet = 20 mg, By Mouth, Daily, # 90 tablet, 3 Refills, Maintenance, 07/29/19 12:59:00 EDT, Tablet, [id number], 165, cm, 07/29/19 12:25:00 EDT, Height, 72.7, kg, 03/30/19 16:51:00 EST, Dry Weight Start Date: 07/29/19 Status: Ordered cholecalciferol 1000 intl units oral tablet 1 tablet = 1,000 International_Units, By Mouth, Daily, vitamin D take with food, # 90 tablet, 1 Refills, Maintenance, 03/01/20 12:52:00 EST, [facility]t, [facility], 165, cm, 02/13/20 11:43:00 EST, Height, 75.3, [...] 03/01/20 12:51:00 EST, Route to Pharmacy Electronically, [facility] #[id number], 165, cm, 02/13/20 11:43:00 EST, Height, 75.3, [...] 03/01/20 16:23:00 EST, Solution, [id number], 165, cm, 02/13/20 11:43:00 EST, Height, 75.3, kg, 02/08/20 14:42:00 ES... Start Date: 03/01/20 Stop Date: 06/29/20 Status: Ordered latanoprost 0.005% ophthalmic solution 1 drops, Eyes, Both, Daily at bedtime, dr miguel Start Date: 04/11/16 Status: Ordered lisinopril 40 mg oral tablet 1 tablet = 40 mg, By Mouth, Daily, for blood pressure, # 90 tablet, 3 Refills, Maintenance, 07/29/19 13:01:00 EDT, [id number], 165, cm, 07/29/19 12:25:00 EDT, Height, 72.7, kg, 03/30/19 16:51:00 EST, Dry Weight Start Date: 07/29/19 Status: Ordered metFORMIN 750 mg oral tablet, extended release 2 tablet = 1,500 mg, By Mouth, Daily, pls ask pt to call our health center to reestablish care if she is staying locally, # 180 tablet, 3 Refills, Maintenance, 07/29/19 13:01:00 EDT, ER Tablet, [id number], 165, cm, 07/29/19 12:25:00 ED... Start Date: 07/29/19 Status: Ordered NovoLOG FlexPen 100 units/mL subcutaneous solution See Instructions, Subcutaneous Injection, Use as directed for Diabetes mellitus type 2. (Max Dose =50 units/day), # 30 mL, 5 Refills, Maintenance, 08/04/19 17:01:00 EDT, [id number], 165, cm, 07/29/19 12:25:00 EDT, Height, 72.7, kg, 01... Start Date: 08/04/19 Stop Date: 01/31/20 Status: Ordered NovoLog Inj See Instructions, Subcutaneous Infusion 3 times a day before meals, 0 Refills, Maintenance, 05/13/20 17:22:00 EST, Partial fill upon patient request if the prescription is for a schedule II opioid drug. Start Date: 05/13/20 Status: Ordered Pen [place], 31 G x 8 mm BD Ultra [...] 1was seen by Dr. Devon Mccormack at [facility] Social History Social History Type Response Smoking Status 10 or more cigarette s (1/2 pack or more)/day in last 30 days entered on: 01/26/20 Sex
--- OUTSIDE RECORDS SUMMARY | 2023-01-25 11:06 | XMS_ITS | Continuity of Care Document ---
Author Name Unknown Organization [facility] Address [address] [place] [address]- Care Team Providers Care Nurse Practitioner Physicians Assistant Name Role Phone Ha WOODY, Nerissa Wright Primary Care Physician Encounter [facility] Date(s): 08/04/19 - 08/11/19 [facility] [address] [place] [address] [facility] Attending Physician: Maury WOODY, [place] Referring Physician: Not on Staff, Referring MD [...] vis given 10/17/10 2Admin Note: VIS GIVEN [id number] 3Admin Note: VIS GIVEN Medications Alcohol Pads See Instructions, # 100 each, Refills 11, Tot. Refills 11, Maintenance, E11.9, 07/10/17 13:55:10 EDT, Compound Start Date: 07/10/17 Status: Ordered amLODIPine 10 mg oral tablet 10 mg, 1, tablet, By Mouth, Daily, for blood pressure, # 90 tablet, Refills 3, Tot. Refills 3, Maintenance, 07/29/19 12:59:00 EDT, Route to Pharmacy Electronically, [facility], 165, cm, 07/29/19 12:25:00 EDT, Height, 72.7, kg, 03/30/19... Start Date: 07/29/19 Status: Ordered atorvastatin 20 mg oral tablet 1 tablet = 20 mg, By Mouth, Daily, # 90 tablet, 3 Refills, Maintenance, 07/29/19 12:59:00 EDT, Tablet, [id number], 165, cm, 07/29/19 12:25:00 EDT, Height, 72.7, [...] 07/29/19 12:59:00 EDT, ER Tablet, [id number], 165, cm, 07/29/19 12:25:00 EDT, Height, 72.7, [...] 13:00:00 EDT, [facility] to Pharm[facility] Electronically, [id number], 165, cm, 07/29/19 12:25:00 EDT, Height, 72.7, [...] 3 Refills, Maintenance, 07/29/19 13:05:00 EDT, Solution, [facility] #[id number], 165, cm, 07/29/19 12:25:00 EDT, Height, 72.7, [...] tablet, 3 Refills, Maintenance, 07/29/19 13:01:00 EDT, [facility] #75197, 165, cm, 07/29/19 12:25:00 EDT, Height, 72.7, kg, 03/30/19 16:51:00 EST, Dry Weight Start Date: 07/29/19 Status: Ordered metFORMIN 750 mg oral tablet, extended release 2 tablet = 1,500 mg, By Mouth, Daily, pls ask pt to call our health center to reestablish care if she is staying locally, # 180 tablet, 3 Refills, Maintenance, 07/29/19 13:01:00 EDT, ER Tablet, [facility]74, 165, cm, 07/29/19 12:25:00 ED... Start Date: 07/29/19 Status: Ordered NovoLOG FlexPen 100 units/mL subcutaneous solution See Instructions, Subcutaneous Injection, Use as directed for Diabetes mellitus type 2. (Max Dose =50 units/day), # 30 mL, 5 Refills, Maintenance, 08/04/19 17:01:00 EDT, [facility] #07321, 165, cm, 07/29/19 12:25:00 EDT, Height, 72.7, kg, 01... Start Date: 08/04/19 Stop Date: 01/31/20 Status: Ordered Pen [place], 31 G x 8 mm BD Ultra [...] 1was seen by Dr. Devon Mccormack at [facility] Social History Social History Type Response Tobacco Use: 4 or less cigar ettes(less than 1/4 pack)/day in last 30 days. Sex
--- OUTSIDE RECORDS SUMMARY | 2023-01-25 11:06 | XMS_ITS | Continuity of Care Document ---
Author Name Unknown Organization [facility] ter Address [address] [place] [address]- Care Team Providers Care Methods Study Analyst Name Role Phone Sara Good NP Primary Care Physician Encounter [facility] Date(s): 04/24/19 - 04/24/[address] [address]- [facility] Attending Physician: Sara Good NP Allergies, Adverse Reactions, [...] vis given 10/17/10 2Admin Note: VIS GIVEN [id number] 3Admin Note: VIS GIVEN Medications albuterol CFC [...] 08/07/17 11:31:50 EDT, Route to Pharmacy Electronically, [id number], [facility] [id number] Start Date: 08/07/17 Stop Date: 08/02/18 Status: [...] Refills, Maintenance, Tablet, Route to Pharmacy Electronically, [id number], [facility] [address] Start Date: 08/07/17 Stop Date: 08/02/18 Status: [...] 08/07/17 11:31:54 EDT, Route to Pharmacy Electronically, [id number], [facility] [address] Start Date: 08/07/17 Stop Date: 08/02/18 Status: [...] 2(Confirmed) Active Glaucoma(Confirmed) Active History of syphilis; [facility] confirms bicillin x 3 01/2014(Confirmed) Active Hypertension(Confirmed) Active 1was seen by Dr. Devon Mccormack at [facility] Social History Social History Type Response Smoking Status Former smoker; Type: Cigarettes; Other: quit several yrs back; entered on: 04/13/15 Sex
--- OUTSIDE RECORDS SUMMARY | 2023-01-25 11:06 | XMS_ITS | Continuity of Care Document ---
Author Name Unknown Organization [facility] Address [address] [place] [address]- Care Team Providers Care Organic Preparation Technician Name Role Phone Tru WOODY, Olimpia Garcia Primary Care Physician [place] [facility] [place]03[place]20 - 04/09/20 [facility] [address] [place] [address]- Attending Physician: Artur MASON, Karen Referring Physician: Nerissa Bonner MD Allergies, Adverse [...] vis given 10/17/10 2Admin Note: VIS GIVEN [id number] 3Admin Note: VIS GIVEN Medications Alcohol Pads [...] EDT, Route to Pharmacy Electronically, [id number], 165, cm, 07/29/19 12:25:00 EDT, Height, 72.7, kg, 03/30/19... Start Date: 07/29/19 Status: Ordered atorvastatin 20 mg oral tablet 1 tablet = 20 mg, By Mouth, Daily, # 90 tablet, 3 Refills, Maintenance, 07/29/19 12:59:00 EDT, Tablet, [facility], 165, cm, 07/29/19 12:25:00 EDT, Height, 72.7, kg, 03/30/19 16:51:00 EST, Dry Weight Start Date: 07/29/19 Status: Ordered cholecalciferol 1000 intl units oral tablet 1 tablet = 1,000 International_Units, By Mouth, Daily, vitamin D take with food, # 90 tablet, 1 Refills, Maintenance, 03/01/20 12:52:00 EST, Tablet, [facility]377[facility], 165, cm, 02/13/20 11:43:00 EST, Height, 75.3, [...] 03/01/20 12:51:00 EST, Route to Pharmacy Electronically, [facility] #[id number], 165, cm, 02/13/20 11:43:00 EST, Height, 75.3, [...] 3 Refills, Maintenance, 03/01/20 16:23:00 EST, Solution, [facility] #[id number], 165, cm, 02/13/20 11:43:00 EST, Height, 75.3, kg, 02/08/20 14:42:00 ES... Start Date: 03/01/20 Stop Date: 06/29/20 Status: Ordered latanoprost 0.005% ophthalmic solution 1 drops, Eyes, Both, Daily at bedtime, dr miguel Start Date: 04/11/16 Status: Ordered lisinopril 40 mg oral tablet 1 tablet = 40 mg, By Mouth, Daily, for blood pressure, # 90 tablet, 3 Refills, Maintenance, 07/29/19 13:01:00 EDT, [facility] #45983, 165, cm, 07/29/19 12:25:00 EDT, Height, 72.7, kg, 03/30/19 16:51:00 EST, Dry Weight Start Date: 07/29/19 Status: Ordered metFORMIN 750 mg oral tablet, extended release 2 tablet = 1,500 mg, By Mouth, Daily, pls ask pt to call our health center to reestablish care if she is staying locally, # 180 tablet, 3 Refills, Maintenance, 07/29/19 13:01:00 EDT, ER Tablet, [facility] #97707, 165, cm, 07/29/19 12:25:00 ED... Start Date: 07/29/19 Status: Ordered NovoLOG FlexPen 100 units/mL subcutaneous solution See Instructions, Subcutaneous Injection, Use as directed for Diabetes mellitus type 2. (Max Dose =50 units/day), # 30 mL, 5 Refills, Maintenance, 08/04/19 17:01:00 EDT, [facility] #[id number], 165, cm, 07/29/19 12:25:00 EDT, Height, 72.7, kg, 01... Start Date: 08/04/19 Stop Date: 01/31/20 Status: Ordered Pen [place], 31 G x 8 mm BD Ultra [...] 1was seen by Dr. Devon Mccormack at [facility] Social History Social History Type Response Smoking Status 10 or more cigarette s (1/2 pack or more)/day in last 30 days entered on: 01/26/20 Sex
--- OUTSIDE RECORDS SUMMARY | 2023-01-25 11:06 | XMS_ITS | Continuity of Care Document ---
Author Name Unknown Organization [facility] Address [address] [place] [address]- Care Team Providers Care Town Justice Name Role Phone Jeanine Stack MD, I Primary Care Physician Encounter [facility] Date(s): 06/27/21 - 07/30/21 [facility] Diabetes [address] [place] [address] Attending Physician: Chandler Blanca MD Admitting Physician: Chandler Blanca MD Referring Physician: Jeanine Stack MD, I Allergies, [...] vis given 10/17/10 2Admin Note: VIS GIVEN [id number] 3Admin Note: VIS GIVEN Medications Alcohol Pads [...] 07/08/21 10:25:00 EDT, Route to Pharmacy Electronically, [facility]/pharmacy #[id number], 165.1, cm, 06/21/21 11:05:00 EDT, Height, 78.6, kg, 06/15/20 10:01... Start Date: 07/08/21 Status: Ordered atorvastatin 10 mg oral tablet 1 tablet = 10 mg, By Mouth, Daily, # 90 tablet, 3 Refills, Maintenance, 07/08/21 10:25:00 EDT, [facility]/pharmacy #[id number], Partial fill upon patient request if the prescription is for a schedule II opioid drug., 165.1, cm, 06/21/21 11:05:00 EDT, Height, 78.6,... Start Date: 07/08/21 Status: Ordered cholecalciferol 1000 intl units oral tablet 1 tablet = 1,000 International_Units, By Mouth, Daily, vitamin D take with food, # 90 tablet, 1 Refills, Maintenance, 03/01/20 12:52:00 EST, Tablet, [id number], 165, cm, 02/13/20 11:43:00 EST, Height, 75.3, [...] 07/08/21 10:58:00 EDT, Route to Pharmacy Electronically, [facility]/pharmacy #[id number], 165.1, cm, 06/21/21 11:05:00 EDT, [...] mL, 11 Refills, Maintenance, 06/21/21 11:35:00 EDT, [id number], 165.1, cm, 06/21/21 11:05:00 EDT, Height, 78.6, kg, 06/15/20 10:01:00 EDT, Dry Weight Start Date: 06/21/21 Stop Date: 06/16/22 Status: Ordered latanoprost 0.005% ophthalmic solution 1 drops, Eyes, Both, Daily at bedtime, for 30 days, please obtain further refills from your radiation control specialist *pharmacy i am resending this as [...] 07/14/21 Stop Date: 07/09/22 Status: Ordered Pen [place], 31 G x 8 mm BD Ultra Fine III See Instructions, # 200 each, Refills 11, Tot. Refills 11, Maintenance, use up to 4 times daily as directed for Type 2 Diabetes Mellitus. E11.9, 08/18/20 17:03:00 EDT, Supply, 165.1, cm, 08/02/20 9:45:00 EDT, Height, 78.6, kg, 06/15/20 10:01:00 EDT, D... Start Date: 08/18/20 Stop Date: 08/13/21 Status: Ordered MyClasses COVID-19 Vaccine 30 mcg/0.3 mL preservative-free intramuscular [...] day, please get further refills from your radiation control specialist, # 2.5 mL, 1 Refills, Maintenance, 07/08/21 10:30:00 EDT, Ophth Solution, [facility]/pharmacy #[id number], Partial fill uponpatient request if the prescription is for a schedu... Start Date: 07/08/21 Status: Ordered Tylenol 8 HR Arthritis Pain 650 mg oral tablet, extended release 2 tablet = 1,300 mg, By Mouth, Every 8 hours, PRN Pain , Mild, # 100 tablet, 0 Refills, Maintenance, 12/05/20 14:59:00 EDT, ER Tablet, [id number], Partial fill upon patient request if the [...] 1was seen by Dr. Devon Mccormack at [facility] Social History Social History Type Response Smoking Status 10 or more cigarette s (1/2 pack or more)/day in last 30 days entered on: 01/26/20 Sex
--- OUTSIDE RECORDS SUMMARY | 2023-01-25 11:06 | XMS_ITS | Continuity of Care Document ---
Author Name Unknown Organization [facility] ter Address [address] [place] [address]- Care Team Providers Care Fire Loss Prevention Engineer Name Role Phone Tru WOODY, Olimpia Garcia Primary Care Physician [facility]counter [facility] Date(s): 02/02/20 - 05/06/[address] [address] Attending Physician: Kavita Hogan MD Admitting Physician: [...] vis given 10/17/10 2Admin Note: VIS GIVEN [id number] 3Admin Note: VIS GIVEN Medications Alcohol Pads [...] EDT, Route to Pharmacy Electronically, [id number], 165, cm, 07/29/19 12:25:00 EDT, Height, 72.7, kg, 03/30/19... Start Date: 07/29/19 Status: Ordered atorvastatin 20 mg oral tablet 1 tablet = 20 mg, By Mouth, Daily, # 90 tablet, 3 Refills, Maintenance, 07/29/19 12:59:00 EDT, Tablet, [facility]43126, 165, cm, 07/29/19 12:25:00 EDT, Height, 72.7, kg, 03/30/19 16:51:00 EST, Dry Weight Start Date: 07/29/19 Status: Ordered cholecalciferol 1000 intl units oral tablet 1 tablet = 1,000 International_Units, By Mouth, Daily, vitamin D take with food, # 90 tablet, 1 Refills, Maintenance, 03/01/20 12:52:00 EST, Tablet, [facility] #69699, 165, cm, 02/13/20 11:43:00 EST, Height, 75.3, [...] 03/01/20 12:51:00 EST, Route to Pharmacy Electronically, [facility] #52789, 165, cm, 02/13/20 11:43:00 EST, Height, 75.3, [...] 3 Refills, Maintenance, 03/01/20 16:23:00 EST, Solution, [facility] #02652, 165, cm, 02/13/20 11:43:00 EST, Height, 75.3, kg, 02/08/20 14:42:00 ES... Start Date: 03/01/20 Stop Date: 06/29/20 Status: Ordered latanoprost 0.005% ophthalmic solution 1 drops, Eyes, Both, Daily at bedtime, dr miguel Start Date: 04/11/16 Status: Ordered lisinopril 40 mg oral tablet 1 tablet = 40 mg, By Mouth, Daily, for blood pressure, # 90 tablet, 3 Refills, Maintenance, 07/29/19 13:01:00 EDT, [facility] #[id number], 165, cm, 07/29/19 12:25:00 EDT, Height, 72.7, kg, 03/30/19 16:51:00 EST, Dry Weight Start Date: 07/29/19 Status: Ordered metFORMIN 750 mg oral tablet, extended release 2 tablet = 1,500 mg, By Mouth, Daily, pls ask pt to call our health center to reestablish care if she is staying locally, # 180 tablet, 3 Refills, Maintenance, 07/29/19 13:01:00 EDT, ER Tablet, [facility]54, 165, cm, 07/29/19 12:25:00 ED... Start Date: 07/29/19 Status: Ordered NovoLOG FlexPen 100 units/mL subcutaneous solution See Instructions, Subcutaneous Injection, Use as directed for Diabetes mellitus type 2. (Max Dose =50 units/day), # 30 mL, 5 Refills, Maintenance, 08/04/19 17:01:00 EDT, [facility] #76573, 165, cm, 07/29/19 12:25:00 EDT, Height, 72.7, kg, 01... Start Date: 08/04/19 Stop Date: 01/31/20 Status: Ordered Pen [place], 31 G x 8 mm BD Ultra [...] 1was seen by Dr. Devon Mccormack at [facility] Social History Social History Type Response Smoking Status 10 or more cigarette s (1/2 pack or more)/day in last 30 days entered on: 01/26/20 Sex
--- OUTSIDE RECORDS SUMMARY | 2023-01-25 11:06 | XMS_ITS | Continuity of Care Document ---
Author Name Unknown Organization [facility] Address [address] [place] [address]- Care Team Providers Care Isotope Hydrologist Name Role Phone Sreekanth WOODY, Jeanine Rivas Primary Care Physician [facility]counter [facility] Date(s): 07/19/21 - 08/18/21 [facility] [address] [place] [address]- Allergies, Adverse Reactions, Alerts Substance Reaction Severity [...] vis given 10/17/10 2Admin Note: VIS GIVEN [id number] 3Admin Note: VIS GIVEN Medications Alcohol Pads [...] 08/02/21 9:37:00 EDT, Route to Pharmacy Electronically, [facility], 165.1, cm, 06/21/21 11:05:00 EDT, H... Start Date: 08/02/21 Status: Ordered atorvastatin 10 mg oral tablet 1 tablet = 10 mg, By Mouth, Daily, duplicate from 07/08/21, # 90 tablet, 3 Refills, Maintenance, 08/02/21 9:39:00 EDT, [facility], Partial fill upon patient request if the prescriptionis for a schedule II opioid drug., 165.1, cm, 06/21... Start Date: 08/02/21 Status: Ordered cholecalciferol 1000 intl units oral tablet 1 tablet = 1,000 International_Units, By Mouth, Daily, vitamin D take with food, # 90 tablet, 3 Refills, Maintenance, 08/04/21 17:10:00 EDT, Tablet, [facility], 165.1, cm, 06/21/21 11:05:00 EDT, Height, [...] 08/02/21 9:40:00 EDT, [facility] 165.1, cm, 06/21/21 11:05:00 EDT, H... [...] mL, 11 Refills, Maintenance, 08/02/21 21:27:00 EDT, [facility] 165.1, cm, 06/21/21 11:05:00 EDT, Height, 78.6, kg, 06/15/2109:01:00 EDT, Dry Weight Start Date: 08/02/21 Stop Date: 07/28/22 Status: Ordered latanoprost 0.005% ophthalmic solution 1 drops, Eyes, Both, Daily at bedtime, for 30 days, please obtain further refills from your airport operations specialist, # 2.5 mL, 1 Refills, Physician Stop 10/02/21 9:03:00 EDT, 08/03/21 9:03:00 EDT, [facility]., 1 drops Eyes, Both Daily at bedtime... Start Date: 08/03/21 Stop Date: 10/02/21 Status: Ordered lisinopril 40 mg oral tablet 1 tablet = 40 mg, By Mouth, Daily, for blood pressure, # 90 tablet, 3 Refills, Maintenance, 08/04/21 17:10:00 EDT, [facility]., 165.1, cm, 06/21/21 11:05:00 EDT, Height, 78.6, kg, 06/15/20 10:01:00 EDT, Dry Weight Start Date: 08/04/21 Stop Date: 07/30/22 Status: Ordered metFORMIN 750 mg oral tablet, extended release 2 tablet, By Mouth, Daily, duplicate from 07/08/21, # 180 tablet, 3 Refills, Maintenance, 08/02/21 9:42:00 EDT, [facility]., 165.1, cm, 06/21/21 11:05:00 EDT, Height, 78.6, kg, 06/15/2109:01:00 EDT, Dry Weight Start Date: 08/02/21 Status: Ordered NovoLOG FlexPen 100 units/mL subcutaneous solution See Instructions, Subcutaneous Injection, Use as directed for Diabetes mellitus type 2, per slidingscale. (Max Dose = 50 units/day), # 30 mL, 11 Refills, Maintenance, 08/02/21 21:26:00 [facility] 165.1, cm, 06/21/21 11:05:00 EDT... Start Date: 08/02/21 Stop Date: 07/28/22 Status: Ordered Pen [place], 31 G x 8 mm BD Ultra Fine III See Instructions, # 200 each, Refills 11, Tot. Refills 11, Maintenance, use up to 4 times daily as directed for Type 2 Diabetes Mellitus. E11.9, 08/18/20 17:03:00 EDT, Supply, 165.1, cm, 08/02/20 9:45:00 EDT, Height, 78.6, kg, 06/15/20 10:01:00 EDT, D... Start Date: 08/18/20 Stop Date: 08/13/21 Status: Ordered [place] COVID-19 Vaccine 30 mcg/0.3 mL preservative-free intramuscular [...] day, please get further refills from your airport operations specialist duplicate from 07/08/21, # 2.5 mL, 1 Refills, Maintenance, 08/02/21 9:42:00 EDT, [facility]hth Solution, [facility] Partial fill upon patient request if t... Start Date: 08/02/21 Status: Ordered Tylenol 8 HR Arthritis Pain 650 mg oral tablet, extended release 2 tablet = 1,300 mg, By Mouth, Every 8 hours, PRN Pain , Mild, # 100 tablet, 0 Refills, Maintenance, 12/05/20 14:59:00 EDT, ER Tablet, [facility]/pharmacy #[id number], Partial fill upon patient request [...] 1was seen by Dr. Devon Mccormack at [facility] Social History Social History Type Response Smoking Status 10 or more cigarette s (1/2 pack or more)/day in last 30 days entered on: 01/26/20 Sex
--- OUTSIDE RECORDS SUMMARY | 2023-01-25 11:06 | XMS_ITS | Continuity of Care Document ---
Author Name Unknown Organization [facility] Address [address] [place] [address]- Care Team Providers Care Fish Pitcher Name Role Phone Sreekanth WOODY, Jeanine Rivas Primary Care Physician [phone] [place] [facility] [place]21 [facility] [address] [place] [id number]- Attending Physician: Dayanara Lowery Admitting Physician: Dayanara [...] vis given 10/17/10 2Admin Note: VIS GIVEN [id number] 3Admin Note: VIS GIVEN Medications Alcohol Pads [...] 07/08/21 10:25:00 EDT, Route to Pharmacy Electronically, [facility]/pharmacy #[id number], 165.1, cm, 06/21/21 11:05:00 EDT, Height, 78.6, kg, 06/15/20 10:01... Start Date: 07/08/21 Status: Ordered atorvastatin 10 mg oral tablet 1 tablet = 10 mg, By Mouth, Daily, # 90 tablet, 3 Refills, Maintenance, 07/08/21 10:25:00 EDT, [facility]/pharmacy #[id number], Partial fill upon patient request if the prescription is for a schedule II opioid drug., 165.1, cm, 06/21/21 11:05:00 EDT, Height, 78.6,... Start Date: 07/08/21 Status: Ordered cholecalciferol 1000 intl units oral tablet 1 tablet = 1,000 International_Units, By Mouth, Daily, vitamin D take with food, # 90 tablet, 1 Refills, Maintenance, 03/01/20 12:52:00 EST, Tablet, [id number], 165, cm, 02/13/20 11:43:00 EST, Height, 75.3, [...] 07/08/21 10:58:00 EDT, Route to Pharmacy Electronically, [facility]/pharmacy #[id number], 165.1, cm, 06/21/21 11:05:00 EDT, Height, [...] mL, 11 Refills, Maintenance, 06/21/21 11:35:00 EDT, [facility]/pharmacy #[id number], 165.1, cm, 06/21/21 11:05:00 EDT, Height, 78.6, kg, 06/15/20 10:01:00 EDT, Dry Weight Start Date: 06/21/21 Stop Date: 06/16/22 Status: Ordered latanoprost 0.005% ophthalmic solution 1 drops, Eyes, Both, Daily at bedtime, for 30 days, please obtain further refills from your child support specialist *pharmacy i am resending this as pt says you did not receive this when originally sent, # 2.5 mL, 1 Refills, Physician Stop 09/09/21 14:05:00... Start Date: 07/11/21 Stop Date: 09/09/21 Status: Ordered lisinopril 40 mg oral tablet 1 tablet = 40 mg, By Mouth, Daily, for blood pressure, # 90 tablet, 3 Refills, Maintenance, 07/08/21 10:26:00 EDT, [facility]/pharmacy #[id number], 165.1, cm, 06/21/21 11:05:00 EDT, Height, [...] 07/14/21 Stop Date: 07/09/22 Status: Ordered [place], 31 G x 8 mm BD Ultra Fine III See Instructions, # 200 each, Refills 11, Tot. Refills 11, Maintenance, use up to 4 times daily as directed for Type 2 Diabetes Mellitus. E11.9, 08/18/20 17:03:00 EDT, Supply, 165.1, cm, 08/02/20 9:45:00 EDT, Height, 78.6, kg, 06/15/20 10:01:00 EDT, D... Start Date: 08/18/20 Stop Date: 08/13/21 Status: Ordered [place] COVID-19 Vaccine 30 mcg/0.3 mL preservative-free intramuscular [...] day, please get further refills from your child support specialist, # 2.5 mL, 1 Refills, Maintenance, [...] Maintenance, 12/05/20 14:59:00 EDT, ER Tablet, [facility]/pharmacy #[id number], Partial fill upon patient request if [...] 1was seen by Dr. Devon Mccormack at [facility] Social History Social History Type Response Smoking Status 10 or more cigarette s (1/2 pack or more)/day in last 30 days entered on: 01/26/20 Sex
--- NOTE | 2023-01-25 11:11 | MHC.PC.OV ---
Vital Signs 01/25/23 11:16 Height 5 ft 5 in Weight 153 lb BMI 25.5 BP 126/60 Blood Pressure Location Lt brachial Position Sitting Pulse 87 Pulse Source Pulse Oximeter Pulse Oximetry (%) 99 Oxygen Delivery Method Room Air Intake Visit Reasons: Diabetes, Lung Nodule Intake Note: Pt is here today for a follow up visit. Allergies No Known Allergies Allergy (Verified 01/25/23 11:20) Medication List - Last Reconciled 01/25/23 by Susana Rodas MD alcohol swabs (Alcohol Pads) 1 pad topical QID amlodipine 10 mg PO DAILY atorvastatin 10 mg PO BEDTIME blood-glucose meter (FreeStyle [place] kit) As directed cholecalciferol (vitamin D3) 25 mcg PO DAILY hydrochlorothiazide 25 mg PO DAILY hydroxyzine HCl 10 mg PO BEDTIME insulin aspart U-100 (Novolog FlexPen U-100 Insulin aspart) 6 units subcut TID insulin glargine (Lantus Solostar U-100 Insulin) 22 units subcut BEDTIME latanoprost 0.005% 1 drp ophthalmic (eye) DAILY lisinopril 10 mg PO DAILY lisinopril 40 mg PO DAILY metformin ER 1,500 mg PO DAILY multivitamin,tx-minerals 1 tab PO DAILY nicotine (polacrilex) mg PO timolol 0.5% 1 drp ophthalmic (eye) BID Tobacco use date assessed: 01/25/23 Dental Screening Dental Screen Date: 01/25/23 Did you have a dental visit in the last 12 months?: Yes Did you have a dental problem in the last 6 months where you did not have access to dental care?: No Was dental information given to patient?: Patient has dentist HPI Diabetes, Lung Nodule HPI Details Pt presents for f/u poorly controlled IDDM f/u Endo monthly. HTN is controlled on meds. Patient was seen in the ER for COVID and chest x-ray revealed possible lung nodule and is CT was recommended. Patient denies cough shortness of breath but continues to smoke half a pack a day. PFSH Family History Mother Schizophrenia Mental health disorder Diabetes Hypertension Father No problems noted. Social History Household Members Other:: disable for lower back problems, lives alone, Housing: Apartment Patient Tobacco Use Status: Current everyday Tobacco user Tobacco use type: Cigarette Cigarettes Per Day: 10 e-Cigarette/Vaping Use: Never Used service: No Current occupational status: unemployed Cognitive needs: No Hearing needs: No Vision needs: Yes Questionnaire Thrive Questionnaire Date Thrive assessed: 10/19/22 CONSTANCE-7 AMB Questionnaire CONSTANCE-7 Date CONSTANCE - 7 assessed: 10/19/22 Source: Developed by Drs. Elia Oconnor, Mariaa Siddiqui, Timo Haile and colleagues, with an educational trevor from [employer]. Review of Systems Const All systems reviewed & are unremarkable except as noted in HPI and below Reports no additional complaints Eyes Reports no additional complaints ENT Reports no additional complaints Card Reports no additional complaints Resp Reports no additional complaints GI Reports no additional complaints Reports no additional complaints Musc Reports no additional complaints Physical exam (Primary Care) Vital Signs: Last Vital Signs Pulse 87 01/25/23 11:16 BP 126/60 01/25/23 11:16 Pulse Ox 99 01/25/23 11:16 Oxygen Delivery Method Room Air 01/25/23 11:16 BMI result Body Mass Index 25.5 Tobacco/Smoking Status: Tobacco use Status Tobacco use date assessed 01/25/23 01/25/23 11:23 Patient Tobacco Use Status Current everyday Tobacco 01/25/23 11:13 Tobacco use type Cigarette 01/25/23 11:13 e-Cigarette/Vaping Use Never Used 01/25/23 11:13 Thrive Assessment: Date of Thrive Assessment Date Thrive assessed 10/19/22 01/25/23 11:13 Const General: no acute distress HENMT Head: Yes normal to inspection General nose exam: Normal external nose present Neck Neck: Yes supple Resp Effort & Inspection: normal respiratory effort Auscultation: clear to auscultation bilaterally Cardio Rhythm: regular rhythm Heart sounds: S1 normal heart sound present and S2 normal heart sound present GI Inspection: Yes normal to inspection Palpation (GI): Soft to palpation Assessment and Plan Assessment & Plan (1) Lung nodule, solitary: Comment: 1.6 CM R INFRAHILAR Code(s): R91.1 - Solitary pulmonary nodule Plan: Schedule chest CT to evaluate, patient was advised to quit smoking (2) DM type 2 (diabetes mellitus, type 2): Comment: f/u Endo [facility] Code(s): E11.9 - Type 2 diabetes mellitus without complications Plan: Continue current medications ADA diet increase physical activity discussed with the patient. 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
[2023-01-25 11:16] VITALS: BP 126/60; PULSE 87; O2SAT 99; BMI 25.5
== END 2023-01-25 12:22 | disposition home or self-care (01) ==
LOC: HO.HMGC 11:00
PROVIDERS: PCP Internal Medicine; Visit Provider Internal Medicine
DX: R91.1 Solitary pulmonary nodule (principal); E11.9 Type 2 diabetes mellitus without complications; I10 Essential (primary) hypertension; Z00.00 Encounter for general adult medical examination without abnormal findings
CPT/HCPCS: 99214

== ENCOUNTER 2023-01-28 09:06 | Outpatient (REF) | payer OTHER, SELFPAY ==
--- NOTE | ~2023-01-28 | CT_ITS ---
EXAMINATION: CT CHEST WITHOUT CONTRAST CLINICAL INFORMATION: Pulmonary nodule. COMPARISON: None available. TECHNIQUE: Multidetector volumetric CT imaging of the chest was done. Axial MIP volume rendering provided. Sagittal and coronal reformatted images were obtained. This CT examination was performed using dose optimization techniques as appropriate, variously including the following: *Automated exposure control *Adjustment of mA and/or kV according to patient size (this includes techniques or standardized protocols for targeted exams where dose is matched to indication/reason for exam; i.e. extremities or head) *Use of iterative reconstruction technique DLP: 120 mGy-cm FINDINGS: LUNGS: 5 mm nodule right middle lobe on image 279 of series 5. No focal consolidation. Central airways are patent. MEDIASTINUM: Ascending thoracic aorta measures 4.2 x 4.0 cm. There is dilatation of the pulmonary trunk. Heart is enlarged. No pericardial effusion. No bulky axillary, hilar or mediastinal lymphadenopathy. CORONARY ARTERY CALCIFICATION: Marked. PLEURA: There is no pleural effusion. No pleural mass or thickening. UPPER ABDOMEN: No adrenal mass. OSSEOUS STRUCTURES: No destructive bone lesions. CT/CT chest wo IV con IMPRESSION: 5 mm right middle lobe nodule. No prior studies available for comparison. Follow-up chest CT in 12 months is advised.
== END 2023-01-28 09:07 | disposition home or self-care (01) ==
LOC: HO.CT 09:06
PROVIDERS: PCP Internal Medicine; Visit Provider Internal Medicine
DX: R91.1 Solitary pulmonary nodule (principal)
CPT/HCPCS: 71250

== ENCOUNTER 2023-02-28 10:20 | Outpatient (AMB) | payer OTHER, SELFPAY ==
--- NOTE | 2023-02-28 10:17 | A.OFFPC_ITS ---
Vital Signs 02/28/23 10:22 Height 5 ft 5 in Weight 160 lb BMI 26.6 BP 120/70 Blood Pressure Location Lt brachial Position Sitting Pulse 80 Pulse Source Pulse Oximeter Pulse Oximetry (%) 98 Oxygen Delivery Method Room Air Intake Visit Reasons: hernia Intake Note: Pt is here today for a follow up visit. Allergies No Known Allergies Allergy (Verified 02/28/23 10:24) Tobacco use date assessed: 01/25/23 HPI hernia HPI Details Patient presents for the follow-up on results of the chest CT which showed 5 mm right middle lobe nodule and repeated CT was recommended in 1 year. Type 2 diabetes hyperlipidemia and hypertension are controlled on current medications. Patient follows up with [facility] for diabetes management. [facility] Family History Mother Schizophrenia Mental health disorder Diabetes Hypertension Father No problems noted. Social History Household Members Other:: disable for lower back problems, lives alone, Housing: Apartment Patient Tobacco Use Status: Current everyday Tobacco user Tobacco use type: Cigarette Cigarettes Per Day: 10 e-Cigarette/Vaping Use: Never Used service: No Current occupational status: unemployed Cognitive needs: No Hearing needs: No Vision needs: Yes Questionnaire Thrive Questionnaire Date Thrive assessed: 10/19/22 CONSTANCE-7 AMB Questionnaire CONSTANCE-7 Date CONSTANCE - 7 assessed: 10/19/22 Source: Developed by Drs. Elia Oconnor, Mariaa Siddiqui, Timo Haile and colleagues, with an educational trevor from [employer] Review of Systems Const All systems reviewed & are unremarkable except as noted in HPI and below Reports no additional complaints Eyes Reports no additional complaints ENT Reports no additional complaints Card Reports no additional complaints Resp Reports no additional complaints GI Reports no additional complaints Reports no additional complaints Physical exam (Primary Care) Vital Signs: Last Vital Signs Pulse 80 02/28/23 10:22 BP 120/70 02/28/23 10:22 Pulse Ox 98 02/28/23 10:22 Oxygen Delivery Method Room Air 02/28/23 10:22 BMI result Body Mass Index 26.6 Tobacco/Smoking Status: Tobacco use Status Tobacco use date assessed 01/25/23 02/28/23 10:18 Patient Tobacco Use Status Current everyday Tobacco 02/28/23 10:28 Tobacco use type Cigarette 02/28/23 10:18 e-Cigarette/Vaping Use Never Used 02/28/23 10:18 Thrive Assessment: Date of Thrive Assessment Date Thrive assessed 10/19/22 02/28/23 10:18 Const General: no acute distress HENMT Head: Yes normal to inspection Ears: hearing grossly normal bilaterally Neck Neck: Yes supple Resp Effort & Inspection: normal respiratory effort Auscultation: clear to auscultation bilaterally Cardio Rhythm: regular rhythm Heart sounds: S1 normal heart sound present and S2 normal heart sound present GI Inspection: Yes normal to inspection Palpation (GI): Soft to palpation Percussion: Yes normal to percussion Auscultation: normal bowel sounds Office Procedures Flu Questionnaire Does the patient have a severe egg allergy?: No Does the patient have severe life threatening allergies?: No Does the patient have a fever or illness today?: No Has the patient ever had Guillain-Grimes Syndrome?: No Has the patient ever had any past reaction to a flu shot?: No Immunizations flu vacc [id number] 6mos up(PF) 60 mcg(15 mcgx4)/0.5 mL IM syringe Performing Provider: Susana Rodas MD Performing Location: [facility] [place] [facility] Administered by: ARNAV Esquivel on 02/28/23 10:35 Dose Route Admin Location Dispensed Lot Number Expiration Date [employer] 0.5 mL IM Left Deltoid 0.5 mL [id number] 09/22/23 [id number] [employer] VIS Given Date VIS Provided VIS Publication Date 02/28/23 Single Vaccine 20 Eligibility Eligibility Date Funding Source Not [facility] Eligible 02/28/23 Private Assessment and Plan Assessment & Plan (1) Lung nodule, solitary: Comment: 5 mm RML, CT 02/14, recheck in 1 yr Code(s): R91.1 - Solitary pulmonary nodule Plan: Repeat CT in 1 year (2) HTN (hypertension): Code(s): I10 - Essential (primary) hypertension Plan: Continue current medications (3) DM type 2 (diabetes mellitus, type 2): Comment: f/u Endo [facility] Code(s): E11.9 - Type 2 diabetes mellitus without complications Plan: Continue ADA diet current medications and follow-up with endocrinology Orders: Orders Influenza [id number] Immunization Today Z23 - Encounter for immunization Coding Level of Care Code Est Pt Level 4 (29481) Diagnoses Lung nodule, solitary R91.1 HTN (hypertension) I10 DM type 2 (diabetes mellitus, type 2) E11.9
--- OUTSIDE RECORDS SUMMARY | 2023-02-28 10:18 | XMS_ITS | Continuity of Care Document ---
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 Role Phone Susana Rodas MD Primary Care Physician [phone] Encounter [facility] [place] Date(s): 01/21/23 - 02/20/23 [facility] [address] [place] [id number] Attending Physician: Dayanara Lowery Admitting Physician: Dayanara Lowery Referring Physician: AdmDayanara zayas Allergies, Adverse Reactions, Alerts Substance Reaction Severity [...] vis given 10/17/10 2Admin Note: VIS GIVEN [id number] 3Admin Note: VIS GIVEN Medications Alcohol Pads [...] 06/20/22 15:49:00 EDT, Route to Pharmacy Electronically, [facility] 165.1,cm, 06/21/21 11:05:00 EDT, Height Start Date: 06/20/22 Status: Ordered atorvastatin 10 mg oral tablet 1 tablet = 10 mg, By Mouth, Daily, for cholesterol, # 90 tablet, 3 Refills, Maintenance, 06/20/22 15:49:00 EDT, [facility]., Partial fill upon patient request if the [...] 3 Refills, Maintenance, 06/20/22 15:49:00 EDT, Tablet, [facility] 165.1, cm, 06/21/21 11:05:00 EDT, Height [...] 06/20/22 15:49:00 EDT, Route to Pharmacy Electronically, [facility]., 165.1,cm, 06/21/21 11:05:00 EDT, Height Start Date: [...] mL, 11 Refills, Maintenance, 08/08/22 12:55:00 EDT, [facility], 165.1, cm, 06/21/21 11:05:00 EDT, Height Start Date: 08/08/22 Stop Date: 08/03/23 Status: Ordered latanoprost 0.005% ophthalmic solution See Instructions, INSERT 1 DROP IN BOTH EYES DAILY AT BEDTIME FOR 30 DAYS :PLEASE OBTAIN FURTHER REFILLS FROM YOUR CONTAINER REPAIRER, # 2.5 mL, 0 Refills, [facility], 30, INSERT 1 DROP IN BOTHEYES DAILY AT BEDTIME FOR 30 DAYS :PLEASE OBTAIN FU... Start Date: 10/31/21 Status: Ordered lisinopril 40 mg oral tablet 1 tablet = 40 mg, By Mouth, Daily, for blood pressure, # 90 tablet, 3 Refills, Maintenance, 06/20/22 15:49:00 EDT, [facility]., 165.1, cm, 06/21/21 11:05:00 EDT, Height Start Date: 06/20/22 Stop Date: 06/15/23 Status: Ordered metFORMIN 750 mg oral tablet, extended release 2 tablet, By Mouth, Daily, for diabetes., # 180 tablet, 3 Refills, Maintenance, 06/20/22 15:49:00 EDT, [facility] 165.1, cm, 06/21/21 11:05:00 EDT, Height Start Date: 06/20/22 Status: Ordered NovoLOG FlexPen 100 units/mL subcutaneous solution See Instructions, Subcutaneous Injection, Use as directed for Diabetes mellitus type 2, per slidingscale. (Max Dose = 50 units/day), # 30 mL, 11 Refills, Maintenance, 10/18/22 9:47:00 EDT, [facility]., 165.1, cm, 10/18/22 9:09:00 EDT,... Start Date: 10/18/22 Stop Date: 10/13/23 Status: Ordered Pen [place], 31 G x 8 mm BD Ultra Fine III See Instructions, # 150 each, Refills 5, Tot. Refills 5, Maintenance, use as directed for Type 2 Diabetes Mellitus E11.9 for 4x/day insulin pen injections, 10/10/22 10:20:00 EDT, Supply, 165.1, cm, 06/21/21 11:05:00 EDT, Height Start Date: 10/10/22 Stop Date: 04/08/23 Status: Ordered Pen [place]ff, 31 G x 8 mm BD Ultra Fine III See Instructions, # 200 each, Refills 11, Tot. Refills 11, Maintenance, use up to 4 times daily as directed for Type 2 Diabetes Mellitus. E11.9, 10/04/21 9:58:00 EDT, Supply, 165.1, cm, 06/21/21 11:05:00 EDT, Height, 78.6, kg, 06/15/20 10:01:00 EDT, D... Start Date: 10/04/21 Stop Date: 09/29/22 Status: Ordered [facility] COVID-19 Vaccine 30 mcg/0.3 mL preservative-free intramuscular [...] DAY :PLEASE GET FURTHER REFILLS FROM YOUR CONTAINER REPAIRER, # 5 mL, 0 Refills, [facility], 25, INSERT 1 DROP IN BOTH EYES 2 TIMES A DAY :PLEASE GET FURTHER REFILLS FROM YOUR CONTAINER REPAIRER... Start Date: 10/31/21 Status: Ordered traZODone 50 [...] Refills, Maintenance, 12/05/20 14:59:00 EDT, ER Tablet, [facility]/pharmacy #[id number], Partial fill upon patient request if the [...] 1was seen by Dr. Devon Mccormack at [facility] 2Problem added by Discern Expert Social History Social History Type Response Smoking Status 10 or more cigarette s (1/2 pack or more)/day in last 30 days entered on: 01/26/20 Sex Patient Care team information Care Team Personnel Name: Susana Rodas MD Position: [facility] Physician - Primary Care Member Role: PCP Address: Address: [address] [place] [address]- Name: Ann Barron Position: [facility] Outreach Member Role: Lifetime Consulting Physician Care Team Related Persons Name: MALISSA CORDERO Address: [address] [address] Name: JARED CORDERO Address: [place] [address]
[2023-02-28 10:22] VITALS: BP 120/70; PULSE 80; O2SAT 98; BMI 26.6
--- OUTSIDE RECORDS SUMMARY | 2023-02-28 10:23 | XMS_ITS | Continuity of Care Document ---
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 Name Role Phone Susana Rodas MD Primary Care Physician Encounter [facility] Date(s): 10/23/22 - 02/20/23 [facility] [address] [place] [id number] Attending Physician: Erik Ny MD Admitting Physician: Erik Ny MD Referring Physician: Belia Jonas NP Allergies, Adverse Reactions, Alerts Substance Reaction [...] vis given 10/17/10 2Admin Note: VIS GIVEN [id number] 3Admin Note: VIS GIVEN Medications Alcohol Pads [...] 06/20/22 15:49:00 EDT, Route to Pharmacy Electronically, [facility] 165.1,cm, 06/21/21 11:05:00 EDT, Height Start Date: 06/20/22 Status: Ordered atorvastatin 10 mg oral tablet 1 tablet = 10 mg, By Mouth, Daily, for cholesterol, # 90 tablet, 3 Refills, Maintenance, 06/20/22 15:49:00 EDT, [facility], Partial fill upon patient request if [...] 3 Refills, Maintenance, 06/20/22 15:49:00 EDT, Tablet, [facility], 165.1, cm, 06/21/21 11:05:00 EDT, Height [...] 06/20/22 15:49:00 EDT, Route to Pharmacy Electronically, [facility] 165.1,cm, 06/21/21 11:05:00 EDT, Height Start [...] mL, 11 Refills, Maintenance, 08/08/22 12:55:00 EDT, [facility], 165.1, cm, 06/21/21 11:05:00 EDT, Height Start Date: 08/08/22 Stop Date: 08/03/23 Status: Ordered latanoprost 0.005% ophthalmic solution See Instructions, INSERT 1 DROP IN BOTH EYES DAILY AT BEDTIME FOR 30 DAYS :PLEASE OBTAIN FURTHER REFILLS FROM YOUR HEAD CAGER, # 2.5 mL, 0 Refills, [facility], 30, INSERT 1 DROP IN BOTHEYES DAILY AT BEDTIME FOR 30 DAYS :PLEASE OBTAIN FU... Start Date: 10/31/21 Status: Ordered lisinopril 40 mg oral tablet 1 tablet = 40 mg, By Mouth, Daily, for blood pressure, # 90 tablet, 3 Refills, Maintenance, 06/20/22 15:49:00 EDT, [facility] 165.1, cm, 06/21/21 11:05:00 EDT, Height Start Date: 06/20/22 Stop Date: 06/15/23 Status: Ordered metFORMIN 750 mg oral tablet, extended release 2 tablet, By Mouth, Daily, for diabetes., # 180 tablet, 3 Refills, Maintenance, 06/20/22 15:49:00 EDT, [facility] 165.1, cm, 06/21/21 11:05:00 EDT, Height Start Date: 06/20/22 Status: Ordered NovoLOG FlexPen 100 units/mL subcutaneous solution See Instructions, Subcutaneous Injection, Use as directed for Diabetes mellitus type 2, per slidingscale. (Max Dose = 50 units/day), # 30 mL, 11 Refills, Maintenance, 10/18/22 9:47:00 EDT, [facility] 165.1, cm, 10/18/22 9:09:00 EDT,... Start Date: 10/18/22 Stop Date: 10/13/23 Status: Ordered Pen [place], 31 G x 8 mm BD Ultra Fine III See Instructions, # 150 each, Refills 5, Tot. Refills 5, Maintenance, use as directed for Type 2 Diabetes Mellitus E11.9 for 4x/day insulin pen injections, 10/10/22 10:20:00 EDT, Supply, 165.1, cm, 06/21/21 11:05:00 EDT, Height Start Date: 10/10/22 Stop Date: 04/08/23 Status: Ordered Pen [place], 31 G x 8 mm BD Ultra Fine III See Instructions, # 200 each, Refills 11, Tot. Refills 11, Maintenance, use up to 4 times daily as directed for Type 2 Diabetes Mellitus. E11.9, 10/04/21 9:58:00 EDT, Supply, 165.1, cm, 06/21/21 11:05:00 EDT, Height, 78.6, kg, 06/15/20 10:01:00 EDT, D... Start Date: 10/04/21 Stop Date: 09/29/22 Status: Ordered Ang[employer] List COVID-19 Vaccine 30 mcg/0.3 mL preservative-free intramuscular [...] DAY :PLEASE GET FURTHER REFILLS FROM YOUR HEAD CAGER, # 5 mL, 0 Refills, [facility], 25, INSERT 1 DROP IN BOTH EYES 2 TIMES A DAY :PLEASE GET FURTHER REFILLS FROM YOUR HEAD CAGER... Start Date: 10/31/21 Status: Ordered traZODone 50 [...] Maintenance, 12/05/20 14:59:00 EDT, ER Tablet, [facility]/pharmacy #[id number], Partial fill upon patient request if the [...] 1was seen by Dr. Devon Mccormack at [facility] 2Problem added by Discern Expert Social History Social History Type Response Smoking Status 10 or more cigarette s (1/2 pack or more)/day in last 30 days entered on: 01/26/20 Sex Patient Care team information Care Team Personnel Name: Susana Rodas MD Position: [facility] Physician - Primary Care Member Role: PCP Address: Address: [address] [place] [address]- Name: Ann Barron Position: [facility] Outreach Member Role: Lifetime Consulting Physician Care Team Related Persons Name: MALISSA CORDERO Address: home [address] [place] [id number] Name: JARED CORDERO Address: [place] [address]
--- OUTSIDE RECORDS SUMMARY | 2023-02-28 10:24 | XMS_ITS | Continuity of Care Document ---
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 Role Phone Susana Rodas MD Primary Care Physician Encounter [facility] Date(s): 01/17/23 - 02/16/23 [facility] [address] [place] [id number] Allergies, Adverse Reactions, Alerts Substance Reaction [...] vis given 10/17/10 2Admin Note: VIS GIVEN [id number] 3Admin Note: VIS GIVEN Medications Alcohol Pads [...] 06/20/22 15:49:00 EDT, Route to Pharmacy Electronically, [facility], 165.1,cm, 06/21/21 11:05:00 EDT, Height Start Date: 06/20/22 Status: Ordered atorvastatin 10 mg oral tablet 1 tablet = 10 mg, By Mouth, Daily, for cholesterol, # 90 tablet, 3 Refills, Maintenance, 06/20/22 15:49:00 EDT, [facility], Partial fill upon patient request if [...] 3 Refills, Maintenance, 06/20/22 15:49:00 EDT, Tablet, [facility]., 165.1, cm, 06/21/21 11:05:00 EDT, Height [...] 06/20/22 15:49:00 EDT, Route to Pharmacy Electronically, [facility], 165.1,cm, 06/21/21 11:05:00 EDT, Height Start [...] mL, 11 Refills, Maintenance, 08/08/22 12:55:00 EDT, [facility], 165.1, cm, 06/21/21 11:05:00 EDT, Height Start Date: 08/08/22 Stop Date: 08/03/23 Status: Ordered latanoprost 0.005% ophthalmic solution See Instructions, INSERT 1 DROP IN BOTH EYES DAILY AT BEDTIME FOR 30 DAYS :PLEASE OBTAIN FURTHER REFILLS FROM YOUR PAPER ROLLER, # 2.5 mL, 0 Refills, [facility], 30, INSERT 1 DROP IN BOTHEYES DAILY AT BEDTIME FOR 30 DAYS :PLEASE OBTAIN FU... Start Date: 10/31/21 Status: Ordered lisinopril 40 mg oral tablet 1 tablet = 40 mg, By Mouth, Daily, for blood pressure, # 90 tablet, 3 Refills, Maintenance, 06/20/22 15:49:00 EDT, [facility] 165.1, cm, 06/21/21 11:05:00 EDT, Height Start Date: 06/20/22 Stop Date: 06/15/23 Status: Ordered metFORMIN 750 mg oral tablet, extended release 2 tablet, By Mouth, Daily, for diabetes., # 180 tablet, 3 Refills, Maintenance, 06/20/22 15:49:00 EDT, [facility] 165.1, cm, 06/21/21 11:05:00 EDT, Height Start Date: 06/20/22 Status: Ordered NovoLOG FlexPen 100 units/mL subcutaneous solution See Instructions, Subcutaneous Injection, Use as directed for Diabetes mellitus type 2, per slidingscale. (Max Dose = 50 units/day), # 30 mL, 11 Refills, Maintenance, 10/18/22 9:47:00 EDT, [facility] 165.1, cm, 10/18/22 9:09:00 EDT,... Start Date: 10/18/22 Stop Date: 10/13/23 Status: Ordered Pen [place], 31 G x 8 mm BD Ultra Fine III See Instructions, # 150 each, Refills 5, Tot. Refills 5, Maintenance, use as directed for Type 2 Diabetes Mellitus E11.9 for 4x/day insulin pen injections, 10/10/22 10:20:00 EDT, Supply, 165.1, cm, 06/21/21 11:05:00 EDT, Height Start Date: 10/10/22 Stop Date: 04/08/23 Status: Ordered Pen [place], 31 G x 8 mm BD Ultra Fine III See Instructions, # 200 each, Refills 11, Tot. Refills 11, Maintenance, use up to 4 times daily as directed for Type 2 Diabetes Mellitus. E11.9, 10/04/21 9:58:00 EDT, Supply, 165.1, cm, 06/21/21 11:05:00 EDT, Height, 78.6, kg, 06/15/20 10:01:00 EDT, D... Start Date: 10/04/21 Stop Date: 09/29/22 Status: Ordered ZAO Begun COVID-19 Vaccine 30 mcg/0.3 mL preservative-free intramuscular [...] DAY :PLEASE GET FURTHER REFILLS FROM YOUR PAPER ROLLER, # 5 mL, 0 Refills, [facility], 25, INSERT 1 DROP IN BOTH EYES 2 TIMES A DAY :PLEASE GET FURTHER REFILLS FROM YOUR PAPER ROLLER... Start Date: 10/31/21 Status: Ordered traZODone 50 [...] 12/05/20 14:59:00 EDT, ER Tablet, [facility]/pharmacy #[id number], Partial fill upon patient request if the [...] 1was seen by Dr. Devon Mccormack at [facility] 2Problem added by Discern Expert Social History Social History Type Response Smoking Status 10 or more cigarette s (1/2 pack or more)/day in last 30 days entered on: 01/26/20 Sex Patient Care team information Care Team Personnel Name: Susana Rodas MD Position: [facility] Physician - Primary Care Member Role: PCP Address: Address: [address] [place] [address]- Name: Ann Barron Position: [facility] Outreach Member Role: Lifetime Consulting Physician Care Team Related Persons Name: MALISSA CORDERO Address: home [address] [place] [id number] Name: JARED CORDERO Address: [place] [address]
== END 2023-02-28 11:53 | disposition home or self-care (01) ==
PROVIDERS: PCP Internal Medicine; Visit Provider Internal Medicine
DX: R91.1 Solitary pulmonary nodule (principal); I10 Essential (primary) hypertension; E11.9 Type 2 diabetes mellitus without complications; Z23 Encounter for immunization
CPT/HCPCS: 90471; 90686; 99214

== ENCOUNTER 2023-06-17 09:25 | Outpatient (AMB) | payer OTHER, SELFPAY ==
[2023-06-17 09:32] VITALS: BP 128/78; PULSE 80; O2SAT 97; BMI 26.0
--- NOTE | 2023-06-17 09:32 | A.OFFPC_ITS ---
Vital Signs 06/17/23 09:32 Height 5 ft 5 in Weight 156 lb BMI 26.0 BP 128/78 Blood Pressure Location Lt brachial Position Sitting Pulse 80 Pulse Source Pulse Oximeter Pulse Oximetry (%) 97 Oxygen Delivery Method Room Air Intake Visit Reasons: discuss emotional support animal Intake Note: Pt is here today for a follow up visit. Allergies No Known Allergies Allergy (Verified 06/17/23 09:34) Tobacco use date assessed: 06/17/23 Dental Screening Dental Screen Date: 06/17/23 Did you have a dental visit in the last 12 months?: Yes Did you have a dental problem in the last 6 months where you did not have access to dental care?: No Was dental information given to patient?: Patient has dentist HPI HPI Comments History of Present Illness Details Pt presents for f/u HTN, hyperlipid, DM 2, stable on meds. For chronic anxiety and depression she follows up with a counselor and a psychiatrist and was prescribed hydroxyzine at bedtime which has been effective. Patient denies suicidal ideation. PFSH Family History Mother Schizophrenia Mental health disorder Diabetes Hypertension Father No problems noted. Social History Household Members Other:: disable for lower back problems, lives alone, Housing: Apartment Patient Tobacco Use Status: Current everyday Tobacco user Tobacco use type: Cigarette Cigarettes Per Day: 10 e-Cigarette/Vaping Use: Never Used service: No Current occupational status: unemployed Cognitive needs: No Hearing needs: No Vision needs: Yes Questionnaire PHQ-9 Over the last 2 weeks, how often have you been bothered by any of the following problems? 1. Little interest or pleasure in doing things: nearly every day 2. Feeling down, depressed, or hopeless: nearly every day 3. Trouble falling or staying asleep, or sleeping too much: nearly every day 4. Feeling tired or having little energy: more than half the days 5. Poor appetite or overeating: not at all 6. Feeling bad about yourself - or that you are a failure or have let yourself or your family down: not at all 7. Trouble concentrating on things, such as reading the newspaper or watching television: not at all 8. Moving or speaking so slowly that other people could have noticed. Or the opposite - being so fidgety or restless that you have been moving around a lot more than usual: not at all 9. Thoughts that you would be better off or of hurting yourself in some way: not at all Total score: 11 Depression Screening Interpretation: Positive (Patient is established with a counselor and a psychiatrist) Depression Screening Follow-up: Existing condition and In treatment Depression Screening Done: Yes 80058 - PHQ-9 Billing: Yes Source: Developed by Drs. Elia Oconnor, Mariaa Siddiqui, Timo Haile and colleagues, with an educational trevor from [employer]. Thrive Questionnaire Date Thrive assessed: 06/17/23 I am a: Patient What is your living situation today?: I have a steady place to live Within the past 12 months, did the food you bought not last and you didn't have the money to get more?: Sometimes True Within the past 12 months, did you worry whether your food would run out before you got money to buy more?: Sometimes True Do you have trouble paying for medicines?: No Do you have trouble getting transportation to medical appointments?: No Do you have trouble paying your heating and electricity bill?: No Do you have trouble taking care of your child, family member or friend?: No Do you have trouble with day-to-day activities such as bathing, preparing meals, shopping, managing finances, etc.?: Yes Are you currently unemployed and looking for a job?: No Are you interested in more education?: No Please select the resources that you would like help with: None Currently or been in a relationship where the following occur: no concerns reported THRIVE Score: 2 CONSTANCE-7 AMB Questionnaire CONSTANCE-7 Date CONSTANCE - 7 assessed: 06/17/23 Feeling nervous, anxious, or on edge: 3 = Nearly every day Not being able to stop or control worryin = Nearly every day Worrying too much about different things: 2 = More than half the days Trouble relaxin = Nearly every day Being so restless that it is hard to sit still: 2 = More than half the days Becoming easily annoyed or irritable: 2 = More than half the days Feeling afraid as if something awful might happen: 0 = Not at all Total CONSTANCE-7 score (0-4 normal; 5-9 mild; 10-14 moderate; 15-21 severe): 15 Source: Developed by Drs. Elia Oconnor, Mariaa Siddiqui, Timo Haile and colleagues, with an educational trevor from [employer]. Review of Systems Const All systems reviewed & are unremarkable except as noted in HPI and below Reports no additional complaints Eyes Reports no additional complaints ENT Reports no additional complaints Card Reports no additional complaints Resp Reports no additional complaints GI Reports no additional complaints Reports no additional complaints Physical exam (Primary Care) Vital Signs: Last Vital Signs Pulse 80 06/17/23 09:32 BP 128/78 06/17/23 09:32 Pulse Ox 97 06/17/23 09:32 Oxygen Delivery Method Room Air 06/17/23 09:32 BMI result Body Mass Index 26.0 Tobacco/Smoking Status: Tobacco use Status Tobacco use date assessed 06/17/23 06/17/23 09:39 Patient Tobacco Use Status Current everyday Tobacco 06/17/23 09:39 Tobacco use type Cigarette 06/17/23 09:39 e-Cigarette/Vaping Use Never Used 06/17/23 09:39 Depression Screening Interpretation: Positive (Patient is established with a counselor and a psychiatrist) Depression Screening Follow-up: Existing condition and In treatment Thrive Assessment: Date of Thrive Assessment Date Thrive assessed 10/19/22 06/17/23 09:39 Currently or been in a relationship where the following occur: no concerns reported Const General: no acute distress HENMT Head: Yes normal to inspection Ears: hearing grossly normal bilaterally Throat: Yes posterior oropharynx normal Eyes General: appearance normal, both eyes and all related structures Neck Neck: Yes no lymphadenopathy and Yes supple Resp Effort & Inspection: normal respiratory effort Auscultation: clear to auscultation bilaterally Cardio Rhythm: regular rhythm Heart sounds: S1 normal heart sound present and S2 normal heart sound present GI Inspection: Yes normal to inspection Palpation (GI): Soft to palpation Auscultation: normal bowel sounds Extrem Other: Diabetic foot exam skin is intact monofilament and vibration sensation intact bilaterally General: Yes no clubbing, cyanosis or edema Assessment and Plan Assessment & Plan (1) HTN (hypertension): Code(s): I10 - Essential (primary) hypertension Plan: Continue lisinopril and amlodipine (2) DM type 2 (diabetes mellitus, type 2): Comment: f/u Endo [facility] Code(s): E11.9 - Type 2 diabetes mellitus without complications Plan: Continue metformin and insulin patient will return for fasting blood work tomorrow, she will follow-up with [facility] endocrinology (3) Anxiety and depression: Comment: Follow-up with a counselor any psychiatrist Code(s): F41.9 - Anxiety disorder, unspecified; F32.A - Depression, unspecified Plan: Continue hydroxyzine (4) Lung nodule, solitary: Comment: 5 mm RML, CT 02/14, recheck in 1 yr Code(s): R91.1 - Solitary pulmonary nodule Orders: Orders Comprehensive Leslie. Panel Fast Today E11.9 - Type 2 diabetes mellitus without complications, F32.A - Depression, unspecified, F41.9 - Anxiety disorder, unspecified, I10 - Essential (primary) hypertension Complete Blood Count Auto Diff Today E11.9 - Type 2 diabetes mellitus without complications, F32.A - Depression, unspecified, F41.9 - Anxiety disorder, unspecified, I10 - Essential (primary) hypertension Hemoglobin A1c Today E11.9 - Type 2 diabetes mellitus without complications, F32.A - Depression, unspecified, F41.9 - Anxiety disorder, unspecified, I10 - Essential (primary) hypertension Lipid Panel Today E11.9 - Type 2 diabetes mellitus without complications, F32.A - Depression, unspecified, F41.9 - Anxiety disorder, unspecified, I10 - Essential (primary) hypertension Microalbumin, Random (w Creat) Today E11.9 - Type 2 diabetes mellitus without complications, F32.A - Depression, unspecified, F41.9 - Anxiety disorder, unspecified, I10 - Essential (primary) hypertension Coding Level of Care Code Est Pt Level 4 (47386) Diagnoses HTN (hypertension) I10 DM type 2 (diabetes mellitus, type 2) E11.9 Anxiety and depression F41.9; F32.A Lung nodule, solitary R91.1
== END 2023-06-17 10:32 | disposition home or self-care (01) ==
PROVIDERS: PCP Internal Medicine; Visit Provider Internal Medicine
DX: I10 Essential (primary) hypertension (principal); E11.9 Type 2 diabetes mellitus without complications; F41.9 Anxiety disorder, unspecified; F32.A Depression, unspecified; R91.1 Solitary pulmonary nodule
CPT/HCPCS: 99214

== ENCOUNTER 2023-07-18 08:00 | Outpatient (REF) | payer OTHER, SELFPAY ==
[2023-07-18 10:23] LABS: MANUAL DIFF FLAG NO
[2023-07-18 10:44] LABS: Alanine Aminotransferase 12 U/L (0-31); Albumin Level 3.9 g/dL (3.5-5.0); Alkaline Phosphatase 88 U/L (39-117); Anion Gap 11 (12-20); Aspartate Amino Transferase 12 U/L (5-31); Bilirubin Total 0.4 mg/dL (0.0-1.0); Blood Urea Nitrogen 14 mg/dL (9-16); Calcium 9.2 mg/dL (8.4-10.2); Carbon Dioxide 28 mmol/L (22-29); Chloride 104 mmol/L (96-108); Cholesterol 97 mg/dL (<200); Estimated Glomerular Filt Rate > 60; Glucose Fasting 218 mg/dL (60-99); HDL Cholesterol 40 mg/dL (>40); LDL Cholesterol Calculated 48 mg/dL (<100); Potassium 3.8 mmol/L (3.3-5.1); Sodium 139 mmol/L (135-145); Total Protein 7.2 g/dL (6.5-8.0); Triglycerides 45 mg/dL (<150)
[2023-07-18 10:45] LABS: Estimated Average Glucose 235 mg/dL; Hemoglobin A1c % 9.8 % (<6.0)
[2023-07-18 10:47] LABS: Basophils Percent Auto 0.3 % (0-2); Eosinophils Absolute Auto 0.1 X10*3/uL (0.0-0.4); Eosinophils Percent Auto 2.1 % (0-4); Hematocrit 38.7 % (37.0-47.0); Hemoglobin 12.6 g/dl (12.0-16.0); Imm Gran Abs Auto 0.02 X10*3/uL (0.00-0.03); Imm Gran Pct Auto 0.3 % (0.0-0.4); Lymphocytes Absolute Auto 1.7 X10*3/uL (1.2-4.9); Mean Corpuscular HGB Conc 32.6 g/dl (31.0-35.0); Mean Corpuscular Hemoglobin 23.5 pg (27.0-33.0); Mean Corpuscular Volume 72.2 fL (80.0-98.0); Mean Platelet Volume 9.1 fL (9.4-12.3); Monocytes Absolute Auto 0.7 X10*3/uL (0.1-1.2); Monocytes Percent Auto 9.9 % (2-11); Neutrophils Absolute Auto 4.1 x10*3/uL (2.0-8.3); Neutrophils Percent Auto 62.4 % (45-73); Platelet Count 248 X10*3/uL (160-400); Red Blood Count 5.36 X10*6/uL (4.20-5.50); Red Cell Distribution Width 14.7 % (11.0-16.0); White Blood Count 6.6 X10*3/uL (4.8-10.8)
== END 2023-07-18 08:01 | disposition home or self-care (01) ==
LOC: HO.HMGCLDS 08:00
PROVIDERS: PCP Internal Medicine; Visit Provider Internal Medicine
DX: I10 Essential (primary) hypertension (principal); E11.9 Type 2 diabetes mellitus without complications; F41.9 Anxiety disorder, unspecified; F32.A Depression, unspecified
CPT/HCPCS: 36415; 80053; 80061; 83036; 85025

== ENCOUNTER 2024-01-01 08:56 | Outpatient (REF) | payer OTHER, SELFPAY ==
[2024-01-01 09:56] LABS: MANUAL DIFF FLAG NO
[2024-01-01 10:10] LABS: Basophils Percent Auto 0.4 % (0-2); Eosinophils Absolute Auto 0.1 X10*3/uL (0.0-0.4); Hematocrit 36.4 % (37.0-47.0); Hemoglobin 11.6 g/dl (12.0-16.0); Imm Gran Abs Auto 0.01 X10*3/uL (0.00-0.03); Imm Gran Pct Auto 0.2 % (0.0-0.4); Lymphocytes Absolute Auto 1.8 X10*3/uL (1.2-4.9); Lymphocytes Percent Auto 35.6 % (20-40); Mean Corpuscular HGB Conc 31.9 g/dl (31.0-35.0); Mean Corpuscular Volume 72.1 fL (80.0-98.0); Mean Platelet Volume 8.8 fL (9.4-12.3); Monocytes Absolute Auto 0.5 X10*3/uL (0.1-1.2); Monocytes Percent Auto 8.8 % (2-11); Neutrophils Absolute Auto 2.8 x10*3/uL (2.0-8.3); Platelet Count 333 X10*3/uL (160-400); Red Blood Count 5.05 X10*6/uL (4.20-5.50); White Blood Count 5.1 X10*3/uL (4.8-10.8)
[2024-01-01 10:15] LABS: Estimated Average Glucose 252 mg/dL; Hemoglobin A1C 265.8558 umol/L; Hemoglobin A1c % 10.4 % (<6.0); Total Hemoglobin (HGBA1C) 2957.7912 umol/L
[2024-01-01 10:26] LABS: Alanine Aminotransferase 12 U/L (0-31); Alkaline Phosphatase 70 U/L (39-117); Anion Gap 10 (12-20); Aspartate Amino Transferase 11 U/L (5-31); Bilirubin Total 0.4 mg/dL (0.0-1.0); Blood Urea Nitrogen 15 mg/dL (9-16); Carbon Dioxide 29 mmol/L (22-29); Chloride 105 mmol/L (96-108); Cholesterol 93 mg/dL (<200); Estimated Glomerular Filt Rate > 60; Glucose Fasting 170 mg/dL (60-99); HDL Cholesterol 41 mg/dL (>40); LDL Cholesterol Calculated 46 mg/dL (<100); Potassium 3.2 mmol/L (3.3-5.1); Sodium 141 mmol/L (135-145); Total Protein 6.9 g/dL (6.5-8.0); Triglycerides 33 mg/dL (<150)
== END 2024-01-01 08:57 | disposition home or self-care (01) ==
LOC: HO.HMGCLDS 08:56
PROVIDERS: PCP Internal Medicine; Visit Provider Internal Medicine
DX: Z00.00 Encounter for general adult medical examination without abnormal findings (principal); I10 Essential (primary) hypertension; E11.9 Type 2 diabetes mellitus without complications
CPT/HCPCS: 36415; 80053; 80061; 83036; 85025

== ENCOUNTER 2024-01-09 08:10 | Outpatient (AMB) | payer OTHER, SELFPAY ==
--- NOTE | 2024-01-09 08:12 | A.OFFPC_ITS ---
Vital Signs 01/09/24 08:13 Height 5 ft 5 in Weight 148 lb BMI 24.6 BP 128/74 Blood Pressure Location Lt brachial Position Sitting Pulse 78 Pulse Source Pulse Oximeter Pulse Oximetry (%) 98 Oxygen Delivery Method Room Air Intake Visit Reasons: DM review, referral for hernia repair Intake Note: Pt is here today for a follow up visit on DM. Allergies No Known Allergies Allergy (Verified 01/09/24 08:17) Medication List - Last Reconciled 01/09/24 by Susana Rodas MD alcohol swabs (Alcohol Pads) 1 pad topical QID amlodipine 10 mg PO DAILY atorvastatin 10 mg PO BEDTIME blood-glucose meter (FreeStyle [place] kit) As directed cholecalciferol (vitamin D3) 25 mcg PO DAILY hydrochlorothiazide 25 mg PO DAILY hydroxyzine HCl 10 mg PO BEDTIME insulin aspart U-100 (Novolog FlexPen U-100 Insulin aspart) 6 units (0.06 mL) subcut TID insulin glargine (Lantus Solostar U-100 Insulin) 22 units (0.22 mL) subcut BEDTIME latanoprost 0.005% 1 drp ophthalmic (eye) DAILY lisinopril 40 mg PO DAILY metformin ER 1,500 mg (2 x 750 mg) PO DAILY multivitamin,tx-minerals 1 tab PO DAILY nicotine (polacrilex) mg PO timolol 0.5% 1 drp ophthalmic (eye) BID Tobacco use date assessed: 01/09/24 Dental Screening Dental Screen Date: 01/09/24 Did you have a dental visit in the last 12 months?: Yes Did you have a dental problem in the last 6 months where you did not have access to dental care?: No Was dental information given to patient?: Patient has dentist HPI DM review, referral for hernia repair HPI Details Pt presents for f/u HTN, hyperlipidemia, DM 2 poorly controlled and established with [facility] Endo, chronic depression and anxiety. Patient com [place] of not eating well-balanced regular meals because inability to cook for herself due to chronic lower back pain. She has been checking her blood glucose 3 times a day before meals with a readings between 180 to over 200. PFSH Surgical History (Updated 01/09/24 @ 08:21 by Ayah Negro Clare) Hx of abdominal surgery Family History Mother Schizophrenia Mental health disorder Diabetes Hypertension Father No problems noted. Social History Household Members Other:: disable for lower back problems, lives alone, Housing: Apartment Patient Tobacco Use Status: Current everyday Tobacco user Tobacco use type: Cigarette Cigarettes Per Day: 10 e-Cigarette/Vaping Use: Never Used service: No Current occupational status: unemployed Cognitive needs: No Hearing needs: No Vision needs: Yes Questionnaire PHQ-9 Over the last 2 weeks, how often have you been bothered by any of the following problems? 1. Little interest or pleasure in doing things: nearly every day 2. Feeling down, depressed, or hopeless: nearly every day 3. Trouble falling or staying asleep, or sleeping too much: nearly every day 4. Feeling tired or having little energy: more than half the days 5. Poor appetite or overeating: not at all 6. Feeling bad about yourself - or that you are a failure or have let yourself or your family down: not at all 7. Trouble concentrating on things, such as reading the newspaper or watching television: not at all 8. Moving or speaking so slowly that other people could have noticed. Or the opposite - being so fidgety or restless that you have been moving around a lot more than usual: not at all 9. Thoughts that you would be better off or of hurting yourself in some way: not at all Total score: 11 Depression Screening Interpretation: Positive (Patient is established with a counselor and a psychiatrist, start sertraline 50 mg a day and continue hydroxyzine at bedtime 01/15) Depression Screening Follow-up: Existing condition and In treatment Depression Screening Done: Yes 73774 - PHQ-9 Billing: Yes Source: Developed by Drs. Elia Oconnor, Mariaa Siddiqui, Timo Haile and colleagues, with an educational trevor from [employer]. Thrive Questionnaire Date Thrive assessed: 06/17/23 AUDIT C Alcohol Use Questionnaire (AUDIT-C) 1. How often do you have a drink containing alcohol?: Never 3. How often do you have six or more drinks on one occasion?: Never Total Score: 0 CONSTANCE-7 AMB Questionnaire CONSTANCE-7 Date CONSTANCE - 7 assessed: 06/17/23 Source: Developed by Drs. Elia Oconnor, Mariaa Siddiqui, Timo Haile and colleagues, with an educational trevor from [employer]. Review of Systems Const All systems reviewed & are unremarkable except as noted in HPI and below ENT Reports no additional complaints Card Reports no additional complaints Resp Reports no additional complaints GI Reports no additional complaints Reports no additional complaints Physical exam (Primary Care) Vital Signs: Last Vital Signs Pulse 78 01/09/24 08:13 BP 128/74 01/09/24 08:13 Pulse Ox 98 01/09/24 08:13 Oxygen Delivery Method Room Air 01/09/24 08:13 BMI result Body Mass Index 24.6 Tobacco/Smoking Status: Tobacco use Status Tobacco use date assessed 01/09/24 01/09/24 08:23 Patient Tobacco Use Status Current everyday Tobacco 01/09/24 08:13 Tobacco use type Cigarette 01/09/24 08:13 e-Cigarette/Vaping Use Never Used 01/09/24 08:13 PHQ-9: PHQ-9 Score PHQ-9: Total score 11 01/09/24 08:23 Depression Screening Interpretation: Positive (Patient is established with a counselor and a psychiatrist, start sertraline 50 mg a day and continue hydroxyz ine at bedtime 01/15) Depression Screening Follow-up: Existing condition and In treatment Thrive Assessment: Date of Thrive Assessment Date Thrive assessed 06/17/23 01/09/24 08:13 Const General: no acute distress HENMT Head: Yes normal to inspection Neck Neck: Yes no lymphadenopathy and Yes supple Resp Effort & Inspection: normal respiratory effort Auscultation: clear to auscultation bilaterally Cardio Rhythm: regular rhythm Heart sounds: S1 normal heart sound present and S2 normal heart sound present GI Inspection: Yes normal to inspection Coding Level of Care Code Est Pt Level 4 (63730) Complex EM visit Add On G2211 Diagnoses DM type 2 (diabetes mellitus, type 2) E11.9 HTN (hypertension) I10 Recovering alcoholic F10.21 Hypokalemia E87.6 Anxiety and depression F41.9; F32.A Assessment & Plan Assessment & Plan (1) DM type 2 (diabetes mellitus, type 2): Comment: f/u Endo [facility] Code(s): E11.9 - Type 2 diabetes mellitus without complications Category: Medical Plan: A1c is 10.4. ADA diet discussed with the patient. she was advised to increase Lantus to 30 units and continue NovoLog before meals. She will start checking her blood glucose with Dexcom G7 for the history of hyper and hypoglycemia. Follow-up in 1 month (2) HTN (hypertension): Code(s): I10 - Essential (primary) hypertension Category: Medical Plan: Patient will stop hydrochlorothiazide because of hypokalemia. She will continue amlodipine and lisinopril ,increase potassium rich foods like bananas and recheck basic metabolic panel in 1 week (3) Recovering alcoholic: Code(s): F10.21 - Alcohol dependence, in remission Category: Social Hx Plan: In remission (4) Hypokalemia: Comment: Stop hydrochlorothiazide Code(s): E87.6 - Hypokalemia Category: Medical Plan: Increase potassium rich foods and recheck basic metabolic panel in 1 week (5) Anxiety and depression: Comment: Follow-up with a counselor any psychiatrist Code(s): F41.9 - Anxiety disorder, unspecified; F32.A - Depression, unspecified Category: Medical Plan: For anxiety and depression sertraline 50 mg will be started patient will continue hydroxyzine at bedtime and follow-up with a counselor Orders: Orders Basic Metabolic Panel 1 Week E11.9 - Type 2 diabetes mellitus without complications, E87.6 - Hypokalemia Medications: New Dexcom G7 Sensor (blood-glucose sensor) TID 2 ea 3RF NS sertraline 50 mg PO DAILY 30 tabs 3RF Changed From insulin glargine (Lantus Solostar U-100 Insulin) 22 units (0.22 mL) subcut BEDTIME 15 mL 0RF To insulin glargine (Lantus Solostar U-100 Insulin) 30 units (0.3 mL) subcut BEDTIME 15 mL 4RF Discontinued hydrochlorothiazide Discontinued Reason: Doctor's Order 25 mg PO DAILY 90 tabs 1RF
[2024-01-09 08:13] VITALS: BP 128/74; PULSE 78; O2SAT 98; BMI 24.6
== END 2024-01-09 10:04 | disposition home or self-care (01) ==
LOC: HO.HMCC 08:10
PROVIDERS: PCP Internal Medicine; Visit Provider Internal Medicine
DX: E11.9 Type 2 diabetes mellitus without complications (principal); I10 Essential (primary) hypertension; F10.21 Alcohol dependence, in remission; E87.6 Hypokalemia; F41.9 Anxiety disorder, unspecified; F32.A Depression, unspecified

== ENCOUNTER → 2024-01-09 08:10 | Outpatient (BNVA) | payer OTHER, SELFPAY | PROVIDERS: PCP Internal Medicine; Visit Provider Internal Medicine | DX: E11.9 Type 2 diabetes mellitus without complications (principal); I10 Essential (primary) hypertension; F10.21 Alcohol dependence, in remission; E87.6 Hypokalemia; F41.9 Anxiety disorder, unspecified; F32.A Depression, unspecified | CPT/HCPCS: 96127; 99212 ==

== ENCOUNTER → 2024-01-15 11:24 | Outpatient (BNVA) | payer OTHER, SELFPAY | PROVIDERS: PCP Internal Medicine ==

== ENCOUNTER 2024-05-27 13:34 | Outpatient (REF) | payer OTHER, SELFPAY ==
[2024-05-27 16:34] LABS: Estimated Average Glucose 272 mg/dL; Hemoglobin A1c % 11.1 % (<6.0)
[2024-05-27 17:13] LABS: Alkaline Phosphatase 119 U/L (39-117)
--- OUTSIDE RECORDS SUMMARY | 2024-05-27 17:27 | XMS_ITS | Clinical Summary ---
Author Organization [facility] Address [address] [place] [address] Phone Care Team Providers Care Order Desk Caller Name Role Phone Physician, Pcp Unknown Primary [...] topic Insurance MED[place] - [place] Care Teams Order Desk Caller Relationship Specialty Start Date End Date Physician, Pcp Unknown PCP - General 02/26/24
[2024-05-27 17:49] LABS: Alanine Aminotransferase 11 U/L (0-31); Albumin Level 3.8 g/dL (3.5-5.0); Anion Gap 13 (12-20); Aspartate Amino Transferase 14 U/L (5-31); Bilirubin Total 0.4 mg/dL (0.0-1.0); Blood Urea Nitrogen 11 mg/dL (9-16); Calcium 9.5 mg/dL (8.4-10.2); Carbon Dioxide 26 mmol/L (22-29); Chloride 102 mmol/L (96-108); Estimated Glomerular Filt Rate > 60; Glucose Random 411 mg/dL (60-115); Potassium 4.1 mmol/L (3.3-5.1); Sodium 137 mmol/L (135-145); Total Protein 7.3 g/dL (6.5-8.0)
[2024-05-28 08:40] LABS: Syphilis Screen Reactive (Nonreactive)
[2024-05-28 08:54] LABS: HBS Num1 11.21 mIU/mL (0-7.99); HBc Num1 8.09 S/CO (0.00-0.79); HBsAGNum1 0.36 S/CO (0.00-0.99); HIV AB/AG Nonreactive (Nonreactive); HIV Num 1 0.05 S/CO (0.00-0.99); Hepatitis B Surface Antigen Negative (Negative); ~HepC Num1 0.08 S/CO (0.00-0.79); ~Hepatitis C Antibody Nonreactive (Nonreactive)
[2024-05-28 10:38] LABS: HBc Num2 8.17 S/CO
[2024-05-28 10:39] LABS: HBS Num2 11.25 mIU/mL (0-7.99); HBS Num3 11.16 mIU/mL (0-7.99); HBc Num3 8.46 S/CO; Hepatitis B Core Antibody Reactive (Nonreactive); ~Hepatitis B Surface Antibody GRAYZONE (Nonreactive)
[2024-05-30 08:32] LABS: Hepatitis B Core Antibody IgM NON-REACTIVE (NON-REACTIVE)
[2024-06-03 09:52] LABS: RPR Quantitative Non-Reactive (Nonreactive); T.Pallidum Particle Agg Test Reactive (Nonreactive)
== END 2024-05-27 13:35 | disposition home or self-care (01) ==
LOC: HO.HMGCLDS 13:34
PROVIDERS: PCP Internal Medicine; Visit Provider Internal Medicine
DX: N63.15 Unspecified lump in the right breast, overlapping quadrants (principal); E11.9 Type 2 diabetes mellitus without complications; Z91.81 History of falling; Z00.00 Encounter for general adult medical examination without abnormal findings
CPT/HCPCS: 36415; 80053; 83036; 86592; 86704; 86705; 86706; 86780; 86803; 87340; 87389; 96127; 99212

== ENCOUNTER 2024-05-27 13:34 | Outpatient (AMB) | payer OTHER, SELFPAY ==
[2024-05-27 13:36] VITALS: BP 120/76; PULSE 78; RESP 18; TEMP 36.8; O2SAT 99; BMI 23.1
--- NOTE | 2024-05-27 13:36 | A.OFFPC_ITS ---
Vital Signs 05/27/24 13:36 Height 5 ft 5 in Weight 139 lb BMI 23.1 BP 120/76 Blood Pressure Location Lt brachial Position Sitting Respiration 18 Pulse 78 Pulse Source Pulse Oximeter Temp 98.3 F Temp Source Oral Pulse Oximetry (%) 99 Oxygen Delivery Method Room Air Intake Visit Reasons: right breast pain s/p fall Intake Note: Pt is here today for a sick visit. Pt c/o lump in her R breast that is painful. Pt states that she fell. Allergies No Known Allergies Allergy (Verified 05/27/24 13:36) Medication List - Last Reconciled 05/27/24 by Susana Rodas MD alcohol swabs (Alcohol Pads) 1 pad topical QID amlodipine 10 mg PO DAILY atorvastatin 10 mg PO BEDTIME benzonatate 100 mg PO BID PRN blood-glucose meter (FreeStyle [place] kit) As directed cholecalciferol (vitamin D3) 25 mcg PO DAILY Dexcom G7 Sensor (blood-glucose sensor) TID NS hydroxyzine HCl 10 mg PO BEDTIME insulin aspart U-100 1 sliding scale dose subcut TID MDD 36 units insulin glargine (Lantus Solostar U-100 Insulin) 30 units (0.3 mL) subcut BEDTIME lancets (FreeStyle Lancets) Test blood sugar 3 times per day latanoprost 0.005% 1 drp ophthalmic (eye) DAILY lisinopril 40 mg PO DAILY metformin ER 1,500 mg (2 x 750 mg) PO DAILY multivitamin,tx-minerals 1 tab PO DAILY nicotine (polacrilex) mg PO pen needle, diabetic Use to inject insulin 4 times per day sertraline 50 mg PO DAILY timolol 0.5% 1 drp ophthalmic (eye) BID Tobacco use date assessed: 05/27/24 Dental Screening Dental Screen Date: 05/27/24 Did you have a dental visit in the last 12 months?: Yes Did you have a dental problem in the last 6 months where you did not have access to dental care?: No Was dental information given to patient?: Patient has dentist HPI right breast pain s/p fall HPI Details Patient presents complaining of a lump under right breast noticed about 2 weeks ago after she fell down. She denies any tenderness over ribs area positional pain any discharge from the breast. She is due for mammogram. 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 Patient has not been compliant with ADA diet. [facility] Surgical History Hx of abdominal surgery Family History Mother Schizophrenia Mental health disorder Diabetes Hypertension Father No problems noted. Social History Household Members Other:: disable for lower back problems, lives alone, Housing: Apartment Patient Tobacco Use Status: Current everyday Tobacco user Tobacco use type: Cigarette Cigarettes Per Day: 10 e-Cigarette/Vaping Use: Never Used service: No Current occupational status: unemployed Cognitive needs: No Hearing needs: No Vision needs: Yes Questionnaire PHQ-9 Over the last 2 weeks, how often have you been bothered by any of the following problems? 1. Little interest or pleasure in doing things: not at all 2. Feeling down, depressed, or hopeless: several days 3. Trouble falling or staying asleep, or sleeping too much: not at all 4. Feeling tired or having little energy: not at all 5. Poor appetite or overeating: not at all 6. Feeling bad about yourself - or that you are a failure or have let yourself or your family down: not at all 7. Trouble concentrating on things, such as reading the newspaper or watching television: not at all 8. Moving or speaking so slowly that other people could have noticed. Or the opposite - being so fidgety or restless that you have been moving around a lot more than usual: not at all 9. Thoughts that you would be better off or of hurting yourself in some way: not at all Total score: 1 Depression Screening Interpretation: Negative Depression Screening Done: Yes 25386 - PHQ-9 Billing: Yes Source: Developed by Drs. Elia Oconnor, Mariaa Siddiqui, Timo Haile and colleagues, with an educational trevor from [employer]. Thrive Questionnaire Date Thrive assessed: 05/27/24 I am a: Patient What is your living situation today?: I have a steady place to live Within the past 12 months, did the food you bought not last and you didn't have the money to get more?: I choose not to answer this question Within the past 12 months, did you worry whether your food would run out before you got money to buy more?: I choose not to answer this question Do you have trouble paying for medicines?: No Do you have trouble getting transportation to medical appointments?: No Do you have trouble paying your heating and electricity bill?: No Do you have trouble taking care of your child, family member or friend?: No Do you have trouble with day-to-day activities such as bathing, preparing meals, shopping, managing finances, etc.?: No Are you currently unemployed and looking for a job?: Yes Are you interested in more education?: Yes Please select the resources that you would like help with: Food Currently or been in a relationship where the following occur: I choose not to answer THRIVE Score: 0 AUDIT C Alcohol Use Questionnaire (AUDIT-C) 1. How often do you have a drink containing alcohol?: Never Total Score: 0 OCNSTANCE-7 AMB Questionnaire CONSTANCE-7 Date CONSTANCE - 7 assessed: 05/27/24 Feeling nervous, anxious, or on edge: 0 = Not at all Not being able to stop or control worryin = Not at all Worrying too much about different things: 0 = Not at all Trouble relaxin = Not at all Being so restless that it is hard to sit still: 0 = Not at all Becoming easily annoyed or irritable: 0 = Not at all Feeling afraid as if something awful might happen: 0 = Not at all Total CONSTANCE-7 score (0-4 normal; 5-9 mild; 10-14 moderate; 15-21 severe): 0 Source: Developed by Drs. Elia Oconnor, Mariaa Siddiqui, Timo Haile and colleagues, with an educational trevor from [employer]. CONSTANCE-7 Assessment Billing CONSTANCE-7 Assessment Tool: CONSTANCE-7 Assessment 73965 Review of Systems Const All systems reviewed & are unremarkable except as noted in HPI and below ENT Reports no additional complaints Card Reports no additional complaints Resp Reports no additional complaints GI Reports no additional complaints Reports no additional complaints Physical exam (Primary Care) Vital Signs: Last Vital Signs Temp 98.3 F 05/27/24 13:36 Pulse 78 05/27/24 13:36 Resp 18 05/27/24 13:36 BP 120/76 05/27/24 13:36 Pulse Ox 99 05/27/24 13:36 Oxygen Delivery Method Room Air 05/27/24 13:36 BMI result Body Mass Index 23.1 Tobacco/Smoking Status: Tobacco use Status Tobacco use date assessed 05/27/24 05/27/24 13:42 Patient Tobacco Use Status Current everyday Tobacco 05/27/24 13:42 Tobacco use type Cigarette 05/27/24 13:42 e-Cigarette/Vaping Use Never Used 05/27/24 13:42 PHQ-9: PHQ-9 Score PHQ-9: Total score 1 05/27/24 13:42 Depression Screening Interpretation: Negative Thrive Assessment: Date of Thrive Assessment Date Thrive assessed 05/27/24 05/27/24 13:42 Currently or been in a relationship where the following occur: I choose not to a nswer Const General: no acute distress HENMT Head: Yes normal to inspection Face and sinus: Yes normal facial exam Throat: Yes posterior oropharynx normal Neck Neck: Yes no lymphadenopathy and Yes supple Chest Breast/axilla palpation: abnormal palpation of the breast (At 06:00o'clock of right breast dense area palpable mobile no tender) Resp Effort & Inspection: normal respiratory effort Auscultation: clear to auscultation bilaterally Cardio Rhythm: regular rhythm Heart sounds: S1 normal heart sound present and S2 normal heart sound present Coding Level of Care Code Est Pt Level 4 (92246) Diagnoses Breast mass, right N63.10 DM type 2 (diabetes mellitus, type 2) E11.9 Additional Codes CONSTANCE-7 Assessment Billing - CONSTANCE-7 Assessment Tool: CONSTANCE-7 Assessment 86305 ([id number]) PHQ-9 - 22385 - PHQ-9 Billing: Yes ([id number]) Assessment & Plan Assessment & Plan (1) Breast mass, right: Comment: 6 oclock Code(s): N63.10 - Unspecified lump in the right breast, unspecified quadrant Category: Medical Plan: Obtain diagnostic right breast mammogram and ultrasound. Patient will schedule it at [facility] (2) DM type 2 (diabetes mellitus, type 2): Comment: f/u Endo [facility] Code(s): E11.9 - Type 2 diabetes mellitus without complications Category: Medical Plan: ADA diet regular physical activity discussed with the patient continue current medications check A1c today and follow-up with [facility] endocrinology Orders: Orders MM diagnostic mammo unilat RT Today N63.10 - Unspecified lump in the right breast, unspecified quadrant Hemoglobin A1c Today E11.9 - Type 2 diabetes mellitus without complications, Z00.00 - Encounter for general adult medical examination without abnormal findings Syphilis Screen Today E11.9 - Type 2 diabetes mellitus without complications, Z00.00 - Encounter for general adult medical examination without abnormal findings CT NG by PCR Today E11.9 - Type 2 diabetes mellitus without complications, Z00.00 - Encounter for general adult medical examination without abnormal findings Hepatitis B,C Profile Today E11.9 - Type 2 diabetes mellitus without complications, Z00.00 - Encounter for general adult medical examination without abnormal findings US breast RT limited Today N63.10 - Unspecified lump in the right breast, unspecified quadrant MM screening mammo unilat LT Today Z12.31 - Encounter for screening mammogram for malignant neoplasm of breast HIV Ab/Ag Today E11.9 - Type 2 diabetes mellitus without complications, Z00.00 - Encounter for general adult medical examination without abnormal findings Comprehensive Met. Panel Today E11.9 - Type 2 diabetes mellitus without complications, Z00.00 - Encounter for general adult medical examination without abnormal findings XR ribs RT 2V Today R07.81 - Pleurodynia
--- OUTSIDE RECORDS SUMMARY | 2024-05-27 16:09 | XMS_ITS | Clinical Summary ---
Author Organization [facility] Address [address] [place] [address] Phone Care Team Providers Care Gate Manager Name Role Phone Physician, Pcp Unknown Primary Care Provider Lalita vailable Allergies Active Allergy Reactions Criticality Noted Date Comments Insulin Lispro 07/03/2022 Other Reaction(s): patient reports she is allergic to insulin lispro (humalog) and can only take insulin aspart (novolog) Other reaction(s): patient reports she is allergic to insulin lispro (humalog) and can only take insulin aspart (novolog) Medications cyclobenzaprine (FLEXERIL) 10 mg tablet Take 1 tablet (10 mg total) by mouth 2 (two) times a day if needed for muscle spasms for up to 10 days. 20 tablet 02/26/2024 Active Medical History Medical History Date Comments Diabetes (CMS/HCC) DX:Diabetes ( HCC) Hypertension DX:Hypertension Social History Tobacco Use Types Packs/Day Years Used Date Smoking Tobacco: Some Days Smokeless Tobacco: Never Alcohol Use Standard Drinks/Week Comments No 0 (1 standard drink = 0.6 oz pur e alcohol) Comments Unknown Sex and Gender Information Value Date Recorded Sex Assigned at Female 02/26/2024 9:32 AM EST Legal Sex Female 10:28 PM EST Gender Identity Female 02/26/2024 9:32 AM EST Sexual Orientation Straight 02/26/2024 9: 32 AM EST Obstetrics History Last Filed Vital Signs Vital Sign Reading Time Taken Comments Blood Pressure 163/104 02/26/2024 7:58 AM EST Pulse 74 02/26/2024 7:58 AM EST Temperature 36.8 ??C (98.2 ??F) 02/26/2024 7:58 AM ES T Respiratory Rate 18 02/26/2024 7:58 AM EST Oxygen Saturation 99% 02/26/2024 7:58 AM EST Inhaled Oxygen Concentration - - Weight 74.8 kg (165 lb) 02/26/2024 7:58 AM EST Height 165.1 cm (5' 5 ) 02/26/2024 7:58 AM EST Body Mass Index 27.46 02/26/2024 7:58 AM EST Plan of Treatment Health Maintenance Due Date Last Done Comments Breast Cancer Screening 1965 Diabetes: Annual GFR (Glomerular Filtration Rate) 1965 Diabetes: Annual Foot Exam 1975 Diabetes: Annual Retina Eye Exam 1975 Hepatitis B Vaccines (1 of 3 - 19+ 3-dose series) 1984 Cervical Cancer Screening: Pap Smear 1986 Pneumococcal Vaccine: 50+ Years (2 of 2 - PCV) 02/01/2015 02/01/2014, 2003 Pneumococcal Vaccine: Pediatrics (0 to 5 Years) and At-Risk Patients (6 to 64 Years) (2 of 2 - PCV) 02/01/2015 02/01/2014, 2003 Zoster Vaccines (1 of 2) 2015 Cholesterol Screening (Lipid Panel) 02/25/2022 Colorectal Cancer Screening: Colonoscopy 02/25/2022 Depression Screening 02/25/2022 HIV Screening 02/25/2022 Hepatitis C Screening 02/25/2022 Social Influencers of Health Screening 02/25/2022 COVID-19 Vaccine ( season) 2023 03/08/2021, 05/03/2020 Influenza Vaccine (#1) 2023 3, 03/08/2021, 12/03/2018, Additional history exists Diabetes: Annual Urine Albumin-Creatinine Ratio (uACR) 02/26/2024 Diabetes: Blood Sugar Control Test (HGBA1C) 02/26/2024 Hypertension/CHF/CAD Annual BMP Blood Test 02/26/2024 DTaP,Tdap,and Td Vaccines (3 - Td or Tdap) 12/03/2028 12/03/2018, 04/20/1998 RSV Immunization Patients 60+ Years Old (1 - 1-dose 75+ series) 2040 HIB Vaccines Aged Out No longer eligi ble based on patient's age to complete this topic HPV Vaccines Aged Out No longer eligi ble based on patient's age to complete this topic Hepatitis A Vaccines Aged Out No long er eligible based on patient's age to complete this topic IPV Vaccines Aged Out No longer eligi ble based on patient's age to complete this topic MMR Vaccines Aged Out No longer eligi ble based on patient's age to complete this topic Meningococcal ACWY Vaccine Aged Out N o longer eligible based on patient's age to complete this topic Meningococcal B Vacine Aged Out No lo nger eligible based on patient's age to complete this topic RSV Immunization Patients Under 20 months Aged Out No longer eligible based on patient's age to complete this topic Varicella Vaccines Aged Out No longer eligible based on patient's age to complete this topic Insurance MEDICAID - [place] Care Teams Gate Manager Relationship Specialty Start Date End Date Physician, Pcp Unknown PCP - General 02/26/24
== END 2024-05-27 15:22 | disposition home or self-care (01) ==
PROVIDERS: PCP Internal Medicine; Visit Provider Internal Medicine
DX: N63.10 Unspecified lump in the right breast, unspecified quadrant (principal); E11.9 Type 2 diabetes mellitus without complications

== ENCOUNTER 2024-07-29 12:24 | Outpatient (AMB) | payer OTHER, SELFPAY ==
[2024-07-29 12:35] VITALS: BP 124/76; PULSE 82; RESP 18; TEMP 37.7; O2SAT 96; BMI 23.7
--- NOTE | 2024-07-29 12:35 | A.OFFPC_ITS ---
Vital Signs 07/29/24 12:35 Height 5 ft 5 in Weight 142 lb 9 oz BMI 23.7 BP 124/76 Blood Pressure Location Lt brachial Position Sitting Respiration 18 Pulse 82 Pulse Source Pulse Oximeter Temp 99.9 F Temp Source Oral Pulse Oximetry (%) 96 Oxygen Delivery Method Room Air Intake Visit Reasons: PE Intake Note: Pt is here today for PE. Pt states that she would like a referral to [facility]. Pt states that she will need her vitamins refilled. Allergies No Known Allergies Allergy (Verified 07/29/24 12:38) Medication List - Last Reconciled 07/29/24 by Susana Rodas MD alcohol swabs (Alcohol Pads) 1 pad topical QID amlodipine 10 mg PO DAILY atorvastatin 10 mg PO BEDTIME blood-glucose meter (FreeStyle [place] kit) As directed cholecalciferol (vitamin D3) 25 mcg PO DAILY Dexcom G7 Sensor (blood-glucose sensor) TID NS hydroxyzine HCl 10 mg PO BEDTIME insulin aspart U-100 1 sliding scale dose subcut TID MDD 36 units insulin glargine (Lantus Solostar U-100 Insulin) 30 units (0.3 mL) subcut BEDTIME lancets (FreeStyle Lancets) Test blood sugar 3 times per day latanoprost 0.005% 1 drp ophthalmic (eye) DAILY lisinopril 40 mg PO DAILY metformin ER 1,500 mg (2 x 750 mg) PO DAILY multivitamin,tx-minerals 1 tab PO DAILY nicotine (polacrilex) mg PO pen needle, diabetic Use to inject insulin 4 times per day sertraline 50 mg PO DAILY timolol 0.5% 1 drp ophthalmic (eye) BID Tobacco use date assessed: 07/29/24 Dental Screening Dental Screen Date: 05/27/24 HPI PE HPI Details Pt presents for PE. She complains of having difficulty to remember taking her medications and requesting [facility] services. Patient reports fasting blood glucose around 120 for the last week. 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 Patient complains of discomfort in umbilical area getting worse over the last few weeks. She denies abdominal pain nausea vomiting fever chills or change in bowel habits [facility] Medical History (Updated 07/29/24 @ 13:49 by Susana Rodas MD) Umbilical hernia Anxiety and depression Hx of screening mammography HTN (hypertension) DM type 2 (diabetes mellitus, type 2) Surgical History Hx of abdominal surgery Family History Mother Schizophrenia Mental health disorder Diabetes Hypertension Father No problems noted. Social History Household Members Other:: disable for lower back problems, lives alone, Housing: Apartment Patient Tobacco Use Status: Former Tobacco user Tobacco use type: Cigarette Cigarettes Per Day: 10 e-Cigarette/Vaping Use: Never Used service: No Current occupational status: unemployed Cognitive needs: No Hearing needs: No Vision needs: Yes Questionnaire Thrive Questionnaire Date Thrive assessed: 05/27/24 I am a: Patient What is your living situation today?: I have a steady place to live Within the past 12 months, did the food you bought not last and you didn't have the money to get more?: I choose not to answer this question Within the past 12 months, did you worry whether your food would run out before you got money to buy more?: I choose not to answer this question Do you have trouble paying for medicines?: No Do you have trouble getting transportation to medical appointments?: No Do you have trouble paying your heating and electricity bill?: No Do you have trouble taking care of your child, family member or friend?: No Do you have trouble with day-to-day activities such as bathing, preparing meals, shopping, managing finances, etc.?: No Are you currently unemployed and looking for a job?: Yes Are you interested in more education?: Yes Please select the resources that you would like help with: Food Currently or been in a relationship where the following occur: I choose not to answer THRIVE Score: 0 CONSTANCE-7 AMB Questionnaire CONSTANCE-7 Date CONSTANCE - 7 assessed: 05/27/24 Source: Developed by Drs. Elia Oconnor, Mariaa Siddiqui, Timo Haile and colleagues, with an educational trevor from [employer]. Review of Systems Const All systems reviewed & are unremarkable except as noted in HPI and below Reports no additional complaints Eyes Reports no additional complaints ENT Reports no additional complaints Card Reports no additional complaints Resp Reports no additional complaints GI Reports no additional complaints Reports no additional complaints Musc Reports no additional complaints Physical exam (Primary Care) Vital Signs: Last Vital Signs Temp 99.9 F 07/29/24 12:35 Pulse 82 07/29/24 12:35 Resp 18 07/29/24 12:35 BP 124/76 07/29/24 12:35 Pulse Ox 96 07/29/24 12:35 Oxygen Delivery Method Room Air 07/29/24 12:35 BMI result Body Mass Index 23.7 Tobacco/Smoking Status: Tobacco use Status Tobacco use date assessed 07/29/24 07/29/24 12:44 Patient Tobacco Use Status Former Tobacco user 07/29/24 12:44 Tobacco use type Cigarette 07/29/24 12:35 e-Cigarette/Vaping Use Never Used 07/29/24 12:35 Thrive Assessment: Date of Thrive Assessment Date Thrive assessed 05/27/24 07/29/24 12:35 Currently or been in a relationship where the following occur: I choose not to answer Const General: no acute distress HENMT Head: Yes normal to inspection Ears: hearing grossly normal bilaterally Face and sinus: Yes normal facial exam Mouth: Normal oral and palatal mucosa present Throat: Yes posterior oropharynx normal Neck Neck: Yes no lymphadenopathy and Yes supple Resp Effort & Inspection: normal respiratory effort Auscultation: clear to auscultation bilaterally Cardio Rhythm: regular rhythm Heart sounds: S1 normal heart sound present and S2 normal heart sound present GI Other: Reducible umbilical hernia Inspection: Yes normal to inspection Palpation (GI): Soft to palpation Percussion: Yes normal to percussion Auscultation: normal bowel sounds Coding Level of Care Code Est Pt Prev Care 40-64y([id number]) Diagnoses DM type 2 (diabetes mellitus, type 2) E11.9 HTN (hypertension) I10 Anxiety and depression F41.9; F32.A Annual physical exam Z00.00 Memory deficit R41.3 Assessment & Plan Assessment & Plan (1) DM type 2 (diabetes mellitus, type 2): Comment: f/u [facility] Code(s): E11.9 - Type 2 diabetes mellitus without complications Category: Medical Plan: ADA diet regular exercise discussed with the patient she will return for fasting blood work including A1c. 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 (2) HTN (hypertension): Code(s): I10 - Essential (primary) hypertension Category: Medical Plan: Continue current medications (3) Anxiety and depression: Comment: Follow-up with a counselor any psychiatrist Code(s): F41.9 - Anxiety disorder, unspecified; F32.A - Depression, unspecified Category: Medical Plan: Follow-up with the psychiatrist, (4) Annual physical exam: Comment: Refer to transformation manager for a Pap smear 02/14, patient declined Pneumovax 07/2024 Code(s): Z00.00 - Encounter for general adult medical examination without abnormal findings Category: Medical Plan: Well-balanced diet regular physical activity discussed with the patient she will schedule an appointment for mammogram and pelvic exam. Patient had negative colonoscopy 7 years ago (5) Memory deficit: Code(s): R41.3 - Other amnesia Category: Medical Plan: Check TSH level Orders: Orders Vitamin B1 Today E11.9 - Type 2 diabetes mellitus without complications, R41.3 - Other amnesia Vitamin B12 and Folate Today E11.9 - Type 2 diabetes mellitus without complications, R41.3 - Other amnesia Comprehensive Morgan. Panel Fast Today E11.9 - Type 2 diabetes mellitus without complications, I10 - Essential (primary) hypertension Complete Blood Count Auto Diff Today E11.9 - Type 2 diabetes mellitus without complications, I10 - Essential (primary) hypertension Hemoglobin A1c Today E11.9 - Type 2 diabetes mellitus without complications, I10 - Essential (primary) hypertension Lipid Panel Today E11.9 - Type 2 diabetes mellitus without complications, I10 - Essential (primary) hypertension TSH reflex Free T4 Today E11.9 - Type 2 diabetes mellitus without complications, R41.3 - Other amnesia Microalbumin, Random (w Creat) Today E11.9 - Type 2 diabetes mellitus without complications, R41.3 - Other amnesia Referrals [facility] Referral E11.9 - Type 2 diabetes mellitus without complications, I10 - Essential (primary) hypertension, R41.3 - Other amnesia
--- OUTSIDE RECORDS SUMMARY | 2024-07-29 13:37 | XMS_ITS | Clinical Summary ---
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 20 tablet 02/26/2024 Active Active Problems No known active problems Encounters Date Type Department Care Team Description 06/14/2024 12:57 PM EDT - 06/14/2024 2:24 PM EDT Emergency [facility] Emergency [address] [place] [address] Nondisplaced fracture of proximal phalanx of right lesser toe(s), initial encounter for closed fracture (Primary Dx) Discharge Disposition: Home or Self Care from Last 3 Months Medical History Medical History Date Comments Diabetes (CMS/HCC V24, CMS/HCC V28) DX:Diabetes (HCC) Hypertension DX:Hypertension Social History Tobacco Use Types [...] Sign Reading Time Taken Comments Blood Pressure 141/90 06/14/2024 12:29 PM EDT Pulse 83 06/14/2024 12:29 PM EDT Temperature 36.6 ??C (97.9 ??F) 06/14/2024 12:29 PM E DT Respiratory Rate 18 06/14/2024 12:29 PM EDT Oxygen Saturation 100% 06/14/2024 12:29 PM EDT Inhaled Oxygen Concentration - - Weight 74.4 kg (164 lb) 06/14/2024 12:29 PM EDT Height 165.1 cm (5' 5 ) 06/14/2024 12:29 PM EDT Body Mass Index 27.29 06/14/2024 12:29 PM EDT Plan of Treatment Upcoming Encounters Date Type Department Care Team (Late st Contact Info) Description 09/02/2024 9:30 AM EDT Office Visit Orthopedic Surgery - [place] [address] [phone] Antonio Marley, DPM [address] [id number] Health Maintenance Due Date Last Done Comments [...] COVID-19 Vaccine ( season) 2023 03/08/2021, 05/03/2020 Diabetes: Annual Urine Albumin-Creatinine Ratio (uACR) 02/26/2024 Diabetes: Blood Sugar Control Test (HGBA1C) 02/26/2024 Hypertension/CHF/CAD Annual BMP Blood Test 02/26/2024 Influenza Vaccine (Season Ended) 2024 02/28/2023, 03/08/2021, 12/03/2018, Additional history exists DTaP,Tdap,and Td Vaccines (3 - Td or Tdap) 12/03/2028 12/03/2018, 04/20/1998 RSV Immunization Adult Patients (1 - 1-dose 75+ series) 2040 HIB [...] age to complete this topic Meningococcal B Vaccine Aged Out No l onger eligible based on patient's age to complete this topic RSV Immunization Patients Under 20 months Aged Out No longer eligible based on patient's age to complete this topic Varicella Vaccines Aged Out No longer eligible based on patient's age to complete this topic Procedures Procedure Name Priority Date/Time Associated Diagnosis Comments XR FOOT 3+ VIEWS RIGHT STAT 06/14/2024 12:53 PM EDT from Last 3 Months Results * XR Foot 3+ Views Right (06/14/2024 12:53 PM EDT) Anatomical Region Laterality Modality Lower Extremities, Foot Right Radiogra phic Imaging 06/14/2024 12:5 8 PM EDT Impressions 06/14/2024 12:59 PM EDT Impression: Nondisplaced fracture of the proximal phalanx of the fifth digit. Telejoseline SUTTON ([id number]) -------- FINAL REPORT -------- Dictated By: Beckie Downey Dictated Date: 06/14/2024 12:58 ET Assigned Physician: Beckie Downey Reviewed and Electronically Signed By: Beckie Downey Signed Date: 06/14/2024 12:59 ET Workstation ID: [id number] Transcribed By: Self Edit Transcribed Date: 06/14/2024 12:58 ET Narrative 06/14/2024 12:59 PM EDT History: Pain right foot fifth digit after blunt trauma. Findings: AP, oblique and lateral views of the right foot. A nondisplaced fracture of the proximal diaphysis of the proximal phalanx of the fifth digit is noted, with overlying soft tissue swelling. No involvement of the articular surface is seen. The remainder of the foot is unremarkable. Procedure Note Beckie Downey MD - 06/14/2024 History: Pain right foot fifth digit after blunt trauma. Findings: AP, oblique and lateral views of the right foot. A nondisplaced fracture of the proximal diaphysis of the proximal phalanxof the fifth digit is noted, with overlying soft tissue swelling. Noinvolvement of the articular surface is seen. The remainder of the foot is unremarkable. IMPRESSION: Impression: Nondisplaced fracture of the proximal phalanx of the fifth digit. 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
== END 2024-07-29 13:49 | disposition home or self-care (01) ==
LOC: HO.HMCC 12:25
PROVIDERS: PCP Internal Medicine; Visit Provider Internal Medicine
DX: E11.9 Type 2 diabetes mellitus without complications (principal); I10 Essential (primary) hypertension; F41.9 Anxiety disorder, unspecified; F32.A Depression, unspecified; Z00.00 Encounter for general adult medical examination without abnormal findings; R41.3 Other amnesia

== ENCOUNTER → 2024-07-29 12:24 | Outpatient (BNVA) | payer OTHER, SELFPAY | PROVIDERS: PCP Internal Medicine; Visit Provider Internal Medicine | DX: Z00.00 Encounter for general adult medical examination without abnormal findings (principal); E11.9 Type 2 diabetes mellitus without complications; I10 Essential (primary) hypertension; F41.9 Anxiety disorder, unspecified; F32.A Depression, unspecified; R41.3 Other amnesia | CPT/HCPCS: 99396 ==

== ENCOUNTER 2024-10-13 07:56 | Outpatient (REF) | payer OTHER, SELFPAY ==
--- OUTSIDE RECORDS SUMMARY | 2024-10-13 08:01 | XMS_ITS | Clinical Summary ---
Author Organization [facility] Address [address] [place] [address] Phone Care Team Providers Care Facilities Planner Name Role Phone Physician, No Pcp Primary Care Provider Unavaila ble Allergies Active Allergy Reactions Criticality Noted Date Comments Gabapentin Other Low 08/30/2024 PT reports getting gassy . Medications cyclobenzaprine (FLEXERIL) 10 mg tablet Take 1 tablet (10 mg total) by mouth 2 (two) times a day if needed for muscle spasms for up to 10 days. 20 tablet 02/26/2024 Active methocarbamoL (ROBAXIN) 750 mg tablet Take 1 tablet (750 mg total) by mouth 4 (four) times a day for 10 days. 20 each 08/30/2024 Active docusate sodium (COLACE) 100 mg capsule Take 1 capsule (100 mg total) by mouth every 12 (twelve) hours. 60 capsule 08/20/2024 09/20/19 25 naproxen (NAPROSYN) 500 mg tablet Take 1 tablet (500 mg total) by mouth 2 (two) times a day with meals for 15 days. 30 tablet 08/30/2024 09/15/19 25 Active Problems No known active problems Encounters Date Type Department Care Team Description 09/16/2024 11:00 AM EDT Consult General Surgery - [place] 175 [facility] [address] [place] [address] Uri Hathaway, Type 2 diabetes mellitus with other specified complication, unspecified whether jail insulin use (CMS/[facility] V24, [facility] V28) (Primary Dx); Incisional hernia, without obstruction or gangrene 09/01/2024 9:58 AM EDT - 09/01/2024 1:13 PM EDT Emergency [facility] Emergency [address] [place] [phone] Solo Alvarez DO Generalized abdominal pain (Primary Dx); Abdominal wall hernia Discharge Disposition: Home or Self Care 08/30/2024 9:04 PM EDT - 08/31/2024 12:20 AM EDT Emergency [facility] Emergency [address] [place] [address] Abdominal pain, unspecified abdominal location (Primary Dx) Discharge Disposition: Home or Self Care 08/20/2024 5:32 PM EDT - 08/20/2024 10:29 PM EDT Emergency [facility] Emergency [address] [place] [phone] Colitis (Primary Dx); Constipation, unspecified constipation type Discharge Disposition: Home or Self Care from Last 3 Months Medical History Medical History Date Comments Diabetes ([facility] V24, [facility] V28) DX:Diabetes ([facility]) Hypertension DX:Hypertension Social History Tobacco Use Types Packs/Day Years Used Date Smoking Tobacco: Some Days Smokeless Tobacco: Never Alcohol Use Standard Drinks/Week Comments No 0 (1 standard drink = 0.6 oz pur e alcohol) Comments No Sex and Gender Information Value Date Recorded Sex Assigned at Female 02/26/2024 9:32 AM EST Legal Sex Female 10:28 PM EST Gender Identity Female 02/26/2024 9:32 AM EST Sexual Orientation Straight 02/26/2024 9: 32 AM EST Obstetrics History Last Filed Vital Signs Vital Sign Reading Time Taken Comments Blood Pressure 151/82 09/16/2024 10:51 AM EDT Pulse 76 09/16/2024 10:51 AM EDT Temperature 36.8 C (98.2 F) 09/01/2024 12:25 PM EDT Respiratory Rate 18 09/01/2024 12:25 PM EDT Oxygen Saturation 98% 09/01/2024 12:25 PM EDT Inhaled Oxygen Concentration - - Weight 64.6 kg (142 lb 8 oz) 09/16/2024 10:51 AM EDT Height 165.1 cm (5' 5 ) 09/16/2024 10:51 AM EDT Body Mass Index 23.71 09/16/2024 10:51 AM EDT Plan of Treatment Upcoming Encounters Date Type Department Care Team (Late st Contact Info) Description 10/20/2024 10:00 AM EDT Office Visit General Surgery - [place] 175 [facility] [address] [place] [phone] Uri Hathaway, DO 175 [facility] [address] [place] [address] 11/09/2024 9:00 AM EDT Office Visit Orthopedic Surgery - [place] [address] 175 [facility] [address] [place] [phone] Antonio Marley, DPM 175 [facility] [address] [place] [address] Health Maintenance Due Date Last Done Comments Breast Cancer Screening 1965 Diabetes: Annual Foot Exam 1975 Diabetes: Annual Retina Eye Exam 1975 Hepatitis B Vaccines (1 of 3 - 19+ 3-dose series) 1984 Cervical Cancer Screening: Pap Smear 1986 Pneumococcal Vaccine: 50+ Years (2 of 2 - PCV) 02/01/2015 02/01/2014, 2003 Zoster Vaccines (1 of 2) 2015 Cholesterol Screening (Lipid Panel) 02/25/2022 Colorectal Cancer Screening: Colonoscopy 02/25/2022 HIV Screening 02/25/2022 Hepatitis C Screening 02/25/2022 Social Influencers of Health Screening 02/25/2022 COVID-19 Vaccine ( season) 2023 03/08/2021, 05/03/2020 Diabetes: Annual Urine Albumin-Creatinine Ratio (uACR) 02/26/2024 Diabetes: Blood Sugar Control Test (HGBA1C) 02/26/2024 Depression Screening 03/25/2024 Influenza Vaccine (#1) 2024 , 03/08/2021, 12/03/2018, Additional history exists Diabetes: Annual GFR (Glomerular Filtration Rate) 09/01/2025 09/01/2024, 08/30/2024, 08/20/2024 Hypertension/CHF/CAD Annual BMP Blood Test 09/01/2025 09/01/2024, 08/30/2024, 08/20/2024 DTaP,Tdap,and Td Vaccines (3 - Td or [...] Procedure Name Priority Date/Time Associated Diagnosis Comments POCT GLUCOSE BLOOD Routine 09/01/2024 12 :27 PM EDT CBC WITH AUTO DIFFERENTIAL STAT 09/01/2024 10:26 AM EDT COMPREHENSIVE METABOLIC PANEL STAT 09/01/2024 10:26 AM EDT CBC AND DIFFERENTIAL STAT 09/01/2024 10:26 AM EDT US ABDOMEN LIMITED STAT 08/30/2024 10 :37 PM EDT CBC WITH AUTO DIFFERENTIAL STAT 08/30/2024 9:29 PM EDT LIPASE STAT 08/30/2024 9:29 PM EDT COMPREHENSIVE METABOLIC PANEL STAT 08/30/2024 9:29 PM EDT CBC AND DIFFERENTIAL STAT 08/30/2024 9:[address] ABDOMEN PELVIS W CONTRAST STAT 08/20/2024 8:42 PM EDT CBC WITH AUTO DIFFERENTIAL STAT 08/20/2024 4:51 PM EDT TYPE AND SCREEN STAT 08/20/2024 4:51 PM EDT COMPREHENSIVE METABOLIC PANEL STAT 08/20/2024 4:51 PM EDT CBC AND DIFFERENTIAL STAT 08/20/2024 4:51 PM EDT from Last 3 Months Results * (ABNORMAL) POCT Glucose, blood (09/01/2024 12:27 PM EDT) [facility] Glucose POCT 263(H) 70 - 100 mg/dL 09/01/2024 12:27 PM EDT [facility] Blood Capillary blood specimen / Unknown 09/01/2024 12:27 PM EDT 09/01/2024 12:28 PM EDT us Solo Alvarez DO LAB POINT OF CARE T EST DOCKED DEVICE UNSOLICITED RESULTS Final Result [facility] [address] [place] [address], [place] [phone] * (ABNORMAL) CBC auto differential (09/01/2024 10:26 AM EDT) Only the most recent of3 resultswithin the time period is included. WBC 5.4 4.8 - 10.8 K/[facility] HEMETOLOGY METHOD 09/01/2024 11:08 AM EDT [facility] RBC 5.30(H) 3.80 - 4.80 M/[facility] HEMETOLOGY METHOD 09/01/2024 11:08 AM [facility] Hemoglobin 12.2 11.5 - 16.0 g/dL LAB HEMETOLOGY METHOD 09/01/2024 11:08 AM [facility] Hematocrit 39.5 35.0 - 47.0 % LAB HEMETOLOGY METHOD 09/01/2024 11:08 AM [facility] MCV 74.2(L) 79.0 - 98.0 FL LAB HEMETOLOGY METHOD 09/01/2024 11:08 AM [facility] MCH 22.9(L) 27.0 - 32.0 pcg LAB HEMETOLOGY METHOD 09/01/2024 11:08 AM [facility] MCHC 30.9(L) 32.0 - 37.0 g/dL LAB HEMETOLOGY METHOD 09/01/2024 11:08 AM [facility] RDW 15.5(H) 11.0 - 15.0 % LAB HEMETOLOGY METHOD 09/01/2024 11:08 AM [facility] Platelets 326 130 - 400 K/mcL LAB HEMETOLOGY METHOD 09/01/2024 11:08 AM [facility] MPV 9.2 7.0 - 11.0 FL LAB HEMETOLOGY METHOD 09/01/2024 11:08 AM [facility] NRBC 0.0 <1.0 % LAB HEMETOLOGY METHOD 09/01/2024 11:08 AM [facility] NRBC Absolute 0.00 <0.10 K/mcL LAB HEMETOLOGY METHOD 09/01/2024 11:08 AM [facility] Neutrophils Relative 67.9 % LAB HEMETOLOGY METHOD 09/01/2024 11:08 AM [facility] Lymphocytes Relative 22.1 % LAB HEMETOLOGY METHOD 09/01/2024 11:08 AM [facility] Monocytes Relative 8.3 % LAB HEMETOLOGY METHOD 09/01/2024 11:08 AM EDT [facility] Eosinophils Relative 0.7 % LAB HEMETOLOGY METHOD 09/01/2024 11:08 AM [facility] Basophils Relative 0.4 % LAB HEMETOLOGY METHOD 09/01/2024 11:08 AM [facility] Immature Granulocytes Relative 0.6 % LAB HEMETOLOGY METHOD 09/01/2024 11:08 AM [facility] Neutrophils Absolute 3.66 1.50 - 7.00 K/mcL LAB HEMETOLOGY METHOD 09/01/2024 11:08 AM [facility] Lymphocytes Absolute 1.19 1.00 - 5.00 K/mcL LAB HEMETOLOGY METHOD 09/01/2024 11:08 AM [facility] Monocytes Absolute 0.45 0.20 - 1.00 K/mcL LAB HEMETOLOGY METHOD 09/01/2024 11:08 AM [facility] Eosinophils Absolute 0.04 0.00 - 0.50 K/mcL LAB HEMETOLOGY METHOD 09/01/2024 11:08 AM [facility] Basophils Absolute 0.02 0.00 - 0.20 K/mcL LAB HEMETOLOGY METHOD 09/01/2024 11:08 AM [facility] Immature Granulocytes Absolute 0.03 0.00 - 0.03 K/mcL LAB HEMETOLOGY METHOD 09/01/2024 11:08 AM [facility] Blood Venous blood specimen / Unknown Venipuncture / Unknown 09/01/2024 10:26 AM EDT 09/01/2024 10:51 AM EDT Solo Alvarez DO LAB BLOOD ORDERABLES Final Result [facility] [address] [place] [address], * (ABNORMAL) Comprehensive metabolic panel (09/01/2024 10:26 AM EDT) Only the most recent of3 resultswithin the time period is included. Sodium 139 133 - 145 mmol/L LAB CHEMISTRY METHOD 09/01/2024 11:32 AM [facility] Potassium 4.0 3.5 - 5.5 mmol/L LAB CHEMISTRY METHOD 09/01/2024 11:32 AM [facility] Comment:Hemolysis present Chloride 104 96 - 110 mmol/L LAB CHEMISTRY METHOD 09/01/2024 11:32 AM [facility] CO2 27 21 - 32 mmol/L LAB CHEMISTRY METHOD 09/01/2024 11:32 AM [facility] Anion Gap 8 3 - 11 LAB CHEMISTRY METHOD 09/01/2024 11:32 AM [facility] Glucose 287(H) 70 - 100 mg/dL LAB CHEMISTRY METHOD 09/01/2024 11:32 AM [facility] BUN 14 5 - 25 mg/dL LAB CHEMISTRY METHOD 09/01/2024 11:32 AM [facility] Creatinine 0.93 0.50 - 1.10 mg/dL LAB CHEMISTRY METHOD 09/01/2024 11:32 AM [facility] eGFR 71 >=60 mL/min/1. 73m2 LAB CHEMISTRY METHOD 09/01/2024 11:32 AM [facility] Comment:Calculation based on the Chronic Kidney Disease Epidemiology Collaboration (CKD-EPI) equation refit without adjustment for race. BUN/Creatinine Ratio 15.1 LAB CHEMISTRY METHOD 09/01/2024 11:32 AM [facility] Calcium 9.2 8.5 - 10.5 mg/dL LAB CHEMISTRY METHOD 09/01/2024 11:32 AM [facility] AST (SGOT) 14 10 - 42 unit/L LAB CHEMISTRY METHOD 09/01/2024 11:32 AM EDT [facility] Comment:Hemolysis present ALT (SGPT) 16 10 - 60 unit/L LAB CHEMISTRY METHOD 09/01/2024 11:32 AM EDT [facility] Alkaline Phosphatase 129(H) 42 - 121 unit/L LAB CHEMISTRY METHOD 09/01/2024 11:32 AM EDT [facility] Total Protein 7.5 6.0 - 8.0 g/dL LAB CHEMISTRY METHOD 09/01/2024 11:32 AM EDT [facility] Albumin 3.6 3.2 - 5.0 g/dL LAB CHEMISTRY METHOD 09/01/2024 11:32 AM [facility] Total Bilirubin 0.4 0.0 - 1.4 mg/dL LAB CHEMISTRY METHOD 09/01/2024 11:32 AM EDT [facility] Blood Venous blood specimen / Unknown Venipuncture / Unknown 09/01/2024 10:26 AM EDT 09/01/2024 10:50 AM EDT us Solo Alvarez DO LAB BLOOD ORDERABLES Final Result [facility] [address] [place] [address], * US Abdomen Limited (08/30/2024 10:37 PM EDT) Anatomical Region Laterality Modality Body Ultrasound 08/30/2024 11:4 5 PM EDT Impressions 08/30/2024 11:45 PM EDT Findings suggestive of fat containing infraumbilical hernia, similar to findings on previous CT abdomen and pelvis dated 08/20/2024. This document has been electronically signed by: Marietta Yap MD on 08/30/2024 23:45:41 Narrative 08/30/2024 11:45 PM EDT INDICATION: Abdominal pain, acute, nonlocalized US abdomen limited Comparison: CT - CT ABD PEL W CONTRAST - 08/20/24 20:40 EDT Findings: Within the area of concern in the infraumbilical region a 3 cm x 1.5 cm x 2.9 cm fat containing hernia is demonstrated. No loculated fluid collection. Procedure Note Marietta Yap MD - 08/30/2024 INDICATION: Abdominal pain, acute, nonlocalized US abdomen limited Comparison: CT - CT ABD PEL W CONTRAST - 08/20/24 20:40 EDT Findings: Within the area of concern in the infraumbilical region a 3 cm x 1.5 cmx 2.9 cm fat containing hernia is demonstrated. No loculated fluid collection. IMPRESSION: Findings suggestive of fat containing infraumbilical hernia, similar to findings on previous CT abdomen and pelvis dated 08/20/2024. This document has been electronically signed by: Marietta Yap MD on 08/30/2024 23:45:41 Antonio SUTTON IMG US PROCEDURES Final R esult * Lipase (08/30/2024 9:29 PM EDT) Lipase 34 13 - 75 unit/L LAB CHEMISTRY METHOD 08/30/2024 10:10 PM EDT [facility] Blood Venous blood specimen / Unknown Venipuncture / Unknown 08/30/2024 9:29 PM EDT 08/30/2024 9:43 PM EDT Kishor Le MD LAB BLOOD ORDERABLES Final Result [facility] [address] [place] [address], [place] [phone] * CT Abdomen Pelvis w Contrast (08/20/2024 8:42 PM EDT) Anatomical Region Laterality Modality Body Computed Tomogra phy 08/20/2024 9:18 PM EDT Impressions 08/20/2024 9:18 PM EDT Impression: 1. Dependent gallstone. 2. Increased stool burden. Diverticulosis coli. Small-bowel enteritis suspected. No evidence of mechanical bowel obstruction. 3. Small fat containing infraumbilical hernia without evidence of omental infarction. This document has been electronically signed by: Tanner Mcclure MD on 08/20/2024 21:18:39 Narrative 08/20/2024 9:18 PM EDT INDICATION: Abdominal pain, hernia suspected CT abdomen and pelvis with IV contrast. Oral contrast was given. Comparison: None Findings: Lung bases show no active disease. No dependent layering pleural effusions. The heart is not enlarged. Coronary artery calcifications: None. Liver normal size and contour. No focal hepatic lesions. Patent hepatic and portal veins. Dependent gallstone. Homogeneous enhancement of the pancreas. No splenomegaly. Normal adrenal glands. Symmetrical renal excretion with no segmental or diffuse renal parenchymal disease or evidence of obstructive uropathy/hydroureteronephrosis. Probable caliectasis upper pole both kidneys. Normal caliber abdominal aorta. Bowel demonstrates a nonobstructive pattern. No free air. Small-bowel enteritis. Normal appendix. Increased stool burden. Diverticulosis coli. No intraperitoneal, retroperitoneal, pelvic or inguinal masses lymphadenopathy or abnormal fluid collections. Small fat containing infraumbilical hernia the body of the hernia measuring 3.2 cm, neck of the hernia measuring 5 mm. No evidence of omental infarction. Partially decompressed urinary bladder. Oral contrast reaches the distal small bowel. No vertebral body compression fractures or spondylolisthesis. No bony destructive lesions. 3.6 cm probable lipoma right lower anterior lateral chest wall Procedure Note Tanner Mcclure MD - 08/20/2024 INDICATION: Abdominal pain, hernia suspected CT abdomen and pelvis with IV contrast. Oral contrast was given. Comparison: None Findings: Lung bases show no active disease. No dependent layering pleural effusions. The heart is not enlarged. Coronary artery calcifications: None. Liver normal size and contour. No focal hepatic lesions. Patent hepatic and portal veins. Dependent gallstone. Homogeneous enhancement of the pancreas. No splenomegaly. Normal adrenal glands. Symmetrical renal excretion with no segmental or diffuse renal parenchymal disease or evidence of obstructive uropathy/hydroureteronephrosis. Probable caliectasis upper pole both kidneys. Normal caliber abdominal aorta. Bowel demonstrates a nonobstructive pattern. No free air. Small-bowel enteritis. Normal appendix. Increased stool burden. Diverticulosis coli. No intraperitoneal, retroperitoneal, pelvic or inguinal masses lymphadenopathy or abnormal fluid collections. Small fat containing infraumbilical hernia the body of the hernia measuring 3.2 cm, neck ofthe hernia measuring 5 mm. No evidence of omental infarction. Partially decompressed urinary bladder. Oral contrast reaches the distal smallbowel. No vertebral body compression fractures or spondylolisthesis. No bony destructive lesions. 3.6 cm probable lipoma right lower anterior lateral chest wall IMPRESSION: Impression: 1. Dependent gallstone. 2. Increased stool burden. Diverticulosis coli. Small-bowel enteritis suspected. No evidence of mechanical bowel obstruction. 3. Small fat containing infraumbilical hernia without evidence ofomental infarction. This document has been electronically signed by: Tanner Mcclure MD on 08/20/2024 21:18:[address] PROCEDURES Final Result * Type and screen (08/20/2024 4:51 PM EDT) ABO Group O 08/20/2024 6:40 PM EDT [facility] Rh Type Positive 08/20/2024 6:40 PM EDT [facility] Antibody Screen Negative 08/20/2024 6:40 PM EDT [facility] Blood Venous blood specimen / Unknown 08/20/2024 4:51 PM EDT 08/20/2024 5:21 PM EDT Octavio Vasquez MD LAB BLOOD BANK TEST ORDERABLES Final Result [facility] [address] [place] [address], [place] [phone] from Last 3 Months Insurance [facility] Care Teams Facilities Planner Relationship Specialty Start Date End Date Physician, No Pcp PCP - General 06/14/24
[2024-10-13 10:25] LABS: MANUAL DIFF FLAG NO
[2024-10-13 10:28] LABS: Hematocrit 38.9 % (37.0-47.0); Hemoglobin 12.5 g/dl (12.0-16.0); Imm Gran Abs Auto 0.01 X10*3/uL (0.00-0.03); Imm Gran Pct Auto 0.3 % (0.0-0.4); Lymphocytes Absolute Auto 1.5 X10*3/uL (1.2-4.9); Mean Corpuscular HGB Conc 32.1 g/dl (31.0-35.0); Mean Corpuscular Hemoglobin 23.2 pg (27.0-33.0); Mean Corpuscular Volume 72.3 fL (80.0-98.0); NRBC Abs Auto 0.000 X10*3/uL (0.0-0.012); NRBC Pct Auto 0.0 /100WBC (0.0-0.2); Platelet Count 263 X10*3/uL (160-400); Red Blood Count 5.38 X10*6/uL (4.20-5.50); White Blood Count 3.5 X10*3/uL (4.8-10.8)
[2024-10-13 10:49] LABS: Hemoglobin A1C 237.0292 umol/L; Total Hemoglobin (HGBA1C) 3177.2537 umol/L
[2024-10-13 10:58] LABS: Alanine Aminotransferase 19 U/L (0-31); Albumin Level 4.2 g/dL (3.5-5.0); Alkaline Phosphatase 101 U/L (39-117); Anion Gap 15 (12-20); Aspartate Amino Transferase 20 U/L (5-31); Blood Urea Nitrogen 12 mg/dL (9-16); Calcium 9.5 mg/dL (8.4-10.2); Carbon Dioxide 24 mmol/L (22-29); Chloride 107 mmol/L (96-108); Cholesterol 116 mg/dL (<200); Estimated Glomerular Filt Rate > 60; HDL Cholesterol 58 mg/dL (>40); Potassium 3.9 mmol/L (3.3-5.1); Sodium 142 mmol/L (135-145); Total Protein 7.1 g/dL (6.5-8.0); Triglycerides 29 mg/dL (<150)
[2024-10-13 11:23] LABS: Folate 12.5 ng/mL (> or = 4.0); Vitamin B12 491 pg/mL (200-900)
== END 2024-10-13 07:57 | disposition home or self-care (01) ==
LOC: HO.HMGCLDS 07:56
PROVIDERS: PCP Internal Medicine; Visit Provider Internal Medicine
DX: R41.3 Other amnesia (principal); E11.9 Type 2 diabetes mellitus without complications; I10 Essential (primary) hypertension
CPT/HCPCS: 36415; 80053; 80061; 82607; 82746; 83036; 84425; 84443; 85025

== ENCOUNTER 2024-10-23 12:38 | Outpatient (AMB) | payer OTHER, SELFPAY ==
--- OUTSIDE RECORDS SUMMARY | 2024-10-20 10:00 | XMS_ITS | Encounter Summary ---
Author Organization [facility] Address [address] [place] [address] Care Team Providers Care Machine Candle Molder Name Role Phone Physician, No Pcp Primary Care Provider Unavaila ble Reason for Visit * Reason Comments Follow-up Hernia Encounter Details Date Type Department Care Team ([facility] st Contact Info) Description 10/20/2024 10:00 AM EDT Office Visit General Surgery - [place] 175 [facility] [address] [place] [phone] Uri Hathaway, DO 175 [facility] [address] [place] [phone] Incisional hernia, without obstruction or gangrene (Primary Dx); Type 2 diabetes mellitus with other specified complication, 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 (CMS/[facility] V24, CMS/[facility] V28) Social History Tobacco Use Types Packs/Day Years [...] Orientation Straight 02/26/2024 9: 32 AM EST documented as of this encounter Last Filed Vital Signs Vital Sign Reading Time Taken Comments Blood Pressure 157/89 10/20/2024 10:00 AM EDT Pulse 74 10/20/2024 10:00 AM EDT Temperature 36.2 C (97.1 F) 10/20/2024 10:00 AM EDT Respiratory Rate 20 10/20/2024 10:00 AM EDT Oxygen Saturation - - Inhaled Oxygen Concentration - - Weight 66.7 kg (147 lb) 10/20/2024 10:00 AM EDT Height 165.1 cm (5' 5 ) 10/20/2024 10:00 AM EDT Body Mass Index 24.46 10/20/2024 10:00 AM EDT documented in this encounter Progress Notes * Uri Hathaway DO - 10/20/2024 10:00 AM EDT Reason for visit: Follow-up -history of known lower abdominal incisional hernia HPI: This is a pleasant 59 y.o. patient who was previously evaluated in my office for infraumbilical incisional hernia that is fat-containing. Unfortunately she has fairly uncontrolled type 2 diabetes forwhich she is followed by endocrinology. I have placed a order for hemoglobin A1c but she had done it done at an outside institution. She believes it is 9.8 down from 10. She has a follow-up with endoc rinology beginning of next month. There have been no interval changes in past medical/surgical history, medications, social history, or family medical history. Please refer to EMR or my prior note for additional details. ROS GENERAL: No significant weight loss or fever RESPIRATORY: No cough or shortness of breath CARDIOVASCULAR: No chest pain GI: No abdominal discomfort, see HPI SKIN: No rash, jaundice ACTIVE MEDICATIONS: Medication list was reviewed/updated with the patient. No outpatient medications have been marked as taking for the 10/20/24 encounter (Office Visit) with Uri Hathaway DO. ALLERGIES: @ALL@ PHYSICAL EXAM: Visit Vitals BP (!) 157/89 Pulse 74 Temp 36.2 ??C (97.1 ??F) (Temporal) Resp 20 Ht 1.651 m (65 ) Wt 66.7 kg (147 lb) BMI 24.46 kg/m?? OB Status Postmenopausal Smoking Status Some Days BSA 1.74 m?? APPEARANCE: Alert and in no acute distress EYES: conjunctiva and sclera normal. HEART: RRR LUNG: non-labored respirations, patient is comfortable on room air without adventitious sounds ABDOMEN: benign again unable to palpate hernia on my examination EXTREMITIES: Extremities warm and well perfused without edema NEURO: Awake, alert and oriented, moves all extremities SKIN: Skin color, texture normal. LABS: Lab Results Component Value Date WBC 5.4 09/01/2024 HGB 12.2 09/01/2024 HCT 39.5 09/01/2024 MCV 74.2 (L) 09/01/2024 Lab Results Component Value Date NA 139 09/01/2024 K 4.0 09/01/2024 CO2 27 09/01/2024 CL 104 09/01/2024 BUN 14 09/01/2024 ALKPHOS 129 (H) 09/01/2024 IMAGING: Narrative & Impression INDICATION: Abdominal pain, hernia suspected CT abdomen [...] by: Tanner Mcclure MD on 08/20/2024 21:18:39 ................................................................................ ............................................................. ASSESSMENT 1. Incisional hernia, without obstruction or gangrene 2. Type 2 diabetes mellitus with other specified complication, unspecified whether usp insulin use ([facility] V24, [facility] V28) PLAN: 1. Patient has infraumbilical incisional hernia on CT abdomen pelvis which she reports is intermittently symptomatic. She follows with endocrinology for her type 2 diabetes. Recent A1c 9.8 down from 10. I explained that I would like her A1c to be at least below 8.0 before we discussed intervention.We can follow-up in 3 to 6 months. It was a pleasure seeing @TITLE@ Adelso [facility] today. The patient has been instructed to call with any additional questions or concerns. @ESI@ cc: documented in this encounter Plan of Treatment Upcoming Encounters Date Type Department Care Team (Late st Contact Info) Description 11/09/2024 9:00 AM EDT Office Visit Orthopedic Surgery - [place] [address] [phone] Antonio Marley DPDevang [address] [address] 01/19/2025 1:00 PM EDT Office Visit General Surgery - [place] [address] [phone] Uri Hathaway DO [address] [phone] documented as of this encounter Visit Diagnoses Diagnosis Incisional hernia, without obstruction or gangrene- Primary Type 2 diabetes mellitus with other specified complication, 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
[2024-10-23 12:50] VITALS: BP 128/66; PULSE 76; RESP 16; TEMP 36.7; O2SAT 99; BMI 24.1
--- NOTE | 2024-10-23 12:50 | A.OFFPC_ITS ---
Vital Signs 10/23/24 12:50 Height 5 ft 5 in Weight 145 lb BMI 24.1 BP 128/66 Blood Pressure Location Lt brachial Position Sitting Respiration 16 Pulse 76 Pulse Source Pulse Oximeter Temp 98.1 F Temp Source Oral Pulse Oximetry (%) 99 Oxygen Delivery Method Room Air Intake Visit Reasons: follow up Intake Note: Pt is here today for a follow up visit. Pt would like to have STD testing done. Allergies No Known Allergies Allergy (Verified 07/29/24 12:38) Medication List - Last Reconciled 10/23/24 by Suasna Rodas MD alcohol swabs (Alcohol Pads) 1 pad topical QID amlodipine 10 mg PO DAILY atorvastatin 10 mg PO BEDTIME blood-glucose meter (FreeStyle [place] kit) As directed cholecalciferol (vitamin D3) 25 mcg PO DAILY cyanocobalamin (vitamin B-12) 1,000 mcg PO DAILY Dexcom G7 Sensor (blood-glucose sensor) TID NS hydroxyzine HCl 10 mg PO BEDTIME insulin glargine (Lantus Solostar U-100 Insulin) 30 units (0.3 mL) subcut BEDTIME insulin lispro (Humalog KwikPen (U-100) Insulin) 1 sliding scale dose subcut USEASDIRECTD MDD 36 units lancets (FreeStyle Lancets) Test blood sugar 3 times per day latanoprost 0.005% 1 drp ophthalmic (eye) DAILY lisinopril 40 mg PO DAILY metformin ER 1,500 mg (2 x 750 mg) PO DAILY multivitamin,tx-minerals 1 tab PO DAILY nicotine (polacrilex) mg PO pen needle, diabetic Use to inject insulin 4 times per day sertraline 50 mg PO DAILY thiamine HCl (vitamin B1) 100 mg PO DAILY timolol 0.5% 1 drp ophthalmic (eye) BID Tobacco use date assessed: 10/23/24 Dental Screening Dental Screen Date: 05/27/24 HPI follow up HPI Details Patient presents for the follow-up on insulin-dependent diabetes hypertension hyperlipidemia. Patient reports improving glucose control with a fasting readings between 120-140. Patient has been using sliding scale with Humalog and taking 23 units of Lantus insulin. She is established with [facility] endocrinology every 3 months [facility] Medical History (Updated 07/29/24 @ 13:49 by Susana Rodas MD) Umbilical hernia Anxiety and depression Hx of screening mammography HTN (hypertension) DM type 2 (diabetes mellitus, type 2) Surgical History (Updated 10/23/24 @ 13:36 by Susana Rodas MD) Hx of abdominal surgery Family History Mother Schizophrenia Mental health disorder Diabetes Hypertension Father No problems noted. Social History Household Members Other:: disable for lower back problems, lives alone, Housing: Apartment Patient Tobacco Use Status: Former Tobacco user Tobacco use type: Cigarette Cigarettes Per Day: 10 e-Cigarette/Vaping Use: Never Used service: No Current occupational status: unemployed Cognitive needs: No Hearing needs: No Vision needs: Yes Questionnaire Thrive Questionnaire Date Thrive assessed: 05/27/24 I am a: Patient What is your living situation today?: I have a steady place to live Within the past 12 months, did the food you bought not last and you didn't have the money to get more?: I choose not to answer this question Within the past 12 months, did you worry whether your food would run out before you got money to buy more?: I choose not to answer this question Do you have trouble paying for medicines?: No Do you have trouble getting transportation to medical appointments?: No Do you have trouble paying your heating and electricity bill?: No Do you have trouble taking care of your child, family member or friend?: No Do you have trouble with day-to-day activities such as bathing, preparing meals, shopping, managing finances, etc.?: No Are you currently unemployed and looking for a job?: Yes Are you interested in more education?: Yes Please select the resources that you would like help with: Food Currently or been in a relationship where the following occur: I choose not to answer THRIVE Score: 0 CONSTANCE-7 AMB Questionnaire CONSTANCE-7 Date CONSTANCE - 7 assessed: 05/27/24 Source: Developed by Drs. Elia Oconnor, Mariaa Siddiqui, Timo Haile and colleagues, with an educational trevor from [employer]. Review of Systems Const All systems reviewed & are unremarkable except as noted in HPI and below ENT Reports no additional complaints Card Reports no additional complaints Resp Reports no additional complaints GI Reports no additional complaints Reports no additional complaints Physical exam (Primary Care) Vital Signs: Last Vital Signs Temp 98.1 F 10/23/24 12:50 Pulse 76 10/23/24 12:50 Resp 16 10/23/24 12:50 BP 128/66 10/23/24 12:50 Pulse Ox 99 10/23/24 12:50 Oxygen Delivery Method Room Air 10/23/24 12:50 BMI result Body Mass Index 24.1 Tobacco/Smoking Status: Tobacco use Status Tobacco use date assessed 10/23/24 10/23/24 12:56 Patient Tobacco Use Status Former Tobacco user 10/23/24 12:56 Tobacco use type Cigarette 10/23/24 12:56 e-Cigarette/Vaping Use Never Used 10/23/24 12:56 Thrive Assessment: Date of Thrive Assessment Date Thrive assessed 05/27/24 10/23/24 12:56 Currently or been in a relationship where the following occur: I choose not to answer Const General: no acute distress HENMT Head: Yes normal to inspection Face and sinus: Yes normal facial exam Eyes General: appearance normal, both eyes and all related structures Neck Neck: Yes supple Resp Effort & Inspection: normal respiratory effort Auscultation: clear to auscultation bilaterally Cardio Rhythm: regular rhythm Heart sounds: S1 normal heart sound present and S2 normal heart sound present GI Inspection: Yes normal to inspection Palpation (GI): Soft to palpation Percussion: Yes normal to percussion Auscultation: normal bowel sounds Extrem Other: Diabetic foot exam: skin is intact monofilament and vibration sensation intact bilaterally Coding Level of Care Code Est Pt Level 4 (42535) Diagnoses Anxiety and depression F41.9; F32.A DM type 2 (diabetes mellitus, type 2) E11.9 HTN (hypertension) I10 Assessment & Plan Assessment & Plan (1) Anxiety and depression: Comment: Follow-up with a counselor any psychiatrist Code(s): F41.9 - Anxiety disorder, unspecified; F32.A - Depression, unspecified Category: Medical Plan: Continue current medications follow-up with a counselor (2) DM type 2 (diabetes mellitus, type 2): Comment: f/u Endo [facility] Code(s): E11.9 - Type 2 diabetes mellitus without complications Category: Medical Plan: A1c is 9.0 down from 11.11. ADA diet regular exercise discussed with the patient. She will continue metformin insulin and has an appointment with [facility] endocrinology next month. Follow-up in 4 months with a fasting labs before (3) HTN (hypertension): Code(s): I10 - Essential (primary) hypertension Category: Medical Plan: Continue current medications Orders: Orders HIV Ab/Ag Today Z00.00 - Encounter for general adult medical examination without abnormal findings Comprehensive [place]. Panel Fast 4 Months E11.9 - Type 2 diabetes mellitus without complications, I10 - Essential (primary) hypertension Hemoglobin A1c 4 Months E11.9 - Type 2 diabetes mellitus without complications, I10 - Essential (primary) hypertension Microalbumin, Random (w Creat) 4 Months E11.9 - Type 2 diabetes mellitus without complications, I10 - Essential (primary) hypertension
== END 2024-10-23 13:45 | disposition home or self-care (01) ==
LOC: HO.HMCC 12:39
PROVIDERS: PCP Internal Medicine; Visit Provider Internal Medicine
DX: F41.9 Anxiety disorder, unspecified (principal); F32.A Depression, unspecified; E11.9 Type 2 diabetes mellitus without complications; I10 Essential (primary) hypertension

== ENCOUNTER 2024-10-23 12:38 | Outpatient (REF) | payer OTHER, SELFPAY ==
[2024-10-24 03:18] LABS: HIV Num 1 0.06 S/CO (0.00-0.99)
== END 2024-10-23 12:39 | disposition home or self-care (01) ==
LOC: HO.HMGCLDS 12:38
PROVIDERS: PCP Internal Medicine; Visit Provider Internal Medicine
DX: F41.9 Anxiety disorder, unspecified (principal); F32.A Depression, unspecified; E11.9 Type 2 diabetes mellitus without complications; I10 Essential (primary) hypertension; Z79.4 Long term (current) use of insulin; Z79.84 Long term (current) use of oral hypoglycemic drugs; Z79.899 Other long term (current) drug therapy; Z11.4 Encounter for screening for human immunodeficiency virus [HIV]
CPT/HCPCS: 36415; 87389; 99212